=== PATIENT | male | born 1945 | race Two or more races ===

== ENCOUNTER 2018-11-10 15:58 | Inpatient (IN) | payer OTHER ==
[~2018-11-10] VITALS: Ht 167.6 cm; Wt 82.1 kg
[~2018-11-10 15:58] MED LIST: DILAUDID1 MG/1 ML PO; DILAUDID2 MG IVP; HYDROMORPHO1 MG/1 M1 IVP; HYDROMORPHO1 MG/1 M4 IJ; LANTUS SOL100 UNIT/1 SUBQ; LOSARTAN POTASS50 MG ORAL; SALINE 10ML FLU10 ML IVF; TYLENOL650 MG/20. RC; ZOFRAN 4 MG4 MG/2 ML IVP; ZOFRAN2 MG/1 M1 IV
[2018-11-10] MEDS ORDERED: METOPROLOL TART25 MG ORAL (16:07)
[2018-11-10] MEDS ORDERED: OMEPRAZOLE10 M1 ORAL (16:07)
--- NOTE | 2018-11-10 16:20 | NUR ---
ED Nurse Note: pt walked in c/o left 2nd toe pain, pt reports he's been having wound more than 15 days but unable to recall exactly how any days. noted 2nd toe blackened discoloration with tenderness and foul odor on 2nd toe, no drainage at this time, will cont monitor.
--- NOTE | 2018-11-10 16:27 | Emergency Room Report ---
History of Present Illness General Chief Complaint: General Complaint Source: Patient, Significant Other, Medical Record Present Illness HPI Patient presents with a discolored and smelly left second toe. This is been developing over the last couple of weeks. He just came up from [place]. He is not taking antibiotics at this time. He has peripheral neuropathy with diabetes and therefore the pain is not severe. There is been no trauma and no drainage from the toe. Not seeing a bulk gas specialist at this time. Complains of occasional chills but no documented fever. There is no drainage from the toe. He does have some swelling in his lower extremities but denies calf pain. The pain 5/10, aching worse when the foot is dependent when there is throbbing. He denies radiation of the pain. Tetanus around 5 years ago. Patient is a insulin-dependent diabetic. His sugars have been mostly high. His helps him to maintain glucose control. He denies renal disease but states that his vision has been changing recently. It is unclear whether he has had retinopathy. No sore throat, chest pain, palpitations, nausea, vomiting, diarrhea, dysuria, abdominal pain, shortness of breath, depression, anxiety, headache. He was last admitted in 2016 for possible cholecystitis. Allergies: Coded Allergies: No Known Allergies (Unverified , 08/14/15) Patient History Past Medical History: see triage record, old chart reviewed Social History: Denies: smoking, alcohol use, drug use Social History Narrative Born in [facility] Reviewed Nursing Documentation: PMH: Agreed; PSxH: Agreed Nursing Documentation-PMH Past Medical History: No History, Except For Hx Hypertension: Yes Hx COPD: No - BPH Hx Diabetes: Yes Review of Systems All Other Systems: negative except mentioned in HPI Physical Exam Vital Signs Date Time Temp Pulse Resp B/P (MAP) Pulse Ox O2 Delivery O2 Flow Rate FiO2 11/10/18 16:04 98.2 107 18 163/69 (100) 98 Room Air Sp02 EP Interpretation: reviewed, normal General Appearance: well appearing, no apparent distress, GCS 15 Head: normocephalic Eyes: bilateral eye normal inspection, bilateral eye PERRL, bilateral eye EOMI ENT: moist mucus membranes Neck: supple Respiratory: lungs clear, normal breath sounds Cardiovascular #1: regular rate, rhythm, no JVD, no murmur, edema - 1-2+ Cardiovascular #2: 2+ dorsalis pedis (R), 2+ dorsalis pedis (L) Gastrointestinal: normal inspection, normal bowel sounds, non tender, no mass, non-distended Musculoskeletal: back normal, gait/station normal, normal range of motion Neurologic: alert, oriented x3 Psychiatric: mood/affect normal Skin: other - Gangrenous left second toe with some erythema of the foot Medical Decision Making Diagnostic Impression: Primary Impression: Gangrene of toe of left foot Additional Impressions: Elevated lactic acid level Hyperglycemia Renal failure Qualified Codes: N19 - Unspecified kidney failure ER Course Patient presents with gangrenous left second toe. Frontal includes acute gas gangrene, dry gangrene, osteomyelitis amongst others. Evaluation will be with EKG, chest x-ray, foot x-ray and labs. The patient will receive antibiotics after blood cultures have been performed. EKG without injury. CXR no infiltrate. Foot with changes toe soft tissue. Min elevated WBC. Elevated ESR. Renal failure. Elevated glucose. Elevated lactic acid. VS stable. Bolus given. Antibiotics begun. Evaluated by Dr. Castillo. Consult Dr. Islas. Admit med floor. Improved lactate. Discussed with patient renal disease. Laboratory Tests Test 11/10/18 16:33 11/10/18 16:38 11/10/18 18:00 11/10/18 18:10 White Blood Count 10.2 K/UL (4.8-10.8) Red Blood Count 3.85 M/UL (4.70-6.10) L Hemoglobin 11.2 G/DL (14.2-18.0) L Hematocrit 32.5 % (42.0-52.0) L Mean Corpuscular Volume 84 FL (80-99) Mean Corpuscular Hemoglobin 29.0 PG (27.0-31.0) Mean Corpuscular Hemoglobin Concent 34.4 G/DL (32.0-36.0) Red Cell Distribution Width 10.4 % (11.6-14.8) L Platelet Count 297 K/UL (150-450) Mean Platelet Volume 6.5 FL (6.5-10.1) Neutrophils (%) (Auto) 63.7 % (45.0-75.0) Lymphocytes (%) (Auto) 25.3 % (20.0-45.0) Monocytes (%) (Auto) 8.7 % (1.0-10.0) Eosinophils (%) (Auto) 1.6 % (0.0-3.0) Basophils (%) (Auto) 0.8 % (0.0-2.0) Erythrocyte Sedimentation Rate 91 MM/HR (0-20) H Prothrombin Time 10.2 SEC (9.30-11.50) Prothrombin Time INR 1.0 (0.9-1.1) PTT 29 SEC (23-33) Sodium Level 138 MMOL/L (136-145) Potassium Level 4.6 MMOL/L (3.5-5.1) Chloride Level 104 MMOL/L (98-107) Carbon Dioxide Level 22 MMOL/L (21-32) Anion Gap 12 mmol/L (5-15) Blood Urea Nitrogen 39 mg/dL (7-18) H Creatinine 2.9 MG/DL (0.55-1.30) H Estimate Glomerular Filtration Rate mL/min (>60) Glucose Level 232 MG/DL (74-106) H Lactic Acid Level 2.10 mmol/L (0.4-2.0) H 1.50 mmol/L (0.66-2.22) Calcium Level 9.7 MG/DL (8.5-10.1) Magnesium Level 2.0 MG/DL (1.8-2.4) Total Bilirubin 0.3 MG/DL (0.2-1.0) Aspartate Amino Transferase (AST) 14 U/L (15-37) L Alanine Aminotransferase (ALT) 18 U/L (12-78) Alkaline Phosphatase 65 U/L (46-116) Total Creatine Kinase 135 U/L (26-308) Creatine Kinase MB 2.3 NG/ML (0.0-3.6) Creatine Kinase MB Relative Index 1.7 Troponin I 0.000 ng/mL (0.000-0.056) Pro-B-Type Natriuretic Peptide 1074 pg/mL (0-125) H Total Protein 7.9 G/DL (6.4-8.2) Albumin 3.4 G/DL (3.4-5.0) Globulin 4.5 g/dL Albumin/Globulin Ratio 0.8 (1.0-2.7) L Lipase 134 U/L (73-393) C-Reactive Protein, Quantitative 3.3 mg/dL (0.00-0.90) H Urine Color Pale yellow Urine Appearance Clear Urine pH 5 (4.5-8.0) Urine Specific [place] 1.015 (1.005-1.035) Urine Protein 2+ (NEGATIVE) H Urine Glucose (UA) 4+ (NEGATIVE) H Urine Ketones Negative (NEGATIVE) Urine Blood 1+ (NEGATIVE) H Urine Nitrite Negative (NEGATIVE) Urine Bilirubin Negative (NEGATIVE) Urine Urobilinogen Normal MG/DL (0.0-1.0) Urine Leukocyte Esterase Negative (NEGATIVE) Urine RBC 0 /HPF (0 - 0) Urine WBC 0-2 /HPF (0 - 0) Urine Squamous Epithelial Cells Few /LPF (NONE/OCC) Urine Amorphous Sediment Few /LPF (NONE) H Urine Bacteria Few /HPF (NONE) Urine Random Creatinine Pending Urine Random Microalbumin Pending Urine Random Sodium 60 mmol/L (20-110) Urine Creatinine 78.7 MG/DL (30.0-125.0) Urine Microalbumin/Creatinine Ratio Pending EKG Diagnostic Results Rate: tachycardiac Rhythm: NSR ST Segments: no acute changes - low voltage Rhythm Strip Diag. Results EP Interpretation: yes Rhythm: no PVC's, no ectopy, other - Sinus tachycardia Chest X-Ray Diagnostic Results Chest X-Ray Diagnostic Results : Chest X-Ray Ordered: Yes # of Views/Limited/Complete: 1 View Indication: Other EP Interpretation: Yes Interpretation: no consolidation, no effusion, no pneumothorax Impression: No acute disease Electronically Signed by: Electronically signed by Cm Meng MD Other X-Ray Diagnostic Results Other X-Ray Diagnostic Results : X-Ray ordered: Left foot # of Views/Limited Vs Complete: 3 View Indication: Other EP Interpretation: Yes Interpretation: no dislocation, no fractures, other - Osteopenia, vascular calcifications and soft tissue changes second toe Impression: Other Electronically Signed by: Electronically signed by Cm Meng MD Last Vital Signs Date Time Temp Pulse Resp B/P (MAP) Pulse Ox O2 Delivery O2 Flow Rate FiO2 11/11/18 00:00 99.0 95 18 125/60 (81) 97 11/10/18 23:04 Room Air Status: improved Disposition: ADMITTED INPATIENT Condition: Serious Cm Meng MD Nov 10, 2018 16:27
[2018-11-10] MEDS ORDERED: Cefepime HCl 1 GM in NS 55 ML IV SCH (16:30)
[2018-11-10] MEDS ORDERED: Vancomycin 1 GM in NS 275 ML IV ONE (16:30)
[2018-11-10 16:48] LABS: BASOPHILS % (AUTO) 0.8 % (0.0-2.0); EOSINOPHILS % (AUTO) 1.6 % (0.0-3.0); HEMATOCRIT 32.5 % (42.0-52.0); HEMOGLOBIN 11.2 G/DL (14.2-18.0); LYMPHOCYTES % (AUTO) 25.3 % (20.0-45.0); MEAN CORPUSCULAR VOLUME 84 FL (80-99); MONOCYTES % (AUTO) 8.7 % (1.0-10.0); NEUTROPHILS % (AUTO) 63.7 % (45.0-75.0); PLATELET COUNT 297 K/UL (150-450); RED BLOOD COUNT 3.85 M/UL (4.70-6.10); RED CELL DISTRIBUTION WIDTH 10.4 % (11.6-14.8); WHITE BLOOD COUNT 10.2 K/UL (4.8-10.8)
--- NOTE | 2018-11-10 16:54 | Diagnostic Imaging Report ---
EXAM: XR Left Foot Complete, 3 or More Views CLINICAL HISTORY: OSTEOMY TECHNIQUE: Frontal, lateral and oblique views of the left foot. COMPARISON: No relevant prior studies available. FINDINGS: Bones/joints: No acute fracture. Degenerative changes. Plantar and posterior calcaneal spurs. Osteopenia. Soft tissues: Soft tissue swelling. Vasculature: Vascular calcifications. IMPRESSION: No acute fracture.
--- NOTE | 2018-11-10 16:55 | Diagnostic Imaging Report ---
EXAM: XR Chest, 1 View CLINICAL HISTORY: OSTEOMY TECHNIQUE: Frontal view of the chest. COMPARISON: No relevant prior studies available. FINDINGS: Lungs: No consolidation. Pleural space: Unremarkable. No pneumothorax. Heart: Unremarkable. No cardiomegaly. Mediastinum: Unremarkable. Bones/joints: No acute fracture. IMPRESSION: No acute cardiopulmonary disease.
[2018-11-10 17:00] VITALS: BP 141/62
[2018-11-10] MEDS ORDERED: Sodium Chloride 2,200 ML IVLG ONE (17:15)
--- NOTE | 2018-11-10 17:23 | NUR ---
HAND-OFF: Report given to KRISTIAN Calderon and endorsed care.
[2018-11-10 17:31] LABS: ANION GAP 12 mmol/L (5-15); BLOOD UREA NITROGEN 39 mg/dL (7-18); CALCIUM 9.7 MG/DL (8.5-10.1); CARBON DIOXIDE 22 MMOL/L (21-32); CHLORIDE 104 MMOL/L (98-107); CREATININE 2.9 MG/DL (0.55-1.30); POTASSIUM 4.6 MMOL/L (3.5-5.1); SODIUM 138 MMOL/L (136-145)
[2018-11-10 17:45] LABS: ALANINE AMINOTRANSFERASE 18 U/L (12-78); ALBUMIN 3.4 G/DL (3.4-5.0); ALBUMIN/GLOBULIN RATIO 0.8 (1.0-2.7); ALKALINE PHOSPHATASE 65 U/L (46-116); ASPARTATE AMINO TRANSFERASE 14 U/L (15-37); BILIRUBIN,TOTAL 0.3 MG/DL (0.2-1.0); CKMB 2.3 NG/ML (0.0-3.6); CREATINE KINASE 135 U/L (26-308)
[2018-11-10 18:18] LABS: APPEARANCE,URINE CLEAR; BILIRUBIN, URINE NEGATIVE (NEGATIVE); COLOR,URINE PALE YELLOW; GLUCOSE, URINE (UA) 4+ (NEGATIVE); KETONES,URINE NEGATIVE (NEGATIVE); LEUKOCYTE ESTERASE ,URINE NEGATIVE (NEGATIVE); NITRITE,URINE NEGATIVE (NEGATIVE); PH,URINE 5 (4.5-8.0); PROTEIN,URINE 2+ (NEGATIVE); UROBILINOGEN,URINE NORMAL MG/DL (0.0-1.0)
[2018-11-10] MEDS ORDERED: Morphine Sulfate 2mg/ml Inj(IV/IM USE ONLY) IVP PRN ×2 (18:30)
[2018-11-10] MEDS ORDERED: HYDROcodone/Acetamin 5/325 tab ORAL PRN (18:30)
[2018-11-10] MEDS ORDERED: Miralax 17gm pkt ORAL PRN (18:30)
--- NOTE | 2018-11-10 18:43 | History and Physical ---
History of Present Illness General Date patient seen: Nov 10, 2018 Time patient seen: 17:20 Reason for Hospitalization: General Complaint Present Illness HPI 72 y/o M urdu speaker from [place] who presents with a discolored and smelly left second toe. This is been developing over the last couple of weeks after he used clippers to cut his toe nail and the whole nail was extracted accidentally. He just came up from [place]. He is not taking antibiotics at this time. He has peripheral neuropathy with diabetes and therefore the pain is not severe. He reports problems with his vision but denies eye surgeries in the past. There is been no trauma and no drainage from the toe and there is foul smell identified. Not seeing a client engagement specialist at this time. Tetanus around 5 years ago. Patient is a insulin-dependent diabetic. His sugars have been mostly high. His helps him to maintain glucose control. Takes NPH 40 units AM and 20 units PM. He denies renal disease but states that his vision has been changing recently. It is unclear whether he has had retinopathy or not. In the ED, antibiotics were started and admission is requested. Allergies: Coded Allergies: No Known Allergies (Unverified , 08/14/15) Medication History Scheduled Hydromorphone Hcl/Pf (Hydromorphone Hcl 1 Mg/Ml Amp), 1 MG IVP Q4HR, (Reported) Losartan Potassium* (Losartan Potassium*), 100 MG ORAL DAILY, (Reported) Metoprolol Tartrate* (Metoprolol Tartrate*), Unknown Dose ORAL EVERY 12 HOURS, ( Reported) Omeprazole (Omeprazole), Unknown Dose ORAL DAILY, (Reported) Saline (Sodium Chloride), 10 ML IVF Q8HR, (Reported) Scheduled PRN Acetaminophen (Acetaminophen), 650 MG RC QID PRN for Fever/Headache/Mild Pain, ( Reported) Miscellaneous Medications Insulin Glargine (Lantus), 30 SUBQ, (Reported) Ondansetron* (Zofran*), 4 MG IVP, (Reported) Patient History Healthcare decision maker Resuscitation status Advanced Directive on File Review of Systems All Other Systems: negative except mentioned in HPI Physical Exam General Appearance: WD/WN Lines, tubes and drains: peripheral, central line HEENT: normocephalic, atraumatic Respiratory/Chest: lungs clear Cardiovascular/Chest: normal peripheral pulses, normal rate, other - Left foot TA and DP 1 + Abdomen: non tender, soft Extremities: other - Left second toe with necrosis in the ungual bed and with foul smell Neurologic: fare register repairer II-XII grossly normal, alert, oriented x 3, responsive Last 24 Hour Vital Signs Date Time Temp Pulse Resp B/P (MAP) Pulse Ox O2 Delivery O2 Flow Rate FiO2 11/10/18 17:00 98.2 104 18 141/62 98 Room Air 11/10/18 17:00 104 18 Room Air 11/10/18 16:04 98.2 107 18 163/69 (100) 98 Room Air Laboratory Tests Test 11/10/18 16:33 11/10/18 18:00 White Blood Count 10.2 K/UL (4.8-10.8) Red Blood Count 3.85 M/UL (4.70-6.10) L Hemoglobin 11.2 G/DL (14.2-18.0) L Hematocrit 32.5 % (42.0-52.0) L Mean Corpuscular Volume 84 FL (80-99) Mean Corpuscular Hemoglobin 29.0 PG (27.0-31.0) Mean Corpuscular Hemoglobin Concent 34.4 G/DL (32.0-36.0) Red Cell Distribution Width 10.4 % (11.6-14.8) L Platelet Count 297 K/UL (150-450) Mean Platelet Volume 6.5 FL (6.5-10.1) Neutrophils (%) (Auto) 63.7 % (45.0-75.0) Lymphocytes (%) (Auto) 25.3 % (20.0-45.0) Monocytes (%) (Auto) 8.7 % (1.0-10.0) Eosinophils (%) (Auto) 1.6 % (0.0-3.0) Basophils (%) (Auto) 0.8 % (0.0-2.0) Erythrocyte Sedimentation Rate 91 MM/HR (0-20) H Prothrombin Time 10.2 SEC (9.30-11.50) Prothromb Time International Ratio 1.0 (0.9-1.1) Activated Partial Thromboplast Time 29 SEC (23-33) Sodium Level 138 MMOL/L (136-145) Potassium Level 4.6 MMOL/L (3.5-5.1) Chloride Level 104 MMOL/L (98-107) Carbon Dioxide Level 22 MMOL/L (21-32) Anion Gap 12 mmol/L (5-15) Blood Urea Nitrogen 39 mg/dL (7-18) H Creatinine 2.9 MG/DL (0.55-1.30) H Estimat Glomerular Filtration Rate mL/min (>60) Glucose Level 232 MG/DL (74-106) H Lactic Acid Level 2.10 mmol/L (0.4-2.0) H Calcium Level 9.7 MG/DL (8.5-10.1) Magnesium Level 2.0 MG/DL (1.8-2.4) Total Bilirubin 0.3 MG/DL (0.2-1.0) Aspartate Amino Transf (AST/SGOT) 14 U/L (15-37) L Alanine Aminotransferase (ALT/SGPT) 18 U/L (12-78) Alkaline Phosphatase 65 U/L (46-116) Total Creatine Kinase 135 U/L (26-308) Creatine Kinase MB 2.3 NG/ML (0.0-3.6) Creatine Kinase MB Relative Index 1.7 Troponin I 0.000 ng/mL (0.000-0.056) Pro-B-Type Natriuretic Peptide 1074 pg/mL (0-125) H Total Protein 7.9 G/DL (6.4-8.2) Albumin 3.4 G/DL (3.4-5.0) Globulin 4.5 g/dL Albumin/Globulin Ratio 0.8 (1.0-2.7) L Lipase 134 U/L (73-393) Urine Color Pale yellow Urine Appearance Clear Urine pH 5 (4.5-8.0) Urine Specific [place] 1.015 (1.005-1.035) Urine Protein 2+ (NEGATIVE) H Urine Glucose (UA) 4+ (NEGATIVE) H Urine Ketones Negative (NEGATIVE) Urine Blood 1+ (NEGATIVE) H Urine Nitrite Negative (NEGATIVE) Urine Bilirubin Negative (NEGATIVE) Urine Urobilinogen Normal MG/DL (0.0-1.0) Urine Leukocyte Esterase Negative (NEGATIVE) Urine RBC 0 /HPF (0 - 0) Urine WBC 0-2 /HPF (0 - 0) Urine Squamous Epithelial Cells Few /LPF (NONE/OCC) Urine Amorphous Sediment Few /LPF (NONE) H Urine Bacteria Few /HPF (NONE) Height (Feet): 5 Height (Inches): 6.00 Weight (Pounds): 160 Medications Current Medications Medications (Trade) Dose Ordered Sig/Sathish Route PRN Reason Start Time Stop Time Status Last Admin Dose Admin Acetaminophen (Tylenol) 650 mg Q4H PRN ORAL Mild Pain (Pain Scale 1-3) 11/10/18 18:30 12/10/18 18:29 Acetaminophen/ Hydrocodone Bitart (Egan 5/325) 1 tab QIDPRN PRN ORAL pain 11/10/18 18:30 11/17/18 18:29 Cefepime HCl 1 gm/ Sodium Chloride 55 ml @ 110 mls/hr Q12H IV 11/10/18 16:30 11/11/18 16:29 11/10/18 16:39 Dextrose (Dextrose 50%) 25 ml Q30M PRN IV Hypoglycemia 11/10/18 18:30 12/10/18 18:29 Dextrose (Dextrose 50%) 50 ml Q30M PRN IV Hypoglycemia 11/10/18 18:30 12/10/18 18:29 Enoxaparin Sodium (Lovenox) 30 mg QHS SUBQ 11/10/18 21:00 12/10/18 20:59 Morphine Sulfate (Morphine Sulfate) 1 mg Q2H PRN IVP For Pain 11/10/18 18:30 11/17/18 18:29 Pantoprazole (Protonix) 40 mg DAILY ORAL 11/11/18 09:00 12/11/18 08:59 Polyethylene Glycol (Miralax) 17 gm HSPRN PRN ORAL Constipation 11/10/18 18:30 12/10/18 18:29 Sodium Chloride 1,000 ml @ 100 mls/hr Q10H IVLG 11/10/18 20:00 11/11/18 19:59 Sodium Chloride 1,000 ml @ 300 mls/hr Q3H20M IV 11/10/18 16:30 12/10/18 16:29 11/10/18 16:39 Assessment/Plan Status: stable Assessment/Plan: 72 y/o male admitted with L second toe foul smelling necrosis. # L second toe distal dry gangrene # Diabetic foot ulcer Cefepime and Vancomycin started in the ER, will renally dose ESR and CRP added Consider ID consult in AM if needed after surgical evaluation by Dr. Islas. Possible need for vascular and podiatry consult # Diabetic nephropathy # CKD 4 Patient denies prior renal disease and nephrology was consulted. Dr. Frankel IVF and monitor BMP Add UA with microalbumin # IDDM Likely poorly controlled due to renal, ophtalmic and peripheral vascular disease HbA1c Titrate insulin and consider endocrinology input if A1c > 10 # Disposition Inpatient PT evaluation for possible need of assistive devices. FULL CODE DVT and GI ppx Freda Castillo MD Nov 10, 2018 18:43
[2018-11-10 18:55] VITALS: BP 138/77
--- NOTE | 2018-11-10 19:08 | NUR ---
HAND-OFF: Report given to KRISTIAN Moreno. no orders to carry. report to [place] unit will be given at 1930.
--- NOTE | 2018-11-10 19:38 | NUR ---
ER Nurse Note: Pt a&ox4, VSS, baseline HR >100, RA, no signs of distress. Pt denies pain, n/v, no resp distress. Pt uses urinal at bedside. Black toe on LT foot, second digit, denies pain. Hx of DM. Dinner tray at bedside. Report given to KRISTIAN Gonzalez in [place] for continuity of care.
[2018-11-10 19:40] VITALS: BP 146/72
--- NOTE | 2018-11-10 20:00 | NUR ---
NURSE NOTES: Patient came from ER via gurney. A&OX4. IV site patent and intact. Belongings are checked. Noted infected 2nd left toe, picture taken. Bed in lowest position. Call light within reach. Will continue to monitor.
[2018-11-10] MEDS ORDERED: Cefepime 1gm vial IM ONE (21:00)
[2018-11-10] MEDS: Enoxaparin 30mg Inj SUBQ SCH (21:55)
[2018-11-11] VITALS: BP 125/60
[2018-11-11 04:00] VITALS: BP 130/62
[2018-11-11] MEDS: Insulin NPH SUBQ SCH ×2 (06:19→17:47)
[2018-11-11 07:27] LABS: ANION GAP 9 mmol/L (5-15); BLOOD UREA NITROGEN 27 mg/dL (7-18); CALCIUM 8.3 MG/DL (8.5-10.1); CARBON DIOXIDE 21 MMOL/L (21-32); CHLORIDE 111 MMOL/L (98-107); CHOLESTEROL 106 MG/DL (< 200); CREATININE 2.3 MG/DL (0.55-1.30); HDL CHOLESTEROL 21 MG/DL (40-60); SODIUM 141 MMOL/L (136-145); TRIGLYCERIDES 138 MG/DL (30-150)
[2018-11-11 07:30] LABS: BASOPHILS % (AUTO) 0.9 % (0.0-2.0); EOSINOPHILS % (AUTO) 1.6 % (0.0-3.0); HEMATOCRIT 29.5 % (42.0-52.0); HEMOGLOBIN 9.8 G/DL (14.2-18.0); LYMPHOCYTES % (AUTO) 19.2 % (20.0-45.0); MEAN CORPUSCULAR VOLUME 88 FL (80-99); MONOCYTES % (AUTO) 7.3 % (1.0-10.0); PLATELET COUNT 265 K/UL (150-450); RED BLOOD COUNT 3.37 M/UL (4.70-6.10); RED CELL DISTRIBUTION WIDTH 11.2 % (11.6-14.8); WHITE BLOOD COUNT 8.9 K/UL (4.8-10.8)
--- NOTE | 2018-11-11 07:30 | NUR ---
HAND-OFF: Report given to Lay De La O RN.
--- NOTE | 2018-11-11 07:35 | NUR ---
NURSE NOTES: Received patient in bed, awake, alert and oriented x4. Not in respiratory/cardiac distress. No s/s of hypo/hyperglycemia. Patient is in mild pain on his left 2nd toe but bearable without pain medication @ this time. Bed is in lowest position and locked. Call light within reach. Will continue plan of care.
[2018-11-11 08:00] VITALS: BP 131/60
[2018-11-11] MEDS ORDERED: Vancomycin 1.25gm/NS Premix IVPB ONE (09:00)
[2018-11-11] MEDS: Losartan 50mg tab ORAL SCH (09:08)
--- NOTE | 2018-11-11 10:00 | NUR ---
NURSE NOTES: Rn offered lactulos and docusate. Patient only consumed half of it. Patient refused to take more waving her hands and closing her mouth and pushed the medication cup. RN explained the risks and benefits.Patient had 4 times of bowel movement.Will continue to monitor.
[2018-11-11 12:00] VITALS: BP 110/50
[2018-11-11 16:00] VITALS: BP 134/59
[2018-11-11] MEDS: Cefepime 1gm in D5W 55ml IVPB SCH (16:12)
--- NOTE | 2018-11-11 17:12 | NUR ---
PT Note PT eval completed, treatment initiated. Patient is untrained in the use of a FWW with PWB on the LLE. Patient needs PT to instruct and train patient on the use of the FWW to minimize pressure on the left foot. Addendum: 11/11/18 at 1713 by NOBLE LEVI PT Amended: Links added.
--- NOTE | 2018-11-11 18:23 | Consultation ---
History of Present Illness General Reason for Hospitalization: General Complaint Present Illness HPI 72 year old male presents with a discolored, necrotic, and foul smelling left second toe/ray. This is been developing over the last couple of weeks. He just came up from [place]. He is not taking antibiotics at this time. He has peripheral neuropathy with diabetes and therefore the pain is not severe. There is been no trauma and no drainage from the toe. Not seeing a audio visual specialist at this time. Complains of occasional chills but no documented fever. There is no drainage from the toe. He does have some swelling in his lower extremities but denies calf pain. The pain 5/10, aching worse when the foot is dependent when there is throbbing. He denies radiation of the pain. Tetanus around 5 years ago. Patient is a insulin-dependent diabetic. His sugars have been mostly high. His helps him to maintain glucose control. He denies renal disease but states that his vision has been changing recently. It is unclear whether he has had retinopathy. Surgery called to evaluate and assist with care patient states he is happy to be in hospital and wants care for his wound as he does not understand how this happened. Allergies: Coded Allergies: No Known Allergies (Unverified , 08/14/15) Medication History Scheduled Hydromorphone Hcl/Pf (Hydromorphone Hcl 1 Mg/Ml Amp), 1 MG IVP Q4HR, (Reported) Losartan Potassium* (Losartan Potassium*), 100 MG ORAL DAILY, (Reported) Metoprolol Tartrate* (Metoprolol Tartrate*), Unknown Dose ORAL EVERY 12 HOURS, ( Reported) Omeprazole (Omeprazole), Unknown Dose ORAL DAILY, (Reported) Saline (Sodium Chloride), 10 ML IVF Q8HR, (Reported) Scheduled PRN Acetaminophen (Acetaminophen), 650 MG RC QID PRN for Fever/Headache/Mild Pain, ( Reported) Miscellaneous Medications Insulin Glargine (Lantus), 30 SUBQ, (Reported) Ondansetron* (Zofran*), 4 MG IVP, (Reported) Patient History History Provided By: Patient, Medical Record, PMD Healthcare decision maker Resuscitation status Full Code Advanced Directive on File Past Medical/Surgical History Past Medical/Surgical History: (1) Cholecystitis with cholelithiasis (2) Dehydration (3) Fever (4) Cholelithiasis (5) HTN (hypertension) (6) DM (diabetes mellitus) (7) Elevated LFTs (8) Renal insufficiency (9) Biliary colic (10) Hyperglycemia (11) Renal failure (12) Elevated lactic acid level (13) Gangrene of toe of left foot Review of Systems Review of Symptoms General ROS: no weight loss or fever Psychological ROS: no depression or mood changes, no memory loss Ophthalmic ROS: no visual changes or eye irritation ENT ROS: no nasal congestion, hearing loss, dizziness Allergy and Immunology ROS: no allergic symptoms or urticaria Hematological and Lymphatic ROS: no swollen glands, unusual bleeding or bruising Endocrine ROS: no polyuria, polydipsia, weight changes, temperature intolerance Respiratory ROS: no cough, shortness of breath, or wheezing Cardiovascular ROS: no chest pain or dyspnea on exertion Gastrointestinal ROS: denies abdominal pain, no bright red blood in stool. Musculoskeletal ROS: no myalgias or arthralgias Neurological ROS: no TIA or stroke symptoms Dermatological ROS: no new or changing skin lesions, rashes or pruritis Physical Exam Physical Exam General appearance: alert, cooperative, no distress, appears stated age Head: Normocephalic, without obvious abnormality, atraumatic Eyes: conjunctivae/corneas clear. PERRL, EOM's intact. Fundi benign Throat: Lips, mucosa, and tongue normal. Teeth and gums normal Neck: supple, symmetrical, trachea midline, no adenopathy, thyroid: not enlarged, symmetric, no tenderness/mass/nodules, no carotid bruit and no JVD Lungs: clear to auscultation bilaterally Heart: regular rate and rhythm, S1, S2 normal, no murmur, click, rub or gallop Abdomen: soft, non-tender. Bowel sounds normal. No masses, no organomegaly Extremities: extremities normal, atraumatic, necrotic left second toe. foul odor. no drainage Pulses: 2+ and symmetric Skin: Skin color, texture, turgor normal. No rashes or lesions Neurologic: Grossly normal Last 24 Hour Vital Signs Date Time Temp Pulse Resp B/P (MAP) Pulse Ox O2 Delivery O2 Flow Rate FiO2 11/11/18 16:00 98.8 83 19 134/59 (84) 99 11/11/18 12:00 98.0 80 17 110/50 (70) 99 11/11/18 09:08 131/60 11/11/18 09:00 Room Air 11/11/18 08:00 97.9 81 19 131/60 (83) 97 11/11/18 04:00 98.2 84 18 130/62 (84) 97 11/11/18 00:00 99.0 95 18 125/60 (81) 97 11/10/18 23:04 Room Air 11/10/18 21:54 111 130/63 11/10/18 21:00 Room Air 11/10/18 19:40 98.1 110 18 146/72 98 Room Air 11/10/18 19:40 98.1 110 18 146/72 98 Room Air 11/10/18 18:55 98.0 101 18 138/77 98 Room Air Intake and Output 11/10/18 11/11/18 19:00 07:00 Intake Total 3860 ml 1020 ml Balance 3860 ml 1020 ml Intake Oral 30 ml 120 ml IV Total 3830 ml 900 ml # Voids 3 # Bowel Movements 1 Laboratory Tests Test 11/10/18 22:50 11/11/18 06:00 Lactic Acid Level 1.50 mmol/L (0.4-2.0) White Blood Count 8.9 K/UL (4.8-10.8) Red Blood Count 3.37 M/UL (4.70-6.10) L Hemoglobin 9.8 G/DL (14.2-18.0) L Hematocrit 29.5 % (42.0-52.0) L Mean Corpuscular Volume 88 FL (80-99) Mean Corpuscular Hemoglobin 28.9 PG (27.0-31.0) Mean Corpuscular Hemoglobin Concent 33.1 G/DL (32.0-36.0) Red Cell Distribution Width 11.2 % (11.6-14.8) L Platelet Count 265 K/UL (150-450) Mean Platelet Volume 6.5 FL (6.5-10.1) Neutrophils (%) (Auto) 71.0 % (45.0-75.0) Lymphocytes (%) (Auto) 19.2 % (20.0-45.0) L Monocytes (%) (Auto) 7.3 % (1.0-10.0) Eosinophils (%) (Auto) 1.6 % (0.0-3.0) Basophils (%) (Auto) 0.9 % (0.0-2.0) Sodium Level 141 MMOL/L (136-145) Potassium Level 4.0 MMOL/L (3.5-5.1) Chloride Level 111 MMOL/L (98-107) H Carbon Dioxide Level 21 MMOL/L (21-32) Anion Gap 9 mmol/L (5-15) Blood Urea Nitrogen 27 mg/dL (7-18) H Creatinine 2.3 MG/DL (0.55-1.30) H Estimat Glomerular Filtration Rate mL/min (>60) Glucose Level 147 MG/DL (74-106) H Hemoglobin A1c 10.4 % (4.3-6.0) H Calcium Level 8.3 MG/DL (8.5-10.1) L Triglycerides Level 138 MG/DL (30-150) Cholesterol Level 106 MG/DL (< 200) LDL Cholesterol 63 mg/dL (<100) HDL Cholesterol 21 MG/DL (40-60) L Cholesterol/HDL Ratio 5.0 (3.3-4.4) H Random Vancomycin Level 6.9 ug/mL Height (Feet): 5 Height (Inches): 6.00 Weight (Pounds): 160 Medications Current Medications Medications (Trade) Dose Ordered Sig/Satihsh Route PRN Reason Start Time Stop Time Status Last Admin Dose Admin Acetaminophen (Tylenol) 650 mg Q4H PRN ORAL Mild Pain (Pain Scale 1-3) 11/10/18 18:30 12/10/18 18:29 Acetaminophen/ Hydrocodone Bitart ([place] 5/325) 1 tab QIDPRN PRN ORAL pain 11/10/18 18:30 11/17/18 18:29 Cefepime HCl 1 gm/ Dextrose 55 ml @ 110 mls/hr Q24H IVPB 11/11/18 16:00 11/18/18 15:59 11/11/18 16:12 Dextrose (Dextrose 50%) 25 ml Q30M PRN IV Hypoglycemia 11/10/18 18:30 12/10/18 18:29 Dextrose (Dextrose 50%) 50 ml Q30M PRN IV Hypoglycemia 11/10/18 18:30 12/10/18 18:29 Enoxaparin Sodium (Lovenox) 30 mg QHS SUBQ 11/10/18 21:00 12/10/18 20:59 11/10/18 21:55 Insulin Human NPH (Humulin N) 20 units BEFORE DINNER SUBQ 11/11/18 16:30 12/11/18 16:29 11/11/18 17:47 Insulin Human NPH (Humulin N) 40 units BEFORE BREAKFAST SUBQ 11/11/18 06:30 12/11/18 06:29 11/11/18 06:19 Losartan Potassium (Cozaar) 100 mg DAILY ORAL 11/11/18 09:00 12/11/18 08:59 11/11/18 09:08 Metoprolol Tartrate (Lopressor) 100 mg BEDTIME ORAL 11/11/18 21:00 12/11/18 20:59 Morphine Sulfate (Morphine Sulfate) 1 mg Q2H PRN IVP For Pain 11/10/18 18:30 11/17/18 18:29 Pantoprazole (Protonix) 40 mg DAILY ORAL 11/11/18 09:00 12/11/18 08:59 11/11/18 09:08 Polyethylene Glycol (Miralax) 17 gm HSPRN PRN ORAL Constipation 11/10/18 18:30 12/10/18 18:29 Sodium Chloride 1,000 ml @ 100 mls/hr Q10H IVLG 11/10/18 20:00 11/11/18 19:59 11/11/18 09:00 Vancomycin HCl (Vanco rx to dose) 1 ea DAILY PRN MISC Per rx protocol 11/10/18 18:30 12/10/18 18:29 Assessment/Plan Problem List: (1) Elevated lactic acid level Assessment & Plan: Patient presented with lactic acidosis, cellulitis and infection of his left foot with necrosis and gangrene of the left second toe. Continue with his resuscitation Okay for diet ICD Codes: R79.89 - Other specified abnormal findings of blood chemistry SNOMED: 9781080 (2) Gangrene of toe of left foot Assessment & Plan: Patient presents with left second ray gangrene dry foul- smelling no purulent drainage edema and cellulitis of the foot. Has had it for a few weeks and worsening since his trip to [place]. Plain films noted no fracture Recommend MRI of the left foot which can be performed when available IV antibiotics as per infectious disease Swab necrotic area of left foot with Betadine wash foot daily apply gauze dressing We will follow with recommendations as results of imaging are available We will attempt to salvage as much possible but potentially may need an amputation Strict glucose monitoring and control Thank you will follow with recommendations ICD Codes: I96 - Gangrene, not elsewhere classified SNOMED: 54294704368417523 (3) DM (diabetes mellitus) ICD Codes: E11.9 - Type 2 diabetes mellitus without complications SNOMED: 95806863 Nikhil Islas Nov 11, 2018 18:22
--- NOTE | 2018-11-11 19:35 | NUR ---
HAND-OFF: Report given to Minsu.
--- NOTE | 2018-11-11 19:40 | General Progress Note ---
Assessment/Plan Problem List: (1) Hyperglycemia ICD Codes: R73.9 - Hyperglycemia, unspecified SNOMED: 95767958 (2) Renal failure ICD Codes: N19 - Unspecified kidney failure SNOMED: 91266262 Qualifiers: Qualified Codes: N19 - Unspecified kidney failure (3) Elevated lactic acid level ICD Codes: R79.89 - Other specified abnormal findings of blood chemistry SNOMED: 8020205 (4) Gangrene of toe of left foot ICD Codes: I96 - Gangrene, not elsewhere classified SNOMED: 51819857249372388 (5) DM (diabetes mellitus) ICD Codes: E11.9 - Type 2 diabetes mellitus without complications SNOMED: 93974985 Status: stable Assessment/Plan: 72 y/o male admitted with L second toe foul smelling necrosis. # L second toe distal dry gangrene # Diabetic foot ulcer Cefepime and Vancomycin- renal dose ESR and CRP added Possible need for vascular and podiatry consult MRI foot Surgical consult appreciated Lactic acid trending down # Diabetic nephropathy # CKD 4 Patient denies prior renal disease and nephrology was consulted. Dr. Frankel IVF and monitor BMP UA with microalbumin # IDDM Likely poorly controlled due to renal, ophthalmic and peripheral vascular disease HbA1c Titrate insulin and consider endocrinology input if A1c > 10 # Disposition PT evaluation for possible need of assistive devices. FULL CODE DVT and GI ppx Subjective Date patient seen: Nov 11, 2018 ROS Limited/Unobtainable: No Constitutional: Denies: no symptoms, chills, diaphoresis, fever, malaise, weakness, other HEENT: Denies: no symptoms, eye pain, blurred vision, tearing, double vision, ear pain, ear discharge, nose pain, nose congestion, throat pain, throat swelling, mouth pain, mouth swelling, other Cardiovascular: Denies: no symptoms, chest pain, edema, irregular heart rate, lightheadedness, palpitations, syncope, other Gastrointestinal/Abdominal: Denies: no symptoms, abdomen distended, abdominal pain, black stools, tarry stools, blood in stool, constipated, diarrhea, difficulty swallowing, nausea, poor appetite, poor fluid intake, rectal bleeding , vomiting, other Genitourinary: Denies: no symptoms, burning, discharge, frequency, flank pain, hematuria, incontinence, pain, urgency, other Neurologic/Psychiatric: Denies: no symptoms, anxiety, depressed, emotional problems, headache, numbness, paresthesia, pre-existing deficit, seizure, tingling, tremors, weakness, other Endocrine: Denies: no symptoms, excessive sweating, flushing, intolerance to cold, intolerance to heat, increased hunger, increased thirst, increased urine, unexplained weight gain, unexplained weight loss, other Hematologic/Lymphatic: Denies: no symptoms, anemia, easy bleeding, easy bruising, other Allergies: Coded Allergies: No Known Allergies (Unverified , 08/14/15) Subjective Seen and examined Denies pain. he is resting comfortably Objective Last 24 Hour Vital Signs Date Time Temp Pulse Resp B/P (MAP) Pulse Ox O2 Delivery O2 Flow Rate FiO2 11/11/18 16:00 98.8 83 19 134/59 (84) 99 11/11/18 12:00 98.0 80 17 110/50 (70) 99 11/11/18 09:08 131/60 11/11/18 09:00 Room Air 11/11/18 08:00 97.9 81 19 131/60 (83) 97 11/11/18 04:00 98.2 84 18 130/62 (84) 97 11/11/18 00:00 99.0 95 18 125/60 (81) 97 11/10/18 23:04 Room Air 11/10/18 21:54 111 130/63 11/10/18 21:00 Room Air Intake and Output 11/10/18 11/11/18 19:00 07:00 Intake Total 3860 ml 1020 ml Balance 3860 ml 1020 ml Intake Oral 30 ml 120 ml IV Total 3830 ml 900 ml # Voids 3 # Bowel Movements 1 Laboratory Tests 11/10/18 22:50: Lactic Acid Level 1.50 11/11/18 06:00: White Blood Count 8.9, Red Blood Count 3.37L, Hemoglobin 9.8L, Hematocrit 29.5L , Mean Corpuscular Volume 88, Mean Corpuscular Hemoglobin 28.9, Mean Corpuscular Hemoglobin Concent 33.1, Red Cell Distribution Width 11.2L, Platelet Count 265, Mean Platelet Volume 6.5, Neutrophils (%) (Auto) 71.0, Lymphocytes (%) (Auto) 19.2L, Monocytes (%) (Auto) 7.3, Eosinophils (%) (Auto) 1.6, Basophils (%) (Auto) 0.9, Sodium Level 141, Potassium Level 4.0, Chloride Level 111H, Carbon Dioxide Level 21, Anion Gap 9, Blood Urea Nitrogen 27H, Creatinine 2.3H, Estimat Glomerular Filtration Rate , Glucose Level 147H, Hemoglobin A1c 10.4H, Calcium Level 8.3L, Triglycerides Level 138, Cholesterol Level 106, LDL Cholesterol 63, HDL Cholesterol 21L, Cholesterol/HDL Ratio 5.0H, Random Vancomycin Level 6.9 Height (Feet): 5 Height (Inches): 6.00 Weight (Pounds): 160 Objective General appearance: alert, cooperative, no distress, appears stated age Head: Normocephalic, without obvious abnormality, atraumatic Eyes: conjunctivae/corneas clear. PERRL, EOM's intact. Fundi benign Throat: Lips, mucosa, and tongue normal. Teeth and gums normal Neck: supple, symmetrical, trachea midline, no adenopathy, thyroid: not enlarged, symmetric, no tenderness/mass/nodules, no carotid bruit and no JVD Lungs: clear to auscultation bilaterally Heart: regular rate and rhythm, S1, S2 normal, no murmur, click, rub or gallop Abdomen: soft, non-tender. Bowel sounds normal. No masses, no organomegaly Extremities: extremities normal, atraumatic, necrotic left second toe. foul odor. no drainage Pulses: 2+ and symmetric Skin: Skin color, texture, turgor normal. No rashes or lesions Neurologic: Grossly normal Erich Pitts M.D. Nov 11, 2018 19:40
--- NOTE | 2018-11-11 19:55 | NUR ---
NURSE NOTES: Report received from KRISTIAN Glass. Patient aao x 4. Breathing unlabored without distress, discomfort, or sob. Denies pain at this time except for on the left second toe that is consistent. Will follow appropriately. IV on the left antecubital intact running fluid as ordered. Bed placed at the lowest with brakes and side rails up for safety. Call light placed within reach and encouraged to use. Will continue to monitor and provide care as ordered.
[2018-11-11 20:00] VITALS: BP 142/64
[2018-11-11] MEDS: Enoxaparin 30mg Inj SUBQ SCH (20:59)
[2018-11-12] VITALS: BP 129/71
--- NOTE | 2018-11-12 02:15 | NUR ---
NURSE NOTES: Patient's previous IV site infiltrated and leaking. Placed new 22g IV on the right forearm. Explained procedure before and during the procedure. Patient agreed and tolerated the procedure well. New IV intact, dry, clean, and patent.
[2018-11-12 04:00] VITALS: BP 141/71
[2018-11-12] MEDS: Insulin NPH SUBQ SCH ×2 (06:33→16:31)
[2018-11-12 07:25] LABS: BASOPHILS % (AUTO) 0.8 % (0.0-2.0); EOSINOPHILS % (AUTO) 2.9 % (0.0-3.0); HEMATOCRIT 31.2 % (42.0-52.0); HEMOGLOBIN 10.3 G/DL (14.2-18.0); LYMPHOCYTES % (AUTO) 27.1 % (20.0-45.0); MEAN CORPUSCULAR VOLUME 88 FL (80-99); MONOCYTES % (AUTO) 7.2 % (1.0-10.0); PLATELET COUNT 263 K/UL (150-450); RED BLOOD COUNT 3.56 M/UL (4.70-6.10); RED CELL DISTRIBUTION WIDTH 11.1 % (11.6-14.8); WHITE BLOOD COUNT 8.1 K/UL (4.8-10.8)
[2018-11-12 07:41] LABS: ALANINE AMINOTRANSFERASE 14 U/L (12-78); ALBUMIN 2.7 G/DL (3.4-5.0); ALBUMIN/GLOBULIN RATIO 0.7 (1.0-2.7); ALKALINE PHOSPHATASE 57 U/L (46-116); ANION GAP 9 mmol/L (5-15); ASPARTATE AMINO TRANSFERASE 15 U/L (15-37); BILIRUBIN,TOTAL 0.4 MG/DL (0.2-1.0); BLOOD UREA NITROGEN 21 mg/dL (7-18); CALCIUM 8.8 MG/DL (8.5-10.1); CARBON DIOXIDE 22 MMOL/L (21-32); CHLORIDE 111 MMOL/L (98-107); CREATININE 1.9 MG/DL (0.55-1.30); POTASSIUM 4.1 MMOL/L (3.5-5.1); SODIUM 142 MMOL/L (136-145)
--- NOTE | 2018-11-12 07:45 | NUR ---
HAND-OFF: Report given to KRISTIAN Glass.
--- NOTE | 2018-11-12 07:50 | NUR ---
NURSE NOTES: Received patient in bed, awake, alert and oriented x4. Not in respiratory/cardiac distress. No s/s of hypo/hyperglycemia. Denies pain or discomfort.Dressing on left foot intact. Bed is in lowest position and locked. Call light within reach. Will continue plan of care.
[2018-11-12 08:00] VITALS: BP 141/58
[2018-11-12] MEDS: Losartan 50mg tab ORAL SCH (09:08)
--- NOTE | 2018-11-12 11:33 | Surgery Progress Note ---
Surgery Progress Note Subjective Additional Comments Patient seen and examined at bedside. No acute events. Labs improving. Overall improving on IV antibiotics. Pending MRI Objective Last 24 Hour Vital Signs Date Time Temp Pulse Resp B/P (MAP) Pulse Ox O2 Delivery O2 Flow Rate FiO2 11/12/18 09:08 141/58 11/12/18 09:00 Room Air 11/12/18 08:00 97.3 83 18 141/58 (85) 98 11/12/18 04:00 97.9 76 20 141/71 (94) 79 11/12/18 00:00 97.8 77 18 129/71 (90) 99 11/11/18 21:00 Room Air 11/11/18 20:54 89 141/68 11/11/18 20:00 97.9 89 20 142/64 (90) 99 11/11/18 16:00 98.8 83 19 134/59 (84) 99 11/11/18 12:00 98.0 80 17 110/50 (70) 99 I&O Intake and Output 11/11/18 11/12/18 18:59 06:59 Intake Total 1875.000 ml 200 ml Output Total 1000 ml Balance 1875.000 ml -800 ml IV Total 375.000 ml 200 ml Other 1500 ml Output Urine Total 1000 ml # Voids 2 Dressing: dry Wound: clean Cardiovascular: RSR Respiratory: clear Abdomen: soft, flat, non-tender, present bowel sounds Extremities: edema, cyanosis, no tenderness, pulses, other Laboratory Tests Test 11/12/18 07:15 White Blood Count 8.1 K/UL (4.8-10.8) Red Blood Count 3.56 M/UL (4.70-6.10) L Hemoglobin 10.3 G/DL (14.2-18.0) L Hematocrit 31.2 % (42.0-52.0) L Mean Corpuscular Volume 88 FL (80-99) Mean Corpuscular Hemoglobin 28.9 PG (27.0-31.0) Mean Corpuscular Hemoglobin Concent 33.0 G/DL (32.0-36.0) Red Cell Distribution Width 11.1 % (11.6-14.8) L Platelet Count 263 K/UL (150-450) Mean Platelet Volume 6.3 FL (6.5-10.1) L Neutrophils (%) (Auto) 62.0 % (45.0-75.0) Lymphocytes (%) (Auto) 27.1 % (20.0-45.0) Monocytes (%) (Auto) 7.2 % (1.0-10.0) Eosinophils (%) (Auto) 2.9 % (0.0-3.0) Basophils (%) (Auto) 0.8 % (0.0-2.0) Erythrocyte Sedimentation Rate 64 MM/HR (0-20) H Prothrombin Time 10.3 SEC (9.30-11.50) Prothromb Time International Ratio 1.0 (0.9-1.1) Activated Partial Thromboplast Time 32 SEC (23-33) Sodium Level 142 MMOL/L (136-145) Potassium Level 4.1 MMOL/L (3.5-5.1) Chloride Level 111 MMOL/L (98-107) H Carbon Dioxide Level 22 MMOL/L (21-32) Anion Gap 9 mmol/L (5-15) Blood Urea Nitrogen 21 mg/dL (7-18) H Creatinine 1.9 MG/DL (0.55-1.30) H Estimat Glomerular Filtration Rate mL/min (>60) Glucose Level 148 MG/DL (74-106) H Calcium Level 8.8 MG/DL (8.5-10.1) Total Bilirubin 0.4 MG/DL (0.2-1.0) Aspartate Amino Transf (AST/SGOT) 15 U/L (15-37) Alanine Aminotransferase (ALT/SGPT) 14 U/L (12-78) Alkaline Phosphatase 57 U/L (46-116) C-Reactive Protein, Quantitative 4.0 mg/dL (0.00-0.90) H Total Protein 6.7 G/DL (6.4-8.2) Albumin 2.7 G/DL (3.4-5.0) L Globulin 4.0 g/dL Albumin/Globulin Ratio 0.7 (1.0-2.7) L Plan Problems: (1) Elevated lactic acid level Assessment & Plan: Patient presented with lactic acidosis, cellulitis and infection of his left foot with necrosis and gangrene of the left second toe. Continue with his resuscitation Okay for diet (2) Gangrene of toe of left foot Assessment & Plan: Patient presents with left second ray gangrene dry foul- smelling no purulent drainage edema and cellulitis of the foot. Has had it for a few weeks and worsening since his trip to [place]. Plain films noted no fracture Pending MRI of the left foot which can be performed when available IV antibiotics as per infectious disease Pending venous and arterial studies as well Swab necrotic area of left foot with Betadine wash foot daily apply gauze dressing We will follow with recommendations as results of imaging are available We will attempt to salvage as much possible but potentially may need an amputation Strict glucose monitoring and control Thank you will follow with recommendations (3) DM (diabetes mellitus) Nikhil Islas Nov 12, 2018 11:33
[2018-11-12 12:00] VITALS: BP 140/71
--- NOTE | 2018-11-12 13:36 | Consultation ---
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 This is been developing over the last couple of weeks after he used clippers to cut his toe nail and the whole nail was extracted accidentally. He just came up from [place]. He is not taking antibiotics at this time. He has peripheral neuropathy with diabetes and therefore the pain is not severe. He reports problems with his vision but denies eye surgeries in the past. There is been no trauma and no drainage from the toe and there is foul smell identified. Not seeing a public health clinical nurse specialist at this time.Tetanus around 5 years ago. Patient is a insulin-dependent diabetic. His sugars have been mostly high. His helps him to maintain glucose control. Takes NPH 40 units AM and 20 units PM. He denies renal disease but states that his vision has been changing recently. It is unclear whether he has had retinopathy or not. Cr on presentation noted to be 2.3- improved to 1.9 with hydration Urine microalbumin/cr ration pending Allergies: Coded Allergies: No Known Allergies (Unverified , 08/14/15) Medication History Scheduled Hydromorphone Hcl/Pf (Hydromorphone Hcl 1 Mg/Ml Amp), 1 MG IVP Q4HR, (Reported) Losartan Potassium* (Losartan Potassium*), 100 MG ORAL DAILY, (Reported) Metoprolol Tartrate* (Metoprolol Tartrate*), Unknown Dose ORAL EVERY 12 HOURS, ( Reported) Omeprazole (Omeprazole), Unknown Dose ORAL DAILY, (Reported) Saline (Sodium Chloride), 10 ML IVF Q8HR, (Reported) Scheduled PRN Acetaminophen (Acetaminophen), 650 MG RC QID PRN for Fever/Headache/Mild Pain, ( Reported) Miscellaneous Medications Insulin Glargine (Lantus), 30 SUBQ, (Reported) Ondansetron* (Zofran*), 4 MG IVP, (Reported) Patient History Healthcare decision maker Resuscitation status Full Code Advanced Directive on File Review of Systems Constitutional: Denies: no symptoms, see HPI, chills, sweats, fever, malaise, weakness, other Eye: Denies: no symptoms, see HPI, eye pain, blurred vision, tearing, double vision, nose pain, nose congestion, acuity changes, discharge, other ENT: Denies: no symptoms, see HPI, ear pain, ear discharge, nose pain, nose congestion, throat pain, throat swelling, mouth pain, hearing loss, nasal discharge, other Respiratory: Denies: no symptoms, see HPI, cough, orthopnea, shortness of breath, stridor, wheezing, SHAH, sputum, other Cardiovascular: Denies: no symptoms, see HPI, chest pain, edema, palpitations, syncope, PND, other Gastrointestinal: Denies: no symptoms, see HPI, abdominal pain, constipation, diarrhea, nausea, vomiting, melena, hematemesis, other Genitourinary: Denies: no symptoms, see HPI, discharge, dysuria, frequency, hematuria, pain, retention, incontinence, urgency, vag bleed/dc, other Musculoskeletal: Denies: no symptoms, see HPI, back pain, gout, joint pain, joint swelling, muscle pain, muscle stiffness, other Skin: Denies: no symptoms, see HPI, rash, change in color, change in hair/nails , dryness, lesions, other Neurological: Denies: no symptoms, see HPI, headache, numbness, paresthesia, seizure, tingling, tremors, focal weakness, syncope, dizziness, other Physical Exam General Appearance: WD/WN, no apparent distress HEENT: normocephalic, atraumatic Neck: non-tender, supple Respiratory/Chest: chest wall non-tender, lungs clear Cardiovascular/Chest: no JVD Abdomen: normal bowel sounds, non tender Extremities: normal range of motion, non-tender, other - + gangrene of foot 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 Last 24 Hour Vital Signs Date Time Temp Pulse Resp B/P (MAP) Pulse Ox O2 Delivery O2 Flow Rate FiO2 11/12/18 09:08 141/58 11/12/18 09:00 Room Air 11/12/18 08:00 97.3 83 18 141/58 (85) 98 11/12/18 04:00 97.9 76 20 141/71 (94) 79 11/12/18 00:00 97.8 77 18 129/71 (90) 99 11/11/18 21:00 Room Air 11/11/18 20:54 89 141/68 11/11/18 20:00 97.9 89 20 142/64 (90) 99 11/11/18 16:00 98.8 83 19 134/59 (84) 99 Intake and Output 11/11/18 11/12/18 18:59 06:59 Intake Total 1875.000 ml 200 ml Output Total 1000 ml Balance 1875.000 ml -800 ml IV Total 375.000 ml 200 ml Other 1500 ml Output Urine Total 1000 ml # Voids 2 Laboratory Tests Test 11/12/18 07:15 White Blood Count 8.1 K/UL (4.8-10.8) Red Blood Count 3.56 M/UL (4.70-6.10) L Hemoglobin 10.3 G/DL (14.2-18.0) L Hematocrit 31.2 % (42.0-52.0) L Mean Corpuscular Volume 88 FL (80-99) Mean Corpuscular Hemoglobin 28.9 PG (27.0-31.0) Mean Corpuscular Hemoglobin Concent 33.0 G/DL (32.0-36.0) Red Cell Distribution Width 11.1 % (11.6-14.8) L Platelet Count 263 K/UL (150-450) Mean Platelet Volume 6.3 FL (6.5-10.1) L Neutrophils (%) (Auto) 62.0 % (45.0-75.0) Lymphocytes (%) (Auto) 27.1 % (20.0-45.0) Monocytes (%) (Auto) 7.2 % (1.0-10.0) Eosinophils (%) (Auto) 2.9 % (0.0-3.0) Basophils (%) (Auto) 0.8 % (0.0-2.0) Erythrocyte Sedimentation Rate 64 MM/HR (0-20) H Prothrombin Time 10.3 SEC (9.30-11.50) Prothromb Time International Ratio 1.0 (0.9-1.1) Activated Partial Thromboplast Time 32 SEC (23-33) Sodium Level 142 MMOL/L (136-145) Potassium Level 4.1 MMOL/L (3.5-5.1) Chloride Level 111 MMOL/L (98-107) H Carbon Dioxide Level 22 MMOL/L (21-32) Anion Gap 9 mmol/L (5-15) Blood Urea Nitrogen 21 mg/dL (7-18) H Creatinine 1.9 MG/DL (0.55-1.30) H Estimat Glomerular Filtration Rate mL/min (>60) Glucose Level 148 MG/DL (74-106) H Calcium Level 8.8 MG/DL (8.5-10.1) Total Bilirubin 0.4 MG/DL (0.2-1.0) Aspartate Amino Transf (AST/SGOT) 15 U/L (15-37) Alanine Aminotransferase (ALT/SGPT) 14 U/L (12-78) Alkaline Phosphatase 57 U/L (46-116) C-Reactive Protein, Quantitative 4.0 mg/dL (0.00-0.90) H Total Protein 6.7 G/DL (6.4-8.2) Albumin 2.7 G/DL (3.4-5.0) L Globulin 4.0 g/dL Albumin/Globulin Ratio 0.7 (1.0-2.7) L Height (Feet): 5 Height (Inches): 6.00 Weight (Pounds): 160 Medications Current Medications Medications (Trade) Dose Ordered Sig/Sathish Route PRN Reason Start Time Stop Time Status Last Admin Dose Admin Acetaminophen (Tylenol) 650 mg Q4H PRN ORAL Mild Pain (Pain Scale 1-3) 11/10/18 18:30 12/10/18 18:29 Acetaminophen/ Hydrocodone Bitart ([place] 5/325) 1 tab QIDPRN PRN ORAL pain 11/10/18 18:30 11/17/18 18:29 Cefepime HCl 1 gm/ Dextrose 55 ml @ 110 mls/hr Q24H IVPB 11/11/18 16:00 11/18/18 15:59 11/11/18 16:12 Dextrose (Dextrose 50%) 25 ml Q30M PRN IV Hypoglycemia 11/10/18 18:30 12/10/18 18:29 Dextrose (Dextrose 50%) 50 ml Q30M PRN IV Hypoglycemia 11/10/18 18:30 12/10/18 18:29 Enoxaparin Sodium (Lovenox) 30 mg QHS SUBQ 11/10/18 21:00 12/10/18 20:59 11/11/18 20:59 Insulin Human NPH (Humulin N) 20 units BEFORE DINNER SUBQ 11/11/18 16:30 12/11/18 16:29 11/11/18 17:47 Insulin Human NPH (Humulin N) 40 units BEFORE BREAKFAST SUBQ 11/11/18 06:30 12/11/18 06:29 11/12/18 06:33 Losartan Potassium (Cozaar) 100 mg DAILY ORAL 11/11/18 09:00 12/11/18 08:59 11/12/18 09:08 Metoprolol Tartrate (Lopressor) 100 mg BEDTIME ORAL 11/11/18 21:00 12/11/18 20:59 11/11/18 20:54 Morphine Sulfate (Morphine Sulfate) 1 mg Q2H PRN IVP For Pain 11/10/18 18:30 11/17/18 18:29 Pantoprazole (Protonix) 40 mg DAILY ORAL 11/11/18 09:00 12/11/18 08:59 11/12/18 09:07 Polyethylene Glycol (Miralax) 17 gm HSPRN PRN ORAL Constipation 11/10/18 18:30 12/10/18 18:29 Vancomycin HCl (Vanco rx to dose) 1 ea DAILY PRN MISC Per rx protocol 11/10/18 18:30 12/10/18 18:29 Assessment/Plan Problem List: (1) Hyperglycemia ICD Codes: R73.9 - Hyperglycemia, unspecified SNOMED: 64751696 (2) Elevated lactic acid level ICD Codes: R79.89 - Other specified abnormal findings of blood chemistry SNOMED: 8192723 (3) Gangrene of toe of left foot ICD Codes: I96 - Gangrene, not elsewhere classified SNOMED: 95773292344764945 (4) Renal failure ICD Codes: N19 - Unspecified kidney failure SNOMED: 37599937 Qualifiers: Qualified Codes: N19 - Unspecified kidney failure (5) Dehydration ICD Codes: E86.0 - Dehydration SNOMED: 89065747 (6) HTN (hypertension) ICD Codes: I10 - Essential (primary) hypertension SNOMED: 94399238 (7) DM (diabetes mellitus) ICD Codes: E11.9 - Type 2 diabetes mellitus without complications SNOMED: 48120061 Diagnosis [place] I: # Acute kidney injury on possibley CKD stage III- likely diabetic nephropathy # L second toe distal dry gangrene # IDDM # HTN # Diabetic foot ulcer - hold losartan for now - continue to monitor off IVF- resume when/if NPO - continue metop 100 at night - add amlodipine 5mg daily - check renal US - cefepime and Vancomycin- renal dose - avoid supratherapeutic vanco level - podiatry/surgery Lissa Muir M.D. Nov 12, 2018 13:36
--- NOTE | 2018-11-12 14:40 | NUR ---
NURSE NOTES: RN Changed the dressing of left 2nd toe, no changes in skin condition.
--- NOTE | 2018-11-12 15:26 | General Progress Note ---
Assessment/Plan Problem List: (1) Hyperglycemia ICD Codes: R73.9 - Hyperglycemia, unspecified SNOMED: 54754865 (2) Renal failure ICD Codes: N19 - Unspecified kidney failure SNOMED: 44874667 Qualifiers: Qualified Codes: N19 - Unspecified kidney failure (3) Elevated lactic acid level ICD Codes: R79.89 - Other specified abnormal findings of blood chemistry SNOMED: 1701975 (4) Gangrene of toe of left foot ICD Codes: I96 - Gangrene, not elsewhere classified SNOMED: 97555184563765027 (5) DM (diabetes mellitus) ICD Codes: E11.9 - Type 2 diabetes mellitus without complications SNOMED: 89890792 Status: stable Assessment/Plan: 72 y/o male admitted with L second toe foul smelling necrosis. 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 Patient denies prior renal disease and nephrology was consulted. Dr. Frankel IVF and monitor BMP UA with microalbumin Renal US Hold Losartan # IDDM- poorly controlled- HbA1c 10.4 finger stick glucose has been less than 200 on NPH 40 AM, 20 PM diabetic diet # Disposition PT evaluation for possible need of assistive devices. FULL CODE DVT and GI ppx Subjective Date patient seen: Nov 12, 2018 ROS Limited/Unobtainable: No Constitutional: Denies: no symptoms, chills, diaphoresis, fever, malaise, weakness, other HEENT: Denies: no symptoms, eye pain, blurred vision, tearing, double vision, ear pain, ear discharge, nose pain, nose congestion, throat pain, throat swelling, mouth pain, mouth swelling, other Cardiovascular: Denies: no symptoms, chest pain, edema, irregular heart rate, lightheadedness, palpitations, syncope, other Respiratory: Denies: no symptoms, cough, orthopnea, shortness of breath, SOB with excertion, SOB at rest, sputum, stridor, wheezing, other Gastrointestinal/Abdominal: Denies: no symptoms, abdomen distended, abdominal pain, black stools, tarry stools, blood in stool, constipated, diarrhea, difficulty swallowing, nausea, poor appetite, poor fluid intake, rectal bleeding , vomiting, other Endocrine: Denies: no symptoms, excessive sweating, flushing, intolerance to cold, intolerance to heat, increased hunger, increased thirst, increased urine, unexplained weight gain, unexplained weight loss, other Allergies: Coded Allergies: No Known Allergies (Unverified , 08/14/15) Subjective Seen and examined c/o mild pain in the toe. he is resting comfortably Objective Last 24 Hour Vital Signs Date Time Temp Pulse Resp B/P (MAP) Pulse Ox O2 Delivery O2 Flow Rate FiO2 11/12/18 12:00 98.7 83 18 140/71 (94) 98 11/12/18 09:08 141/58 11/12/18 09:00 Room Air 11/12/18 08:00 97.3 83 18 141/58 (85) 98 11/12/18 04:00 97.9 76 20 141/71 (94) 79 11/12/18 00:00 97.8 77 18 129/71 (90) 99 11/11/18 21:00 Room Air 11/11/18 20:54 89 141/68 11/11/18 20:00 97.9 89 20 142/64 (90) 99 11/11/18 16:00 98.8 83 19 134/59 (84) 99 Intake and Output 11/11/18 11/12/18 18:59 06:59 Intake Total 1875.000 ml 200 ml Output Total 1000 ml Balance 1875.000 ml -800 ml IV Total 375.000 ml 200 ml Other 1500 ml Output Urine Total 1000 ml # Voids 2 Laboratory Tests 11/12/18 07:15: White Blood Count 8.1, Red Blood Count 3.56L, Hemoglobin 10.3L, Hematocrit 31.2L , Mean Corpuscular Volume 88, Mean Corpuscular Hemoglobin 28.9, Mean Corpuscular Hemoglobin Concent 33.0, Red Cell Distribution Width 11.1L, Platelet Count 263, Mean Platelet Volume 6.3L, Neutrophils (%) (Auto) 62.0, Lymphocytes (%) (Auto) 27.1, Monocytes (%) (Auto) 7.2, Eosinophils (%) (Auto) 2.9, Basophils (%) (Auto) 0.8, Erythrocyte Sedimentation Rate 64H, Prothrombin Time 10.3, Prothromb Time International Ratio 1.0, Activated Partial Thromboplast Time 32, Sodium Level 142, Potassium Level 4.1, Chloride Level 111H , Carbon Dioxide Level 22, Anion Gap 9, Blood Urea Nitrogen 21H, Creatinine 1.9H , Estimat Glomerular Filtration Rate , Glucose Level 148H, Calcium Level 8.8, Total Bilirubin 0.4, Aspartate Amino Transf (AST/SGOT) 15, Alanine Aminotransferase (ALT/SGPT) 14, Alkaline Phosphatase 57, C-Reactive Protein, Quantitative 4.0H, Total Protein 6.7, Albumin 2.7L, Globulin 4.0, Albumin/ Globulin Ratio 0.7L Height (Feet): 5 Height (Inches): 6.00 Weight (Pounds): 160 Objective General appearance: alert, cooperative, no distress, appears stated age Head: Normocephalic, without obvious abnormality, atraumatic Eyes: conjunctivae/corneas clear. PERRL, EOM's intact. Fundi benign Throat: Lips, mucosa, and tongue normal. Teeth and gums normal Neck: supple, symmetrical, trachea midline, no adenopathy, thyroid: not enlarged, symmetric, no tenderness/mass/nodules, no carotid bruit and no JVD Lungs: clear to auscultation bilaterally Heart: regular rate and rhythm, S1, S2 normal, no murmur, click, rub or gallop Abdomen: soft, non-tender. Bowel sounds normal. No masses, no organomegaly Extremities: extremities normal, atraumatic, necrotic left second toe. foul odor. no drainage Pulses: 2+ and symmetric Skin: Skin color, texture, turgor normal. No rashes or lesions Neurologic: Grossly normal Erich Pitts M.D. Nov 12, 2018 15:26
[2018-11-12 16:00] VITALS: BP 116/69
[2018-11-12] MEDS: Cefepime 1gm in D5W 55ml IVPB SCH (16:29)
--- NOTE | 2018-11-12 19:37 | NUR ---
HAND-OFF: Report given to Jany.
--- NOTE | 2018-11-12 19:40 | NUR ---
NURSE NOTES: Received pt resting in bed. AAO x 4. On room air. IV site intact and patent. Dressing on L foot dry and intact. No c/o pain and no acute distress noted at this time. Bed locked, lowest position, alarm on, side rails up x 2, call light within reach. Will continue to monitor.
[2018-11-12 20:00] VITALS: BP 151/67
[2018-11-12] MEDS: Enoxaparin 30mg Inj SUBQ SCH (21:33)
[2018-11-13] VITALS: BP 145/71
[2018-11-13 04:00] VITALS: BP 134/64
[2018-11-13] MEDS: Insulin NPH SUBQ SCH ×2 (06:37→17:00)
--- NOTE | 2018-11-13 07:22 | NUR ---
NURSE NOTES: REPORT RECEIVED FROM KRISTIAN AWAN. PATIENT RECEIVED AWAKE AND ALERT AND ABLE TO MAKE NEEDS KNOWN. PATIENT HAS CALL LIGHT WITHIN REACH, IV SITE IS CLEAN DRY AND INTACT. BED IN THE LOW AND LOCKED POSITION. NO PHYSICAL SIGNS OF DISTRESS. WILL CONTINUE TO MONITOR PATIENT.
--- NOTE | 2018-11-13 07:52 | NUR ---
HAND-OFF: Report given to KRISTIAN Bejarano.
[2018-11-13 08:00] VITALS: BP 128/73
--- NOTE | 2018-11-13 09:11 | General Progress Note ---
Assessment/Plan Problem List: (1) Hyperglycemia ICD Codes: R73.9 - Hyperglycemia, unspecified SNOMED: 34075114 (2) Renal failure ICD Codes: N19 - Unspecified kidney failure SNOMED: 41505147 Qualifiers: Qualified Codes: N19 - Unspecified kidney failure (3) Elevated lactic acid level ICD Codes: R79.89 - Other specified abnormal findings of blood chemistry SNOMED: 6196159 (4) Gangrene of toe of left foot ICD Codes: I96 - Gangrene, not elsewhere classified SNOMED: 36353169099394615 (5) DM (diabetes mellitus) ICD Codes: E11.9 - Type 2 diabetes mellitus without complications SNOMED: 78131651 Status: stable Assessment/Plan: 72 y/o male admitted with L second toe foul smelling necrosis. 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 Patient denies prior renal disease and nephrology was consulted. Dr. Frankel IVF and monitor BMP UA with microalbumin Renal US Hold Losartan # IDDM- poorly controlled- HbA1c 10.4 finger stick glucose has been less than 200 on NPH 40 AM, 20 PM diabetic diet # Disposition PT evaluation for possible need of assistive devices. FULL CODE DVT and GI ppx Subjective Date patient seen: Nov 13, 2018 Constitutional: Denies: no symptoms, chills, diaphoresis, fever, malaise, weakness, other HEENT: Denies: no symptoms, eye pain, blurred vision, tearing, double vision, ear pain, ear discharge, nose pain, nose congestion, throat pain, throat swelling, mouth pain, mouth swelling, other Cardiovascular: Denies: no symptoms, chest pain, edema, irregular heart rate, lightheadedness, palpitations, syncope, other Respiratory: Denies: no symptoms, cough, orthopnea, shortness of breath, SOB with excertion, SOB at rest, sputum, stridor, wheezing, other Gastrointestinal/Abdominal: Denies: no symptoms, abdomen distended, abdominal pain, black stools, tarry stools, blood in stool, constipated, diarrhea, difficulty swallowing, nausea, poor appetite, poor fluid intake, rectal bleeding , vomiting, other Genitourinary: Denies: no symptoms, burning, discharge, frequency, flank pain, hematuria, incontinence, pain, urgency, other Neurologic/Psychiatric: Denies: no symptoms, anxiety, depressed, emotional problems, headache, numbness, paresthesia, pre-existing deficit, seizure, tingling, tremors, weakness, other Endocrine: Denies: no symptoms, excessive sweating, flushing, intolerance to cold, intolerance to heat, increased hunger, increased thirst, increased urine, unexplained weight gain, unexplained weight loss, other Hematologic/Lymphatic: Denies: no symptoms, anemia, easy bleeding, easy bruising, other Allergies: Coded Allergies: No Known Allergies (Unverified , 08/14/15) Subjective Seen and examined. he is resting comfortably Objective Last 24 Hour Vital Signs Date Time Temp Pulse Resp B/P (MAP) Pulse Ox O2 Delivery O2 Flow Rate FiO2 11/13/18 08:44 81 128/73 11/13/18 08:00 98.1 81 18 128/73 (91) 98 11/13/18 04:00 97.9 71 18 134/64 (87) 100 11/13/18 00:00 97.8 84 17 145/71 (95) 98 11/12/18 21:32 88 151/67 11/12/18 21:00 Room Air 11/12/18 20:00 98.0 88 18 151/67 (95) 98 11/12/18 16:00 99.1 85 19 116/69 (85) 98 11/12/18 12:00 98.7 83 18 140/71 (94) 98 Intake and Output 11/12/18 11/13/18 19:00 07:00 Intake Total 755 ml Balance 755 ml Intake Oral 700 ml IV Total 55 ml # Voids 4 3 # Bowel Movements 1 Laboratory Tests 11/13/18 06:20: Random Vancomycin Level 5.5 Height (Feet): 5 Height (Inches): 6.00 Weight (Pounds): 160 Objective General appearance: alert, cooperative, no distress, appears stated age Head: Normocephalic, without obvious abnormality, atraumatic Eyes: conjunctivae/corneas clear. PERRL, EOM's intact. Fundi benign Throat: Lips, mucosa, and tongue normal. Teeth and gums normal Neck: supple, symmetrical, trachea midline, no adenopathy, thyroid: not enlarged, symmetric, no tenderness/mass/nodules, no carotid bruit and no JVD Lungs: clear to auscultation bilaterally Heart: regular rate and rhythm, S1, S2 normal, no murmur, click, rub or gallop Abdomen: soft, non-tender. Bowel sounds normal. No masses, no organomegaly Extremities: extremities normal, atraumatic, necrotic left second toe. foul odor. no drainage Pulses: 2+ and symmetric Skin: Skin color, texture, turgor normal. No rashes or lesions Neurologic: Grossly normal Erich Pitts M.D. Nov 13, 2018 09:11
[2018-11-13] MEDS ORDERED: Vancomycin 1.5gm Premix IVPB ONE (10:00)
--- NOTE | 2018-11-13 11:00 | Diagnostic Imaging Report ---
EXAM: US Retroperitoneal Limited, Renal CLINICAL HISTORY: RENAL-A TECHNIQUE: Real-time ultrasound of the retroperitoneum (limited) with image documentation. COMPARISON: No relevant prior studies available. FINDINGS: Right kidney: Right kidney measures 10.2 x 5.9 cm. No hydronephrosis. No perinephric collection. Left kidney: Left kidney measures 10.5 x 5.0 cm. No hydronephrosis or perinephric collection. Bladder: Nodular lesion arising from the prostate or bladder base, measures 1.8 x 1.2 cm.. Bladder volume 162 mL Other findings: Heterogeneous nodular prostate measuring 4.6 x 4.2 x 4. 3 cm. IMPRESSION: 1. No hydronephrosis. 2. Nodular lesion arising from the prostate or bladder base, measures 1. 8 x 1.2 cm.
[2018-11-13 12:00] VITALS: BP 130/67
--- NOTE | 2018-11-13 13:47 | Surgery Progress Note ---
Surgery Progress Note Subjective Additional Comments no acute events comfortable stable pending MRI US noted Objective Last 24 Hour Vital Signs Date Time Temp Pulse Resp B/P (MAP) Pulse Ox O2 Delivery O2 Flow Rate FiO2 11/13/18 12:00 97.3 83 18 130/67 (88) 97 11/13/18 09:00 Room Air 11/13/18 08:44 81 128/73 11/13/18 08:00 98.1 81 18 128/73 (91) 98 11/13/18 04:00 97.9 71 18 134/64 (87) 100 11/13/18 00:00 97.8 84 17 145/71 (95) 98 11/12/18 21:32 88 151/67 11/12/18 21:00 Room Air 11/12/18 20:00 98.0 88 18 151/67 (95) 98 11/12/18 16:00 99.1 85 19 116/69 (85) 98 I&O Intake and Output 11/12/18 11/13/18 19:00 07:00 Intake Total 755 ml Balance 755 ml Intake Oral 700 ml IV Total 55 ml # Voids 4 3 # Bowel Movements 1 Dressing: other Wound: other Cardiovascular: RSR Respiratory: clear Abdomen: soft, non-tender, present bowel sounds, non-distended Extremities: cyanosis, other Laboratory Tests Test 11/13/18 06:20 Random Vancomycin Level 5.5 ug/mL Plan Problems: (1) Elevated lactic acid level Assessment & Plan: Patient presented with lactic acidosis, cellulitis and infection of his left foot with necrosis and gangrene of the left second toe. Continue with his resuscitation Okay for diet (2) Gangrene of toe of left foot Assessment & Plan: Patient presents with left second ray gangrene dry foul- smelling no purulent drainage edema and cellulitis of the foot. Has had it for a few weeks and worsening since his trip to [place]. Plain films noted no fracture Pending MRI of the left foot which can be performed when available IV antibiotics as per infectious disease Pending venous and arterial studies as well Swab necrotic area of left foot with Betadine wash foot daily apply gauze dressing We will follow with recommendations as results of imaging are available We will attempt to salvage as much possible but potentially may need an amputation Strict glucose monitoring and control Thank you will follow with recommendations (3) DM (diabetes mellitus) Nikhil Islas Nov 13, 2018 13:47
[2018-11-13 16:00] VITALS: BP 142/73
[2018-11-13] MEDS: Cefepime 1gm in D5W 55ml IVPB SCH (16:57)
[2018-11-13 20:00] VITALS: BP 126/71
--- NOTE | 2018-11-13 20:08 | NUR ---
HAND-OFF: Report given to KRISTIAN RINCON.
--- NOTE | 2018-11-13 20:11 | NUR ---
NURSE NOTES: Received report form KRISTIAN Bejarano. Patient is in bed, awake and alert x4. On room air with no signs of distress or SOB. No c/o pain at this time. IV is intact and patent. Bed locked and in lowest position. Call light in reach. Will continue to monitor.
[2018-11-13] MEDS: Enoxaparin 30mg Inj SUBQ SCH (20:39)
[2018-11-14] VITALS (7 sets, daily range): BP systolic 120–137; BP diastolic 44–72
--- NOTE | 2018-11-14 00:12 | NUR ---
NURSE NOTES: Patient blood sugar noted to be 66. Gave the patient 2 cups of juice. Blood sugar is now 74. Left a message through Dr. Nunes's answering service. Will follow plan of care as ordered and continue to monitor.
--- NOTE | 2018-11-14 00:30 | NUR ---
NURSE NOTES: Dr. Callejas called. Made aware of patient's blood sugar. No new orders.
[2018-11-14] MEDS: Insulin NPH SUBQ SCH ×2 (06:43→16:39)
--- NOTE | 2018-11-14 07:15 | NUR ---
HAND-OFF: Report given to KRISTIAN Bejarano.
--- NOTE | 2018-11-14 07:28 | NUR ---
NURSE NOTES: HANDOFF RECEIVED FROM SERGEY TOWNSEND. PATIENT OBSERVED SITTING IN THE BEDSIDE CHAIR. PATIENT IS ALERT AND ABLE TO MAKE NEEDS KNOWN. IV SITE IS CLEAN, DRY AND INTACT, SALINE LOCKED. BED IS IN THE LOW AND LOCKED POSITION WITH CALL LIGHT AT REACHL.
[2018-11-14 07:30] LABS: BASOPHILS % (AUTO) 0.9 % (0.0-2.0); EOSINOPHILS % (AUTO) 1.8 % (0.0-3.0); HEMATOCRIT 31.7 % (42.0-52.0); HEMOGLOBIN 10.3 G/DL (14.2-18.0); MEAN CORPUSCULAR VOLUME 87 FL (80-99); MONOCYTES % (AUTO) 8.7 % (1.0-10.0); NEUTROPHILS % (AUTO) 65.6 % (45.0-75.0); PLATELET COUNT 269 K/UL (150-450); RED BLOOD COUNT 3.64 M/UL (4.70-6.10); RED CELL DISTRIBUTION WIDTH 10.9 % (11.6-14.8); WHITE BLOOD COUNT 8.4 K/UL (4.8-10.8)
[2018-11-14 07:50] LABS: ALANINE AMINOTRANSFERASE 45 U/L (12-78); ALBUMIN 2.6 G/DL (3.4-5.0); ALBUMIN/GLOBULIN RATIO 0.6 (1.0-2.7); ALKALINE PHOSPHATASE 74 U/L (46-116); ANION GAP 12 mmol/L (5-15); ASPARTATE AMINO TRANSFERASE 67 U/L (15-37); BILIRUBIN,TOTAL 0.3 MG/DL (0.2-1.0); BLOOD UREA NITROGEN 18 mg/dL (7-18); CALCIUM 8.9 MG/DL (8.5-10.1); CARBON DIOXIDE 21 MMOL/L (21-32); CHLORIDE 109 MMOL/L (98-107); CREATININE 1.6 MG/DL (0.55-1.30); POTASSIUM 3.9 MMOL/L (3.5-5.1); SODIUM 142 MMOL/L (136-145)
--- NOTE | 2018-11-14 11:05 | NUR ---
MRI LEFT FOOT W/O COMPLETED.
--- NOTE | 2018-11-14 11:38 | Cardiology Report ---
APPROVED REPORT EKG Measurement Heart [id number] Sinus tachycardia Low voltage QRS Borderline ECG
--- NOTE | 2018-11-14 12:02 | Diagnostic Imaging Report ---
Indication: Left second toe gangrene Technique: Sagittal, axial, and coronal T1 FSE and FSE STIR images of the left forefoot Comparison: Reference made to plain radiographs dated the 2018 Findings: There is markedly increased STIR signal and markedly decreased T1 signal in the second distal phalanx. There is evidence of extensive surrounding soft tissue ulceration and tissue loss with possible exposure of the bone. There is subtle slightly increased STIR signal within the middle phalanx without evidence of corresponding T1 abnormality. The more proximal second digit marrow signal is normal. No other osseous marrow signal abnormality is demonstrated. Extensive high STIR signal is seen within the dorsal soft tissues. There is mildly increased circumferential STIR signal in the soft tissues of the second digit and in the dorsal soft tissues of the third and fourth digits. No focal drainable fluid collection to suggest abscess is demonstrated. No definite large tendon abnormality. Impression: Abnormal STIR and T1 signal within the second distal phalanx, indicative of osteomyelitis. Subtle increased STIR signal within the second middle phalanx without corresponding T1 signal abnormality. This may reflect reactive changes or very early osteomyelitis Dorsal edema. This may indicate cellulitis or may be vasogenic in origin
[2018-11-14] MEDS ORDERED: Heparin1,000 units/500ml Premix(Conc:2 units/ml) IV PRN (13:15)
[2018-11-14] MEDS ORDERED: Lidocaine 1% Plain 30 ml INJ PRN (13:15)
--- NOTE | 2018-11-14 13:16 | General Progress Note ---
Assessment/Plan Problem List: (1) Hyperglycemia ICD Codes: R73.9 - Hyperglycemia, unspecified SNOMED: 88480849 (2) Renal failure ICD Codes: N19 - Unspecified kidney failure SNOMED: 54851860 Qualifiers: Qualified Codes: N19 - Unspecified kidney failure (3) Elevated lactic acid level ICD Codes: R79.89 - Other specified abnormal findings of blood chemistry SNOMED: 4812654 (4) Gangrene of toe of left foot ICD Codes: I96 - Gangrene, not elsewhere classified SNOMED: 95219314272195500 (5) DM (diabetes mellitus) ICD Codes: E11.9 - Type 2 diabetes mellitus without complications SNOMED: 99177191 Status: stable Assessment/Plan: 72 y/o male admitted with L second toe foul smelling necrosis. # L second toe distal dry gangrene/ osteomyelitis shown on MRI foot. Vascular studies show patent arteries. # Diabetic foot ulcer Cefepime and Vancomycin- renal dose ESR and CRP weekly Surgical consult with Dr. Islas appreciated PICC consult for possible correction antibiotics ID consult to guide antibiotic coverage # Diabetic nephropathy with SHAHANA on CKD3-4, improving. Patient denies prior renal disease and nephrology was consulted. Dr. Frankel IVF and monitor BMP UA with microalbumin Renal US reviewed MRI abdomen without contrast to work up bladder nodule seen on US continue to hold Losartan # IDDM- poorly controlled- HbA1c 10.4 finger stick glucose has been less than 200 on NPH 40 AM, 20 PM diabetic diet # Disposition PT evaluation for possible need of assistive devices. FULL CODE DVT and GI ppx I spent 40 minutes on this encounter, 50% on counselling and care coordination Subjective Date patient seen: Nov 14, 2018 ROS Limited/Unobtainable: No Constitutional: Denies: no symptoms, chills, diaphoresis, fever, malaise, weakness, other HEENT: Denies: no symptoms, eye pain, blurred vision, tearing, double vision, ear pain, ear discharge, nose pain, nose congestion, throat pain, throat swelling, mouth pain, mouth swelling, other Cardiovascular: Denies: no symptoms, chest pain, edema, irregular heart rate, lightheadedness, palpitations, syncope, other Respiratory: Denies: no symptoms, cough, orthopnea, shortness of breath, SOB with excertion, SOB at rest, sputum, stridor, wheezing, other Gastrointestinal/Abdominal: Reports: no symptoms, abdomen distended, abdominal pain, black stools, tarry stools, blood in stool, constipated, diarrhea, difficulty swallowing, nausea, poor appetite, poor fluid intake, rectal bleeding , vomiting, other Genitourinary: Denies: no symptoms, burning, discharge, frequency, flank pain, hematuria, incontinence, pain, urgency, other Neurologic/Psychiatric: Denies: no symptoms, anxiety, depressed, emotional problems, headache, numbness, paresthesia, pre-existing deficit, seizure, tingling, tremors, weakness, other Endocrine: Denies: no symptoms, excessive sweating, flushing, intolerance to cold, intolerance to heat, increased hunger, increased thirst, increased urine, unexplained weight gain, unexplained weight loss, other Hematologic/Lymphatic: Denies: no symptoms, anemia, easy bleeding, easy bruising, other Allergies: Coded Allergies: No Known Allergies (Unverified , 08/14/15) Subjective Seen and examined. he is resting comfortably however later told the nurse he was having diarrhea and some abdominal pain Objective Last 24 Hour Vital Signs Date Time Temp Pulse Resp B/P (MAP) Pulse Ox O2 Delivery O2 Flow Rate FiO2 11/14/18 12:00 97.9 82 16 120/44 (69) 94 11/14/18 09:45 78 134/65 11/14/18 09:00 Room Air 11/14/18 08:00 98.1 78 18 134/65 (88) 99 11/14/18 04:00 98.0 72 19 137/72 (93) 98 11/14/18 00:00 98.0 93 20 132/68 (89) 97 11/13/18 21:00 Room Air 11/13/18 20:34 86 126/71 11/13/18 20:00 97.3 86 18 126/71 (89) 98 11/13/18 16:00 97.7 85 18 142/73 (96) 97 Intake and Output 11/13/18 11/14/18 19:00 07:00 Intake Total 800 ml 240 ml Output Total 560 ml Balance 240 ml 240 ml Intake Oral 800 ml 240 ml Output Urine Total 560 ml # Voids 3 2 Laboratory Tests 11/14/18 05:19: Urine Random Creatinine [Pending], Urine Random Microalbumin [Pending], Urine Microalbumin/Creatinine Ratio [Pending] 11/14/18 06:52: White Blood Count 8.4, Red Blood Count 3.64L, Hemoglobin 10.3L, Hematocrit 31.7L , Mean Corpuscular Volume 87, Mean Corpuscular Hemoglobin 28.4, Mean Corpuscular Hemoglobin Concent 32.6, Red Cell Distribution Width 10.9L, Platelet Count 269, Mean Platelet Volume 6.4L, Neutrophils (%) (Auto) 65.6, Lymphocytes (%) (Auto) 23.0, Monocytes (%) (Auto) 8.7, Eosinophils (%) (Auto) 1.8, Basophils (%) (Auto) 0.9, Sodium Level 142, Potassium Level 3.9, Chloride Level 109H, Carbon Dioxide Level 21, Anion Gap 12, Blood Urea Nitrogen 18, Creatinine 1.6H, Estimat Glomerular Filtration Rate , Glucose Level 153H, Calcium Level 8.9, Total Bilirubin 0.3, Aspartate Amino Transf (AST/SGOT) 67H, Alanine Aminotransferase (ALT/SGPT) 45, Alkaline Phosphatase 74, Total Protein 6.7, Albumin 2.6L, Globulin 4.1, Albumin/Globulin Ratio 0.6L Height (Feet): 5 Height (Inches): 6.00 Weight (Pounds): 160 Objective General appearance: alert, cooperative, no distress, appears stated age Head: Normocephalic, without obvious abnormality, atraumatic Eyes: conjunctivae/corneas clear. PERRL, EOM's intact. Fundi benign Throat: Lips, mucosa, and tongue normal. Teeth and gums normal Neck: supple, symmetrical, trachea midline, no adenopathy, thyroid: not enlarged, symmetric, no tenderness/mass/nodules, no carotid bruit and no JVD Lungs: clear to auscultation bilaterally Heart: regular rate and rhythm, S1, S2 normal, no murmur, click, rub or gallop Abdomen: soft, non-tender. Bowel sounds normal. No masses, no organomegaly Extremities: extremities normal, atraumatic, necrotic left second toe. foul odor. no drainage Pulses: 2+ and symmetric Skin: Skin color, texture, turgor normal. No rashes or lesions Neurologic: Grossly normal MIPS Medication Reconciliation Is this a Psycho/Diag encounte: No Depression Does this Patient have Dementi: No Erich Pitts M.D. Nov 14, 2018 13:16
--- NOTE | 2018-11-14 13:44 | CDS Physician Query ---
Clarification is required for compliance, coding accuracy, and to reflect severity of illness for this patient Dear Freda Mckoy MD Date: 11/14/2018 Oxygen System Tester/CDS Name: Jorge Cerrato On progress notes documented: diabetic nephropathy, renal failure Labs: Cr:2.9-->1.9 Please Clarify the type of renal failure below: Etiology [] Acute Renal Failure w/ Tubular Necrosis [] Acute Renal Failure w/ Cortical Necrosis [] Acute Renal Failure w/ Medullary Necrosis [] Acute Renal Failure (unspecified) [] Other: If Chronic, please specify the stage: [] CKD Stage 1 [] CKD Stage 2 [] CKD Stage 3 [] CKD Stage 4 [] CKD Stage 5 [] ESRD [] Not applicable Present on Admission: [] Yes [] No [] Clinically Undetermined Physician signature Date Please also document in your Progress Notes and/or Discharge Summary and indicate if the condition was present on admission. CARLA
--- NOTE | 2018-11-14 14:00 | NUR ---
NURSE NOTES: PATIENT COMPLAINED OF DIARRHEA AND STOMACH PAIN. CONTACTED AND GOT ORDER FO C-DIFF STOOL CULTURE.
--- NOTE | 2018-11-14 14:21 | NUR ---
NURSE NOTES: RADIOLOGY DEPARTMENT CALLED TO SEE IF THERE WAS CONSENT FOR PICC LINE IN THE CHART, INFORMED THEM THAT THERE WAS NO CONSENT IN THE CHART. STATED THAT I WOULD NOT BE ABLE TO OBTAIN CONSENT.
--- NOTE | 2018-11-14 15:38 | Nephrology Progress Note ---
Assessment/Plan Problem List: (1) Hyperglycemia (2) Elevated lactic acid level (3) Gangrene of toe of left foot (4) Renal failure (5) Dehydration (6) HTN (hypertension) (7) DM (diabetes mellitus) Plan # Acute kidney injury on possibley CKD stage III- likely diabetic nephropathy # L second toe distal dry gangrene # IDDM # HTN # Diabetic foot ulcer - hold losartan for now - continue to monitor off IVF- resume when/if NPO - continue metop 100 at night - continue amlodipine 5mg daily - check renal US--> IMPRESSION: 1. No hydronephrosis. 2. Nodular lesion arising from the prostate or bladder base, measures 1. 8 x 1.2 cm will obtain mri pelvic to better delineate lesion - cefepime and Vancomycin- renal dose - avoid supratherapeutic vanco level - podiatry/surgery eval Subjective Interval Events/Complaints Cr improved to 1.6 BP stable Constitutional: Denies: no symptoms, chills, diaphoresis, fever, malaise, weakness, other HEENT: Denies: no symptoms, eye pain, blurred vision, tearing, double vision, ear pain, ear discharge, nose pain, nose congestion, throat pain, throat swelling, mouth pain, mouth swelling, other Genitourinary: Denies: no symptoms, burning, discharge, frequency, flank pain, hematuria, incontinence, pain, urgency, other Neurologic/Psychiatric: Denies: no symptoms, anxiety, depressed, emotional problems, headache, numbness, paresthesia, pre-existing deficit, seizure, tingling, tremors, weakness, other Subjective no significant pain No fevers or chills. mri foot pending Objective Objective Last 24 Hour Vital Signs Date Time Temp Pulse Resp B/P (MAP) Pulse Ox O2 Delivery O2 Flow Rate FiO2 11/14/18 12:00 97.9 82 16 120/44 (69) 94 11/14/18 09:45 78 134/65 11/14/18 09:00 Room Air 11/14/18 08:00 98.1 78 18 134/65 (88) 99 11/14/18 04:00 98.0 72 19 137/72 (93) 98 11/14/18 00:00 98.0 93 20 132/68 (89) 97 11/13/18 21:00 Room Air 11/13/18 20:34 86 126/71 11/13/18 20:00 97.3 86 18 126/71 (89) 98 11/13/18 16:00 97.7 85 18 142/73 (96) 97 Intake and Output 11/13/18 11/14/18 19:00 07:00 Intake Total 800 ml 240 ml Output Total 560 ml Balance 240 ml 240 ml Intake Oral 800 ml 240 ml Output Urine Total 560 ml # Voids 3 2 Laboratory Tests 11/14/18 05:19: Urine Random Creatinine [Pending], Urine Random Microalbumin [Pending], Urine Microalbumin/Creatinine Ratio [Pending] 11/14/18 06:52: White Blood Count 8.4, Red Blood Count 3.64L, Hemoglobin 10.3L, Hematocrit 31.7L , Mean Corpuscular Volume 87, Mean Corpuscular Hemoglobin 28.4, Mean Corpuscular Hemoglobin Concent 32.6, Red Cell Distribution Width 10.9L, Platelet Count 269, Mean Platelet Volume 6.4L, Neutrophils (%) (Auto) 65.6, Lymphocytes (%) (Auto) 23.0, Monocytes (%) (Auto) 8.7, Eosinophils (%) (Auto) 1.8, Basophils (%) (Auto) 0.9, Sodium Level 142, Potassium Level 3.9, Chloride Level 109H, Carbon Dioxide Level 21, Anion Gap 12, Blood Urea Nitrogen 18, Creatinine 1.6H, Estimat Glomerular Filtration Rate , Glucose Level 153H, Calcium Level 8.9, Total Bilirubin 0.3, Aspartate Amino Transf (AST/SGOT) 67H, Alanine Aminotransferase (ALT/SGPT) 45, Alkaline Phosphatase 74, Total Protein 6.7, Albumin 2.6L, Globulin 4.1, Albumin/Globulin Ratio 0.6L Height (Feet): 5 Height (Inches): 6.00 Weight (Pounds): 160 Lissa Frankel M.D. Nov 14, 2018 15:38
[2018-11-14] MEDS: Cefepime 1gm in D5W 55ml IVPB SCH (16:01)
--- NOTE | 2018-11-14 17:30 | NUR ---
NURSE NOTES: PATIENT LEFT THE FLOOR FOR MRI OF THE PELVIS.
--- NOTE | 2018-11-14 18:02 | NUR ---
CASE MANAGEMENT: INITIAL REVIEW 72 YO M PRESENTED TO ED FROM HOME CC: DISCOLORATION OF LEFT TOE PMHx: COPD. DM. HTN. SI:GANGRENE LEFT SECOND GREAT TOE. DM. T 98.2 HR 107 RR 18 B/P 163/69 SATS 98% ON RA BUN 39 CR 2.9 GLU 232 AST 14 BNP 1074 IS: CEFEPIME IV X1 NS BOLUS X3 VANCO IV X1 RENAL US IMPRESSION: 1. No hydronephrosis. 2. Nodular lesion arising from the prostate or bladder base, measures 1.8 x 1.2 cm. PATIENT ADMITTED TO MED/SURG 11/10/2018 @ 1726 DCP: PATIENT TO BE DISCHARGED TO HOME ONCE MEDICALLY CLEARED. PLAN OF CARE: SURGICAL CONSULT MRI FOOT Impression: Abnormal STIR and T1 signal within the second distal phalanx, indicative of osteomyelitis. Subtle increased STIR signal within the second middle phalanx without corresponding T1 signal abnormality. This may reflect reactive changes or very early osteomyelitis Dorsal edema. This may indicate cellulitis or may be vasogenic in origin Addendum: 11/15/18 at 0737 by Judy Adams CM INTERQUAL MET
--- NOTE | 2018-11-14 18:08 | NUR ---
NURSE NOTES: PATIENT RETURNED TO THE FLOOR, OBSERVED EATING DINNER SITTING UPRIGHT IN BED. PATIENT STABLE. WILL CONTINUE TO MONITOR.
--- NOTE | 2018-11-14 18:39 | Surgery Progress Note ---
Surgery Progress Note Subjective Additional Comments labs okay exam okay MRI noted no acute events Objective Last 24 Hour Vital Signs Date Time Temp Pulse Resp B/P (MAP) Pulse Ox O2 Delivery O2 Flow Rate FiO2 11/14/18 16:00 98.3 90 17 135/59 (84) 99 11/14/18 12:00 97.9 82 16 120/44 (69) 94 11/14/18 09:45 78 134/65 11/14/18 09:00 Room Air 11/14/18 08:00 98.1 78 18 134/65 (88) 99 11/14/18 04:00 98.0 72 19 137/72 (93) 98 11/14/18 00:00 98.0 93 20 132/68 (89) 97 11/13/18 21:00 Room Air 11/13/18 20:34 86 126/71 11/13/18 20:00 97.3 86 18 126/71 (89) 98 I&O Intake and Output 11/13/18 11/14/18 19:00 07:00 Intake Total 800 ml 240 ml Output Total 560 ml Balance 240 ml 240 ml Intake Oral 800 ml 240 ml Output Urine Total 560 ml # Voids 3 2 Dressing: dry Wound: clean Cardiovascular: RSR Respiratory: clear Abdomen: soft, non-tender, present bowel sounds, non-distended Extremities: no tenderness, no cyanosis, other Laboratory Tests Test 11/14/18 05:19 11/14/18 06:52 Urine Random Creatinine Pending Urine Random Microalbumin Pending Urine Microalbumin/Creatinine Ratio Pending White Blood Count 8.4 K/UL (4.8-10.8) Red Blood Count 3.64 M/UL (4.70-6.10) L Hemoglobin 10.3 G/DL (14.2-18.0) L Hematocrit 31.7 % (42.0-52.0) L Mean Corpuscular Volume 87 FL (80-99) Mean Corpuscular Hemoglobin 28.4 PG (27.0-31.0) Mean Corpuscular Hemoglobin Concent 32.6 G/DL (32.0-36.0) Red Cell Distribution Width 10.9 % (11.6-14.8) L Platelet Count 269 K/UL (150-450) Mean Platelet Volume 6.4 FL (6.5-10.1) L Neutrophils (%) (Auto) 65.6 % (45.0-75.0) Lymphocytes (%) (Auto) 23.0 % (20.0-45.0) Monocytes (%) (Auto) 8.7 % (1.0-10.0) Eosinophils (%) (Auto) 1.8 % (0.0-3.0) Basophils (%) (Auto) 0.9 % (0.0-2.0) Sodium Level 142 MMOL/L (136-145) Potassium Level 3.9 MMOL/L (3.5-5.1) Chloride Level 109 MMOL/L (98-107) H Carbon Dioxide Level 21 MMOL/L (21-32) Anion Gap 12 mmol/L (5-15) Blood Urea Nitrogen 18 mg/dL (7-18) Creatinine 1.6 MG/DL (0.55-1.30) H Estimat Glomerular Filtration Rate mL/min (>60) Glucose Level 153 MG/DL (74-106) H Calcium Level 8.9 MG/DL (8.5-10.1) Total Bilirubin 0.3 MG/DL (0.2-1.0) Aspartate Amino Transf (AST/SGOT) 67 U/L (15-37) H Alanine Aminotransferase (ALT/SGPT) 45 U/L (12-78) Alkaline Phosphatase 74 U/L (46-116) Total Protein 6.7 G/DL (6.4-8.2) Albumin 2.6 G/DL (3.4-5.0) L Globulin 4.1 g/dL Albumin/Globulin Ratio 0.6 (1.0-2.7) L Plan Problems: (1) Elevated lactic acid level Assessment & Plan: Patient presented with lactic acidosis, cellulitis and infection of his left foot with necrosis and gangrene of the left second toe. Continue with his resuscitation Okay for diet (2) Gangrene of toe of left foot Assessment & Plan: Patient presents with left second ray gangrene dry foul- smelling no purulent drainage edema and cellulitis of the foot. Has had it for a few weeks and worsening since his trip to [place]. Plain films noted no fracture IV antibiotics as per infectious disease Pending venous and arterial studies as well MRI: Impression: Abnormal STIR and T1 signal within the second distal phalanx, indicative of osteomyelitis. Subtle increased STIR signal within the second middle phalanx without corresponding T1 signal abnormality. This may reflect reactive changes or very early osteomyelitis Dorsal edema. This may indicate cellulitis or may be vasogenic in origin Swab necrotic area of left foot with Betadine wash foot daily apply gauze dressing We will follow with recommendations as results of imaging are available We will attempt to salvage as much possible but potentially may need an amputation cont with IV abx and local wound care. defer to ID for abx duration Strict glucose monitoring and control Thank you will follow with recommendations (3) DM (diabetes mellitus) Nikhil Islas Nov 14, 2018 18:39
--- NOTE | 2018-11-14 19:15 | NUR ---
HAND-OFF: Report given to KRISTIAN RINCON.
--- NOTE | 2018-11-14 19:25 | NUR ---
NURSE NOTES: Received report from KRISTIAN Bejarano. Patient is in bed, awake and alert x4. Visitor at bedside. On room air with no signs of distress or SOB. No c/o pain at this time. Right FA IV intact. Bed locked and in lowest position. Call light in reach. Will continue to monitor the patient.
[2018-11-14] MEDS: Dyna-Hex 2% Top Sol 2oz TOPIC SCH (20:50)
[2018-11-14] MEDS: Enoxaparin 30mg Inj SUBQ SCH (20:55)
--- NOTE | 2018-11-14 22:53 | NUR ---
Received report from Suzanne at [facility] that patient's vancomycin random result is 5.9. She said max dose she can order is a one time dose of 1.5GM. Orders in and carried out. furniture repair technician aware.
[2018-11-15] MEDS ORDERED: Vancomycin 1.5gm/NS Premix q24h IVPB SCH
[2018-11-15 04:00] VITALS: BP 135/58
[2018-11-15] MEDS: Insulin NPH SUBQ SCH ×2 (06:59→17:20)
[2018-11-15 07:01] LABS: BASOPHILS % (AUTO) 0.9 % (0.0-2.0); EOSINOPHILS % (AUTO) 2.2 % (0.0-3.0); HEMATOCRIT 31.3 % (42.0-52.0); HEMOGLOBIN 10.5 G/DL (14.2-18.0); LYMPHOCYTES % (AUTO) 26.1 % (20.0-45.0); MEAN CORPUSCULAR VOLUME 85 FL (80-99); MONOCYTES % (AUTO) 8.6 % (1.0-10.0); NEUTROPHILS % (AUTO) 62.3 % (45.0-75.0); PLATELET COUNT 280 K/UL (150-450); RED BLOOD COUNT 3.67 M/UL (4.70-6.10); RED CELL DISTRIBUTION WIDTH 11.1 % (11.6-14.8); WHITE BLOOD COUNT 9.6 K/UL (4.8-10.8)
[2018-11-15 07:05] LABS: ANION GAP 11 mmol/L (5-15); BLOOD UREA NITROGEN 20 mg/dL (7-18); CARBON DIOXIDE 22 MMOL/L (21-32); CHLORIDE 111 MMOL/L (98-107); CREATININE 1.6 MG/DL (0.55-1.30); POTASSIUM 4.3 MMOL/L (3.5-5.1); SODIUM 144 MMOL/L (136-145)
--- NOTE | 2018-11-15 07:55 | NUR ---
HAND-OFF: Report given to KRISTIAN Cope.
--- NOTE | 2018-11-15 08:00 | NUR ---
NURSE NOTES: Patient awake and alert and oriented.Dressing to the left foot is clean and intact,no complaints of pain at this time.patient eating breakfast.Call light within reach.
[2018-11-15 08:37] VITALS: BP 132/62
--- NOTE | 2018-11-15 10:47 | NUR ---
RADIOLOGY NOTE: LEFT UPPER EXTREMITY PICC Addendum: 11/15/18 at 1047 by SIMON GUZMAN CRT RAD LEFT UPPER EXTREMITY PICC PLACED.
--- NOTE | 2018-11-15 10:53 | Pre-Procedure Note/Attestation ---
Pre-Procedure Note/Attestation Complete Prior to Procedure Planned Procedure: not applicable Procedure Narrative: PICC Indications for Procedure Pre-Operative Diagnosis: needs terminal make up operator IV access Attestation I attest that I discussed the nature of the procedure; its benefits; risks and complications; and alternatives (and the risks and benefits of such alternatives ), prior to the procedure, with the patient (or the patient's legal ambulatory service representative). I attest that, if there was a reasonable possibility of needing a blood transfusion, the patient (or the patient's legal ambulatory service representative) was given the [facility] standardized written summary, pursuant to the Donnie Adrian Blood Safety Act ([place] Health and Safety Code # 1645, as amended). I attest that I re-evaluated the patient just prior to the surgery and that there has been no change in the patient's H&P, except as documented below: Jorge Reddy MD Nov 15, 2018 10:53
--- NOTE | 2018-11-15 10:54 | Brief Operative Note ---
Immediate Post Operative Note Operative Note Pre-op Diagnosis: needs terminal operations supervisor IV access Procedure: PICC Surgeon: Dusty REDDY Anesthesia: local Specimen: none Complications: none Fluids: none Implant(s) used?: No Jorge Reddy MD Nov 15, 2018 10:54
--- NOTE | 2018-11-15 11:10 | Diagnostic Imaging Report ---
Indication: Evaluation of abnormality seen on prior ultrasound and CT scan Technique: Axial and sagittal T2 FRFSE, axial and coronal T2 FRFSE fat-saturated, axial and sagittal T1 FSE, axial T1 FSE fat saturated images obtained of the pelvis Comparison: Reference made to retroperitoneal ultrasound dated 11/13/2018, CT scan dated 10/24/2015 Findings: The prostate measures 3.7 cm transverse by 2.9 cm AP 4.3 cm craniocaudad. The posterior superior aspect of the prostate protrudes into and indents the bladder floor, probably accounting for the findings demonstrated on prior sonogram. The appearance of this is also similar on the prior CT scan. There is slight trabeculation of the bladder wall. The remainder of the pelvic viscera appear unremarkable. The bones appear unremarkable. There is a small amount of free fluid within the pelvis. Impression: Indentation of the bladder floor by the superior aspect of the prostate, presumably accounting for findings reported on recent sonogram. Note also similar findings on prior CT scan Trace fluid within the pelvis. Of uncertain significance but not physiologic in a male patient Slight bladder trabeculation, could indicate chronic outlet obstruction
--- NOTE | 2018-11-15 11:22 | General Progress Note ---
Assessment/Plan Problem List: (1) Hyperglycemia ICD Codes: R73.9 - Hyperglycemia, unspecified SNOMED: 06636591 (2) Renal failure ICD Codes: N19 - Unspecified kidney failure SNOMED: 40061115 Qualifiers: Qualified Codes: N19 - Unspecified kidney failure (3) Elevated lactic acid level ICD Codes: R79.89 - Other specified abnormal findings of blood chemistry SNOMED: 3983453 (4) Gangrene of toe of left foot ICD Codes: I96 - Gangrene, not elsewhere classified SNOMED: 93689903790231957 (5) DM (diabetes mellitus) ICD Codes: E11.9 - Type 2 diabetes mellitus without complications SNOMED: 83332107 Status: stable Assessment/Plan: 72 y/o male admitted with L second toe foul smelling necrosis. #Diarrhea Resolving Stool for c diff # L second toe distal dry gangrene/ osteomyelitis shown on MRI foot. Vascular studies show patent arteries. # Diabetic foot ulcer Cefepime and Vancomycin- renal dose ESR and CRP weekly Surgical consult with Dr. 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 Patient denies prior renal disease and nephrology was consulted. Dr. Frankel IVF and monitor BMP UA with microalbumin Renal US reviewed MRI abdomen without contrast to work up bladder nodule seen on US continue to hold Losartan # IDDM- poorly controlled- HbA1c 10.4 finger stick glucose has been less than 200 on NPH 40 AM, 20 PM diabetic diet # Disposition PT evaluation for possible need of assistive devices. FULL CODE DVT and GI ppx I spent 40 minutes on this encounter, 50% on counselling and care coordination Subjective Date patient seen: Nov 15, 2018 ROS Limited/Unobtainable: No Constitutional: Denies: no symptoms, chills, diaphoresis, fever, malaise, weakness, other Cardiovascular: Denies: no symptoms, chest pain, edema, irregular heart rate, lightheadedness, palpitations, syncope, other Respiratory: Denies: no symptoms, cough, orthopnea, shortness of breath, SOB with excertion, SOB at rest, sputum, stridor, wheezing, other Gastrointestinal/Abdominal: Reports: abdominal pain, diarrhea Genitourinary: Denies: no symptoms, burning, discharge, frequency, flank pain, hematuria, incontinence, pain, urgency, other Neurologic/Psychiatric: Denies: no symptoms, anxiety, depressed, emotional problems, headache, numbness, paresthesia, pre-existing deficit, seizure, tingling, tremors, weakness, other Endocrine: Denies: no symptoms, excessive sweating, flushing, intolerance to cold, intolerance to heat, increased hunger, increased thirst, increased urine, unexplained weight gain, unexplained weight loss, other Hematologic/Lymphatic: Denies: no symptoms, anemia, easy bleeding, easy bruising, other Allergies: Coded Allergies: No Known Allergies (Unverified , 08/14/15) Subjective Seen and examined. mild abdominal pain diarrhea resolving today Objective Last 24 Hour Vital Signs Date Time Temp Pulse Resp B/P (MAP) Pulse Ox O2 Delivery O2 Flow Rate FiO2 11/15/18 09:28 Room Air 11/15/18 08:45 88 132/62 11/15/18 08:37 98.4 88 18 132/62 (85) 98 11/15/18 04:00 97.9 84 17 135/58 (83) 98 11/14/18 23:40 98.1 84 16 133/68 (89) 97 11/14/18 21:00 Room Air 11/14/18 20:51 91 130/66 11/14/18 20:00 98.0 91 18 130/66 (87) 99 11/14/18 16:00 98.3 90 17 135/59 (84) 99 11/14/18 12:00 97.9 82 16 120/44 (69) 94 Intake and Output 11/14/18 11/15/18 19:00 07:00 Intake Total 780 ml Balance 780 ml Intake Oral 780 ml # Voids 3 3 Laboratory Tests 11/14/18 21:55: Random Vancomycin Level 5.9 11/15/18 05:30: Sodium Level 144, Potassium Level 4.3, Chloride Level 111H, Carbon Dioxide Level 22, Anion Gap 11, Blood Urea Nitrogen 20H, Creatinine 1.6H, Estimat Glomerular Filtration Rate , Glucose Level 122H, Calcium Level 9.0 11/15/18 06:30: White Blood Count 9.6, Red Blood Count 3.67L, Hemoglobin 10.5L, Hematocrit 31.3L , Mean Corpuscular Volume 85, Mean Corpuscular Hemoglobin 28.7, Mean Corpuscular Hemoglobin Concent 33.7, Red Cell Distribution Width 11.1L, Platelet Count 280, Mean Platelet Volume 6.5, Neutrophils (%) (Auto) 62.3, Lymphocytes (%) (Auto) 26.1, Monocytes (%) (Auto) 8.6, Eosinophils (%) (Auto) 2.2, Basophils (%) (Auto) 0.9, Erythrocyte Sedimentation Rate 73H, C-Reactive Protein, Quantitative 1.4H Height (Feet): 5 Height (Inches): 6.00 Weight (Pounds): 181 Objective General appearance: alert, cooperative, no distress, appears stated age Head: Normocephalic, without obvious abnormality, atraumatic Eyes: conjunctivae/corneas clear. PERRL, EOM's intact. Fundi benign Throat: Lips, mucosa, and tongue normal. Teeth and gums normal Neck: supple, symmetrical, trachea midline, no adenopathy, thyroid: not enlarged, symmetric, no tenderness/mass/nodules, no carotid bruit and no JVD Lungs: clear to auscultation bilaterally Heart: regular rate and rhythm, S1, S2 normal, no murmur, click, rub or gallop Abdomen: soft, non-tender. Bowel sounds normal. No masses, no organomegaly Extremities: extremities normal, atraumatic, necrotic left second toe. foul odor. no drainage Pulses: 2+ and symmetric Skin: Skin color, texture, turgor normal. No rashes or lesions Neurologic: Grossly normal Erich Pitts M.D. Nov 15, 2018 11:22
--- NOTE | 2018-11-15 11:59 | NUR ---
RD ASSESSMENT & RECOMMENDATIONS SEE CARE ACTIVITY FOR COMPLETE ASSESSMENT DAILY ESTIMATED NEEDS: Needs based on DM, OM 69kg adj 25-30 kcals/kg 3790-5142 total kcals 1.25-1.5 g protein/kg 86-104 g total protein 25-30 mL/kg 2676-2271 total fluid mLs NUTRITION DIAGNOSIS: 1) Increased pro needs r/t wound healing as evidence by L foot DM ulcer, w/ OM per MD. 2) Altered nutrition related lab values r/t diabetes as evidenced by A1C 10.4, Uglu 4+ on adm. CURRENT DIET: CCHO MED PO DIET RECOMMENDATIONS: Consider CCHO LOW + Double protein portions ADDITIONAL RECOMMENDATIONS: 1) Obtain a standing weight as able 2) Wound care: SEAN BID + MVI x1 + vit C 250mg BID 3) Diet edu as able 4) Add high pro/ 1 carb snacks in b/w meals
[2018-11-15 12:00] VITALS: BP 132/84
--- NOTE | 2018-11-15 12:42 | NUR ---
CASE MANAGEMENT: REVIEW 11/15/2018 SI:GANGRENE LEFT SECOND GREAT TOE. DM. T 98.4 HR 88 RR 18 B/P 132/62 SATS 98% ON RA CL 111 BUN 20 CR 1.6 GLU 122 IS: FLAGYL PO Q8H LOPRESSOR PO QHS INSULIN SUBQ AC PROTONIX PO QD NORVASC POQD INSULIN HUMAN NPH SUBQ BEFORE DINNER VANCO IV Q24H CEFEPIME IV Q24H LOVENOX SUBQ QHS MED/SURG STATUS DCP: PATIENT TO BE DISCHARGED TO HOME ONCE MEDICALLY CLEARED.
--- NOTE | 2018-11-15 13:02 | NUR ---
*-* INSURANCE *-* ALL CLINICALS AND REVIEWS HAVE BEEN FAXED TO: [facility]# [id number] F: [phone]
--- NOTE | 2018-11-15 14:19 | Surgery Progress Note ---
Surgery Progress Note Subjective Symptoms: improved, tolerating diet, voiding well, passing flatus, BM, pain decreased Objective Last 24 Hour Vital Signs Date Time Temp Pulse Resp B/P (MAP) Pulse Ox O2 Delivery O2 Flow Rate FiO2 11/15/18 09:28 Room Air 11/15/18 08:45 88 132/62 11/15/18 08:37 98.4 88 18 132/62 (85) 98 11/15/18 04:00 97.9 84 17 135/58 (83) 98 11/14/18 23:40 98.1 84 16 133/68 (89) 97 11/14/18 21:00 Room Air 11/14/18 20:51 91 130/66 11/14/18 20:00 98.0 91 18 130/66 (87) 99 11/14/18 16:00 98.3 90 17 135/59 (84) 99 I&O Intake and Output 11/14/18 11/15/18 19:00 07:00 Intake Total 780 ml Balance 780 ml Intake Oral 780 ml # Voids 3 3 Dressing: dry Wound: clean Cardiovascular: RSR Respiratory: clear Abdomen: soft, flat, present bowel sounds, non-distended Extremities: edema, cyanosis, no tenderness Laboratory Tests Test 11/14/18 21:55 11/15/18 05:30 11/15/18 06:30 Random Vancomycin Level 5.9 ug/mL Sodium Level 144 MMOL/L (136-145) Potassium Level 4.3 MMOL/L (3.5-5.1) Chloride Level 111 MMOL/L (98-107) H Carbon Dioxide Level 22 MMOL/L (21-32) Anion Gap 11 mmol/L (5-15) Blood Urea Nitrogen 20 mg/dL (7-18) H Creatinine 1.6 MG/DL (0.55-1.30) H Estimat Glomerular Filtration Rate mL/min (>60) Glucose Level 122 MG/DL (74-106) H Calcium Level 9.0 MG/DL (8.5-10.1) White Blood Count 9.6 K/UL (4.8-10.8) Red Blood Count 3.67 M/UL (4.70-6.10) L Hemoglobin 10.5 G/DL (14.2-18.0) L Hematocrit 31.3 % (42.0-52.0) L Mean Corpuscular Volume 85 FL (80-99) Mean Corpuscular Hemoglobin 28.7 PG (27.0-31.0) Mean Corpuscular Hemoglobin Concent 33.7 G/DL (32.0-36.0) Red Cell Distribution Width 11.1 % (11.6-14.8) L Platelet Count 280 K/UL (150-450) Mean Platelet Volume 6.5 FL (6.5-10.1) Neutrophils (%) (Auto) 62.3 % (45.0-75.0) Lymphocytes (%) (Auto) 26.1 % (20.0-45.0) Monocytes (%) (Auto) 8.6 % (1.0-10.0) Eosinophils (%) (Auto) 2.2 % (0.0-3.0) Basophils (%) (Auto) 0.9 % (0.0-2.0) Erythrocyte Sedimentation Rate 73 MM/HR (0-20) H C-Reactive Protein, Quantitative 1.4 mg/dL (0.00-0.90) H Plan Problems: (1) Elevated lactic acid level Assessment & Plan: Patient presented with lactic acidosis, cellulitis and infection of his left foot with necrosis and gangrene of the left second toe. Continue with his resuscitation Okay for diet (2) Gangrene of toe of left foot Assessment & Plan: Patient presents with left second ray gangrene dry foul- smelling no purulent drainage edema and cellulitis of the foot. Has had it for a few weeks and worsening since his trip to [place]. Plain films noted no fracture IV antibiotics as per infectious disease Pending venous and arterial studies as well MRI: Impression: Abnormal STIR and T1 signal within the second distal phalanx, indicative of osteomyelitis. Subtle increased STIR signal within the second middle phalanx without corresponding T1 signal abnormality. This may reflect reactive changes or very early osteomyelitis Dorsal edema. This may indicate cellulitis or may be vasogenic in origin Swab necrotic area of left foot with Betadine wash foot daily apply gauze dressing We will follow with recommendations as results of imaging are available We will attempt to salvage as much possible but potentially may need an amputation cont with IV abx and local wound care. defer to ID for abx duration Podiatry input appreciated Strict glucose monitoring and control Thank you will follow with recommendations (3) DM (diabetes mellitus) Nikhil Islas Nov 15, 2018 14:19
[2018-11-15] MEDS: metroNIDAZOLE 500mg tab ORAL SCH ×2 (14:22→20:57)
--- NOTE | 2018-11-15 14:41 | Diagnostic Imaging Report ---
Indications: Needs long-term IV access Technique: Ultrasound confirms patent compressible of basilic vein. Total sterile technique, including sterile probe cover and sterile gel, hat, mask, sterile gown, large sterile drape, and preparation with 2% chlorhexidine utilized. Local anesthesia with 1% lidocaine. Under real-time ultrasound guidance, puncture filling vein using 21-gauge needle, documented and archived, passage 0.018 guidewire under direct fluoroscopy, which was used to determine appropriate catheter length, exchange for 4 Sami peel-away sheath. 4 Sami Bard dual-lumen power PICC cut to 47 cm. It was inserted through the peel-away sheath. Peel-away sheath and guidewire removed. Catheter fixed to the skin. Both catheter ports aspirated and flushed. Patient tolerated procedure well, without immediate complication. Digital radiograph documents satisfactory catheter tip position, at the cavoatrial junction. Total fluoroscopy time 41 seconds. Total dose area product [id number] Total number of images: 1 Impression: Successful placement of left arm PICC under sonographic and fluoroscopic guidance, as described above.
[2018-11-15 16:05] VITALS: BP 138/60
--- NOTE | 2018-11-15 16:27 | Infectious Diseases Prog Note ---
Assessment/Plan Assessment/Plan Full consult dictated: left foot 2nd toe gangrene and osteomyelitis wc - staph aureus and klebsiella continue vancomycin, cefepime and flagyl picc line placed, 6 weeks iv abx consider podiatry evaluation thank you Subjective Allergies: Coded Allergies: No Known Allergies (Unverified , 08/14/15) Objective Vital Signs Last 24 Hour Vital Signs Date Time Temp Pulse Resp B/P (MAP) Pulse Ox O2 Delivery O2 Flow Rate FiO2 11/15/18 16:05 98.4 93 18 138/60 (86) 97 11/15/18 12:00 99.1 86 18 132/84 (100) 97 11/15/18 09:28 Room Air 11/15/18 08:45 88 132/62 11/15/18 08:37 98.4 88 18 132/62 (85) 98 11/15/18 04:00 97.9 84 17 135/58 (83) 98 11/14/18 23:40 98.1 84 16 133/68 (89) 97 11/14/18 21:00 Room Air 11/14/18 20:51 91 130/66 11/14/18 20:00 98.0 91 18 130/66 (87) 99 Height (Feet): 5 Height (Inches): 6.00 Weight (Pounds): 181 Laboratory Tests Test 11/14/18 21:55 11/15/18 05:30 11/15/18 06:30 Random Vancomycin Level 5.9 ug/mL Sodium Level 144 MMOL/L (136-145) Potassium Level 4.3 MMOL/L (3.5-5.1) Chloride Level 111 MMOL/L (98-107) H Carbon Dioxide Level 22 MMOL/L (21-32) Anion Gap 11 mmol/L (5-15) Blood Urea Nitrogen 20 mg/dL (7-18) H Creatinine 1.6 MG/DL (0.55-1.30) H Estimat Glomerular Filtration Rate mL/min (>60) Glucose Level 122 MG/DL (74-106) H Calcium Level 9.0 MG/DL (8.5-10.1) White Blood Count 9.6 K/UL (4.8-10.8) Red Blood Count 3.67 M/UL (4.70-6.10) L Hemoglobin 10.5 G/DL (14.2-18.0) L Hematocrit 31.3 % (42.0-52.0) L Mean Corpuscular Volume 85 FL (80-99) Mean Corpuscular Hemoglobin 28.7 PG (27.0-31.0) Mean Corpuscular Hemoglobin Concent 33.7 G/DL (32.0-36.0) Red Cell Distribution Width 11.1 % (11.6-14.8) L Platelet Count 280 K/UL (150-450) Mean Platelet Volume 6.5 FL (6.5-10.1) Neutrophils (%) (Auto) 62.3 % (45.0-75.0) Lymphocytes (%) (Auto) 26.1 % (20.0-45.0) Monocytes (%) (Auto) 8.6 % (1.0-10.0) Eosinophils (%) (Auto) 2.2 % (0.0-3.0) Basophils (%) (Auto) 0.9 % (0.0-2.0) Erythrocyte Sedimentation Rate 73 MM/HR (0-20) H C-Reactive Protein, Quantitative 1.4 mg/dL (0.00-0.90) H Current Medications Medications (Trade) Dose Ordered Sig/Sathish Route PRN Reason Start Time Stop Time Status Last Admin Dose Admin Acetaminophen (Tylenol) 650 mg Q4H PRN ORAL Mild Pain (Pain Scale 1-3) 11/10/18 18:30 12/10/18 18:29 Acetaminophen/ Hydrocodone Bitart (Tracy 5/325) 1 tab QIDPRN PRN ORAL pain 11/10/18 18:30 11/17/18 18:29 11/14/18 12:56 Amlodipine Besylate (Norvasc) 5 mg DAILY ORAL 11/13/18 09:00 12/13/18 08:59 11/15/18 08:45 Cefepime HCl 2 gm/ Dextrose 110 ml @ 220 mls/hr Q24H IV 11/15/18 16:00 11/22/18 15:59 Chlorhexidine Gluconate (Tiffanie-Hex 2%) 1 applic DAILY@2000 TOPIC 11/14/18 20:00 12/14/18 19:59 11/14/18 20:50 Dextrose (Dextrose 50%) 25 ml Q30M PRN IV Hypoglycemia 11/10/18 18:30 9/29/19 18:29 Dextrose (Dextrose 50%) 50 ml Q30M PRN IV Hypoglycemia 11/10/18 18:30 12/10/18 18:29 Enoxaparin Sodium (Lovenox) 40 mg QHS SUBQ 11/15/18 21:00 12/15/18 20:59 Heparin Sodium/ Sodium Chloride (Heparin 1000 units/500ml Premix) 1,000 unit ONCE PRN IV PICC LINE INSERTION 11/14/18 13:15 11/16/18 13:14 Insulin Human NPH (Humulin N) 20 units BEFORE DINNER SUBQ 11/11/18 16:30 12/11/18 16:29 11/14/18 16:39 Insulin Human NPH (Humulin N) 40 units BEFORE BREAKFAST SUBQ 11/11/18 06:30 12/11/18 06:29 11/15/18 06:59 Lidocaine HCl (Xylocaine 1% 30ml) 30 ml ONCE PRN INJ PICC LINE INSERTION 11/14/18 13:15 11/16/18 13:14 Metoprolol Tartrate (Lopressor) 100 mg BEDTIME ORAL 11/11/18 21:00 12/11/18 20:59 11/14/18 20:51 Metronidazole (Flagyl) 500 mg EVERY 8 HOURS ORAL 11/15/18 14:00 11/22/18 13:59 11/15/18 14:22 Morphine Sulfate (Morphine Sulfate) 1 mg Q2H PRN IVP For Pain 11/10/18 18:30 11/17/18 18:29 Pantoprazole (Protonix) 40 mg DAILY ORAL 11/11/18 09:00 12/11/18 08:59 11/15/18 08:44 Polyethylene Glycol (Miralax) 17 gm HSPRN PRN ORAL Constipation 11/10/18 18:30 12/10/18 18:29 Vancomycin HCl (Vanco rx to dose) 1 ea DAILY PRN MISC Per rx protocol 11/10/18 18:30 12/10/18 18:29 Vancomycin/Sodium Chloride 275 ml @ 183.333 mls/hr Q24H IVPB 11/16/18 02:00 11/21/18 01:59 Joe Velasquez MD Nov 15, 2018 16:27
--- NOTE | 2018-11-15 16:39 | Nephrology Progress Note ---
Assessment/Plan Problem List: (1) Hyperglycemia (2) Elevated lactic acid level (3) Gangrene of toe of left foot (4) Renal failure (5) Dehydration (6) HTN (hypertension) (7) DM (diabetes mellitus) Plan # Acute kidney injury on possibley CKD stage III- likely diabetic nephropathy # L second toe distal dry gangrene- with osteol # IDDM # HTN- controlled # Diabetic foot ulcer - hold losartan for now- ok to resume on DC- - needs outpatient follow up with renal - continue to monitor off IVF- resume when/if NPO - continue metop 100 at night - continue amlodipine 5mg daily - check renal US--> IMPRESSION: 1. No hydronephrosis. 2. Nodular lesion arising from the prostate or bladder base, measures 1. 8 x 1.2 cm mri pelvic to better delineate lesion --> Indentation of the bladder floor - cefepime and Vancomycin- renal dose - avoid supratherapeutic vanco level - podiatry/surgery eval noted - P[facility] Subjective Interval Events/Complaints Ct stable at 1.6 mri pelvis done showing Indentation of the bladder floor Subjective no significant pain No fevers or chills. mri foot done pelvis mri done showing Indentation of the bladder floor Objective Objective Last 24 Hour Vital Signs Date Time Temp Pulse Resp B/P (MAP) Pulse Ox O2 Delivery O2 Flow Rate FiO2 11/15/18 16:05 98.4 93 18 138/60 (86) 97 11/15/18 12:00 99.1 86 18 132/84 (100) 97 11/15/18 09:28 Room Air 11/15/18 08:45 88 132/62 11/15/18 08:37 98.4 88 18 132/62 (85) 98 11/15/18 04:00 97.9 84 17 135/58 (83) 98 11/14/18 23:40 98.1 84 16 133/68 (89) 97 11/14/18 21:00 Room Air 11/14/18 20:51 91 130/66 11/14/18 20:00 98.0 91 18 130/66 (87) 99 Intake and Output 11/14/18 11/15/18 19:00 07:00 Intake Total 780 ml Balance 780 ml Intake Oral 780 ml # Voids 3 3 Laboratory Tests 11/14/18 21:55: Random Vancomycin Level 5.9 11/15/18 05:30: Sodium Level 144, Potassium Level 4.3, Chloride Level 111H, Carbon Dioxide Level 22, Anion Gap 11, Blood Urea Nitrogen 20H, Creatinine 1.6H, Estimat Glomerular Filtration Rate , Glucose Level 122H, Calcium Level 9.0 11/15/18 06:30: White Blood Count 9.6, Red Blood Count 3.67L, Hemoglobin 10.5L, Hematocrit 31.3L , Mean Corpuscular Volume 85, Mean Corpuscular Hemoglobin 28.7, Mean Corpuscular Hemoglobin Concent 33.7, Red Cell Distribution Width 11.1L, Platelet Count 280, Mean Platelet Volume 6.5, Neutrophils (%) (Auto) 62.3, Lymphocytes (%) (Auto) 26.1, Monocytes (%) (Auto) 8.6, Eosinophils (%) (Auto) 2.2, Basophils (%) (Auto) 0.9, Erythrocyte Sedimentation Rate 73H, C-Reactive Protein, Quantitative 1.4H Height (Feet): 5 Height (Inches): 6.00 Weight (Pounds): 181 General Appearance: alert oriented x3 EENT: PERRL/EOMI Neck: non-tender, normal alignment, supple Cardiovascular: normal peripheral pulses, normal rate, regular rhythm Respiratory/Chest: lungs clear, normal breath sounds, no respiratory distress Abdomen: normal bowel sounds, non tender, soft Extremities: normal range of motion, other Neurologic: alert, oriented x 3 Lissa Frankel M.D. Nov 15, 2018 16:39
[2018-11-15] MEDS: Cefepime 2gm/D5W 110ml IV SCH ×2 (16:53)
--- NOTE | 2018-11-15 17:15 | Consultation ---
DATE OF CONSULTATION: 11/15/2018 INFECTIOUS DISEASE CONSULTATION CONSULTING PHYSICIAN: Joe Velasquez M.D. ATTENDING PHYSICIAN: Dania Nunes M.D. REFERRING PHYSICIAN: Dr. Erich Pitts. REASON FOR CONSULTATION: Left foot second toe gangrene and osteo wound infection and cellulitis. CHIEF COMPLAINT: The patient's complaint coming into the hospital is left foot second toe gangrene. Also cellulitis and diabetes. HISTORY OF PRESENT ILLNESS: This is a very pleasant 72-year-old male who is non-Yi speaking, who comes into [facility] was noted to have left foot second toe gangrene. The patient had an MRI of the left foot, which showed osteo of the left foot second toe. Report was noted. The patient has gangrene, possible infected wound and cellulitis. The wound culture grew out Klebsiella and Staphylococcus aureus and diphtheroids of the left foot. Diphtheroids likely contaminant. Infectious Disease consult is requested. The patient was placed on vancomycin, cefepime, and Flagyl. The patient was seen by Surgery and I discussed the case with Dr. Pitts. I believe Podiatry will also be called to see this patient. MAR was noted. Orders were noted. Notes and records were reviewed. The patient will be continued on cefepime, flagyl and vancomycin. REVIEW OF SYSTEMS: CONSTITUTIONAL: Main issue is left foot second toe gangrene. He has no fevers. He has no chills. He is alert and responsive. HEAD AND NECK: No head pain or neck pain. CARDIAC: No chest pain. PULMONARY: No congestion or shortness of of breath. GASTROINTESTINAL: No nausea, vomiting, or diarrhea. GENITOURINARY: No Cline. No CVA tenderness. SKIN: No rash. EXTREMITIES: Extremity has left foot second toe gangrene. NEUROLOGIC: No seizures. PAST MEDICAL HISTORY: The patient has a past medical history of diabetes. He has left foot second toe gangrene. He has insulin dependent diabetes. He has a history of diabetic nephropathy, elevated creatinine, and anemia. He has elevated sed rate. He has history of BPH and history of hypertension also. ALLERGIES: No known drug allergies. SOCIAL HISTORY: Negative for smoking, alcohol, or drug abuse. FAMILY HISTORY: Noncontributory. MEDICATIONS: Upon reviewing the MAR, he is on the following medications; he is on vancomycin, cefepime, and Flagyl. He is on Lovenox. He is on chlorhexidine, heparin, amlodipine, metoprolol, insulin, and pantoprazole. He is on acetaminophen. He is on morphine. Outside medications noted and reconciliated. PHYSICAL EXAMINATION: VITAL SIGNS: Temperature is 99.1, pulse 86, respiratory rate 18, and blood pressure 132/84. Saturation 97%. GENERAL: Alert and responsive, in no distress. HEAD AND NECK: Oral exam, no thrush. Eyes, no icterus. No JVD. Normocephalic. HEART: Regular. No gallop or murmur. LUNGS: Clear bilaterally. No rhonchi or rales. ABDOMEN: Soft. Positive bowel sounds. Nontender. GENITOURINARY: No Cline. SKIN: No rash. MUSCULOSKELETAL: No effusion. Legs are without cellulitis. PERIPHERAL VASCULAR: The patient has left foot second toe gangrene and possible infected wound. NEUROLOGICAL: Intact and nonfocal. LABORATORY AND DIAGNOSTIC DATA: White count 9.6, hemoglobin 10.5, and platelet count 73,000. Creatinine is 1.6. LFTs were noted. Cultures of left foot second toe had Klebsiella and Staphylococcus aureus. Sensitivities were noted. Most likely organism is Staphylococcus aureus. IMAGING STUDIES: MRI of the left foot showed findings consistent with osteo and edema, possible cellulitis. This was of the second distal phalanx. Report was noted. ASSESSMENT AND PLAN: 1. The patient has left foot second toe gangrene with osteomyelitis, infected wound and cellulitis. MAR was noted. This time we will continue vancomycin, cefepime, and Flagyl. Wound cultures with Staphylococcus aureus and Klebsiella. Diphtheroids likely contaminant. Continue vancomycin, cefepime, and Flagyl. The patient has a PICC line. The patient may need six weeks of IV antibiotics, however, Podiatry also be called to see if the patient will need amputation of the toe. Continue vancomycin, cefepime, and Flagyl for now for left foot second toe gangrene, osteomyelitis, infected wound and cellulitis pending final workup. Case was discussed with Dr. Pitts. 2. Anemia. 3. Elevated creatinine. 4. Diabetes. 5. Hypertension. 6. Blood sugar and blood pressure treatment per primary. 7. BPH. 8. No known allergies. 9. Social history is negative. 10. Family history is noncontributory. 11. MAR was noted. 12. Case was discussed with RN. 13. Continue treatment per primary consultants. Joe Velasquez M.D. DR: YOUNG JOB#: [id number] CC: CARLA
--- NOTE | 2018-11-15 18:52 | NUR ---
NURSE NOTES: Dressing to the left foot remains intact.no complaint ofd pain.Piccline double lumen to the upper left arm intact.patient has no complaint of pain.call light within reach.
--- NOTE | 2018-11-15 19:35 | NUR ---
HAND-OFF: Report given to FARNAZ TOWNSEND.
[2018-11-15 19:48] VITALS: BP 133/73
--- NOTE | 2018-11-15 20:00 | NUR ---
NURSE NOTES: Received patient awake,alert,verbal,ambulatory,resting in bed,comfortable.
[2018-11-15] MEDS: Dyna-Hex 2% Top Sol 2oz TOPIC SCH (20:57)
[2018-11-15] MEDS: Enoxaparin 40mg Inj SUBQ SCH (20:58)
[2018-11-16 00:10] VITALS: BP 119/60
[2018-11-16] MEDS: Vancomycin 1.25gm/NS Premix IVPB SCH (01:26)
[2018-11-16 04:00] VITALS: BP 107/62
[2018-11-16] MEDS: metroNIDAZOLE 500mg tab ORAL SCH ×3 (05:20→20:53)
[2018-11-16] MEDS: Insulin NPH SUBQ SCH ×2 (05:21→17:19)
[2018-11-16 06:17] LABS: BASOPHILS % (AUTO) 0.9 % (0.0-2.0); EOSINOPHILS % (AUTO) 2.1 % (0.0-3.0); HEMATOCRIT 29.2 % (42.0-52.0); HEMOGLOBIN 9.6 G/DL (14.2-18.0); LYMPHOCYTES % (AUTO) 25.6 % (20.0-45.0); MEAN CORPUSCULAR VOLUME 87 FL (80-99); MONOCYTES % (AUTO) 10.2 % (1.0-10.0); NEUTROPHILS % (AUTO) 61.2 % (45.0-75.0); PLATELET COUNT 245 K/UL (150-450); RED BLOOD COUNT 3.37 M/UL (4.70-6.10); RED CELL DISTRIBUTION WIDTH 11.1 % (11.6-14.8); WHITE BLOOD COUNT 8.1 K/UL (4.8-10.8)
[2018-11-16 06:45] LABS: ALANINE AMINOTRANSFERASE 37 U/L (12-78); ALBUMIN 2.5 G/DL (3.4-5.0); ALBUMIN/GLOBULIN RATIO 0.7 (1.0-2.7); ALKALINE PHOSPHATASE 72 U/L (46-116); ANION GAP 12 mmol/L (5-15); ASPARTATE AMINO TRANSFERASE 39 U/L (15-37); BILIRUBIN,TOTAL 0.2 MG/DL (0.2-1.0); BLOOD UREA NITROGEN 23 mg/dL (7-18); CALCIUM 8.8 MG/DL (8.5-10.1); CARBON DIOXIDE 21 MMOL/L (21-32); CHLORIDE 111 MMOL/L (98-107); CREATININE 1.7 MG/DL (0.55-1.30); POTASSIUM 3.7 MMOL/L (3.5-5.1); SODIUM 144 MMOL/L (136-145)
--- NOTE | 2018-11-16 07:27 | NUR ---
HAND-OFF: Report given to Sami Chapman RN.
--- NOTE | 2018-11-16 07:30 | NUR ---
NURSE NOTES: Received pt from KRISTIAN OSEI. Pt is alert and orient x4. pt is in RA, no SOB or acute respiratory distress noted. pt has intact iv access RFA 22g SL. Pt has PICC JOSHUA SL. Pt is eating breakfast independently. all needs attended, bed is locked and is in the lowest position. call light within easy reach. will continue to monitor
[2018-11-16 08:00] VITALS: BP 131/74
--- NOTE | 2018-11-16 10:00 | NUR ---
NURSE NOTES: PICC dressing changed and flushed as order. will continue to monitor.
[2018-11-16 12:00] VITALS: BP 127/68
--- NOTE | 2018-11-16 12:06 | General Progress Note ---
Assessment/Plan Problem List: (1) Hyperglycemia ICD Codes: R73.9 - Hyperglycemia, unspecified SNOMED: 90141815 (2) Renal failure ICD Codes: N19 - Unspecified kidney failure SNOMED: 91434455 Qualifiers: Qualified Codes: N19 - Unspecified kidney failure (3) Elevated lactic acid level ICD Codes: R79.89 - Other specified abnormal findings of blood chemistry SNOMED: 9973196 (4) Gangrene of toe of left foot ICD Codes: I96 - Gangrene, not elsewhere classified SNOMED: 02846106608288344 (5) DM (diabetes mellitus) ICD Codes: E11.9 - Type 2 diabetes mellitus without complications SNOMED: 92433020 Status: stable Assessment/Plan: 72 y/o male admitted with L second toe foul smelling necrosis, gangrene and osteomyelitis. # L second toe distal dry gangrene/ osteomyelitis shown on MRI foot. Vascular studies show patent arteries. # Diabetic foot ulcer Cefepime and Vancomycin- renal dose, add Flagyl. wound cultures with klebsiella and staph aureus ESR and CRP weekly Surgical consult with Dr. Islas appreciated PICC placed ID consult to guide antibiotic coverage appreciated Podiatry consult pending. may need amputation CM consult for home health services # Diabetic nephropathy with SHAHANA on CKD3-4, improving. Patient denies prior renal disease and nephrology was consulted. Dr. Frankel IVF and monitor BMP UA with microalbumin Renal US reviewed MRI abdomen without contrast to work up bladder nodule seen on US continue to hold Losartan, will resume on discharge # IDDM- poorly controlled- HbA1c 10.4 finger stick glucose has been less than 200 on NPH 40 AM, 20 PM diabetic diet # Disposition PT evaluation for possible need of assistive devices. Would go home with home services FULL CODE DVT and GI ppx I spent 40 minutes on this encounter, 50% on counselling and care coordination Subjective Date patient seen: Nov 16, 2018 ROS Limited/Unobtainable: No Allergies: Coded Allergies: No Known Allergies (Unverified , 08/14/15) Subjective Seen and examined. s/p picc no abdominal pain, no diarrhea Objective Last 24 Hour Vital Signs Date Time Temp Pulse Resp B/P (MAP) Pulse Ox O2 Delivery O2 Flow Rate FiO2 11/16/18 09:23 85 131/74 11/16/18 09:00 Room Air 11/16/18 08:00 97.9 85 19 131/74 (93) 98 11/16/18 04:00 98.9 89 19 107/62 (77) 95 11/16/18 00:10 98.9 88 19 119/60 (79) 96 11/15/18 20:57 93 133/73 11/15/18 20:14 Room Air 11/15/18 19:48 98.1 93 18 133/73 (93) 96 11/15/18 16:05 98.4 93 18 138/60 (86) 97 11/15/18 12:00 99.1 86 18 132/84 (100) 97 Intake and Output 11/15/18 11/16/18 18:59 06:59 Intake Total 600 ml 275.000 ml Output Total 200 ml 350 ml Balance 400 ml -75.000 ml Intake Oral 600 ml IV Total 275.000 ml Output Urine Total 200 ml 350 ml # Voids 2 Laboratory Tests 11/16/18 05:00: White Blood Count 8.1, Red Blood Count 3.37L, Hemoglobin 9.6L, Hematocrit 29.2L , Mean Corpuscular Volume 87, Mean Corpuscular Hemoglobin 28.4, Mean Corpuscular Hemoglobin Concent 32.8, Red Cell Distribution Width 11.1L, Platelet Count 245, Mean Platelet Volume 6.2L, Neutrophils (%) (Auto) 61.2, Lymphocytes (%) (Auto) 25.6, Monocytes (%) (Auto) 10.2H, Eosinophils (%) (Auto) 2.1, Basophils (%) (Auto) 0.9, Sodium Level 144, Potassium Level 3.7, Chloride Level 111H, Carbon Dioxide Level 21, Anion Gap 12, Blood Urea Nitrogen 23H, Creatinine 1.7H, Estimat Glomerular Filtration Rate , Glucose Level 127H, Calcium Level 8.8, Total Bilirubin 0.2, Aspartate Amino Transf (AST/SGOT) 39H, Alanine Aminotransferase (ALT/SGPT) 37, Alkaline Phosphatase 72, Total Protein 6.2L, Albumin 2.5L, Globulin 3.7, Albumin/Globulin Ratio 0.7L Height (Feet): 5 Height (Inches): 6.00 Weight (Pounds): 181 Objective General appearance: alert, cooperative, no distress, appears stated age Head: Normocephalic, without obvious abnormality, atraumatic Eyes: conjunctivae/corneas clear. PERRL, EOM's intact. Fundi benign Throat: Lips, mucosa, and tongue normal. Teeth and gums normal Neck: supple, symmetrical, trachea midline, no adenopathy, thyroid: not enlarged, symmetric, no tenderness/mass/nodules, no carotid bruit and no JVD Lungs: clear to auscultation bilaterally Heart: regular rate and rhythm, S1, S2 normal, no murmur, click, rub or gallop Abdomen: soft, non-tender. Bowel sounds normal. No masses, no organomegaly Extremities: extremities normal, atraumatic, necrotic left second toe. foul odor. no drainage . +picc present. clean and clear no erythema Pulses: 2+ and symmetric Skin: Skin color, texture, turgor normal. No rashes or lesions Neurologic: Grossly normal Erich Pitts M.D. Nov 16, 2018 12:06
--- NOTE | 2018-11-16 12:48 | Diagnostic Imaging Report ---
APPROVED REPORT CPT Code: 79164 Symptoms Risk Factors Left RIGHT LEG: Common femoral artery waveform analysis is within normal limits at rest. Color flow duplex sonography reveals patency of the superficial femoral, popliteal, and tibial arteries. There is no evidence of stenosis or occlusion within these segments. LEFT LEG: Common femoral artery waveform analysis is within normal limits at rest. Color flow duplex sonography reveals patency of the superficial femoral, popliteal, and tibial arteries. There is no evidence of stenosis or occlusion within these segments. Doppler dorsalis pedis artery waveform analysis is compatible with minimal ischemia at rest.
--- NOTE | 2018-11-16 12:49 | Diagnostic Imaging Report ---
APPROVED REPORT CPT Code: 07294 Present Symptoms Lower Extremity Pain: Left Stasis Disease Comments: Lt foot second toe gangrene BILATERAL: Imaging reveals a patent deep venous system bilaterally. There is no evidence of thrombus within the common femoral, superficial femoral, popliteal or tibial segments. The greater saphenous veins are within normal limits. Doppler indicates normal spontaneous flow within these segments.
--- NOTE | 2018-11-16 13:20 | NUR ---
*-* INSURANCE *-* UPDATED CLINICALS HAVE BEEN FAXED TO: [facility] TRK# [id number] F: [phone]
--- NOTE | 2018-11-16 15:54 | Surgery Progress Note ---
Surgery Progress Note Subjective Additional Comments spoke with podiatry plan for vascular clearance and possible amputation patient states he is doing well no complaints labs noted Objective Last 24 Hour Vital Signs Date Time Temp Pulse Resp B/P (MAP) Pulse Ox O2 Delivery O2 Flow Rate FiO2 11/16/18 12:00 98.3 85 18 127/68 (87) 96 11/16/18 09:23 85 131/74 11/16/18 09:00 Room Air 11/16/18 08:00 97.9 85 19 131/74 (93) 98 11/16/18 04:00 98.9 89 19 107/62 (77) 95 11/16/18 00:10 98.9 88 19 119/60 (79) 96 11/15/18 20:57 93 133/73 11/15/18 20:14 Room Air 11/15/18 19:48 98.1 93 18 133/73 (93) 96 11/15/18 16:05 98.4 93 18 138/60 (86) 97 I&O Intake and Output 11/15/18 11/16/18 19:00 07:00 Intake Total 600 ml 275.000 ml Output Total 200 ml 350 ml Balance 400 ml -75.000 ml Intake Oral 600 ml IV Total 275.000 ml Output Urine Total 200 ml 350 ml # Voids 2 Dressing: dry Wound: clean Cardiovascular: RSR Respiratory: clear Abdomen: soft, flat, non-tender, present bowel sounds, non-distended Extremities: cyanosis, no tenderness Laboratory Tests Test 11/16/18 05:00 White Blood Count 8.1 K/UL (4.8-10.8) Red Blood Count 3.37 M/UL (4.70-6.10) L Hemoglobin 9.6 G/DL (14.2-18.0) L Hematocrit 29.2 % (42.0-52.0) L Mean Corpuscular Volume 87 FL (80-99) Mean Corpuscular Hemoglobin 28.4 PG (27.0-31.0) Mean Corpuscular Hemoglobin Concent 32.8 G/DL (32.0-36.0) Red Cell Distribution Width 11.1 % (11.6-14.8) L Platelet Count 245 K/UL (150-450) Mean Platelet Volume 6.2 FL (6.5-10.1) L Neutrophils (%) (Auto) 61.2 % (45.0-75.0) Lymphocytes (%) (Auto) 25.6 % (20.0-45.0) Monocytes (%) (Auto) 10.2 % (1.0-10.0) H Eosinophils (%) (Auto) 2.1 % (0.0-3.0) Basophils (%) (Auto) 0.9 % (0.0-2.0) Sodium Level 144 MMOL/L (136-145) Potassium Level 3.7 MMOL/L (3.5-5.1) Chloride Level 111 MMOL/L (98-107) H Carbon Dioxide Level 21 MMOL/L (21-32) Anion Gap 12 mmol/L (5-15) Blood Urea Nitrogen 23 mg/dL (7-18) H Creatinine 1.7 MG/DL (0.55-1.30) H Estimat Glomerular Filtration Rate mL/min (>60) Glucose Level 127 MG/DL (74-106) H Calcium Level 8.8 MG/DL (8.5-10.1) Total Bilirubin 0.2 MG/DL (0.2-1.0) Aspartate Amino Transf (AST/SGOT) 39 U/L (15-37) H Alanine Aminotransferase (ALT/SGPT) 37 U/L (12-78) Alkaline Phosphatase 72 U/L (46-116) Total Protein 6.2 G/DL (6.4-8.2) L Albumin 2.5 G/DL (3.4-5.0) L Globulin 3.7 g/dL Albumin/Globulin Ratio 0.7 (1.0-2.7) L Plan Problems: (1) Elevated lactic acid level Assessment & Plan: Patient presented with lactic acidosis, cellulitis and infection of his left foot with necrosis and gangrene of the left second toe. Continue with his resuscitation Okay for diet improving stable (2) Gangrene of toe of left foot Assessment & Plan: Patient presents with left second ray gangrene dry foul- smelling no purulent drainage edema and cellulitis of the foot. Has had it for a few weeks and worsening since his trip to [place]. Plain films noted no fracture IV antibiotics as per infectious disease Pending venous and arterial studies as well MRI: Impression: Abnormal STIR and T1 signal within the second distal phalanx, indicative of osteomyelitis. Subtle increased STIR signal within the second middle phalanx without corresponding T1 signal abnormality. This may reflect reactive changes or very early osteomyelitis Dorsal edema. This may indicate cellulitis or may be vasogenic in origin Swab necrotic area of left foot with Betadine wash foot daily apply gauze dressing We will follow with recommendations as results of imaging are available We will attempt to salvage as much possible but potentially may need an amputation cont with IV abx and local wound care. defer to ID for abx duration Podiatry input appreciated vascular clearance and likely amputation Strict glucose monitoring and control Thank you will follow with recommendations (3) DM (diabetes mellitus) Nikhil Islas Nov 16, 2018 15:54
[2018-11-16] MEDS: Cefepime 2gm/D5W 110ml IV SCH ×2 (15:55)
[2018-11-16 16:00] VITALS: BP 138/69
--- NOTE | 2018-11-16 16:25 | Nephrology Progress Note ---
Assessment/Plan Problem List: (1) Hyperglycemia (2) Elevated lactic acid level (3) Gangrene of toe of left foot (4) Renal failure (5) Dehydration (6) HTN (hypertension) (7) DM (diabetes mellitus) Plan # Acute kidney injury on possibley CKD stage III- likely diabetic nephropathy # L second toe distal dry gangrene- with osteol # IDDM # HTN- controlled # Diabetic foot ulcer - hold losartan for now- ok to resume on DC- - needs outpatient follow up with renal - continue to monitor off IVF- resume when/if NPO - continue metop 100 at night - continue amlodipine 5mg daily - check renal US--> IMPRESSION: 1. No hydronephrosis. 2. Nodular lesion arising from the prostate or bladder base, measures 1. 8 x 1.2 cm mri pelvic to better delineate lesion --> Indentation of the bladder floor - cefepime and Vancomycin- renal dose - avoid supratherapeutic vanco level - podiatry/surgery eval noted - PICCLine Subjective Constitutional: Denies: no symptoms, chills, diaphoresis, fever, malaise, weakness, other HEENT: Denies: no symptoms, eye pain, blurred vision, tearing, double vision, ear pain, ear discharge, nose pain, nose congestion, throat pain, throat swelling, mouth pain, mouth swelling, other Genitourinary: Denies: no symptoms, burning, discharge, frequency, flank pain, hematuria, incontinence, pain, urgency, other Neurologic/Psychiatric: Denies: no symptoms, anxiety, depressed, emotional problems, headache, numbness, paresthesia, pre-existing deficit, seizure, tingling, tremors, weakness, other Subjective no significant pain No fevers or chills. mri foot done pelvis mri done showing Indentation of the bladder floor s/p PICC line placed Cr 1.7 Objective Objective Last 24 Hour Vital Signs Date Time Temp Pulse Resp B/P (MAP) Pulse Ox O2 Delivery O2 Flow Rate FiO2 11/16/18 12:00 98.3 85 18 127/68 (87) 96 11/16/18 09:23 85 131/74 11/16/18 09:00 Room Air 11/16/18 08:00 97.9 85 19 131/74 (93) 98 11/16/18 04:00 98.9 89 19 107/62 (77) 95 11/16/18 00:10 98.9 88 19 119/60 (79) 96 11/15/18 20:57 93 133/73 11/15/18 20:14 Room Air 11/15/18 19:48 98.1 93 18 133/73 (93) 96 Intake and Output 11/15/18 11/16/18 19:00 07:00 Intake Total 600 ml 275.000 ml Output Total 200 ml 350 ml Balance 400 ml -75.000 ml Intake Oral 600 ml IV Total 275.000 ml Output Urine Total 200 ml 350 ml # Voids 2 Laboratory Tests 11/16/18 05:00: White Blood Count 8.1, Red Blood Count 3.37L, Hemoglobin 9.6L, Hematocrit 29.2L , Mean Corpuscular Volume 87, Mean Corpuscular Hemoglobin 28.4, Mean Corpuscular Hemoglobin Concent 32.8, Red Cell Distribution Width 11.1L, Platelet Count 245, Mean Platelet Volume 6.2L, Neutrophils (%) (Auto) 61.2, Lymphocytes (%) (Auto) 25.6, Monocytes (%) (Auto) 10.2H, Eosinophils (%) (Auto) 2.1, Basophils (%) (Auto) 0.9, Sodium Level 144, Potassium Level 3.7, Chloride Level 111H, Carbon Dioxide Level 21, Anion Gap 12, Blood Urea Nitrogen 23H, Creatinine 1.7H, Estimat Glomerular Filtration Rate , Glucose Level 127H, Calcium Level 8.8, Total Bilirubin 0.2, Aspartate Amino Transf (AST/SGOT) 39H, Alanine Aminotransferase (ALT/SGPT) 37, Alkaline Phosphatase 72, Total Protein 6.2L, Albumin 2.5L, Globulin 3.7, Albumin/Globulin Ratio 0.7L Height (Feet): 5 Height (Inches): 6.00 Weight (Pounds): 181 General Appearance: WD/WN, no apparent distress, alert EENT: PERRL/EOMI Neck: non-tender, normal alignment Cardiovascular: normal rate, regular rhythm Respiratory/Chest: chest wall non-tender, lungs clear Abdomen: normal bowel sounds Neurologic: alert, oriented x 3 Lissa Frankel M.D. Nov 16, 2018 16:25
--- NOTE | 2018-11-16 18:12 | NUR ---
CASE MANAGEMENT: REVIEW 11/16/2018 SI:GANGRENE LEFT SECOND GREAT TOE. DM. T 97.5 HR 97 RR 20 B/P 138/69 SATS 96% ON RA CL 111 BUN 23 CR 1.7 GLU 127 AST 39 IS: FLAGYL PO Q8H LOPRESSOR PO QHS INSULIN SUBQ AC PROTONIX PO QD NORVASC POQD INSULIN HUMAN NPH SUBQ BEFORE DINNER VANCO IV Q24H CEFEPIME IV Q24H LOVENOX SUBQ QHS MED/SURG STATUS DCP: PATIENT TO BE DISCHARGED TO HOME ONCE MEDICALLY CLEARED.
--- NOTE | 2018-11-16 18:25 | NUR ---
DISCHARGE PLANNING: NOTE CLINICALS FAXED TO [facility] FOR REVIEW T: [phone] F: [phone] PT NEEDS 6 WEEKS OF IV ANTIBX
--- NOTE | 2018-11-16 19:39 | NUR ---
HAND-OFF: Report given to FARNAZ TOWNSEND.
--- NOTE | 2018-11-16 19:55 | NUR ---
NURSE NOTES: Received patient awake,alert,verbal,comfortably resting in bed without complaints.
[2018-11-16 20:00] VITALS: BP 139/70
[2018-11-16] MEDS: Dyna-Hex 2% Top Sol 2oz TOPIC SCH (20:53)
[2018-11-16] MEDS: Enoxaparin 40mg Inj SUBQ SCH (20:54)
[2018-11-17] VITALS: BP 130/59
[2018-11-17] MEDS: Vancomycin 1.25gm/NS Premix IVPB SCH (01:03)
--- NOTE | 2018-11-17 02:45 | Consultation ---
DATE OF CONSULTATION: 11/16/2018 CONSULTING PHYSICIAN: Dania Nunes M.D. REASON FOR CONSULTATION: Ulceration to the left second toe. HISTORY OF PRESENTING ILLNESS: This is a 72-year-old male who was admitted to [facility] with diabetic ulceration to left foot. The patient has difficulty communicating due to language barrier, but states that ulceration started with blister and then turned into dark discoloration. The patient denies fever, chills, nausea, and vomiting. White count noted to be within normal limits. PAST MEDICAL HISTORY: Diabetes, peripheral vascular disease, peripheral arterial disease, gangrene, and diabetic ulceration. PHYSICAL EXAMINATION: VASCULAR: Dorsalis pedis and posterior tibial artery are nonpalpable. Capillary filling time is greater than 5 seconds. Edema is noted to bilateral feet. The feet distally noted to be cool to touch. NEUROLOGICAL: Sharp and dull proprioception, protected threshold noted to be diminished consistent with peripheral neuropathy. MUSCULOSKELETAL: Range of motion and muscle strength noted to be within normal limits. DERMATOLOGICAL: Attention was directed to the left foot where gangrenous changes noted to the distal aspect of the left second toe, distal to the middle phalanx. There is no drainage, discharge, or purulent matter. There is periwound edema. There is no cellulitis. There is malodor at this site. ASSESSMENT AND PLAN: Diabetic ulceration of left second toe with gangrenous changes. Order was written for application of Betadine. Order was written for Vascular consultation. The patient will benefit from second toe amputation once cleared by Vascular. Cm Sampson D.P.M DR: Eddie JOB#: [id number] CC: CARLA
[2018-11-17 04:00] VITALS: BP 145/80
[2018-11-17] MEDS: metroNIDAZOLE 500mg tab ORAL SCH ×3 (05:40→21:00)
[2018-11-17] MEDS: Insulin NPH SUBQ SCH ×2 (05:41→17:19)
[2018-11-17 06:50] LABS: ALANINE AMINOTRANSFERASE 43 U/L (12-78); ALBUMIN 2.4 G/DL (3.4-5.0); ALBUMIN/GLOBULIN RATIO 0.6 (1.0-2.7); ALKALINE PHOSPHATASE 75 U/L (46-116); ANION GAP 9 mmol/L (5-15); ASPARTATE AMINO TRANSFERASE 47 U/L (15-37); BILIRUBIN,TOTAL 0.2 MG/DL (0.2-1.0); BLOOD UREA NITROGEN 20 mg/dL (7-18); CALCIUM 8.5 MG/DL (8.5-10.1); CARBON DIOXIDE 22 MMOL/L (21-32); CHLORIDE 109 MMOL/L (98-107); CREATININE 1.5 MG/DL (0.55-1.30); POTASSIUM 3.9 MMOL/L (3.5-5.1); SODIUM 140 MMOL/L (136-145)
[2018-11-17 06:59] LABS: EOSINOPHILS % (AUTO) 2.6 % (0.0-3.0); HEMATOCRIT 28.6 % (42.0-52.0); HEMOGLOBIN 9.5 G/DL (14.2-18.0); LYMPHOCYTES % (AUTO) 26.2 % (20.0-45.0); MEAN CORPUSCULAR VOLUME 87 FL (80-99); NEUTROPHILS % (AUTO) 61.3 % (45.0-75.0); PLATELET COUNT 231 K/UL (150-450); RED BLOOD COUNT 3.29 M/UL (4.70-6.10); RED CELL DISTRIBUTION WIDTH 11.2 % (11.6-14.8); WHITE BLOOD COUNT 7.8 K/UL (4.8-10.8)
--- NOTE | 2018-11-17 07:15 | NUR ---
HAND-OFF: Report given to Sami Chapman RN.
[2018-11-17 08:00] VITALS: BP 114/69
--- NOTE | 2018-11-17 11:07 | NUR ---
NURSE NOTES: wound treatment done as order and pt tolerate well. will continue to monitor.
--- NOTE | 2018-11-17 11:27 | NUR ---
*-* INSURANCE *-* UPDATED CLINICALS AND REVIEW HAVE BEEN FAXED TO: [facility]# [id number] F: [phone]
[2018-11-17 12:00] VITALS: BP 127/79
--- NOTE | 2018-11-17 12:28 | NUR ---
PT WEEKLY PROGRESS NOTE Patient being seen by PT for therapeutic exercises, transfer training and gait training with WB precautions. Patient performs transfers and ambulation with supervision and FWW, some cueing for proper WB status LLE. Patient will continue to benefit from skilled inpatient PT intervention to address strength, balance, safety and functional mobility with WB precautions.
--- NOTE | 2018-11-17 13:12 | Infectious Diseases Prog Note ---
Assessment/Plan Assessment/Plan ASSESSMENT AND PLAN: 1. left foot 2nd toe gangrene with osteomyelitis/cellulitis and infected wound, wc - staph aureus and klebsiella - continue vancomycin, cefepime and flagyl - day # 6 abx - monitor labs - podiatry note reviewed - favor amputation and vascular surgery evaluation 2. Anemia. 3. Elevated creatinine. 4. Diabetes. 5. Hypertension. 6. Blood sugar and blood pressure treatment per primary. 7. BPH. 8. No known allergies. 9. Social history is negative. 10. Family history is noncontributory. 11. MAR was noted. 12. Case was discussed with RN. 13. Continue treatment per primary consultants. Subjective Constitutional: Denies: fever HEENT: Denies: congestion Respiratory: Denies: shortness of breath Cardiovascular: Denies: chest pain Gastrointestinal/Abdominal: Denies: nausea, vomiting, diarrhea Genitourinary: Denies: dysuria Psychiatric: Denies: depression Skin: Denies: rash Hematologic: Denies: bleeding Musculoskeletal: Denies: pain Allergies: Coded Allergies: No Known Allergies (Unverified , 08/14/15) Objective Vital Signs Last 24 Hour Vital Signs Date Time Temp Pulse Resp B/P (MAP) Pulse Ox O2 Delivery O2 Flow Rate FiO2 11/17/18 12:00 97.9 62 19 127/79 (95) 96 11/17/18 09:00 Room Air 11/17/18 08:22 60 114/69 11/17/18 08:00 97.6 60 18 114/69 (84) 98 11/17/18 04:00 97.8 82 16 145/80 (101) 99 11/17/18 00:00 98.5 84 18 130/59 (82) 94 11/16/18 20:54 97 139/70 11/16/18 20:09 Room Air 11/16/18 20:00 98.2 97 20 139/70 (93) 95 11/16/18 16:00 97.5 97 20 138/69 (92) 96 Height (Feet): 5 Height (Inches): 6.00 Weight (Pounds): 181 General Appearance: no acute distress HEENT: normocephalic, atraumatic, anicteric, mucous membranes moist Respiratory/Chest: lungs clear, normal breath sounds, no respiratory distress, no accessory muscle use Cardiovascular: normal rate, regular rhythm, no gallop/murmur Abdomen: normal bowel sounds, soft, non tender, no organomegaly Genitourinary: other - no davila, no cva pain Extremities: other - left foot 2nd toe gangrene Skin: other - left foot second toe gangrene Neurologic/Psychiatric: radiation 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 Subtle increased STIR signal within the second middle phalanx without corresponding T1 signal abnormality. This may reflect reactive changes or very early osteomyelitis Dorsal edema. This may indicate cellulitis or may be vasogenic in origin Microbiology Date/Time Source Procedure Growth Status 11/10/18 17:00 Blood Blood Culture - Final NO GROWTH AFTER 5 DAYS Complete 11/10/18 16:33 Foot Left Gram Stain - Final Complete 11/10/18 16:33 Wound Culture - Final Klebsiella Oxytoca Staphylococcus Aureus Diphtheroids Complete Laboratory Tests Test 11/17/18 05:30 White Blood Count 7.8 K/UL (4.8-10.8) Red Blood Count 3.29 M/UL (4.70-6.10) L Hemoglobin 9.5 G/DL (14.2-18.0) L Hematocrit 28.6 % (42.0-52.0) L Mean Corpuscular Volume 87 FL (80-99) Mean Corpuscular Hemoglobin 28.8 PG (27.0-31.0) Mean Corpuscular Hemoglobin Concent 33.2 G/DL (32.0-36.0) Red Cell Distribution Width 11.2 % (11.6-14.8) L Platelet Count 231 K/UL (150-450) Mean Platelet Volume 6.0 FL (6.5-10.1) L Neutrophils (%) (Auto) 61.3 % (45.0-75.0) Lymphocytes (%) (Auto) 26.2 % (20.0-45.0) Monocytes (%) (Auto) 9.0 % (1.0-10.0) Eosinophils (%) (Auto) 2.6 % (0.0-3.0) Basophils (%) (Auto) 1.0 % (0.0-2.0) Sodium Level 140 MMOL/L (136-145) Potassium Level 3.9 MMOL/L (3.5-5.1) Chloride Level 109 MMOL/L (98-107) H Carbon Dioxide Level 22 MMOL/L (21-32) Anion Gap 9 mmol/L (5-15) Blood Urea Nitrogen 20 mg/dL (7-18) H Creatinine 1.5 MG/DL (0.55-1.30) H Estimat Glomerular Filtration Rate mL/min (>60) Glucose Level 189 MG/DL (74-106) H Calcium Level 8.5 MG/DL (8.5-10.1) Total Bilirubin 0.2 MG/DL (0.2-1.0) Aspartate Amino Transf (AST/SGOT) 47 U/L (15-37) H Alanine Aminotransferase (ALT/SGPT) 43 U/L (12-78) Alkaline Phosphatase 75 U/L (46-116) Total Protein 6.7 G/DL (6.4-8.2) Albumin 2.4 G/DL (3.4-5.0) L Globulin 4.3 g/dL Albumin/Globulin Ratio 0.6 (1.0-2.7) L Current Medications Medications (Trade) Dose Ordered Sig/Sathish Route PRN Reason Start Time Stop Time Status Last Admin Dose Admin Acetaminophen (Tylenol) 650 mg Q4H PRN ORAL Mild Pain (Pain Scale 1-3) 11/10/18 18:30 12/10/18 18:29 Acetaminophen/ Hydrocodone Bitart (Iaeger 5/325) 1 tab QIDPRN PRN ORAL pain 11/10/18 18:30 11/17/18 18:29 11/14/18 12:56 Amlodipine Besylate (Norvasc) 5 mg DAILY ORAL 11/13/18 09:00 12/13/18 08:59 11/17/18 08:22 Cefepime HCl 2 gm/ Dextrose 110 ml @ 220 mls/hr Q24H IV 11/15/18 16:00 11/22/18 15:59 11/16/18 15:55 Chlorhexidine Gluconate (Tiffanie-Hex 2%) 1 applic DAILY@2000 TOPIC 11/14/18 20:00 12/14/18 19:59 11/16/18 20:53 Dextrose (Dextrose 50%) 25 ml Q30M PRN IV Hypoglycemia 11/10/18 18:30 12/10/18 18:29 Dextrose (Dextrose 50%) 50 ml Q30M PRN IV Hypoglycemia 11/10/18 18:30 12/10/18 18:29 Enoxaparin Sodium (Lovenox) 40 mg QHS SUBQ 11/15/18 21:00 12/15/18 20:59 11/16/18 20:54 Insulin Human NPH (Humulin N) 20 units BEFORE DINNER SUBQ 11/11/18 16:30 12/11/18 16:29 11/16/18 17:19 Insulin Human NPH (Humulin N) 40 units BEFORE BREAKFAST SUBQ 11/11/18 06:30 12/11/18 06:29 11/17/18 05:41 Metoprolol Tartrate (Lopressor) 100 mg BEDTIME ORAL 11/11/18 21:00 12/11/18 20:59 11/16/18 20:54 Metronidazole (Flagyl) 500 mg EVERY 8 HOURS ORAL 11/15/18 14:00 11/22/18 13:59 11/17/18 05:40 Morphine Sulfate (Morphine Sulfate) 1 mg Q2H PRN IVP For Pain 11/10/18 18:30 11/17/18 18:29 Pantoprazole (Protonix) 40 mg DAILY ORAL 11/11/18 09:00 12/11/18 08:59 11/17/18 08:23 Polyethylene Glycol (Miralax) 17 gm HSPRN PRN ORAL Constipation 11/10/18 18:30 12/10/18 18:29 Vancomycin HCl (Vanco rx to dose) 1 ea DAILY PRN MISC Per rx protocol 11/10/18 18:30 12/10/18 18:29 Vancomycin/Sodium Chloride 275 ml @ 183.333 mls/hr Q24H IVPB 11/16/18 02:00 11/21/18 01:59 11/17/18 01:03 Joe Velasquez MD Nov 17, 2018 13:12
--- NOTE | 2018-11-17 14:04 | NUR ---
HOSPITAL DIRECTORDEVELOPMENT SCIENTIST SI: GANGRENE OF GREAT TOE T. 97.9 HR 62 RR 19 B/P 127/79 BUN 20 CR 1.5 AST 47 IS: VANCO IV CEFEPIME IV FLAGYL PO PROTONIX MED/SURG STATUS
--- NOTE | 2018-11-17 14:06 | NUR ---
CHEMOTHERAPIST NOTES SPOKE WITH FLORA FROM [facility]SFER [facility], PT PENDING FINANCIAL CLEARANCE FOR TRANSFER. WILL FOLLOW UP. [facility] [phone]
--- NOTE | 2018-11-17 15:03 | Surgery Progress Note ---
Surgery Progress Note Subjective Additional Comments no acute events appreciate podiatry input patient doing well without complaints Objective Last 24 Hour Vital Signs Date Time Temp Pulse Resp B/P (MAP) Pulse Ox O2 Delivery O2 Flow Rate FiO2 11/17/18 12:00 97.9 62 19 127/79 (95) 96 11/17/18 09:00 Room Air 11/17/18 08:22 60 114/69 11/17/18 08:00 97.6 60 18 114/69 (84) 98 11/17/18 04:00 97.8 82 16 145/80 (101) 99 11/17/18 00:00 98.5 84 18 130/59 (82) 94 11/16/18 20:54 97 139/70 11/16/18 20:09 Room Air 11/16/18 20:00 98.2 97 20 139/70 (93) 95 11/16/18 16:00 97.5 97 20 138/69 (92) 96 I&O Intake and Output 11/16/18 11/17/18 18:59 06:59 Intake Total 760 ml 275.000 ml Output Total 500 ml Balance 760 ml -225.000 ml Intake Oral 650 ml IV Total 110 ml 275.000 ml Output Urine Total 500 ml # Voids 3 Dressing: dry Wound: clean Cardiovascular: RSR Respiratory: clear Abdomen: soft, flat, non-tender, present bowel sounds Extremities: cyanosis, other Laboratory Tests Test 11/17/18 05:30 White Blood Count 7.8 K/UL (4.8-10.8) Red Blood Count 3.29 M/UL (4.70-6.10) L Hemoglobin 9.5 G/DL (14.2-18.0) L Hematocrit 28.6 % (42.0-52.0) L Mean Corpuscular Volume 87 FL (80-99) Mean Corpuscular Hemoglobin 28.8 PG (27.0-31.0) Mean Corpuscular Hemoglobin Concent 33.2 G/DL (32.0-36.0) Red Cell Distribution Width 11.2 % (11.6-14.8) L Platelet Count 231 K/UL (150-450) Mean Platelet Volume 6.0 FL (6.5-10.1) L Neutrophils (%) (Auto) 61.3 % (45.0-75.0) Lymphocytes (%) (Auto) 26.2 % (20.0-45.0) Monocytes (%) (Auto) 9.0 % (1.0-10.0) Eosinophils (%) (Auto) 2.6 % (0.0-3.0) Basophils (%) (Auto) 1.0 % (0.0-2.0) Sodium Level 140 MMOL/L (136-145) Potassium Level 3.9 MMOL/L (3.5-5.1) Chloride Level 109 MMOL/L (98-107) H Carbon Dioxide Level 22 MMOL/L (21-32) Anion Gap 9 mmol/L (5-15) Blood Urea Nitrogen 20 mg/dL (7-18) H Creatinine 1.5 MG/DL (0.55-1.30) H Estimat Glomerular Filtration Rate mL/min (>60) Glucose Level 189 MG/DL (74-106) H Calcium Level 8.5 MG/DL (8.5-10.1) Total Bilirubin 0.2 MG/DL (0.2-1.0) Aspartate Amino Transf (AST/SGOT) 47 U/L (15-37) H Alanine Aminotransferase (ALT/SGPT) 43 U/L (12-78) Alkaline Phosphatase 75 U/L (46-116) Total Protein 6.7 G/DL (6.4-8.2) Albumin 2.4 G/DL (3.4-5.0) L Globulin 4.3 g/dL Albumin/Globulin Ratio 0.6 (1.0-2.7) L Plan Problems: (1) Elevated lactic acid level Assessment & Plan: Patient presented with lactic acidosis, cellulitis and infection of his left foot with necrosis and gangrene of the left second toe. Continue with his resuscitation Okay for diet improving stable (2) Gangrene of toe of left foot Assessment & Plan: Patient presents with left second ray gangrene dry foul- smelling no purulent drainage edema and cellulitis of the foot. Has had it for a few weeks and worsening since his trip to [place]. Plain films noted no fracture IV antibiotics as per infectious disease Pending venous and arterial studies as well MRI: Impression: Abnormal STIR and T1 signal within the second distal phalanx, indicative of osteomyelitis. Subtle increased STIR signal within the second middle phalanx without corresponding T1 signal abnormality. This may reflect reactive changes or very early osteomyelitis Dorsal edema. This may indicate cellulitis or may be vasogenic in origin Swab necrotic area of left foot with Betadine wash foot daily apply gauze dressing We will follow with recommendations as results of imaging are available We will attempt to salvage as much possible but potentially may need an amputation cont with IV abx and local wound care. defer to ID for abx duration Podiatry input appreciated vascular clearance and likely amputation Strict glucose monitoring and control Thank you will follow with recommendations (3) DM (diabetes mellitus) Nikhil Islas Nov 17, 2018 15:03
[2018-11-17] MEDS: Cefepime 2gm/D5W 110ml IV SCH ×2 (15:17)
--- NOTE | 2018-11-17 15:41 | General Progress Note ---
Assessment/Plan Problem List: (1) Hyperglycemia ICD Codes: R73.9 - Hyperglycemia, unspecified SNOMED: 28872540 (2) Renal failure ICD Codes: N19 - Unspecified kidney failure SNOMED: 09963705 Qualifiers: Qualified Codes: N19 - Unspecified kidney failure (3) Elevated lactic acid level ICD Codes: R79.89 - Other specified abnormal findings of blood chemistry SNOMED: 0192264 (4) Gangrene of toe of left foot ICD Codes: I96 - Gangrene, not elsewhere classified SNOMED: 35233506099946705 (5) DM (diabetes mellitus) ICD Codes: E11.9 - Type 2 diabetes mellitus without complications SNOMED: 85444879 Status: stable Assessment/Plan: 72 y/o male admitted with L second toe foul smelling necrosis, gangrene and osteomyelitis. # L second toe distal dry gangrene/ osteomyelitis shown on MRI foot. Vascular studies show patent arteries. # Diabetic foot ulcer Cefepime and Vancomycin- renal dose, and Flagyl. day 6. wound cultures with klebsiella and staph aureus ESR and CRP weekly Surgical consult with Dr. Islas appreciated PICC placed ID consult to guide antibiotic coverage appreciated Podiatry consulted, Dr. Sampson, favoring amputation. Per vascular surgery, Dr. Salcedo, patient needs selective left leg angio prior to amputation. Will transfer to [facility] vs[facility] for [facility]. [facility] contacted. Waiting for financial approval from insurance. # Diabetic nephropathy with SHAHANA on CKD3-4, improving. Patient denies prior renal disease and nephrology was consulted. Dr. Frankel IVF and monitor BMP UA with microalbumin Renal US reviewed MRI abdomen without contrast to work up bladder nodule seen on US continue to hold Losartan, will resume on discharge # IDDM- poorly controlled- HbA1c 10.4 finger stick glucose has been less than 200 on NPH 40 AM, 20 PM diabetic diet # Disposition PT evaluation for possible need of assistive devices. Would go home with home services FULL CODE DVT and GI ppx I spent 40 minutes on this encounter, 50% on counselling and care coordination Subjective Date patient seen: Nov 17, 2018 ROS Limited/Unobtainable: No Constitutional: Denies: no symptoms, chills, diaphoresis, fever, malaise, weakness, other HEENT: Denies: no symptoms, eye pain, blurred vision, tearing, double vision, ear pain, ear discharge, nose pain, nose congestion, throat pain, throat swelling, mouth pain, mouth swelling, other Cardiovascular: Denies: no symptoms, chest pain, edema, irregular heart rate, lightheadedness, palpitations, syncope, other Respiratory: Denies: no symptoms, cough, orthopnea, shortness of breath, SOB with excertion, SOB at rest, sputum, stridor, wheezing, other Gastrointestinal/Abdominal: Denies: no symptoms, abdomen distended, abdominal pain, black stools, tarry stools, blood in stool, constipated, diarrhea, difficulty swallowing, nausea, poor appetite, poor fluid intake, rectal bleeding , vomiting, other Genitourinary: Denies: no symptoms, burning, discharge, frequency, flank pain, hematuria, incontinence, pain, urgency, other Endocrine: Denies: no symptoms, excessive sweating, flushing, intolerance to cold, intolerance to heat, increased hunger, increased thirst, increased urine, unexplained weight gain, unexplained weight loss, other Hematologic/Lymphatic: Denies: no symptoms, anemia, easy bleeding, easy bruising, other Allergies: Coded Allergies: No Known Allergies (Unverified , 08/14/15) Subjective Seen and examined. no abdominal pain, no diarrhea evaluated by podiatry, favors amputation Per vascular surgery, Dr. Salcedo, patient needs a selective left leg angio Objective Last 24 Hour Vital Signs Date Time Temp Pulse Resp B/P (MAP) Pulse Ox O2 Delivery O2 Flow Rate FiO2 11/17/18 12:00 97.9 62 19 127/79 (95) 96 11/17/18 09:00 Room Air 11/17/18 08:22 60 114/69 11/17/18 08:00 97.6 60 18 114/69 (84) 98 11/17/18 04:00 97.8 82 16 145/80 (101) 99 11/17/18 00:00 98.5 84 18 130/59 (82) 94 11/16/18 20:54 97 139/70 11/16/18 20:09 Room Air 11/16/18 20:00 98.2 97 20 139/70 (93) 95 11/16/18 16:00 97.5 97 20 138/69 (92) 96 Intake and Output 11/16/18 11/17/18 18:59 06:59 Intake Total 760 ml 275.000 ml Output Total 500 ml Balance 760 ml -225.000 ml Intake Oral 650 ml IV Total 110 ml 275.000 ml Output Urine Total 500 ml # Voids 3 Laboratory Tests 11/17/18 05:30: White Blood Count 7.8, Red Blood Count 3.29L, Hemoglobin 9.5L, Hematocrit 28.6L , Mean Corpuscular Volume 87, Mean Corpuscular Hemoglobin 28.8, Mean Corpuscular Hemoglobin Concent 33.2, Red Cell Distribution Width 11.2L, Platelet Count 231, Mean Platelet Volume 6.0L, Neutrophils (%) (Auto) 61.3, Lymphocytes (%) (Auto) 26.2, Monocytes (%) (Auto) 9.0, Eosinophils (%) (Auto) 2.6, Basophils (%) (Auto) 1.0, Sodium Level 140, Potassium Level 3.9, Chloride Level 109H, Carbon Dioxide Level 22, Anion Gap 9, Blood Urea Nitrogen 20H, Creatinine 1.5H, Estimat Glomerular Filtration Rate , Glucose Level 189H, Calcium Level 8.5, Total Bilirubin 0.2, Aspartate Amino Transf (AST/SGOT) 47H, Alanine Aminotransferase (ALT/SGPT) 43, Alkaline Phosphatase 75, Total Protein 6.7, Albumin 2.4L, Globulin 4.3, Albumin/Globulin Ratio 0.6L Height (Feet): 5 Height (Inches): 6.00 Weight (Pounds): 181 Objective General appearance: alert, cooperative, no distress, appears stated age Head: Normocephalic, without obvious abnormality, atraumatic Eyes: conjunctivae/corneas clear. PERRL, EOM's intact. Fundi benign Throat: Lips, mucosa, and tongue normal. Teeth and gums normal Neck: supple, symmetrical, trachea midline, no adenopathy, thyroid: not enlarged, symmetric, no tenderness/mass/nodules, no carotid bruit and no JVD Lungs: clear to auscultation bilaterally Heart: regular rate and rhythm, S1, S2 normal, no murmur, click, rub or gallop Abdomen: soft, non-tender. Bowel sounds normal. No masses, no organomegaly Extremities: extremities normal, atraumatic, necrotic left second toe. foul odor. no drainage . +picc present. clean and clear no erythema Pulses: 2+ and symmetric Skin: Skin color, texture, turgor normal. No rashes or lesions Neurologic: Grossly normal Erich Pitts M.D. Nov 17, 2018 15:41
[2018-11-17 16:00] VITALS: BP 147/69
--- NOTE | 2018-11-17 19:38 | NUR ---
HAND-OFF: Report given to CECE TOWNSEND.
--- NOTE | 2018-11-17 19:38 | NUR ---
NURSE NOTES: Pt received in bed, speaking Swedish, no c/o pain or signs of distress, call light within reach, PICC line left upper arm will flush, pt able to make needs known, will continue to monitor.
[2018-11-17 20:00] VITALS: BP 131/74
[2018-11-17] MEDS: Dyna-Hex 2% Top Sol 2oz TOPIC SCH (20:57)
[2018-11-17] MEDS: Enoxaparin 40mg Inj SUBQ SCH (20:59)
--- NOTE | 2018-11-17 22:36 | General Progress Note ---
Progress Note Progress Note Patient seen and examined earlier Ischemic left toe dry gangrene Calcific multilevel PAD 2+ femorals absent pop pedal pulses b/l IDDM HTN Hyperlipidemia Renal failure Images results reviewed Rec Will need selective left leg angiogram with minimal contrast to assess for revascularization prior to toe gangrene amputation Antiplatelet and statin therapy Strict sugar control d/w pt and nurse d/w pmd and podiatry Solitario Salcedo MD Nov 17, 2018 22:36
[2018-11-18] VITALS: BP 128/62
[2018-11-18 01:22] LABS: BASOPHILS % (AUTO) 1.1 % (0.0-2.0); EOSINOPHILS % (AUTO) 2.7 % (0.0-3.0); HEMATOCRIT 29.2 % (42.0-52.0); HEMOGLOBIN 9.8 G/DL (14.2-18.0); LYMPHOCYTES % (AUTO) 25.5 % (20.0-45.0); MEAN CORPUSCULAR VOLUME 86 FL (80-99); MONOCYTES % (AUTO) 9.5 % (1.0-10.0); NEUTROPHILS % (AUTO) 61.2 % (45.0-75.0); PLATELET COUNT 235 K/UL (150-450); RED BLOOD COUNT 3.38 M/UL (4.70-6.10); RED CELL DISTRIBUTION WIDTH 11.6 % (11.6-14.8); WHITE BLOOD COUNT 8.4 K/UL (4.8-10.8)
[2018-11-18 01:32] LABS: ANION GAP 11 mmol/L (5-15); BLOOD UREA NITROGEN 20 mg/dL (7-18); CALCIUM 8.8 MG/DL (8.5-10.1); CARBON DIOXIDE 23 MMOL/L (21-32); CHLORIDE 111 MMOL/L (98-107); CREATININE 1.6 MG/DL (0.55-1.30); POTASSIUM 3.5 MMOL/L (3.5-5.1); SODIUM 145 MMOL/L (136-145)
--- NOTE | 2018-11-18 01:59 | NUR ---
NURSE NOTES: Vanco Trough results 14.4, spoke with pipeline pharmacist randolph Avila to give next scheduled dose.
[2018-11-18] MEDS: Vancomycin 1.25gm/NS Premix IVPB SCH (02:03)
[2018-11-18 04:00] VITALS: BP 121/53
--- NOTE | 2018-11-18 06:08 | NUR ---
NURSE NOTES: Yesi from [facility] called stating Authorization is needed from [facility] insurance and the finance department is working on it.
[2018-11-18] MEDS: metroNIDAZOLE 500mg tab ORAL SCH ×3 (06:10→21:29)
[2018-11-18] MEDS: Insulin NPH SUBQ SCH ×2 (06:14→16:50)
--- NOTE | 2018-11-18 07:00 | NUR ---
HAND-OFF: Report given to KRITSIAN Gallardo. Endorsed that [facility] called and stated waiting on Authorization from [facility]
--- NOTE | 2018-11-18 07:30 | NUR ---
NURSE NOTES: Received pt from KRISTIAN ZHAO. Pt is alert and orient x4. pt is in RA, no SOB or acute respiratory distress noted. pt has intact iv access RFA 22g SL. Pt has PICC JOSHUA SL. Pt is eating breakfast independently. all needs attended, bed is locked and is in the lowest position. call light within easy reach. will continue to monitor
[2018-11-18 08:00] VITALS: BP 115/60
--- NOTE | 2018-11-18 10:19 | Surgery Progress Note ---
Surgery Progress Note Subjective Additional Comments Patient seen and examined bedside. No acute events. Doing well. Appreciate vascular input. Labs noted. Exam stable Objective Last 24 Hour Vital Signs Date Time Temp Pulse Resp B/P (MAP) Pulse Ox O2 Delivery O2 Flow Rate FiO2 11/18/18 09:00 Room Air 11/18/18 08:31 75 115/60 11/18/18 08:00 97.7 75 18 115/60 (78) 98 11/18/18 04:00 97.8 82 18 121/53 (75) 97 11/18/18 00:00 98.0 93 19 128/62 (84) 95 11/17/18 21:00 Room Air 11/17/18 20:58 94 131/74 11/17/18 20:00 98.2 94 19 131/74 (93) 98 11/17/18 16:00 98.1 88 18 147/69 (95) 98 11/17/18 12:00 97.9 62 19 127/79 (95) 96 I&O Intake and Output 11/17/18 11/18/18 19:00 07:00 Intake Total 110 ml 4416.666 ml Balance 110 ml 4416.666 ml Intake Oral 650 ml IV Total 110 ml 1366.666 ml Other 2400 ml # Bowel Movements 1 Dressing: dry Wound: clean Cardiovascular: RSR Respiratory: clear Abdomen: soft, non-tender, present bowel sounds, non-distended Extremities: cyanosis, other Laboratory Tests Test 11/18/18 01:10 White Blood Count 8.4 K/UL (4.8-10.8) Red Blood Count 3.38 M/UL (4.70-6.10) L Hemoglobin 9.8 G/DL (14.2-18.0) L Hematocrit 29.2 % (42.0-52.0) L Mean Corpuscular Volume 86 FL (80-99) Mean Corpuscular Hemoglobin 28.9 PG (27.0-31.0) Mean Corpuscular Hemoglobin Concent 33.5 G/DL (32.0-36.0) Red Cell Distribution Width 11.6 % (11.6-14.8) Platelet Count 235 K/UL (150-450) Mean Platelet Volume 6.3 FL (6.5-10.1) L Neutrophils (%) (Auto) 61.2 % (45.0-75.0) Lymphocytes (%) (Auto) 25.5 % (20.0-45.0) Monocytes (%) (Auto) 9.5 % (1.0-10.0) Eosinophils (%) (Auto) 2.7 % (0.0-3.0) Basophils (%) (Auto) 1.1 % (0.0-2.0) Sodium Level 145 MMOL/L (136-145) Potassium Level 3.5 MMOL/L (3.5-5.1) Chloride Level 111 MMOL/L (98-107) H Carbon Dioxide Level 23 MMOL/L (21-32) Anion Gap 11 mmol/L (5-15) Blood Urea Nitrogen 20 mg/dL (7-18) H Creatinine 1.6 MG/DL (0.55-1.30) H Estimat Glomerular Filtration Rate mL/min (>60) Glucose Level 117 MG/DL (74-106) H Calcium Level 8.8 MG/DL (8.5-10.1) Vancomycin Level Trough 14.4 ug/mL (5.0-12.0) H Plan Problems: (1) Elevated lactic acid level Assessment & Plan: Patient presented with lactic acidosis, cellulitis and infection of his left foot with necrosis and gangrene of the left second toe. Continue with his resuscitation Okay for diet improving stable (2) Gangrene of toe of left foot Assessment & Plan: Patient presents with left second ray gangrene dry foul- smelling no purulent drainage edema and cellulitis of the foot. Has had it for a few weeks and worsening since his trip to [place]. Plain films noted no fracture IV antibiotics as per infectious disease Pending venous and arterial studies as well MRI: Impression: Abnormal STIR and T1 signal within the second distal phalanx, indicative of osteomyelitis. Subtle increased STIR signal within the second middle phalanx without corresponding T1 signal abnormality. This may reflect reactive changes or very early osteomyelitis Dorsal edema. This may indicate cellulitis or may be vasogenic in origin Swab necrotic area of left foot with Betadine wash foot daily apply gauze dressing We will follow with recommendations as results of imaging are available We will attempt to salvage as much possible but potentially may need an amputation cont with IV abx and local wound care. defer to ID for abx duration Podiatry input appreciated vascular clearance and likely amputation Strict glucose monitoring and control Thank you will follow with recommendations (3) DM (diabetes mellitus) Nikhil Islas Nov 18, 2018 10:19
--- NOTE | 2018-11-18 10:20 | NUR ---
NURSE NOTES: pt has bleeding under the nail of R third toe. called Dr RENAE, left massage, waiting to call back. RN cleansed the wound and covered. will continue to monitorin.
--- NOTE | 2018-11-18 11:02 | NUR ---
NURSE NOTES: Dr CARDENAS visited pt and the toe, stated clean the toe and observe.
[2018-11-18 12:00] VITALS: BP 133/68
--- NOTE | 2018-11-18 13:40 | General Progress Note ---
Assessment/Plan Problem List: (1) Hyperglycemia ICD Codes: R73.9 - Hyperglycemia, unspecified SNOMED: 46312441 (2) Renal failure ICD Codes: N19 - Unspecified kidney failure SNOMED: 86156112 Qualifiers: Qualified Codes: N19 - Unspecified kidney failure (3) Elevated lactic acid level ICD Codes: R79.89 - Other specified abnormal findings of blood chemistry SNOMED: 3125711 (4) Gangrene of toe of left foot ICD Codes: I96 - Gangrene, not elsewhere classified SNOMED: 11389207502852565 (5) DM (diabetes mellitus) ICD Codes: E11.9 - Type 2 diabetes mellitus without complications SNOMED: 83127677 Status: stable Assessment/Plan: 72 y/o male admitted with L second toe foul smelling necrosis, gangrene and osteomyelitis. # L second toe distal dry gangrene/ osteomyelitis shown on MRI foot. Vascular studies show patent arteries. # Diabetic foot ulcer Cefepime and Vancomycin- renal dose, and Flagyl. day 6. wound cultures with klebsiella and staph aureus ESR and CRP weekly ASA and statin Surgical consult with Dr. Islas appreciated PICC placed ID consult to guide antibiotic coverage appreciated Podiatry consulted, Dr. Sampson, favoring amputation. Per vascular surgery, Dr. Salcedo, patient needs selective left leg angio prior to amputation. Will transfer to [facility] vs. [facility] consult for transfer. [facility] contacted. Waiting for financial approval from insurance. # Diabetic nephropathy with SHAHANA on CKD3-4, improving. Patient denies prior renal disease and nephrology was consulted. Dr. Frankel IVF and monitor BMP UA with microalbumin Renal US reviewed MRI abdomen without contrast to work up bladder nodule seen on US continue to hold Losartan, will resume on discharge # IDDM- poorly controlled- HbA1c 10.4 finger stick glucose has been less than 200 on NPH 40 AM, 20 PM diabetic diet # Disposition PT evaluation for possible need of assistive devices. Would go home with home services FULL CODE DVT and GI ppx I spent 40 minutes on this encounter, 50% on counselling and care coordination Subjective Date patient seen: Nov 18, 2018 ROS Limited/Unobtainable: No Constitutional: Denies: no symptoms, chills, diaphoresis, fever, malaise, weakness, other HEENT: Denies: no symptoms, eye pain, blurred vision, tearing, double vision, ear pain, ear discharge, nose pain, nose congestion, throat pain, throat swelling, mouth pain, mouth swelling, other Cardiovascular: Denies: no symptoms, chest pain, edema, irregular heart rate, lightheadedness, palpitations, syncope, other Respiratory: Denies: no symptoms, cough, orthopnea, shortness of breath, SOB with excertion, SOB at rest, sputum, stridor, wheezing, other Gastrointestinal/Abdominal: Denies: no symptoms, abdomen distended, abdominal pain, black stools, tarry stools, blood in stool, constipated, diarrhea, difficulty swallowing, nausea, poor appetite, poor fluid intake, rectal bleeding , vomiting, other Genitourinary: Denies: no symptoms, burning, discharge, frequency, flank pain, hematuria, incontinence, pain, urgency, other Neurologic/Psychiatric: Denies: no symptoms, anxiety, depressed, emotional problems, headache, numbness, paresthesia, pre-existing deficit, seizure, tingling, tremors, weakness, other Endocrine: Denies: no symptoms, excessive sweating, flushing, intolerance to cold, intolerance to heat, increased hunger, increased thirst, increased urine, unexplained weight gain, unexplained weight loss, other Hematologic/Lymphatic: Denies: no symptoms, anemia, easy bleeding, easy bruising, other Allergies: Coded Allergies: No Known Allergies (Unverified , 08/14/15) Subjective Seen and examined. no abdominal pain, no diarrhea evaluated by podiatry, favors amputation.Per vascular surgery, Dr. Salcedo , patient needs a selective left leg angio now waiting to transfer to [facility], pending insurance clearance Minor bleeding noted from right leg, under one of digits Objective Last 24 Hour Vital Signs Date Time Temp Pulse Resp B/P (MAP) Pulse Ox O2 Delivery O2 Flow Rate FiO2 11/18/18 12:00 98.1 79 16 133/68 (89) 99 11/18/18 09:00 Room Air 11/18/18 08:31 75 115/60 11/18/18 08:00 97.7 75 18 115/60 (78) 98 11/18/18 04:00 97.8 82 18 121/53 (75) 97 11/18/18 00:00 98.0 93 19 128/62 (84) 95 11/17/18 21:00 Room Air 11/17/18 20:58 94 131/74 11/17/18 20:00 98.2 94 19 131/74 (93) 98 11/17/18 16:00 98.1 88 18 147/69 (95) 98 Intake and Output 11/17/18 11/18/18 18:59 06:59 Intake Total 110 ml 4416.666 ml Balance 110 ml 4416.666 ml Intake Oral 650 ml IV Total 110 ml 1366.666 ml Other 2400 ml # Bowel Movements 1 Laboratory Tests 11/18/18 01:10: White Blood Count 8.4, Red Blood Count 3.38L, Hemoglobin 9.8L, Hematocrit 29.2L , Mean Corpuscular Volume 86, Mean Corpuscular Hemoglobin 28.9, Mean Corpuscular Hemoglobin Concent 33.5, Red Cell Distribution Width 11.6, Platelet Count 235, Mean Platelet Volume 6.3L, Neutrophils (%) (Auto) 61.2, Lymphocytes ( %) (Auto) 25.5, Monocytes (%) (Auto) 9.5, Eosinophils (%) (Auto) 2.7, Basophils (%) (Auto) 1.1, Sodium Level 145, Potassium Level 3.5, Chloride Level 111H, Carbon Dioxide Level 23, Anion Gap 11, Blood Urea Nitrogen 20H, Creatinine 1.6H , Estimat Glomerular Filtration Rate , Glucose Level 117H, Calcium Level 8.8, Vancomycin Level Trough 14.4H Height (Feet): 5 Height (Inches): 6.00 Weight (Pounds): 181 Objective General appearance: alert, cooperative, no distress, appears stated age Head: Normocephalic, without obvious abnormality, atraumatic Eyes: conjunctivae/corneas clear. PERRL, EOM's intact. Fundi benign Throat: Lips, mucosa, and tongue normal. Teeth and gums normal Neck: supple, symmetrical, trachea midline, no adenopathy, thyroid: not enlarged, symmetric, no tenderness/mass/nodules, no carotid bruit and no JVD Lungs: clear to auscultation bilaterally Heart: regular rate and rhythm, S1, S2 normal, no murmur, click, rub or gallop Abdomen: soft, non-tender. Bowel sounds normal. No masses, no organomegaly Extremities: extremities normal, atraumatic, necrotic left second toe. foul odor. no drainage . +picc present. clean and clear no erythema Pulses: 2+ and symmetric Skin: Skin color, texture, turgor normal. No rashes or lesions Neurologic: Grossly normal Erich Pitts M.D. Nov 18, 2018 13:40
--- NOTE | 2018-11-18 14:39 | NUR ---
PT Note PT goals achieved; will DC physical therapy. Addendum: 11/18/18 at 1439 by NOBLE LEVI PT Amended: Links added.
[2018-11-18] MEDS: Cefepime 2gm/D5W 110ml IV SCH ×2 (15:05)
[2018-11-18 16:00] VITALS: BP 129/47
--- NOTE | 2018-11-18 19:06 | NUR ---
NURSE NOTES: Pt received in bed, awake alert and oriented and pleasant, no signs of distress or c/o pain, bed in lowest position, able to make needs known, call light within reach, will continue to monitor.
--- NOTE | 2018-11-18 19:24 | NUR ---
HAND-OFF: Report given to CECE TOWNSEND.
[2018-11-18 20:00] VITALS: BP 125/57
[2018-11-18] MEDS: Atorvastatin 20mg tab ORAL SCH (20:44)
[2018-11-18] MEDS: Dyna-Hex 2% Top Sol 2oz TOPIC SCH (20:44)
[2018-11-18] MEDS: Enoxaparin 40mg Inj SUBQ SCH (20:46)
[2018-11-19] VITALS: BP 117/63
[2018-11-19] MEDS: Vancomycin 1.25gm/NS Premix IVPB SCH (02:08)
[2018-11-19 04:00] VITALS: BP 125/62
[2018-11-19] MEDS: metroNIDAZOLE 500mg tab ORAL SCH ×3 (06:03→21:11)
[2018-11-19] MEDS: Insulin NPH SUBQ SCH ×2 (06:05→16:34)
--- NOTE | 2018-11-19 07:23 | NUR ---
HAND-OFF: Report given to KRISTIAN Morel.
[2018-11-19 08:00] VITALS: BP 127/70
--- NOTE | 2018-11-19 08:10 | NUR ---
NURSE NOTES: received pt from NOC RN Robinson Bowman. Pt is awake, sitting on chair, no complaint of pain or discomfort. RFA IV access saline locked. Bed locked at the lowest position possible, call light within easy reach. Will continue to monitor pt and follow up with the plan of care.
[2018-11-19] MEDS: Aspirin Baby 81mg ORAL SCH (09:01)
--- NOTE | 2018-11-19 09:56 | Surgery Progress Note ---
Surgery Progress Note Subjective Additional Comments no acute events Objective Last 24 Hour Vital Signs Date Time Temp Pulse Resp B/P (MAP) Pulse Ox O2 Delivery O2 Flow Rate FiO2 11/19/18 08:24 84 131/65 11/19/18 08:00 97.4 82 18 127/70 (89) 99 11/19/18 04:00 98.3 83 18 125/62 (83) 96 11/19/18 00:00 97.5 60 18 117/63 (81) 98 11/18/18 21:00 Room Air 11/18/18 20:45 95 125/57 11/18/18 20:00 98.9 95 18 125/57 (79) 97 11/18/18 16:00 98.7 91 19 129/47 (74) 98 11/18/18 12:00 98.1 79 16 133/68 (89) 99 I&O Intake and Output 11/18/18 11/19/18 19:00 07:00 Intake Total 350 ml 2806.666 ml Balance 350 ml 2806.666 ml Intake Oral 240 ml 240 ml IV Total 110 ml 1366.666 ml Other 1200 ml # Voids 1 1 # Bowel Movements 1 Dressing: dry Wound: clean Cardiovascular: RSR Respiratory: clear Abdomen: soft, non-tender, present bowel sounds Extremities: cyanosis, pulses, other Plan Problems: (1) Elevated lactic acid level Assessment & Plan: Patient presented with lactic acidosis, cellulitis and infection of his left foot with necrosis and gangrene of the left second toe. Continue with his resuscitation Okay for diet improving stable (2) Gangrene of toe of left foot Assessment & Plan: Patient presents with left second ray gangrene dry foul- smelling no purulent drainage edema and cellulitis of the foot. Has had it for a few weeks and worsening since his trip to [place]. Plain films noted no fracture IV antibiotics as per infectious disease Pending venous and arterial studies as well MRI: Impression: Abnormal STIR and T1 signal within the second distal phalanx, indicative of osteomyelitis. Subtle increased STIR signal within the second middle phalanx without corresponding T1 signal abnormality. This may reflect reactive changes or very early osteomyelitis Dorsal edema. This may indicate cellulitis or may be vasogenic in origin Swab necrotic area of left foot with Betadine wash foot daily apply gauze dressing We will follow with recommendations as results of imaging are available We will attempt to salvage as much possible but potentially may need an amputation cont with IV abx and local wound care. defer to ID for abx duration Podiatry input appreciated vascular clearance and likely amputation Strict glucose monitoring and control Thank you will follow with recommendations (3) DM (diabetes mellitus) Nikhil Islas Nov 19, 2018 09:56
--- NOTE | 2018-11-19 11:11 | General Progress Note ---
Assessment/Plan Problem List: (1) Gangrene of toe of left foot ICD Codes: I96 - Gangrene, not elsewhere classified SNOMED: 76606415245113699 (2) Hyperglycemia ICD Codes: R73.9 - Hyperglycemia, unspecified SNOMED: 13950013 (3) Renal failure ICD Codes: N19 - Unspecified kidney failure SNOMED: 11252573 Qualifiers: Qualified Codes: N19 - Unspecified kidney failure (4) Elevated lactic acid level ICD Codes: R79.89 - Other specified abnormal findings of blood chemistry SNOMED: 2605147 (5) DM (diabetes mellitus) ICD Codes: E11.9 - Type 2 diabetes mellitus without complications SNOMED: 90172482 Status: stable Assessment/Plan: 72 y/o male admitted with L second toe foul smelling necrosis, gangrene and osteomyelitis. # L second toe distal dry gangrene/ osteomyelitis shown on MRI foot. Vascular studies show patent arteries. # Diabetic foot ulcer Cefepime and Vancomycin- renal dose, and Flagyl. day 8. wound cultures with klebsiella and staph aureus ESR and CRP weekly ASA and statin Surgical consult with Dr. Islas appreciated PICC placed ID consult to guide antibiotic coverage appreciated Podiatry consulted, Dr. Sampson, favoring amputation. Per vascular surgery, Dr. Salcedo, patient needs selective left leg angio prior to amputation. Will transfer to [facility] vs. [facility] consult for transfer. [facility] contacted. Waiting for financial approval from insurance. # Diabetic nephropathy with SHAHANA on CKD3-4, improving. Patient denies prior renal disease and nephrology was consulted. Dr. Frankel IVF and monitor BMP UA with microalbumin Renal US reviewed MRI abdomen without contrast to work up bladder nodule seen on US continue to hold Losartan, will resume on discharge # IDDM- poorly controlled- HbA1c 10.4 finger stick glucose has been less than 200 on NPH 40 AM, 20 PM diabetic diet #Nausea, probably from Metronidazole. Add Zofran prn # Disposition PT evaluation for possible need of assistive devices. Would go home with home services FULL CODE DVT and GI ppx I spent 40 minutes on this encounter, 50% on counselling and care coordination Subjective Date patient seen: Nov 19, 2018 ROS Limited/Unobtainable: No Constitutional: Denies: no symptoms, chills, diaphoresis, fever, malaise, weakness, other HEENT: Denies: no symptoms, eye pain, blurred vision, tearing, double vision, ear pain, ear discharge, nose pain, nose congestion, throat pain, throat swelling, mouth pain, mouth swelling, other Cardiovascular: Denies: no symptoms, chest pain, edema, irregular heart rate, lightheadedness, palpitations, syncope, other Respiratory: Denies: no symptoms, cough, orthopnea, shortness of breath, SOB with excertion, SOB at rest, sputum, stridor, wheezing, other Gastrointestinal/Abdominal: Reports: nausea; Denies: no symptoms, abdomen distended, abdominal pain, black stools, tarry stools, blood in stool, constipated, diarrhea, difficulty swallowing, poor appetite, poor fluid intake, rectal bleeding, vomiting, other Genitourinary: Denies: no symptoms, burning, discharge, frequency, flank pain, hematuria, incontinence, pain, urgency, other Neurologic/Psychiatric: Denies: no symptoms, anxiety, depressed, emotional problems, headache, numbness, paresthesia, pre-existing deficit, seizure, tingling, tremors, weakness, other Endocrine: Denies: no symptoms, excessive sweating, flushing, intolerance to cold, intolerance to heat, increased hunger, increased thirst, increased urine, unexplained weight gain, unexplained weight loss, other Hematologic/Lymphatic: Denies: no symptoms, anemia, easy bleeding, easy bruising, other Allergies: Coded Allergies: No Known Allergies (Unverified , 08/14/15) Subjective Seen and examined. no abdominal pain, no diarrhea evaluated by podiatry, favors amputation.Per vascular surgery, Dr. Salcedo , patient needs a selective left leg angio now waiting to transfer to [facility], pending insurance clearance c/o nausea today, no abdominal pain or diarrhea Objective Last 24 Hour Vital Signs Date Time Temp Pulse Resp B/P (MAP) Pulse Ox O2 Delivery O2 Flow Rate FiO2 11/19/18 09:00 Room Air 11/19/18 08:24 84 131/65 11/19/18 08:00 97.4 82 18 127/70 (89) 99 11/19/18 04:00 98.3 83 18 125/62 (83) 96 11/19/18 00:00 97.5 60 18 117/63 (81) 98 9/7/19 21:00 Room Air 11/18/18 20:45 95 125/57 11/18/18 20:00 98.9 95 18 125/57 (79) 97 11/18/18 16:00 98.7 91 19 129/47 (74) 98 11/18/18 12:00 98.1 79 16 133/68 (89) 99 Intake and Output 11/18/18 11/19/18 19:00 07:00 Intake Total 350 ml 2806.666 ml Balance 350 ml 2806.666 ml Intake Oral 240 ml 240 ml IV Total 110 ml 1366.666 ml Other 1200 ml # Voids 1 1 # Bowel Movements 1 Height (Feet): 5 Height (Inches): 6.00 Weight (Pounds): 181 Objective General appearance: alert, cooperative, no distress, appears stated age Head: Normocephalic, without obvious abnormality, atraumatic Eyes: conjunctivae/corneas clear. PERRL, EOM's intact. Fundi benign Throat: Lips, mucosa, and tongue normal. Teeth and gums normal Neck: supple, symmetrical, trachea midline, no adenopathy, thyroid: not enlarged, symmetric, no tenderness/mass/nodules, no carotid bruit and no JVD Lungs: clear to auscultation bilaterally Heart: regular rate and rhythm, S1, S2 normal, no murmur, click, rub or gallop Abdomen: soft, non-tender. Bowel sounds normal. No masses, no organomegaly Extremities: extremities normal, atraumatic, necrotic left second toe. foul odor. no drainage . +picc present. clean and clear no erythema Pulses: 2+ and symmetric Skin: Skin color, texture, turgor normal. No rashes or lesions Neurologic: Grossly normal Erich Pitts M.D. Nov 19, 2018 11:11
[2018-11-19 12:00] VITALS: BP 134/70
--- NOTE | 2018-11-19 14:04 | Nephrology Progress Note ---
Assessment/Plan Problem List: (1) Hyperglycemia (2) Elevated lactic acid level (3) Gangrene of toe of left foot (4) Renal failure (5) Dehydration (6) HTN (hypertension) (7) DM (diabetes mellitus) Plan # Acute kidney injury on possibley CKD stage III- likely diabetic nephropathy # L second toe distal dry gangrene- with osteol # IDDM # HTN- controlled # Diabetic foot ulcer - hold losartan for now- ok to resume on DC- - needs outpatient follow up with renal - continue to monitor off IVF - continue metop 100 at night - continue amlodipine 5mg daily - check renal US--> IMPRESSION: 1. No hydronephrosis. 2. Nodular lesion arising from the prostate or bladder base, measures 1. 8 x 1.2 cm mri pelvic to better delineate lesion --> Indentation of the bladder floor - continue abx - avoid supratherapeutic vanco level - podiatry/surgery eval noted - patient needs selective left leg angio prior to amputation Subjective Subjective no significant pain No fevers or chills. mri foot done pelvis mri done showing Indentation of the bladder floor s/p PICC line placed Cr stable patient needs selective left leg angio prior to amputation Objective Objective Last 24 Hour Vital Signs Date Time Temp Pulse Resp B/P (MAP) Pulse Ox O2 Delivery O2 Flow Rate FiO2 11/19/18 12:00 97.3 85 19 134/70 (91) 97 11/19/18 09:00 Room Air 11/19/18 08:24 84 131/65 11/19/18 08:00 97.4 82 18 127/70 (89) 99 11/19/18 04:00 98.3 83 18 125/62 (83) 96 11/19/18 00:00 97.5 60 18 117/63 (81) 98 11/18/18 21:00 Room Air 11/18/18 20:45 95 125/57 11/18/18 20:00 98.9 95 18 125/57 (79) 97 11/18/18 16:00 98.7 91 19 129/47 (74) 98 Intake and Output 11/18/18 11/19/18 19:00 07:00 Intake Total 350 ml 2806.666 ml Balance 350 ml 2806.666 ml Intake Oral 240 ml 240 ml IV Total 110 ml 1366.666 ml Other 1200 ml # Voids 1 1 # Bowel Movements 1 Height (Feet): 5 Height (Inches): 6.00 Weight (Pounds): 181 Lissa Frankel M.D. Nov 19, 2018 14:04
--- NOTE | 2018-11-19 15:06 | Infectious Diseases Prog Note ---
Assessment/Plan Assessment/Plan ASSESSMENT AND PLAN: 1. left foot 2nd toe gangrene with osteomyelitis/cellulitis and infected wound, wc - staph aureus and klebsiella - continue vancomycin, cefepime and flagyl - day # 8 abx - monitor labs - plan on transfer to higher level of care, podiatry and vascular surgery f/u 2. Anemia. 3. Elevated creatinine. 4. Diabetes. 5. Hypertension. 6. Blood sugar and blood pressure treatment per primary. 7. BPH. 8. No known allergies. 9. Social history is negative. 10. Family history is noncontributory. 11. MAR was noted. 12. Case was discussed with RN. 13. Continue treatment per primary consultants. Subjective Constitutional: Denies: fever HEENT: Denies: congestion Respiratory: Denies: shortness of breath Cardiovascular: Denies: chest pain Gastrointestinal/Abdominal: Denies: nausea, vomiting, diarrhea Genitourinary: Reports: other - no davila ; Denies: dysuria Neurologic: Denies: headache Psychiatric: Denies: depression Skin: Denies: rash Hematologic: Denies: bleeding Musculoskeletal: Denies: pain Allergies: Coded Allergies: No Known Allergies (Unverified , 08/14/15) Objective Vital Signs Last 24 Hour Vital Signs Date Time Temp Pulse Resp B/P (MAP) Pulse Ox O2 Delivery O2 Flow Rate FiO2 11/19/18 12:00 97.3 85 19 134/70 (91) 97 11/19/18 09:00 Room Air 11/19/18 08:24 84 131/65 11/19/18 08:00 97.4 82 18 127/70 (89) 99 11/19/18 04:00 98.3 83 18 125/62 (83) 96 11/19/18 00:00 97.5 60 18 117/63 (81) 98 11/18/18 21:00 Room Air 11/18/18 20:45 95 125/57 11/18/18 20:00 98.9 95 18 125/57 (79) 97 11/18/18 16:00 98.7 91 19 129/47 (74) 98 Height (Feet): 5 Height (Inches): 6.00 Weight (Pounds): 181 General Appearance: no acute distress HEENT: normocephalic, atraumatic, anicteric, mucous membranes moist Respiratory/Chest: lungs clear, normal breath sounds, no respiratory distress Cardiovascular: normal rate, regular rhythm, no gallop/murmur, no JVD Abdomen: normal bowel sounds, soft, non tender, no organomegaly, non distended Genitourinary: other - no davila Extremities: other - left foot 2nd toe gangrene Skin: no rash 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 Subtle increased STIR signal within the second middle phalanx without corresponding T1 signal abnormality. This may reflect reactive changes or very early osteomyelitis Dorsal edema. This may indicate cellulitis or may be vasogenic in origin Microbiology Date/Time Source Procedure Growth Status 11/10/18 17:00 Blood Blood Culture - Final NO GROWTH AFTER 5 DAYS Complete 11/10/18 16:33 Foot Left Gram Stain - Final Complete 11/10/18 16:33 Wound Culture - Final Klebsiella Oxytoca Staphylococcus Aureus Diphtheroids Complete Labs Test 11/17/18 05:30 11/18/18 01:10 White Blood Count 7.8 K/UL (4.8-10.8) 8.4 K/UL (4.8-10.8) Red Blood Count 3.29 M/UL (4.70-6.10) 3.38 M/UL (4.70-6.10) Hemoglobin 9.5 G/DL (14.2-18.0) 9.8 G/DL (14.2-18.0) Hematocrit 28.6 % (42.0-52.0) 29.2 % (42.0-52.0) Mean Corpuscular Volume 87 FL (80-99) 86 FL (80-99) Mean Corpuscular Hemoglobin 28.8 PG (27.0-31.0) 28.9 PG (27.0-31.0) Mean Corpuscular Hemoglobin Concent 33.2 G/DL (32.0-36.0) 33.5 G/DL (32.0-36.0) Red Cell Distribution Width 11.2 % (11.6-14.8) 11.6 % (11.6-14.8) Platelet Count 231 K/UL (150-450) 235 K/UL (150-450) Mean Platelet Volume 6.0 FL (6.5-10.1) 6.3 FL (6.5-10.1) Neutrophils (%) (Auto) 61.3 % (45.0-75.0) 61.2 % (45.0-75.0) Lymphocytes (%) (Auto) 26.2 % (20.0-45.0) 25.5 % (20.0-45.0) Monocytes (%) (Auto) 9.0 % (1.0-10.0) 9.5 % (1.0-10.0) Eosinophils (%) (Auto) 2.6 % (0.0-3.0) 2.7 % (0.0-3.0) Basophils (%) (Auto) 1.0 % (0.0-2.0) 1.1 % (0.0-2.0) Sodium Level 140 MMOL/L (136-145) 145 MMOL/L (136-145) Potassium Level 3.9 MMOL/L (3.5-5.1) 3.5 MMOL/L (3.5-5.1) Chloride Level 109 MMOL/L (98-107) 111 MMOL/L (98-107) Carbon Dioxide Level 22 MMOL/L (21-32) 23 MMOL/L (21-32) Anion Gap 9 mmol/L (5-15) 11 mmol/L (5-15) Blood Urea Nitrogen 20 mg/dL (7-18) 20 mg/dL (7-18) Creatinine 1.5 MG/DL (0.55-1.30) 1.6 MG/DL (0.55-1.30) Estimat Glomerular Filtration Rate mL/min (>60) mL/min (>60) Glucose Level 189 MG/DL (74-106) 117 MG/DL (74-106) Calcium Level 8.5 MG/DL (8.5-10.1) 8.8 MG/DL (8.5-10.1) Total Bilirubin 0.2 MG/DL (0.2-1.0) Aspartate Amino Transf (AST/SGOT) 47 U/L (15-37) Alanine Aminotransferase (ALT/SGPT) 43 U/L (12-78) Alkaline Phosphatase 75 U/L (46-116) Total Protein 6.7 G/DL (6.4-8.2) Albumin 2.4 G/DL (3.4-5.0) Globulin 4.3 g/dL Albumin/Globulin Ratio 0.6 (1.0-2.7) Vancomycin Level Trough 14.4 ug/mL (5.0-12.0) Current Medications Medications (Trade) Dose Ordered Sig/Sathish Route PRN Reason Start Time Stop Time Status Last Admin Dose Admin Acetaminophen (Tylenol) 650 mg Q4H PRN ORAL Mild Pain (Pain Scale 1-3) 11/10/18 18:30 12/10/18 18:29 11/18/18 04:22 Amlodipine Besylate (Norvasc) 5 mg DAILY ORAL 11/13/18 09:00 12/13/18 08:59 11/19/18 08:24 Aspirin (ASA) 81 mg DAILY ORAL 11/19/18 09:00 12/19/18 08:59 11/19/18 09:01 Atorvastatin Calcium (Lipitor) 20 mg BEDTIME ORAL 11/18/18 21:00 12/18/18 20:59 11/18/18 20:44 Cefepime HCl 2 gm/ Dextrose 110 ml @ 220 mls/hr Q24H IV 11/15/18 16:00 11/22/18 15:59 11/18/18 15:05 Chlorhexidine Gluconate (Tiffanie-Hex 2%) 1 applic DAILY@2000 TOPIC 11/14/18 20:00 12/14/18 19:59 11/18/18 20:44 Dextrose (Dextrose 50%) 25 ml Q30M PRN IV Hypoglycemia 11/10/18 18:30 12/10/18 18:29 Dextrose (Dextrose 50%) 50 ml Q30M PRN IV Hypoglycemia 11/10/18 18:30 12/10/18 18:29 Enoxaparin Sodium (Lovenox) 40 mg QHS SUBQ 11/15/18 21:00 12/15/18 20:59 11/18/18 20:46 Insulin Human NPH (Humulin N) 20 units BEFORE DINNER SUBQ 11/11/18 16:30 12/11/18 16:29 11/18/18 16:50 Insulin Human NPH (Humulin N) 40 units BEFORE BREAKFAST SUBQ 11/11/18 06:30 12/11/18 06:29 11/19/18 06:05 Metoprolol Tartrate (Lopressor) 100 mg BEDTIME ORAL 11/11/18 21:00 12/11/18 20:59 11/18/18 20:45 Metronidazole (Flagyl) 500 mg EVERY 8 HOURS ORAL 11/15/18 14:00 11/22/18 13:59 11/19/18 13:12 Ondansetron HCl (Zofran) 4 mg Q6H PRN IVP Nausea & Vomiting 11/19/18 12:15 12/19/18 12:14 11/19/18 13:12 Pantoprazole (Protonix) 40 mg DAILY ORAL 11/11/18 09:00 12/11/18 08:59 11/19/18 08:22 Polyethylene Glycol (Miralax) 17 gm HSPRN PRN ORAL Constipation 11/10/18 18:30 12/10/18 18:29 Vancomycin HCl (Vanco rx to dose) 1 ea DAILY PRN MISC Per rx protocol 11/10/18 18:30 12/10/18 18:29 Vancomycin/Sodium Chloride 275 ml @ 183.333 mls/hr Q24H IVPB 11/16/18 02:00 11/21/18 01:59 11/19/18 02:08 Joe Velasquez MD Nov 19, 2018 15:06
[2018-11-19] MEDS: Cefepime 2gm/D5W 110ml IV SCH ×2 (15:21)
[2018-11-19 16:00] VITALS: BP 144/77
--- NOTE | 2018-11-19 17:00 | NUR ---
NURSE NOTES: changed dressing of the left 2nd toe. No secretion noted, foul odor, gangrenous black indurated area. Painted with betadine, placed a folded dry 4x4 gauze and secured with tape.
--- NOTE | 2018-11-19 19:05 | NUR ---
HAND-OFF: Report given to NOC KRISTIAN Bowman.
--- NOTE | 2018-11-19 19:11 | NUR ---
NURSE NOTES: Pt received in bed alert and oriented, no c/o pain or signs of distress, able to make needs known, call light within reach, head of bed elevated, will continue to monitor.
[2018-11-19 20:00] VITALS: BP 139/75
[2018-11-19] MEDS: Atorvastatin 20mg tab ORAL SCH (20:38)
[2018-11-19] MEDS: Dyna-Hex 2% Top Sol 2oz TOPIC SCH (20:38)
[2018-11-19] MEDS: Enoxaparin 40mg Inj SUBQ SCH (20:40)
[2018-11-20] VITALS: BP 115/65
[2018-11-20] MEDS: Vancomycin 1.25gm/NS Premix 275 ML IVPB SCH (02:53)
[2018-11-20 04:00] VITALS: BP 140/72
--- NOTE | 2018-11-20 04:18 | NUR ---
NURSE NOTES: Judy from [facility] called stating they are still waiting on authorization and the finance department is still working on it.
[2018-11-20] MEDS: metroNIDAZOLE 500mg tab ORAL SCH ×3 (05:35→22:05)
[2018-11-20] MEDS: Insulin NPH SUBQ SCH ×2 (06:03→17:48)
[2018-11-20 07:08] LABS: BASOPHILS % (AUTO) 0.9 % (0.0-2.0); EOSINOPHILS % (AUTO) 2.6 % (0.0-3.0); HEMOGLOBIN 10.2 G/DL (14.2-18.0); LYMPHOCYTES % (AUTO) 26.5 % (20.0-45.0); MEAN CORPUSCULAR VOLUME 86 FL (80-99); MONOCYTES % (AUTO) 10.5 % (1.0-10.0); NEUTROPHILS % (AUTO) 59.5 % (45.0-75.0); PLATELET COUNT 235 K/UL (150-450); RED BLOOD COUNT 3.49 M/UL (4.70-6.10); RED CELL DISTRIBUTION WIDTH 11.9 % (11.6-14.8); WHITE BLOOD COUNT 8.3 K/UL (4.8-10.8)
--- NOTE | 2018-11-20 07:19 | NUR ---
HAND-OFF: Report given to KRISTIAN Morel. Endorsed that [facility] called again this morning stating they are still waiting on Authorization and the finance dept is working on it.
[2018-11-20 07:21] LABS: ANION GAP 10 mmol/L (5-15); BLOOD UREA NITROGEN 12 mg/dL (7-18); CALCIUM 8.9 MG/DL (8.5-10.1); CARBON DIOXIDE 22 MMOL/L (21-32); CHLORIDE 112 MMOL/L (98-107); CREATININE 1.5 MG/DL (0.55-1.30); POTASSIUM 3.7 MMOL/L (3.5-5.1); SODIUM 144 MMOL/L (136-145)
[2018-11-20 08:00] VITALS: BP 138/70
--- NOTE | 2018-11-20 08:14 | NUR ---
NURSE NOTES: received pt from NOC RN Robinson Bowman. Pt is awake, in semi-Fowlers in bed, no complaint of pain or discomfort. RFA IV access saline locked. Bed locked at the lowest position possible, call light within easy reach. Will continue to monitor pt and follow up with the plan of care.
[2018-11-20] MEDS: Aspirin Baby 81mg ORAL SCH (08:54)
[2018-11-20] MEDS ORDERED: NS 275ml ONE (10:21)
[2018-11-20] MEDS ORDERED: Tubing IV Secondary IV ONE (10:21)
--- NOTE | 2018-11-20 11:00 | NUR ---
*-* INSURANCE *-* UPDATED CLINICALS AND REVIEW HAVE BEEN FAXED TO: [facility]# [id number] F: [phone] Addendum: 11/20/18 at 1534 by KERMIT HAWKINS ALIGNMENT (SEE ABOVE NOTES) PLEASE FAX THE REVIEW/CLINICAL P- [phone] F- [phone]...REVIEW/CLINICAL
--- NOTE | 2018-11-20 11:48 | Surgery Progress Note ---
Surgery Progress Note Subjective Additional Comments no acute events comfortable awaiting [facility] decision for transfer Objective Last 24 Hour Vital Signs Date Time Temp Pulse Resp B/P (MAP) Pulse Ox O2 Delivery O2 Flow Rate FiO2 11/20/18 09:00 Room Air 11/20/18 08:49 73 138/70 11/20/18 08:00 98.4 73 18 138/70 (92) 99 11/20/18 04:00 98.8 70 18 140/72 (94) 98 11/20/18 00:00 99.1 85 19 115/65 (82) 99 11/19/18 21:00 Room Air 11/19/18 20:39 100 139/75 11/19/18 20:00 97.9 100 19 139/75 (96) 98 11/19/18 16:00 98.2 98 20 144/77 (99) 97 11/19/18 12:00 97.3 85 19 134/70 (91) 97 I&O Intake and Output 11/19/18 11/20/18 19:00 07:00 Intake Total 840 ml 716.666 ml Balance 840 ml 716.666 ml Intake Oral 740 ml 350 ml IV Total 100 ml 366.666 ml Dressing: dry Wound: clean Cardiovascular: RSR Respiratory: clear Abdomen: soft, non-tender, present bowel sounds Extremities: cyanosis, other Laboratory Tests Test 11/20/18 05:45 White Blood Count 8.3 K/UL (4.8-10.8) Red Blood Count 3.49 M/UL (4.70-6.10) L Hemoglobin 10.2 G/DL (14.2-18.0) L Hematocrit 30.0 % (42.0-52.0) L Mean Corpuscular Volume 86 FL (80-99) Mean Corpuscular Hemoglobin 29.1 PG (27.0-31.0) Mean Corpuscular Hemoglobin Concent 33.9 G/DL (32.0-36.0) Red Cell Distribution Width 11.9 % (11.6-14.8) Platelet Count 235 K/UL (150-450) Mean Platelet Volume 6.2 FL (6.5-10.1) L Neutrophils (%) (Auto) 59.5 % (45.0-75.0) Lymphocytes (%) (Auto) 26.5 % (20.0-45.0) Monocytes (%) (Auto) 10.5 % (1.0-10.0) H Eosinophils (%) (Auto) 2.6 % (0.0-3.0) Basophils (%) (Auto) 0.9 % (0.0-2.0) Sodium Level 144 MMOL/L (136-145) Potassium Level 3.7 MMOL/L (3.5-5.1) Chloride Level 112 MMOL/L (98-107) H Carbon Dioxide Level 22 MMOL/L (21-32) Anion Gap 10 mmol/L (5-15) Blood Urea Nitrogen 12 mg/dL (7-18) Creatinine 1.5 MG/DL (0.55-1.30) H Estimat Glomerular Filtration Rate mL/min (>60) Glucose Level 79 MG/DL (74-106) Calcium Level 8.9 MG/DL (8.5-10.1) Plan Problems: (1) Elevated lactic acid level Assessment & Plan: Patient presented with lactic acidosis, cellulitis and infection of his left foot with necrosis and gangrene of the left second toe. Continue with his resuscitation Okay for diet improving stable (2) Gangrene of toe of left foot Assessment & Plan: Patient presents with left second ray gangrene dry foul- smelling no purulent drainage edema and cellulitis of the foot. Has had it for a few weeks and worsening since his trip to [place]. Plain films noted no fracture IV antibiotics as per infectious disease Pending venous and arterial studies as well MRI: Impression: Abnormal STIR and T1 signal within the second distal phalanx, indicative of osteomyelitis. Subtle increased STIR signal within the second middle phalanx without corresponding T1 signal abnormality. This may reflect reactive changes or very early osteomyelitis Dorsal edema. This may indicate cellulitis or may be vasogenic in origin Swab necrotic area of left foot with Betadine wash foot daily apply gauze dressing We will follow with recommendations as results of imaging are available We will attempt to salvage as much possible but potentially may need an amputation cont with IV abx and local wound care. defer to ID for abx duration Podiatry input appreciated vascular clearance and likely amputation Strict glucose monitoring and control Thank you will follow with recommendations (3) DM (diabetes mellitus) Nikhil Islas Nov 20, 2018 11:48
[2018-11-20 12:00] VITALS: BP 131/80
--- NOTE | 2018-11-20 12:04 | Nephrology Progress Note ---
Assessment/Plan Problem List: (1) Hyperglycemia (2) Elevated lactic acid level (3) Gangrene of toe of left foot (4) Renal failure (5) Dehydration (6) HTN (hypertension) (7) DM (diabetes mellitus) Plan # Acute kidney injury on possibley CKD stage III- likely diabetic nephropathy # L second toe distal dry gangrene- with osteol # IDDM # HTN- controlled # Diabetic foot ulcer - hold losartan for now- ok to resume on DC- - needs outpatient follow up with renal - continue to monitor off IVF - continue metop 100 at night - continue amlodipine 5mg daily - check renal US--> IMPRESSION: 1. No hydronephrosis. 2. Nodular lesion arising from the prostate or bladder base, measures 1. 8 x 1.2 cm mri pelvic to better delineate lesion --> Indentation of the bladder floor - continue abx - avoid supratherapeutic vanco level - podiatry/surgery eval noted - patient needs selective left leg angio prior to amputation Subjective Subjective no significant pain No fevers or chills. mri foot done pelvis mri done showing Indentation of the bladder floor s/p PICC line placed Cr stable patient needs selective left leg angio prior to amputation Objective Objective Last 24 Hour Vital Signs Date Time Temp Pulse Resp B/P (MAP) Pulse Ox O2 Delivery O2 Flow Rate FiO2 11/20/18 09:00 Room Air 11/20/18 08:49 73 138/70 11/20/18 08:00 98.4 73 18 138/70 (92) 99 11/20/18 04:00 98.8 70 18 140/72 (94) 98 11/20/18 00:00 99.1 85 19 115/65 (82) 99 11/19/18 21:00 Room Air 11/19/18 20:39 100 139/75 11/19/18 20:00 97.9 100 19 139/75 (96) 98 11/19/18 16:00 98.2 98 20 144/77 (99) 97 Intake and Output 11/19/18 11/20/18 19:00 07:00 Intake Total 840 ml 716.666 ml Balance 840 ml 716.666 ml Intake Oral 740 ml 350 ml IV Total 100 ml 366.666 ml Laboratory Tests 11/20/18 05:45: White Blood Count 8.3, Red Blood Count 3.49L, Hemoglobin 10.2L, Hematocrit 30.0L , Mean Corpuscular Volume 86, Mean Corpuscular Hemoglobin 29.1, Mean Corpuscular Hemoglobin Concent 33.9, Red Cell Distribution Width 11.9, Platelet Count 235, Mean Platelet Volume 6.2L, Neutrophils (%) (Auto) 59.5, Lymphocytes ( %) (Auto) 26.5, Monocytes (%) (Auto) 10.5H, Eosinophils (%) (Auto) 2.6, Basophils (%) (Auto) 0.9, Sodium Level 144, Potassium Level 3.7, Chloride Level 112H, Carbon Dioxide Level 22, Anion Gap 10, Blood Urea Nitrogen 12, Creatinine 1.5H, Estimat Glomerular Filtration Rate , Glucose Level 79, Calcium Level 8.9 Height (Feet): 5 Height (Inches): 6.00 Weight (Pounds): 181 Lissa Frankel M.D. Nov 20, 2018 12:04
--- NOTE | 2018-11-20 13:50 | General Progress Note ---
Assessment/Plan Problem List: (1) Gangrene of toe of left foot ICD Codes: I96 - Gangrene, not elsewhere classified SNOMED: [id number] (2) Hyperglycemia ICD Codes: R73.9 - Hyperglycemia, unspecified SNOMED: 21143148 (3) Renal failure ICD Codes: N19 - Unspecified kidney failure SNOMED: 09945947 Qualifiers: Qualified Codes: N19 - Unspecified kidney failure (4) Elevated lactic acid level ICD Codes: R79.89 - Other specified abnormal findings of blood chemistry SNOMED: 4020087 (5) DM (diabetes mellitus) ICD Codes: E11.9 - Type 2 diabetes mellitus without complications SNOMED: 96117367 Status: stable Assessment/Plan: 72 y/o male admitted with L second toe foul smelling necrosis, gangrene and osteomyelitis. # L second toe distal dry gangrene/ osteomyelitis shown on MRI foot. Vascular studies show patent arteries. # Diabetic foot ulcer Cefepime and Vancomycin- renal dose, and Flagyl. day 8. wound cultures with klebsiella and staph aureus ESR and CRP weekly ASA and statin Surgical consult with Dr. Islas appreciated PICC placed ID consult to guide antibiotic coverage appreciated Podiatry consulted, Dr. Sampson, favoring amputation. Per vascular surgery, Dr. Salecdo, patient needs selective left leg angio prior to amputation. [facility] consult for transfer. [facility] contacted. Waiting for financial approval from insurance. # Diabetic nephropathy with SHAHANA on CKD3-4, improving. Patient denies prior renal disease and nephrology was consulted. Dr. Frankel IVF and monitor BMP UA with microalbumin Renal US reviewed MRI abdomen without contrast to work up bladder nodule seen on US continue to hold Losartan, will resume on discharge # IDDM- poorly controlled- HbA1c 10.4 finger stick glucose has been less than 200 on NPH 40 AM, 20 PM diabetic diet #Nausea, probably from Metronidazole. Add Zofran prn # Disposition PT evaluation for possible need of assistive devices. Would go home with home services FULL CODE DVT and GI ppx I spent 40 minutes on this encounter, 50% on counselling and care coordination Subjective Date patient seen: Nov 20, 2018 Constitutional: Denies: no symptoms, chills, diaphoresis, fever, malaise, weakness, other HEENT: Denies: no symptoms, eye pain, blurred vision, tearing, double vision, ear pain, ear discharge, nose pain, nose congestion, throat pain, throat swelling, mouth pain, mouth swelling, other Cardiovascular: Denies: no symptoms, chest pain, edema, irregular heart rate, lightheadedness, palpitations, syncope, other Respiratory: Denies: no symptoms, cough, orthopnea, shortness of breath, SOB with excertion, SOB at rest, sputum, stridor, wheezing, other Gastrointestinal/Abdominal: Denies: no symptoms, abdomen distended, abdominal pain, black stools, tarry stools, blood in stool, constipated, diarrhea, difficulty swallowing, nausea, poor appetite, poor fluid intake, rectal bleeding , vomiting, other Genitourinary: Denies: no symptoms, burning, discharge, frequency, flank pain, hematuria, incontinence, pain, urgency, other Neurologic/Psychiatric: Denies: no symptoms, anxiety, depressed, emotional problems, headache, numbness, paresthesia, pre-existing deficit, seizure, tingling, tremors, weakness, other Endocrine: Denies: no symptoms, excessive sweating, flushing, intolerance to cold, intolerance to heat, increased hunger, increased thirst, increased urine, unexplained weight gain, unexplained weight loss, other Hematologic/Lymphatic: Denies: no symptoms, anemia, easy bleeding, easy bruising, other Allergies: Coded Allergies: No Known Allergies (Unverified , 08/14/15) Subjective Seen and examined. no abdominal pain, no diarrhea evaluated by podiatry, favors amputation.Per vascular surgery, Dr. Salcedo , patient needs a selective left leg angio now waiting to transfer [facility], pending insurance approval Nausea better today, no abdominal pain or diarrhea Objective Last 24 Hour Vital Signs Date Time Temp Pulse Resp B/P (MAP) Pulse Ox O2 Delivery O2 Flow Rate FiO2 11/20/18 12:00 98.1 77 18 131/80 (97) 98 11/20/18 09:00 Room Air 11/20/18 08:49 73 138/70 11/20/18 08:00 98.4 73 18 138/70 (92) 99 11/20/18 04:00 98.8 70 18 140/72 (94) 98 11/20/18 00:00 99.1 85 19 115/65 (82) 99 11/19/18 21:00 Room Air 11/19/18 20:39 100 139/75 11/19/18 20:00 97.9 100 19 139/75 (96) 98 11/19/18 16:00 98.2 98 20 144/77 (99) 97 Intake and Output 11/19/18 11/20/18 19:00 07:00 Intake Total 840 ml 716.666 ml Balance 840 ml 716.666 ml Intake Oral 740 ml 350 ml IV Total 100 ml 366.666 ml Laboratory Tests 11/20/18 05:45: White Blood Count 8.3, Red Blood Count 3.49L, Hemoglobin 10.2L, Hematocrit 30.0L , Mean Corpuscular Volume 86, Mean Corpuscular Hemoglobin 29.1, Mean Corpuscular Hemoglobin Concent 33.9, Red Cell Distribution Width 11.9, Platelet Count 235, Mean Platelet Volume 6.2L, Neutrophils (%) (Auto) 59.5, Lymphocytes ( %) (Auto) 26.5, Monocytes (%) (Auto) 10.5H, Eosinophils (%) (Auto) 2.6, Basophils (%) (Auto) 0.9, Sodium Level 144, Potassium Level 3.7, Chloride Level 112H, Carbon Dioxide Level 22, Anion Gap 10, Blood Urea Nitrogen 12, Creatinine 1.5H, Estimat Glomerular Filtration Rate , Glucose Level 79, Calcium Level 8.9 Height (Feet): 5 Height (Inches): 6.00 Weight (Pounds): 181 Objective General appearance: alert, cooperative, no distress, appears stated age Head: Normocephalic, without obvious abnormality, atraumatic Eyes: conjunctivae/corneas clear. PERRL, EOM's intact. Fundi benign Throat: Lips, mucosa, and tongue normal. Teeth and gums normal Neck: supple, symmetrical, trachea midline, no adenopathy, thyroid: not enlarged, symmetric, no tenderness/mass/nodules, no carotid bruit and no JVD Lungs: clear to auscultation bilaterally Heart: regular rate and rhythm, S1, S2 normal, no murmur, click, rub or gallop Abdomen: soft, non-tender. Bowel sounds normal. No masses, no organomegaly Extremities: extremities normal, atraumatic, necrotic left second toe. foul odor. no drainage . +picc present. clean and clear no erythema Pulses: 2+ and symmetric Skin: Skin color, texture, turgor normal. No rashes or lesions Neurologic: Grossly normal Erich Pitts M.D. Nov 20, 2018 13:50
--- NOTE | 2018-11-20 15:32 | NUR ---
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 98.1 HR 77 RR 18 B/P 131/80 RA 98% CR 1.5 IS: VANCO IV CEFEPIME IV FKAGYL PO PROTONIX INSULIN IV MED/SURG STATUS
[2018-11-20 16:00] VITALS: BP 130/75
[2018-11-20] MEDS: Cefepime 2gm/D5W 110ml IV SCH ×2 (16:55)
--- NOTE | 2018-11-20 17:45 | NUR ---
NURSE NOTES: changed dressing of the left 2nd toe. No secretion noted, foul odor, gangrenous black indurated area on tip and adjacent area of the toe. Painted with Betadine, placed a folded dry 4x4 gauze and secured with tape.
--- NOTE | 2018-11-20 19:35 | NUR ---
HAND-OFF: Report given to RN Rush Avila.
--- NOTE | 2018-11-20 19:51 | NUR ---
NURSE NOTES: Received report from KRISTIAN Morel. Patient a/a/o breathing unlabored without distress, discomfort, or sob. Denies pain at this time. PICC line with two lumens noted intact on left upper arm with one lumen running TKO. Dressing intact. Walker noted at the bedside. Bed placed at the lowest with brakes and siderails up for safety. Call light placed within reach. Will continue to monitor and provide care as ordered.
[2018-11-20] MEDS: Dyna-Hex 2% Top Sol 2oz TOPIC SCH (19:57)
[2018-11-20 20:00] VITALS: BP 145/74
--- NOTE | 2018-11-20 20:00 | NUR ---
NURSE NOTES: Patient's PICC line dressing was coming off with multiple tapes attached on top of the dressing. After confirming with the patient, decided to change the PICC line dressing before seven days. Explained all procedure to the patient and patient verbalized understanding. Sterile field prepared and proceeded the PICC line dressing change. Patient tolerate the procedure well. Patient in stable condition. No discomfort noted or complained. Denies pain. Will continue to monitor.
[2018-11-20] MEDS: Atorvastatin 20mg tab ORAL SCH (21:02)
[2018-11-20] MEDS: Enoxaparin 40mg Inj SUBQ SCH (21:08)
[2018-11-21] VITALS (7 sets, daily range): BP systolic 118–139; BP diastolic 56–75
[2018-11-21] MEDS: Vancomycin 1.25gm/NS Premix 275 ML IVPB SCH (02:00)
[2018-11-21] MEDS: metroNIDAZOLE 500mg tab ORAL SCH ×3 (05:37→21:09)
[2018-11-21] MEDS: Insulin NPH SUBQ SCH ×2 (06:21→16:14)
--- NOTE | 2018-11-21 07:27 | NUR ---
HAND-OFF: Report given to KRISTIAN Smith.
--- NOTE | 2018-11-21 08:36 | NUR ---
NURSE NOTES: Received report from Minsu, RN. Pt awake, talkative, ambulatory, no apparent distress noted, no complaints of pain at this time, dressing to 2nd left toe dry and intact, bed in lowest position, call light within reach, PICC line patent in both lumens.
[2018-11-21] MEDS: Aspirin Baby 81mg ORAL SCH (09:31)
--- NOTE | 2018-11-21 11:19 | NUR ---
RD ASSESSMENT & RECOMMENDATIONS SEE CARE ACTIVITY FOR COMPLETE ASSESSMENT DAILY ESTIMATED NEEDS: Needs based on DM, OM 69kg adj 25-30 kcals/kg 0417-6387 total kcals 1.25-1.5 g protein/kg 86-104 g total protein 25-30 mL/kg 6845-1298 total fluid mLs NUTRITION DIAGNOSIS: 1) Increased pro needs r/t wound healing as evidence by L foot DM ulcer, w/ OM per MD. 2) Altered nutrition related lab values r/t diabetes as evidenced by A1C 10.4, Uglu 4+ on adm. CURRENT DIET: CCHO MED PO DIET RECOMMENDATIONS: Consider CCHO LOW + Double protein portions ADDITIONAL RECOMMENDATIONS: 1) Obtain a standing weight as able 2) Wound care: SEAN BID + MVI x1 + vit C 250mg BID 3) Diet edu as able 4) Add high pro/ 1 carb snacks in b/w meals
--- NOTE | 2018-11-21 11:36 | NUR ---
*-* DISCHARGE PLANNING *-* PATIENT HAS BEEN REFERRED TO: [facility] P: [phone] F: [phone]
--- NOTE | 2018-11-21 12:09 | Surgery Progress Note ---
Surgery Progress Note Subjective Symptoms: improved, tolerating diet, voiding well, passing flatus Objective Last 24 Hour Vital Signs Date Time Temp Pulse Resp B/P (MAP) Pulse Ox O2 Delivery O2 Flow Rate FiO2 11/21/18 09:31 84 139/75 11/21/18 08:26 Room Air 11/21/18 08:00 98.1 84 18 139/75 (96) 96 11/21/18 04:00 98.4 81 19 118/65 (82) 95 11/21/18 00:00 98.1 88 18 127/56 (79) 95 11/20/18 21:02 95 134/73 11/20/18 21:00 Room Air 11/20/18 20:00 97.9 100 18 145/74 (97) 95 11/20/18 16:00 98.5 106 18 130/75 (93) 98 I&O Intake and Output 11/20/18 11/21/18 19:00 07:00 Intake Total 1110 ml 455.000 ml Output Total 300 ml Balance 1110 ml 155.000 ml Intake Oral 1000 ml 180 ml IV Total 110 ml 275.000 ml Output Urine Total 300 ml # Voids 8 1 Dressing: dry Wound: clean Cardiovascular: RSR Respiratory: clear Abdomen: soft, present bowel sounds, non-distended Extremities: no cyanosis Plan Problems: (1) Elevated lactic acid level Assessment & Plan: Patient presented with lactic acidosis, cellulitis and infection of his left foot with necrosis and gangrene of the left second toe. Continue with his resuscitation Okay for diet improving stable (2) Gangrene of toe of left foot Assessment & Plan: Patient presents with left second ray gangrene dry foul- smelling no purulent drainage edema and cellulitis of the foot. Has had it for a few weeks and worsening since his trip to [place]. Plain films noted no fracture IV antibiotics as per infectious disease Pending venous and arterial studies as well MRI: Impression: Abnormal STIR and T1 signal within the second distal phalanx, indicative of osteomyelitis. Subtle increased STIR signal within the second middle phalanx without corresponding T1 signal abnormality. This may reflect reactive changes or very early osteomyelitis Dorsal edema. This may indicate cellulitis or may be vasogenic in origin Swab necrotic area of left foot with Betadine wash foot daily apply gauze dressing We will follow with recommendations as results of imaging are available We will attempt to salvage as much possible but potentially may need an amputation cont with IV abx and local wound care. defer to ID for abx duration Podiatry input appreciated vascular clearance and likely amputation Strict glucose monitoring and control Thank you will follow with recommendations (3) DM (diabetes mellitus) Additional Comments No acute events. Doing well. Discharge planning on IV antibiotics for 6 weeks given osteo Outpatient wound care as per podiatry Laura bernstein DC from surgical standpoint Nikhil sIlas Nov 21, 2018 12:09
--- NOTE | 2018-11-21 12:31 | Infectious Diseases Prog Note ---
Assessment/Plan Assessment/Plan ASSESSMENT AND PLAN: 1. left foot 2nd toe gangrene with osteomyelitis/cellulitis and infected wound, wc - staph aureus and klebsiella - continue vancomycin, cefepime and flagyl - day # 10 abx - monitor labs - plan on transfer to higher level of care, podiatry and vascular surgery f/u 2. Anemia. 3. Elevated creatinine. 4. Diabetes. 5. Hypertension. 6. Blood sugar and blood pressure treatment per primary. 7. BPH. 8. No known allergies. 9. Social history is negative. 10. Family history is noncontributory. 11. MAR was noted. 12. Case was discussed with RN. 13. Continue treatment per primary consultants. Subjective Constitutional: Denies: fever HEENT: Denies: congestion Respiratory: Denies: shortness of breath Cardiovascular: Denies: chest pain Gastrointestinal/Abdominal: Denies: nausea, vomiting, diarrhea Genitourinary: Denies: dysuria, hematuria Neurologic: Denies: headache Psychiatric: Denies: depression Skin: Denies: rash Hematologic: Denies: bleeding Musculoskeletal: Denies: pain Allergies: Coded Allergies: No Known Allergies (Unverified , 08/14/15) Objective Vital Signs Last 24 Hour Vital Signs Date Time Temp Pulse Resp B/P (MAP) Pulse Ox O2 Delivery O2 Flow Rate FiO2 11/21/18 12:00 97.9 84 18 124/62 (82) 95 11/21/18 09:31 84 139/75 11/21/18 08:26 Room Air 11/21/18 08:00 98.1 84 18 139/75 (96) 96 11/21/18 04:00 98.4 81 19 118/65 (82) 95 11/21/18 00:00 98.1 88 18 127/56 (79) 95 11/20/18 21:02 95 134/73 11/20/18 21:00 Room Air 11/20/18 20:00 97.9 100 18 145/74 (97) 95 11/20/18 16:00 98.5 106 18 130/75 (93) 98 Height (Feet): 5 Height (Inches): 6.00 Weight (Pounds): 181 General Appearance: no acute distress HEENT: normocephalic, atraumatic, anicteric Respiratory/Chest: lungs clear, normal breath sounds, no respiratory distress Cardiovascular: normal rate, regular rhythm, no gallop/murmur, no JVD Abdomen: normal bowel sounds, soft, non tender, no organomegaly, non distended Genitourinary: other - no davila Extremities: other - left foot 2nd toe gangrene Skin: no rash 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 Subtle increased STIR signal within the second middle phalanx without corresponding T1 signal abnormality. This may reflect reactive changes or very early osteomyelitis Dorsal edema. This may indicate cellulitis or may be vasogenic in origin Microbiology Date/Time Source Procedure Growth Status 11/10/18 17:00 Blood Blood Culture - Final NO GROWTH AFTER 5 DAYS Complete 11/10/18 16:33 Foot Left Gram Stain - Final Complete 11/10/18 16:33 Wound Culture - Final Klebsiella Oxytoca Staphylococcus Aureus Diphtheroids Complete Labs Test 11/20/18 05:45 White Blood Count 8.3 K/UL (4.8-10.8) Red Blood Count 3.49 M/UL (4.70-6.10) Hemoglobin 10.2 G/DL (14.2-18.0) Hematocrit 30.0 % (42.0-52.0) Mean Corpuscular Volume 86 FL (80-99) Mean Corpuscular Hemoglobin 29.1 PG (27.0-31.0) Mean Corpuscular Hemoglobin Concent 33.9 G/DL (32.0-36.0) Red Cell Distribution Width 11.9 % (11.6-14.8) Platelet Count 235 K/UL (150-450) Mean Platelet Volume 6.2 FL (6.5-10.1) Neutrophils (%) (Auto) 59.5 % (45.0-75.0) Lymphocytes (%) (Auto) 26.5 % (20.0-45.0) Monocytes (%) (Auto) 10.5 % (1.0-10.0) Eosinophils (%) (Auto) 2.6 % (0.0-3.0) Basophils (%) (Auto) 0.9 % (0.0-2.0) Sodium Level 144 MMOL/L (136-145) Potassium Level 3.7 MMOL/L (3.5-5.1) Chloride Level 112 MMOL/L (98-107) Carbon Dioxide Level 22 MMOL/L (21-32) Anion Gap 10 mmol/L (5-15) Blood Urea Nitrogen 12 mg/dL (7-18) Creatinine 1.5 MG/DL (0.55-1.30) Estimat Glomerular Filtration Rate mL/min (>60) Glucose Level 79 MG/DL (74-106) Calcium Level 8.9 MG/DL (8.5-10.1) Current Medications Medications (Trade) Dose Ordered Sig/Sathish Route PRN Reason Start Time Stop Time Status Last Admin Dose Admin Acetaminophen (Tylenol) 650 mg Q4H PRN ORAL Mild Pain (Pain Scale 1-3) 11/10/18 18:30 12/10/18 18:29 11/18/18 04:22 Amlodipine Besylate (Norvasc) 5 mg DAILY ORAL 11/13/18 09:00 12/13/18 08:59 11/21/18 09:31 Aspirin (ASA) 81 mg DAILY ORAL 11/19/18 09:00 12/19/18 08:59 11/21/18 09:31 Atorvastatin Calcium (Lipitor) 20 mg BEDTIME ORAL 11/18/18 21:00 12/18/18 20:59 11/20/18 21:02 Cefepime HCl 2 gm/ Dextrose 110 ml @ 220 mls/hr Q24H IV 11/15/18 16:00 11/22/18 15:59 11/20/18 16:55 Chlorhexidine Gluconate (Tiffanie-Hex 2%) 1 applic DAILY@2000 TOPIC 11/14/18 20:00 12/14/18 19:59 11/20/18 19:57 Dextrose (Dextrose 50%) 25 ml Q30M PRN IV Hypoglycemia 11/10/18 18:30 12/10/18 18:29 Dextrose (Dextrose 50%) 50 ml Q30M PRN IV Hypoglycemia 11/10/18 18:30 12/10/18 18:29 Enoxaparin Sodium (Lovenox) 40 mg QHS SUBQ 11/15/18 21:00 12/15/18 20:59 11/20/18 21:08 Insulin Human NPH (Humulin N) 20 units BEFORE DINNER SUBQ 11/11/18 16:30 12/11/18 16:29 11/20/18 17:48 Insulin Human NPH (Humulin N) 40 units BEFORE BREAKFAST SUBQ 11/11/18 06:30 12/11/18 06:29 11/21/18 06:21 Metoprolol Tartrate (Lopressor) 100 mg BEDTIME ORAL 11/11/18 21:00 12/11/18 20:59 11/20/18 21:02 Metronidazole (Flagyl) 500 mg EVERY 8 HOURS ORAL 11/15/18 14:00 11/22/18 13:59 11/21/18 05:37 Ondansetron HCl (Zofran) 4 mg Q6H PRN IVP Nausea & Vomiting 11/19/18 12:15 12/19/18 12:14 11/21/18 01:34 Pantoprazole (Protonix) 40 mg DAILY ORAL 11/11/18 09:00 12/11/18 08:59 11/21/18 09:31 Polyethylene Glycol (Miralax) 17 gm HSPRN PRN ORAL Constipation 11/10/18 18:30 12/10/18 18:29 Vancomycin HCl (Vanco rx to dose) 1 ea DAILY PRN MISC Per rx protocol 11/10/18 18:30 12/10/18 18:29 Vancomycin/Sodium Chloride 275 ml @ 183.333 mls/hr Q24H IVPB 11/20/18 02:00 11/25/18 01:59 11/21/18 02:00 Joe Velasquez MD Nov 21, 2018 12:31
[2018-11-21] MEDS ORDERED: D50w IV (13:14)
[2018-11-21] MEDS ORDERED: ASPIRIN81 MG ORAL (13:14)
[2018-11-21] MEDS ORDERED: LIPITOR20 MG ORAL (13:14)
[2018-11-21] MEDS ORDERED: FLAGYL500 MG ORAL ×2 (13:14→18:09)
[2018-11-21] MEDS ORDERED: MIRALAX119 GM ORAL (13:14)
[2018-11-21] MEDS ORDERED: CEFEPIME 22 GM/100 M IV (13:14)
[2018-11-21] MEDS ORDERED: ONDANSETRON ODT4 MG BC (13:14)
[2018-11-21] MEDS ORDERED: NORVASC5 MG ORAL (13:14)
[2018-11-21] MEDS ORDERED: METOPROLOL TAR100 M1 ORAL (13:14)
[2018-11-21] MEDS ORDERED: ACETAMINOPHEN325 M1 ORAL (13:14)
[2018-11-21] MEDS ORDERED: HIBICLENS118 ML TOPIC (13:14)
[2018-11-21] MEDS ORDERED: VANCOMYCIN1.25 GM/12 IV ×2 (13:14→18:06)
[2018-11-21] MEDS ORDERED: PANTOPRAZOLE SO40 MG ORAL (13:14)
[2018-11-21] MEDS ORDERED: NOVOLIN N100 UNIT/1 SUBQ ×2 (13:14)
--- NOTE | 2018-11-21 13:20 | Discharge Instructions ---
Discharge Instructions Discharge Instructions Diet: diabetic calorie control Activity: as tolerated For Congestive Heart Failure Reminder Report to your physician any weight gain of 5 pounds or more in one week. Erich Pitts M.D. Nov 21, 2018 13:20
--- NOTE | 2018-11-21 13:36 | Discharge Summary ---
Discharge Summary Hospital Course Date of Admission Nov 10, 2018 at 17:26 Date of Discharge 11/21/2018 Admitting Diagnosis gangrene L 2nd toe/DM HPI Ernie Frances is a 72 year old male who was admitted on Nov 10, 2018 at 17 :26 for Gangrene Left Second Toe, Diabetes Consultations ID: Dr. Mensah Nephology: Dr. Lissa Frankel Podiatry: Dr. Sampson Vascular; Dr. Burrellarian Surgery: Dr. Islas Procedures Foot XR CXR Venous and arterial duplex LE Renal US MRI pelvis MRI foot PICC insertion Hospital Course 72 y/o male admitted with L second toe foul smelling necrosis, gangrene and osteomyelitis. #left foot 2nd toe gangrene with osteomyelitis/cellulitis and infected wound, wc - staph aureus and klebsiella - continue vancomycin, cefepime and flagyl - day # 10 abx - monitor labs - podiatry and vascular surgery follow up. Needs selective left leg angio before amputation. 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 Patient denies prior renal disease and nephrology was consulted. Dr. Frankel monitor BMP Renal US: FINDINGS: Right kidney: Right kidney measures 10.2 x 5.9 cm. No hydronephrosis. No perinephric collection. Left kidney: Left kidney measures 10.5 x 5.0 cm. No hydronephrosis or perinephric collection. Bladder: Nodular lesion arising from the prostate or bladder base, measures 1.8 x 1.2 cm.. Bladder volume 162 mL Other findings: Heterogeneous nodular prostate measuring 4.6 x 4.2 x 4. 3 cm. IMPRESSION: 1. No hydronephrosis. 2. Nodular lesion arising from the prostate or bladder base, measures 1. 8 x 1.2 cm #Bladder outlet obstruction, + Trace free fluid in pelvis on MRI pelvis Urology follow up at [facility] # IDDM- poorly controlled- HbA1c 10.4 finger stick glucose has been less than 200 on NPH 40 AM, 20 PM diabetic diet #Nausea, probably from Metronidazole. Add Zofran prn # Disposition SNF FULL CODE DVT and GI ppx I spent 40 minutes on this encounter. Discharge Medications New Medications: Cefepime Hcl/Dextrose, Iso-Osm (Cefepime 2 Gm Injection) 2 Gm/100 Ml Froz.piggy 2 GM IV DAILY for 32 Days, #1 BAG 1 Refill Ondansetron Odt* (Zofran Odt*) 4 Mg Tab.rapdis 4 MG BC EVERY 8 HOURS for 10 Days, #10 TAB 0 Refills Vancomycin HCl in Water (Vancomycin 1,250 mg/12.5 ml Vl) 1.25 Gm/12.5 Ml Vial 1.25 GM IV DAILY for 32 Days, #1 VIAL 1 Refill Acetaminophen* (Acetaminophen 325MG Tablet*) 325 Mg Tablet 650 MG ORAL Q4H PRN for 30 Days, #30 TAB Amlodipine Besylate (Norvasc) 5 Mg Tablet 5 MG ORAL DAILY for 30 Days, #30 TAB Aspirin* (Aspirin*) 81 Mg Tab.chew 81 MG ORAL DAILY for 30 Days, #30 TAB Atorvastatin Calcium* (Lipitor*) 20 Mg Tablet 20 MG ORAL BEDTIME for 30 Days, #30 TAB Chlorhexidine Gluconate* (Hibiclens*) 118 Ml Liquid 1 APPLIC TOPIC DAILY@2000 for 30 Days, #30 ML [D50w] () 50 ML SOLN 50 ML IV Q30M PRN [D50w] () 50 ML SOLN 25 ML IV Q30M PRN Metoprolol Tartrate* (Metoprolol Tartrate*) 100 Mg Tablet 100 MG ORAL BEDTIME for 30 Days, #30 TAB Metronidazole* (Flagyl*) 500 Mg Tablet 500 MG ORAL EVERY 8 HOURS for 32 Days, #96 TAB Nph, Human Insulin Isophane* (Novolin N*) 100 Unit/1 Ml Vial 20 UNITS SUBQ BEFORE DINNER for 30 Days, #1 VIAL Nph, Human Insulin Isophane* (Novolin N*) 100 Unit/1 Ml Vial 40 UNITS SUBQ BEFORE BREAKFAST for 30 Days, #1 VIAL Pantoprazole* (Pantoprazole*) 40 Mg Tablet.dr 40 MG ORAL DAILY for 30 Days, #30 TAB Polyethylene Glycol 3350 (Miralax) 119 Gm Powder 17 GM ORAL HSPRN PRN for 10 Days, #17 GM Discontinued Medications: Acetaminophen (Acetaminophen) 650 Mg/20.3 Ml Solution 650 MG RC QID PRN for Fever/Headache/Mild Pain, ML 0 Refills Hydromorphone Hcl/Pf (Hydromorphone Hcl 1 Mg/Ml Amp) 1 Mg/1 Ml Ampul 1 MG IVP Q4HR for For Pain, AMP Insulin Glargine (Lantus) 100 Unit/1 Ml Insuln.pen 30 SUBQ, #1 EA 0 Refills Losartan Potassium* (Losartan Potassium*) 50 Mg Tablet 100 MG ORAL DAILY, TAB Metoprolol Tartrate* (Metoprolol Tartrate*) 25 Mg Tablet Unknown Dose ORAL EVERY 12 HOURS, TAB Omeprazole (Omeprazole) 10 Mg Capsule.dr Unknown Dose ORAL DAILY, #30 CAP 0 Refills Ondansetron* (Zofran*) 4 Mg/2 Ml Vial 4 MG IVP for Nausea & Vomiting, VIAL Saline (Sodium Chloride) 2.5 Ml Syringe 10 ML IVF Q8HR for for line flush, SYR Discharge Condition Upon Discharge: stable Discharge Disposition Patient was discharged to SNF. Discharge Diagnoses: (1) Gangrene of toe of left foot (2) Bladder outlet obstruction (3) Renal failure (4) Elevated LFTs (5) DM (diabetes mellitus) (6) HTN (hypertension) (7) Renal insufficiency (8) Hyperglycemia (9) Elevated lactic acid level Discharge Instructions Discharge Instructions Activity: as tolerated Erich Pitts M.D. Nov 21, 2018 13:36
--- NOTE | 2018-11-21 13:56 | NUR ---
*-* INSURANCE *-* UPDATED CLINICALS AND REVIEW HAVE BEEN FAXED TO: [employer] (SEE ABOVE NOTES) PLEASE FAX THE REVIEW/CLINICAL P- [phone] F- [phone]...REVIEW/CLINICAL & [facility] Cloth Bleaching Range Tender: Tiago #[phone] Ext. [phone]
--- NOTE | 2018-11-21 14:45 | NUR ---
*-* DISCHARGE PLANNING *-* PATIENT HAS BEEN REFERRED TO: [facility] P: [phone] F: [phone] OTHER FACILITIES THEY ARE CONTRACTED WITH [facility] P: [phone] F: [phone] [facility] P: [phone] F: [phone] [facility] P: [phone] F: [phone] Addendum: 11/21/18 at 1453 by KERMIT HAWKINS CM [facility] [phone]
[2018-11-21] MEDS ORDERED: Cefepime HCl 2 GM in D5W 110 ML IV SCH (16:00)
--- NOTE | 2018-11-21 17:10 | Nephrology Progress Note ---
Assessment/Plan Problem List: (1) Hyperglycemia (2) Elevated lactic acid level (3) Gangrene of toe of left foot (4) Renal failure (5) Dehydration (6) HTN (hypertension) (7) DM (diabetes mellitus) Plan # Acute kidney injury on possibley CKD stage III- likely diabetic nephropathy # L second toe distal dry gangrene- with osteol # IDDM # HTN- controlled # Diabetic foot ulcer - hold losartan for now- ok to resume on DC- - needs outpatient follow up with renal - continue to monitor off IVF - continue metop 100 at night - continue amlodipine 5mg daily - check renal US--> IMPRESSION: 1. No hydronephrosis. 2. Nodular lesion arising from the prostate or bladder base, measures 1. 8 x 1.2 cm mri pelvic to better delineate lesion --> Indentation of the bladder floor possibly causing chronic outlet obstruction NEEDS follow up with urology - can arrange while at [facility] - continue abx - avoid supratherapeutic vanco level - podiatry/surgery eval noted - patient needs selective left leg angio prior to amputation Subjective Subjective no significant pain No fevers or chills. mri foot done pelvis mri done showing Indentation of the bladder floor s/p PICC line placed Cr stable- 1.5 patient needs selective left leg angio prior to amputation Objective Objective Last 24 Hour Vital Signs Date Time Temp Pulse Resp B/P (MAP) Pulse Ox O2 Delivery O2 Flow Rate FiO2 11/21/18 16:00 97.7 94 18 135/65 (88) 98 11/21/18 12:00 97.9 84 18 124/62 (82) 95 11/21/18 09:31 84 139/75 11/21/18 08:26 Room Air 11/21/18 08:00 98.1 84 18 139/75 (96) 96 11/21/18 04:00 98.4 81 19 118/65 (82) 95 11/21/18 00:00 98.1 88 18 127/56 (79) 95 11/20/18 21:02 95 134/73 11/20/18 21:00 Room Air 11/20/18 20:00 97.9 100 18 145/74 (97) 95 Intake and Output 11/20/18 11/21/18 19:00 07:00 Intake Total 1110 ml 455.000 ml Output Total 300 ml Balance 1110 ml 155.000 ml Intake Oral 1000 ml 180 ml IV Total 110 ml 275.000 ml Output Urine Total 300 ml # Voids 8 1 Height (Feet): 5 Height (Inches): 6.00 Weight (Pounds): 181 Lissa Frankel M.D. Nov 21, 2018 17:10
--- NOTE | 2018-11-21 17:36 | NUR ---
DRAW TENDER NOTES PT ACCEPTED TO [facility]. PT IN AGREEMENT WITH DC AT THIS TIME. PT TO GO TO ROOM [address] NERI RECEIVING DOCTOR. NURSE TO CALL REPORT TO [phone]. [facility] TO TRANSPORT PT WITH AUTH. [id number]. PT WILL BE SKILLED. [facility] [address] [place] [address] [address] [phone]
[2018-11-21] MEDS ORDERED: VANCOMYCIN HCL125 MG IVPB (18:04)
[2018-11-21] MEDS ORDERED: CEFEPIME-D2 GM/50 ML IVPB (18:08)
--- NOTE | 2018-11-21 18:11 | NUR ---
NURSE NOTES: Called report to KRISTIAN Null at [facility]
--- NOTE | 2018-11-21 19:50 | NUR ---
NURSE NOTES: Received report from KRISTIAN Smith. Patient stable a/a/o, amharic speaking. Breathing unlabored without distress, discomfort, or sob. Denies pain at this time. Double lumen picc line noted on the left upper arm patent with intact dressing. Bed placed at the lowest with brake and siderails up for safety. Discharge order noted and awaiting for [facility]. Call light placed within reach. Will continue to monitor and provide care as ordered.
--- NOTE | 2018-11-21 19:51 | NUR ---
HAND-OFF: Report given to KRISTIAN Beverly. 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
[2018-11-21] MEDS: Dyna-Hex 2% Top Sol 2oz TOPIC SCH (21:09)
[2018-11-21] MEDS: Atorvastatin 20mg tab ORAL SCH (21:10)
[2018-11-21] MEDS: Enoxaparin 40mg Inj SUBQ SCH (21:12)
--- NOTE | 2018-11-21 22:04 | NUR ---
NURSE NOTES: Given report to Jitendra [facility] personnel. Patient a/a/o and breathing unlabored without distress, discomfort, or sob. Denies pain at this time. VS: 148/75 HR99 RR 18 O2Sat 99% on room air and 0/10 pain. Patient discharged with PICC line per MD order. Skin intact except the gangrene on the left 2nd toe. Removed ID band and belongings list confirmed and signed by patient. Left the unit on a gurney. Addendum: 11/21/18 at 2352 by Rush Avila RN Called [facility] and confirmed with person name Bambi to follow up on Dr. Velasquez order for labs on 11/23/18. Confirmed order paper received and to follow up accordingly.
--- NOTE | 2018-11-23 03:00 | Consultation ---
DATE OF CONSULTATION: 11/17/2018 VASCULAR SURGERY CONSULTATION CONSULTING PHYSICIAN: Solitario Salcedo M.D. REFERRING PHYSICIANS: 1. Cm Sampson D.P.M. 2. Arnold Paulino D.P.M. 3. Dania Huber M.D. REASON FOR CONSULTATION: Left toe gangrene, second toe. HISTORY OF PRESENT ILLNESS: This is a 72-year-old male, who suffers from diabetes mellitus and hypertension, who presented with left second toe dry gangrene. Vascular Surgery is consulted for evaluation. The patient currently has no other complaints with some difficulty. PAST MEDICAL HISTORY: As above. History of obesity, hypertension, diabetes mellitus, PAD, and recent left toe second toe gangrene. MEDICATIONS: See attached MAR. ALLERGIES: No known drug allergies. SOCIAL HISTORY: Denies history of smoking, drugs, or alcohol abuse. FAMILY HISTORY: Unremarkable. REVIEW OF SYSTEMS: CARDIOVASCULAR: No history of chest pain or palpitations. PULMONARY: No cough. No hemoptysis. GASTROINTESTINAL: No history of abdominal pain, constipation, or diarrhea. GENITOURINARY: No urinary symptoms. NEUROLOGIC: No history of strokes or seizures. PHYSICAL EXAMINATION: VITAL SIGNS: The patient is currently afebrile, 97.7, heart rate is 80, blood pressure 150/70, and respirations 16. The patient has palpable radial pulses. NECK: No evidence of carotid bruit. LUNGS: Clear to auscultation. HEART: Regular. ABDOMEN: Soft and nontender. EXTREMITIES: He has palpable femoral pulses. Absent popliteal and pedal pulses bilaterally. There is a left second toe dry gangrene and necrosis. IMPRESSION: 1. Ischemic left second toe dry gangrene and necrosis. 2. History of calcific arterial occlusive disease with absent popliteal and pedal pulses. 3. Obesity with hypertension, diabetes mellitus, and hyperlipidemia. PLAN AND RECOMMENDATIONS: 1. The patient should be on antiplatelet and statin therapy. 2. Complete the duplex and CT imaging and schedule the patient for selective left leg angiography to assess for revascularization once medically optimized . Solitario Salcedo M.D. DR: ENRIQUE JOB#: [id number] CC: Mick Chahal.P.M.; Fax#: [phone] Mick GROSSMAN.P.Sebas ; FAX#: [phone] DANIA HUBER M.D.; FAX#: [phone]
== END 2018-11-21 22:05 | DRG 300 ==
LOC: EMR 16:41 → 4E 17:26 → EDBEDREQ 19:36 → 4E 11-11 01:41
PROC: 02HV33Z Insertion of Infusion Device into Superior Vena Cava, Percutaneous Approach (ICD-10-PCS; principal; 2018-11-15)
DX: E11.52 Type 2 diabetes mellitus with diabetic peripheral angiopathy with gangrene (principal); L03.116 Cellulitis of left lower limb; N17.9 Acute kidney failure, unspecified; E87.2 Acidosis; M86.8X7 Other osteomyelitis, ankle and foot; E11.621 Type 2 diabetes mellitus with foot ulcer; E11.21 Type 2 diabetes mellitus with diabetic nephropathy; E11.65 Type 2 diabetes mellitus with hyperglycemia; E86.0 Dehydration; N32.0 Bladder-neck obstruction; I12.9 Hypertensive chronic kidney disease with stage 1 through stage 4 chronic kidney disease, or unspecified chronic kidney disease; E11.22 Type 2 diabetes mellitus with diabetic chronic kidney disease; N18.3 Chronic kidney disease, stage 3 (moderate); Z79.4 Long term (current) use of insulin; E11.69 Type 2 diabetes mellitus with other specified complication; Z79.84 Long term (current) use of oral hypoglycemic drugs
CPT/HCPCS: 36415; 36569; 71045; 72195; 76770; 76937; 80048; 80053; 80061; 80202; 81003; 82043; 82550; 82553; 82570; 82962; 83036; 83605; 83690; 83735; 83880; 84300; 84484; 85025; 85610; 85651; 85730; 86140; 87040; 87070; 87181; 87205; 93005; 93925; 93970; 96361; 96365; 96367; 99285; J2405

== ENCOUNTER 2018-12-15 00:10 | Inpatient (IN) | payer OTHER ==
[~2018-12-15] VITALS: Ht 167.6 cm; Wt 76.8 kg
[2018-12-15] VITALS (23 sets, daily range): BP systolic 110–173; BP diastolic 49–100
[~2018-12-15 00:10] MED LIST changes: +ACETAMINOPHEN325 M1 ORAL; +ASPIRIN81 MG ORAL; +CEFEPIME 22 GM/100 M IV; +CEFEPIME-D2 GM/50 ML IVPB; +D50w IV; +FLAGYL500 MG ORAL; +HIBICLENS118 ML TOPIC; +LIPITOR20 MG ORAL; +METOPROLOL TAR100 M1 ORAL; +METOPROLOL TART25 MG ORAL; +MIRALAX119 GM ORAL; +NORVASC5 MG ORAL; +NOVOLIN N100 UNIT/1 SUBQ; +OMEPRAZOLE10 M1 ORAL; +ONDANSETRON ODT4 MG BC; +PANTOPRAZOLE SO40 MG ORAL; +VANCOMYCIN HCL125 MG IVPB; +VANCOMYCIN1.25 GM/12 IV
--- NOTE | 2018-12-15 00:16 | NUR ---
ED Nurse Note: pt brought in by ambulance for elevated blood sugar. per report, blood sugar is above 700,. pt is alert x4. pt noted with S[place] [facility] [place]
[2018-12-15] MEDS ORDERED: CLOPIDOGREL75 MG ORAL (00:36)
[2018-12-15] MEDS ORDERED: PEPTO-BISM262 MG/15 PO (00:36)
[2018-12-15] MEDS ORDERED: OMEPRAZOLE40 M1 ORAL (00:36)
[2018-12-15 00:52] LABS: ANION GAP 13 mmol/L (5-15); BLOOD UREA NITROGEN 27 mg/dL (7-18); CALCIUM 8.7 MG/DL (8.5-10.1); CARBON DIOXIDE 21 MMOL/L (21-32); CHLORIDE 101 MMOL/L (98-107); SODIUM 134 MMOL/L (136-145)
[2018-12-15 01:07] LABS: ALANINE AMINOTRANSFERASE 26 U/L (12-78); ALBUMIN 2.9 G/DL (3.4-5.0); ALBUMIN/GLOBULIN RATIO 0.6 (1.0-2.7); ALKALINE PHOSPHATASE 100 U/L (46-116); ASPARTATE AMINO TRANSFERASE 39 U/L (15-37); BILIRUBIN,TOTAL 1.3 MG/DL (0.2-1.0)
[2018-12-15 01:10] LABS: BILIRUBIN,DIRECT 0.1 MG/DL (0.0-0.3)
[2018-12-15] MEDS ORDERED: Acetaminophen 500mg (ES) tab ORAL ONE (01:15)
[2018-12-15] MEDS ORDERED: Insulin Human Regular 100units/ml 3ml IV ONE ×2 (01:30→02:45)
--- NOTE | 2018-12-15 01:43 | Emergency Room Report ---
History of Present Illness General Chief Complaint: Abnormal Labs Source: Patient Present Illness HPI Is a 73-year-old male with a history of diabetes, hypertension, CAD and recent toe amputation for gangrene. He was doing well until few days ago. Since then , he is feeling weak and not eating. Has not taken his insulin because only able to eat a few strawberries today. Presents with weakness and EMS said his blood sugar was very high and start him on a liter of normal saline. Patient denies any chest pain. Obion short of breath. No nausea no vomiting. No fever or chills. No pain. Allergies: Coded Allergies: No Known Allergies (Unverified , 08/14/15) Patient History Past Medical History: see triage record, old chart reviewed, DM, HTN, [place], CAD Past Surgical History: other Pertinent Family History: none Social History: Denies: smoking Immunizations: other Reviewed Nursing Documentation: PMH: Agreed; PSxH: Agreed Nursing Documentation-PMH Hx Cardiac Problems: Yes - RT Iliac stent 12/04/2018 Hx Hypertension: Yes Hx COPD: No - BPH Hx Diabetes: Yes Hx Cancer: No Hx Gastrointestinal Problems: No Hx Neurological Problems: No Review of Systems Constitutional: Reports: malaise, weakness Eye: Denies: eye pain, blurred vision ENT: Denies: ear pain, nose congestion, throat swelling Respiratory: Reports: shortness of breath Cardiovascular: Denies: chest pain, palpitations Gastrointestinal: Denies: abdominal pain, diarrhea, nausea, vomiting Musculoskeletal: Denies: back pain, joint pain Skin: Denies: rash Neurological: Denies: headache, numbness Endocrine: Denies: increased thirst, increased urine Hematologic/Lymphatic: Denies: easy bruising All Other Systems: negative except mentioned in HPI Physical Exam Vital Signs Date Time Temp Pulse Resp B/P (MAP) Pulse Ox O2 Delivery O2 Flow Rate FiO2 12/15/18 00:15 97.9 120 26 143/69 (93) 96 Room Air Vitals with tachycardia Sp02 EP Interpretation: reviewed, normal General Appearance: alert, mild distress, Chronically Ill Head: normocephalic, atraumatic Eyes: bilateral eye PERRL, bilateral eye EOMI ENT: hearing grossly normal, normal pharynx Neck: full range of motion, supple, no meningismus Respiratory: chest non-tender, accessory muscle use Cardiovascular #1: regular rate, rhythm, no murmur, tachycardia Gastrointestinal: normal bowel sounds, non tender, no mass, no organomegaly, no bruit, non-distended Musculoskeletal: back normal, normal range of motion, other - Bilateral 1+ pitting edema. Left foot: There is erythema to the surgical site of the second toe. No drainage. Neurologic: alert, oriented x3 Psychiatric: mood/affect normal Procedures Critical Care Time Critical Care Time Critical care is mandated in this patient who presented with uncontrolled diabetes and pulmonary edema. Patient require my urgent intervention to attenuate the risks of respiratory collapse which may lead to cardiovascular collapse and . Critical care time is 35 minutes excluding any reportable procedure. Critical care time included evaluation, multiple reevaluation, looking at old charts, interpreting laboratory and diagnostic data, discussing case with patient and family and consultants, and charting. Medical Decision Making Diagnostic Impression: Primary Impression: Acute exacerbation of CHF (congestive heart failure) Qualified Codes: I50.9 - Heart failure, unspecified Additional Impressions: Sepsis Qualified Codes: A41.9 - Sepsis, unspecified organism; R65.20 - Severe sepsis without septic shock; J96.01 - Acute respiratory failure with hypoxia Cellulitis in diabetic foot Hyperglycemia due to type 1 diabetes mellitus SHAHANA (acute kidney injury) ACS (acute coronary syndrome) Anemia, unspecified Qualified Codes: D64.9 - Anemia, unspecified ER Course Patient presents with weakness and tachycardia. His blood glucose was very high. I will order 1 additional liter of IV fluid. After about order of the IV fluid, he developed increasing shortness of breath. On reexamination he has rales now. I ordered a chest x-ray which show CHF. Patient was given IV Lasix. Also put him on BiPAP. This seemed to help with his dyspnea. Lab Results Impression With elevated BNP and glucose EKG Diagnostic Results Rate: tachycardiac Rhythm: NSR ST Segments: other - NSST changes Rhythm Strip Diag. Results EP Interpretation: yes Rate: 130 Rhythm: NSR, no PVC's, no ectopy Chest X-Ray Diagnostic Results Chest X-Ray Diagnostic Results : Chest X-Ray Ordered: Yes # of Views/Limited/Complete: 1 View Indication: Shortness of Breath EP Interpretation: Yes Interpretation: no pneumothorax, other - b/l small effusion. chf Impression: Other - chf Electronically Signed by: Justin Oreilly MD Last Vital Signs Date Time Temp Pulse Resp B/P (MAP) Pulse Ox O2 Delivery O2 Flow Rate FiO2 12/15/18 00:20 97.7 128 26 144/75 97 Room Air Status: improved Disposition: ADMITTED INPATIENT Condition: Serious Justin Oreilly MD Dec 15, 2018 01:43
[2018-12-15] MEDS ORDERED: Enoxaparin 80mg Inj SUBQ ONE ×2 (01:52→02:00)
[2018-12-15] MEDS ORDERED: Aspirin Baby 81mg ONE (01:52)
[2018-12-15] MEDS ORDERED: Aspirin Baby 81mg ORAL ONE (02:00)
[2018-12-15 02:03] LABS: HEMATOCRIT 35.6 % (42.0-52.0); HEMOGLOBIN 11.5 G/DL (14.2-18.0); MEAN CORPUSCULAR VOLUME 90 FL (80-99); PLATELET COUNT 247 K/UL (150-450); RED BLOOD COUNT 3.97 M/UL (4.70-6.10); RED CELL DISTRIBUTION WIDTH 13.6 % (11.6-14.8); WHITE BLOOD COUNT 18.8 K/UL (4.8-10.8)
--- NOTE | 2018-12-15 02:05 | NUR ---
ED Nurse Note: pt in bed with eyes closed. VSS.
[2018-12-15] MEDS ORDERED: Vancomycin 1.5gm/NS Premix 275 ML IVPB SCH (02:45)
[2018-12-15] MEDS ORDERED: Cefepime HCl 1 GM in D5W 55 ML IVPB ONE (02:45)
[2018-12-15] MEDS ORDERED: Vancomycin 1.5gm vial IVPB ONE (02:56)
--- NOTE | 2018-12-15 03:20 | NUR ---
ED Nurse Note: pt sister left her phone number. cell : [phone]
[2018-12-15 03:22] LABS: APPEARANCE,URINE CLEAR; BILIRUBIN, URINE NEGATIVE (NEGATIVE); COLOR,URINE PALE YELLOW; GLUCOSE, URINE (UA) 4+ (NEGATIVE); KETONES,URINE NEGATIVE (NEGATIVE); LEUKOCYTE ESTERASE ,URINE NEGATIVE (NEGATIVE); NITRITE,URINE NEGATIVE (NEGATIVE); PH,URINE 5 (4.5-8.0); PROTEIN,URINE 2+ (NEGATIVE); UROBILINOGEN,URINE NORMAL MG/DL (0.0-1.0)
--- NOTE | 2018-12-15 04:35 | NUR ---
NURSE NOTES: Received report from Arun TOWNSEND, pt. transferred from ER, pt. appears to be stable, A/O x's 3- Malay/ Brazilian speaking- able to make needs known, no signs or symptoms of acute cardiac or respiratory distress noted, bed in lowest position and call light within easy reach, bed in locked position and call light within easy reach, alarm security or surveillance monitor placed, VS taken, Full body assessment done- skin intact- pt. does have amputation to Left foot 2nd toe-which appears to be some reddness, pitting edema to lower extremities and bilateral feet both 1+ pitting edema, pt. appears to be sating well on bipap settings of 12/5 adn fio2 of 30%- no distress noted, Left AC 20G and rt. hand 20G both IVs intact and patent, family members briefly at bedside but left for home, safety measures continued, will continue with plan of care. Addendum: 12/15/18 at 0526 by TYREE JEAN RN RN correction to message above pt. does not have a Son.
--- NOTE | 2018-12-15 05:26 | NUR ---
NURSE NOTES: left message for DR. Carl exchange- spoke with Gabe- she will leave message for doctor- awaiting for call back from doctor for admitting orders.
--- NOTE | 2018-12-15 06:56 | NUR ---
HAND-OFF: Report given to KRISTIAN Giles, pt. remains stable and no signs of distress noted- aware to f/u with admission orders as doctor has not called back with admitting orders.
--- NOTE | 2018-12-15 07:03 | NUR ---
NURSE NOTES: 2nd call left for DR. Carl office- left message with Jeremy - awaiting for call back from doctor for admitting orders- am nurse aware to f/u for admitting orders.
--- NOTE | 2018-12-15 07:30 | NUR ---
RESPIRATORY NOTE: Received pt on ordered BiPAP settings. BiPAP mask removed and assessed skin area for any skin damage or redness. No damage or redness noted. BiPAP mask then placed back on after assessment. No resp distress noted. BiPAP alarms are on and audible. BiPAP plugged into red outlet. Will monitor pt progress.
--- NOTE | 2018-12-15 07:37 | NUR ---
NURSE NOTES: Report received from Georgia TOWNSEND. Pt awake, alert and oriented x 3, able to make needs known. Pt SR on diagnostic cardiac sonographer. Pt currently on bipap 12/ 30%. LAC 20 G and RH 20 G heplock noted and intact. Left another message at Dr Carl office for admitting orders, awaiting call back. Safety measures in place with bed locked and in lowest position, side rails x3 up and bed alarm on. Will continue to monitor and continue plan of care.
--- NOTE | 2018-12-15 08:00 | NUR ---
NURSE NOTES: MD KNIGHT HERE, PRIMARY RN WILL PLACE ORDERS.
--- NOTE | 2018-12-15 09:54 | NUR ---
*-* NO INSURANCE INFORMATION IN THE BAR UNABLE TO SEN CLINICALS OR REVIEWS *-*
--- NOTE | 2018-12-15 10:19 | Cardiac Electrophysiology PN ---
Subjective Subjective [id number] CHF, Tachy 140s, Troponin elevation Stat ECho pending Objective Last 24 Hour Vital Signs Date Time Temp Pulse Resp B/P (MAP) Pulse Ox O2 Delivery O2 Flow Rate FiO2 12/15/18 09:01 109 20 100 Facial 35 12/15/18 08:00 Bi-pap 12/15/18 08:00 98.6 94 22 116/62 (80) 96 12/15/18 08:00 93 12/15/18 07:30 105 20 100 Facial 35 12/15/18 05:00 114 23 99 Facial 35 12/15/18 04:49 103 12/15/18 04:45 99.1 102 22 115/67 (83) 97 12/15/18 04:35 Bi-pap 12/15/18 04:35 30 12/15/18 03:30 110 22 100 Facial 35 12/15/18 02:32 98.0 110 23 114/58 100 Bi-pap 30 12/15/18 02:28 30 12/15/18 02:10 120 40 100 Bi-Pap 35 12/15/18 02:01 120 40 100 Facial 35 12/15/18 00:20 97.7 128 26 144/75 97 Room Air 12/15/18 00:15 97.9 120 26 143/69 (93) 96 Room Air Intake and Output 12/14/18 12/15/18 19:00 07:00 Intake Total 2055 ml Balance 2055 ml Intake IV Total 2055 ml # Voids 1 # Bowel Movements 1 Laboratory Tests Test 12/15/18 00:25 12/15/18 01:06 12/15/18 01:35 12/15/18 01:45 Sodium Level 134 MMOL/L (136-145) L Potassium Level 5.0 MMOL/L (3.5-5.1) Chloride Level 101 MMOL/L (98-107) Carbon Dioxide Level 21 MMOL/L (21-32) Anion Gap 13 mmol/L (5-15) Blood Urea Nitrogen 27 mg/dL (7-18) H Creatinine 2.0 MG/DL (0.55-1.30) H Estimat Glomerular Filtration Rate mL/min (>60) Glucose Level 462 MG/DL (74-106) H Lactic Acid Level 2.30 mmol/L (0.4-2.0) H 2.40 mmol/L (0.66-2.22) H Calcium Level 8.7 MG/DL (8.5-10.1) Total Bilirubin 1.3 MG/DL (0.2-1.0) H Direct Bilirubin 0.1 MG/DL (0.0-0.3) Aspartate Amino Transf (AST/SGOT) 39 U/L (15-37) H Alanine Aminotransferase (ALT/SGPT) 26 U/L (12-78) Alkaline Phosphatase 100 U/L (46-116) Troponin I 0.266 ng/mL (0.000-0.056) Total Protein 7.4 G/DL (6.4-8.2) Albumin 2.9 G/DL (3.4-5.0) L Globulin 4.5 g/dL Albumin/Globulin Ratio 0.6 (1.0-2.7) L Pro-B-Type Natriuretic Peptide 94941 pg/mL (0-125) H White Blood Count 18.8 K/UL (4.8-10.8) H Red Blood Count 3.97 M/UL (4.70-6.10) L Hemoglobin 11.5 G/DL (14.2-18.0) L Hematocrit 35.6 % (42.0-52.0) L Mean Corpuscular Volume 90 FL (80-99) Mean Corpuscular Hemoglobin 29.1 PG (27.0-31.0) Mean Corpuscular Hemoglobin Concent 32.4 G/DL (32.0-36.0) Red Cell Distribution Width 13.6 % (11.6-14.8) Platelet Count 247 K/UL (150-450) Mean Platelet Volume 7.3 FL (6.5-10.1) Neutrophils (%) (Auto) % (45.0-75.0) Lymphocytes (%) (Auto) % (20.0-45.0) Monocytes (%) (Auto) % (1.0-10.0) Eosinophils (%) (Auto) % (0.0-3.0) Basophils (%) (Auto) % (0.0-2.0) Differential Total Cells Counted 100 Neutrophils % (Manual) 75 % (45-75) Lymphocytes % (Manual) 15 % (20-45) L Monocytes % (Manual) 10 % (1-10) Eosinophils % (Manual) 0 % (0-3) Basophils % (Manual) 0 % (0-2) Band Neutrophils 0 % (0-8) Platelet Estimate Adequate Platelet Morphology Normal Test 12/15/18 03:15 12/15/18 07:45 Urine Color Pale yellow Urine Appearance Clear Urine pH 5 (4.5-8.0) Urine Specific [place] 1.010 (1.005-1.035) Urine Protein 2+ (NEGATIVE) H Urine Glucose (UA) 4+ (NEGATIVE) H Urine Ketones Negative (NEGATIVE) Urine Blood 2+ (NEGATIVE) H Urine Nitrite Negative (NEGATIVE) Urine Bilirubin Negative (NEGATIVE) Urine Urobilinogen Normal MG/DL (0.0-1.0) Urine Leukocyte Esterase Negative (NEGATIVE) Urine RBC 5-10 /HPF (0 - 0) H Urine WBC 0-2 /HPF (0 - 0) Urine Squamous Epithelial Cells Few /LPF (NONE/OCC) Urine Bacteria Few /HPF (NONE) Lactic Acid Level 1.10 mmol/L (0.4-2.0) Microbiology Date/Time Source Procedure Growth Status 12/15/18 04:15 Rectum Received José Miguel Richter MD Dec 15, 2018 10:19
--- NOTE | 2018-12-15 10:23 | NUR ---
*-* INSURANCE *-* ALL CLINICALS AND REVIEWS HAVE BEEN FAXED TO: [facility] TRK# [id number] F: [phone] CROP SPECIALIST: PHYLLIS SAENZ P: [phone] Addendum: 12/15/18 at 1539 by KERMIT HAWKINS CM & ALPHA MED NCM: TEETEE P: [phone] F: [phone]
--- NOTE | 2018-12-15 10:23 | NUR ---
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 97.8, HR. 120, RR. 26, BP. 143/69 WBC. 18.8, LACTIC ACID. 2.30, TROP. 0.266, BNP- 74409 IS NS 1000ML IV X2 LASIX IV REG. INSULIN 10 UNITS IV LOVENOX INJ SUB Q ASPIRIN PO ADMITTED TO [facility] DC PLAN PENDING HOSPITAL STAY
--- NOTE | 2018-12-15 10:30 | NUR ---
NURSE NOTES: RECEIVED PT FROM [facility] FELIPE FROM [facility] D/T AFIB W/ RVR. BP 129/74, HR 140, RR24, 02SAT 100% ON BIAPA 15/5 30%. NO C/O PAIN. UPPER SORBIAN SPEAKING. VERY LETHARGIC, WEAK. A/OX3. LUNGS DIMINISHED. NO SECRETIONS OR COUGH. ABDOMEN SOFT, NON TENDER. SMALL BM, MUCOID BROWN. PEDAL PULSE WEAK AND RADIAL PULSES BOUNDING. SKIN INTACT, SECOND TOE AMPUTEE ON LEFT FOOT. A FEBRILE. STANDARD PRECAUTIONS IN PLACE. WILL CONTINUE TO MONITOR PT.
[2018-12-15] MEDS ORDERED: Heparin 25,000u/D5W 500ml 500 ML IV SCH ×2 (10:45→14:00)
--- NOTE | 2018-12-15 11:00 | NUR ---
NURSE NOTES: Dr Richter here to see pt. ordered stat EKG, EKG showed afib with rvr. ordered to transfer to ICU.
--- NOTE | 2018-12-15 11:05 | NUR ---
HAND-OFF: Report given to Chelsey TOWNSEND.
--- NOTE | 2018-12-15 11:32 | NUR ---
NURSE NOTES: Spoke with patient's sister Yoana via phone - made her aware patient got transferred to ICU due to fast and irregular HR
--- NOTE | 2018-12-15 11:48 | Diagnostic Imaging Report ---
Indication: Dyspnea Comparison: 11/10/2018 A single view chest radiograph was obtained. Findings: There is enlargement of the cardiac silhouette with pulmonary vascular redistribution and prominence, hazy vessel margins and the suggestion of interstitial edema consistent with CHF. Hazy opacity at the lung bases likely small pleural effusions. The bones are osteopenic. IMPRESSION: Congestive heart failure
[2018-12-15] MEDS: Aspirin Baby 81mg ORAL SCH (11:59)
[2018-12-15] MEDS ORDERED: NovoLOG Insulin Flexpen SUBQ SCH ×2 (12:00)
--- NOTE | 2018-12-15 12:00 | NUR ---
NURSE NOTES: 2 D ECHO AND ABG IN. PT RESTING IN BED. CARDIZEM DRIP AT 15MG/HR.
[2018-12-15] MEDS: Levemir Flexpen SUBQ SCH (12:05)
[2018-12-15] MEDS: NovoLOG Insulin Flexpen SUBQ SCH ×3 (12:07→23:45)
--- NOTE | 2018-12-15 13:25 | NUR ---
NURSE NOTES: Dr. Richter called the unit- updated with pt's condition - made aware patient's HR remains 140-150/min Uncontrolled A-Fib with cardizem ar 15mg/min. with new orders given. Also made aware of latest Troponin 0.428
[2018-12-15] MEDS ORDERED: Digoxin 0.5mg/2ml Inj IVP SCH ×3 (13:30→21:00)
--- NOTE | 2018-12-15 14:32 | Cardiology Report ---
APPROVED REPORT EXAM: Two-dimensional and M-mode echocardiogram with Doppler and color Doppler. INDICATION Congestive Heart Failure M-Mode DIMENSIONS IVSd1.3 (0.7-1.1cm)Left Atrium (MM)4.4 (1.6-4.0cm) LVDd4.2 (3.5-5.6cm)Aortic Root3.3 (2.0-3.7cm) PWd1.2 (0.7-1.1cm)Aortic Cusp Exc.1.8 (1.5-2.0cm) IVSs1.8 cm LVDs3.4 (2.5-4.0cm) PWs1.3 cm Normal left ventricular chamber size. Global left ventricular hypokinesis . Left ventricular ejection fraction estimated to be 30-35 %. Mild left atrial enlargement . Right cardiac chamber sizes are within normal limits. Focal aortic valve sclerosis with adequate cusp excursion. Thickened mitral valve leaflets with normal excursion. Mitral annulus and aortic root calcification. Pulmonic valve not well visualized. Normal tricuspid valve structure. IVC at 2.0cm without physiologic collapse suggestive of increased RA pressure. A color flow and spectral Doppler study was performed and revealed: No aortic regurgitation. Moderate mitral regurgitation in AP2. Mitral inflow velocities indicates possible pseudo normalization pattern implying moderately elevated left atrial pressure (Grade II ). Mild to moderate tricuspid regurgitation. Tricuspid systolic velocities suggests peak right ventricular systolic pressure of 40 mmHg,consistent with mild pulmonary hypertension.
--- NOTE | 2018-12-15 16:00 | NUR ---
NURSE NOTES: HEPARIN DRIP STARTED AT 18MG/KG/HR. PTT ORDERED FOR 2340 TONIGHT. NASAL SWABS OBTAINED. HR 117, BP 128/82, RR 21.
--- NOTE | 2018-12-15 16:57 | History and Physical ---
History of Present Illness General Date patient seen: Dec 15, 2018 Reason for Hospitalization: Acute Hypoxic Respiratory Failure Present Illness HPI History obtained with assistance of [employer] senior field engineer This is a 73 year old male with a PMHx Dm2, HTN, CHF, PAD s/p left iliac stent placement 01/05/19 and supsequent left 2nd toe amputation for gangrene/ osteomyelitis, CAD who presented with increased SOB x 5 days. Increased orthopnea and lower extremity swelling. Dry cough. no fevers or chills. Also with diarrhea, watery 10x per day for past two weeks. No history of VT or heart failure. No history of coronary stents. Of note patient recently hospitalized last month for L second toe foul smelling necrosis, gangrene and osteomyelitis. Was continued on vancomycin, cefepime and flagyl until patient underwent LLE angiogram and left iliac? stent on approximately 12/06/18. Subsequently had left toe amputated. He does not endorse any pain, redness or drainage from the toe. Denies any other rashes, lesions ulcers. ER course Patient hypoxic. Placed on BiPAP. WBC 18, lactate 2.3, proBNP 05299, troponin 0.266 and EKG showed atrial fibrillation with RVR. CXR showed pulmonary edema. Patient given IV lasix and transferred to ICU. SurgicalHx Cholecystectomy Left 2nd toe amputation Family history Mother- Dm2 Social history Tobacco: quit 20 years ago, 20 pack years Alcohol: quit 20 y ears ago. 20 years Drugs: none Allergies: Coded Allergies: No Known Allergies (Unverified , 08/14/15) Medication History Scheduled Amlodipine Besylate (Norvasc), 5 MG ORAL DAILY Aspirin* (Aspirin*), 81 MG ORAL DAILY Atorvastatin Calcium* (Lipitor*), 20 MG ORAL BEDTIME Clopidogrel* (Clopidogrel*), 75 MG ORAL DAILY, (Reported) Metoprolol Tartrate* (Metoprolol Tartrate*), 100 MG ORAL BEDTIME Omeprazole (Omeprazole), 40 MG ORAL DAILY, (Reported) Miscellaneous Medications Bismuth Subsalicylate (Pepto-Bismol), 262 MG PO, (Reported) Discontinued Medications Acetaminophen* (Acetaminophen 325MG Tablet*), 650 MG ORAL Q4H PRN Discontinued Reason: Therapy completed Cefepime Hcl/D5w (Cefepime-Dextrose 2 Gm/50 Ml), 2 GM IVPB Q24H, (Reported) Discontinued Reason: Therapy completed Cefepime Hcl/Dextrose, Iso-Osm (Cefepime 2 Gm Injection), 2 GM IV DAILY Discontinued Reason: Therapy completed Chlorhexidine Gluconate* (Hibiclens*), 1 APPLIC TOPIC DAILY@1999 Discontinued Reason: Therapy completed Metronidazole* (Flagyl*), 500 MG ORAL EVERY 8 HOURS Discontinued Reason: Therapy completed Metronidazole* (Flagyl*), 500 MG ORAL EVERY 8 HOURS, (Reported) Discontinued Reason: Therapy completed Nph, Human Insulin Isophane* (Novolin N*), 20 UNITS SUBQ BEFORE DINNER Discontinued Reason: Therapy completed Nph, Human Insulin Isophane* (Novolin N*), 40 UNITS SUBQ BEFORE BREAKFAST Discontinued Reason: Therapy completed Ondansetron Odt* (Zofran Odt*), 4 MG BC EVERY 8 HOURS Discontinued Reason: Therapy completed Pantoprazole* (Pantoprazole*), 40 MG ORAL DAILY Discontinued Reason: Therapy completed Polyethylene Glycol 3350 (Miralax), 17 GM ORAL HSPRN PRN Discontinued Reason: Therapy completed Vancomycin HCl in Water (Vancomycin 1,250 mg/12.5 ml Vl), 1.25 GM IV DAILY Discontinued Reason: Therapy completed Vancomycin HCl in Water (Vancomycin 1,250 mg/12.5 ml Vl), 1.25 GM IV DAILY, ( Reported) Discontinued Reason: Therapy completed Vancomycin Hcl (Vancomycin Hcl), 125 MG IVPB DAILY, (Reported) Discontinued Reason: Therapy completed [D50w], 50 ML IV Q30M PRN Discontinued Reason: Therapy completed [D50w], 25 ML IV Q30M PRN Discontinued Reason: Therapy completed Patient History Healthcare decision maker Resuscitation status Full Code Advanced Directive on File Review of Systems Constitutional: Denies: see HPI, chills, sweats, fever, malaise, weakness, other Eye: Denies: see HPI, eye pain, blurred vision, tearing, double vision, nose pain, nose congestion, acuity changes, discharge, other ENT: Denies: see HPI, ear pain, ear discharge, nose pain, nose congestion, throat pain, throat swelling, mouth pain, hearing loss, nasal discharge, other Respiratory: Reports: cough, orthopnea, shortness of breath; Denies: see HPI, stridor, wheezing, SHAH, sputum, other Cardiovascular: Reports: edema; Denies: see HPI, chest pain, palpitations, syncope, PND, other Gastrointestinal: Denies: see HPI, abdominal pain, constipation, diarrhea, nausea, vomiting, melena, hematemesis, other Genitourinary: Denies: see HPI, discharge, dysuria, frequency, hematuria, pain , retention, incontinence, urgency, vag bleed/dc, other Musculoskeletal: Denies: see HPI, back pain, gout, joint pain, joint swelling, muscle pain, muscle stiffness, other Skin: Denies: see HPI, rash, change in color, change in hair/nails, dryness, lesions, other Psychiatric: Denies: see HPI, prior hx, anxiety, depressed feelings, emotional problems, SI, HI, hallucinations, other Neurological: Denies: see HPI, headache, numbness, paresthesia, seizure, tingling, tremors, focal weakness, syncope, dizziness, other Endocrine: Denies: see HPI, excessive sweating, flushing, intolerance to temperature, increased thirst, increased urine, unexplained weight loss, other Hematologic/Lymphatic: Denies: see HPI, anemia, blood clots, easy bleeding, easy bruising, swollen glands, diathesis, other Physical Exam General Appearance: WD/WN, no apparent distress, alert - on BiPAP Lines, tubes and drains: peripheral HEENT: normocephalic, atraumatic Neck: non-tender, normal alignment Respiratory/Chest: chest wall non-tender, accessory muscle use, other - crackles bilaterally Cardiovascular/Chest: normal peripheral pulses, normal rate, JVD Abdomen: normal bowel sounds, non tender, soft Extremities: other - 3+ pitting edema to thigh bilaterally Skin Exam: other - left 2nd toe amputation with stiches in place without drainage or surrounding erythema Neurologic: appointment scheduler II-XII grossly normal, no motor/sensory deficits, abnormal gait , alert, oriented x 3, responsive Last 24 Hour Vital Signs Date Time Temp Pulse Resp B/P (MAP) Pulse Ox O2 Delivery O2 Flow Rate FiO2 12/15/18 15:05 118 18 100 12/15/18 14:50 133 12/15/18 12:31 110 22 100 Facial 35 12/15/18 12:00 30 12/15/18 12:00 Bi-pap 12/15/18 11:30 151 123/65 12/15/18 11:11 110 22 100 Facial 35 12/15/18 10:30 30 12/15/18 09:01 109 20 100 Facial 35 12/15/18 08:00 Bi-pap 12/15/18 08:00 98.6 94 22 116/62 (80) 96 12/15/18 08:00 93 12/15/18 07:30 105 20 100 Facial 35 12/15/18 05:00 114 23 99 Facial 35 12/15/18 04:49 103 12/15/18 04:45 99.1 102 22 115/67 (83) 97 12/15/18 04:35 Bi-pap 12/15/18 04:35 30 12/15/18 03:30 110 22 100 Facial 35 12/15/18 02:32 98.0 110 23 114/58 100 Bi-pap 30 12/15/18 02:28 30 12/15/18 02:10 120 40 100 Bi-Pap 35 12/15/18 02:01 120 40 100 Facial 35 12/15/18 00:20 97.7 128 26 144/75 97 Room Air 12/15/18 00:15 97.9 120 26 143/69 (93) 96 Room Air Intake and Output 12/14/18 12/15/18 18:59 06:59 Intake Total 2055 ml Balance 2055 ml Intake IV Total 2055 ml # Voids 1 # Bowel Movements 1 Laboratory Tests Test 12/15/18 00:25 12/15/18 01:06 12/15/18 01:35 12/15/18 01:45 Sodium Level 134 MMOL/L (136-145) L Potassium Level 5.0 MMOL/L (3.5-5.1) Chloride Level 101 MMOL/L (98-107) Carbon Dioxide Level 21 MMOL/L (21-32) Anion Gap 13 mmol/L (5-15) Blood Urea Nitrogen 27 mg/dL (7-18) H Creatinine 2.0 MG/DL (0.55-1.30) H Estimat Glomerular Filtration Rate mL/min (>60) Glucose Level 462 MG/DL (74-106) H Lactic Acid Level 2.30 mmol/L (0.4-2.0) H 2.40 mmol/L (0.66-2.22) H Calcium Level 8.7 MG/DL (8.5-10.1) Total Bilirubin 1.3 MG/DL (0.2-1.0) H Direct Bilirubin 0.1 MG/DL (0.0-0.3) Aspartate Amino Transf (AST/SGOT) 39 U/L (15-37) H Alanine Aminotransferase (ALT/SGPT) 26 U/L (12-78) Alkaline Phosphatase 100 U/L (46-116) Troponin I 0.266 ng/mL (0.000-0.056) Total Protein 7.4 G/DL (6.4-8.2) Albumin 2.9 G/DL (3.4-5.0) L Globulin 4.5 g/dL Albumin/Globulin Ratio 0.6 (1.0-2.7) L Pro-B-Type Natriuretic Peptide 58718 pg/mL (0-125) H White Blood Count 18.8 K/UL (4.8-10.8) H Red Blood Count 3.97 M/UL (4.70-6.10) L Hemoglobin 11.5 G/DL (14.2-18.0) L Hematocrit 35.6 % (42.0-52.0) L Mean Corpuscular Volume 90 FL (80-99) Mean Corpuscular Hemoglobin 29.1 PG (27.0-31.0) Mean Corpuscular Hemoglobin Concent 32.4 G/DL (32.0-36.0) Red Cell Distribution Width 13.6 % (11.6-14.8) Platelet Count 247 K/UL (150-450) Mean Platelet Volume 7.3 FL (6.5-10.1) Neutrophils (%) (Auto) % (45.0-75.0) Lymphocytes (%) (Auto) % (20.0-45.0) Monocytes (%) (Auto) % (1.0-10.0) Eosinophils (%) (Auto) % (0.0-3.0) Basophils (%) (Auto) % (0.0-2.0) Differential Total Cells Counted 100 Neutrophils % (Manual) 75 % (45-75) Lymphocytes % (Manual) 15 % (20-45) L Monocytes % (Manual) 10 % (1-10) Eosinophils % (Manual) 0 % (0-3) Basophils % (Manual) 0 % (0-2) Band Neutrophils 0 % (0-8) Platelet Estimate Adequate Platelet Morphology Normal Test 12/15/18 03:15 12/15/18 07:45 12/15/18 11:00 12/15/18 11:11 Urine Color Pale yellow Urine Appearance Clear Urine pH 5 (4.5-8.0) Urine Specific [place] 1.010 (1.005-1.035) Urine Protein 2+ (NEGATIVE) H Urine Glucose (UA) 4+ (NEGATIVE) H Urine Ketones Negative (NEGATIVE) Urine Blood 2+ (NEGATIVE) H Urine Nitrite Negative (NEGATIVE) Urine Bilirubin Negative (NEGATIVE) Urine Urobilinogen Normal MG/DL (0.0-1.0) Urine Leukocyte Esterase Negative (NEGATIVE) Urine RBC 5-10 /HPF (0 - 0) H Urine WBC 0-2 /HPF (0 - 0) Urine Squamous Epithelial Cells Few /LPF (NONE/OCC) Urine Bacteria Few /HPF (NONE) Lactic Acid Level 1.10 mmol/L (0.4-2.0) Thyroid Stimulating Hormone (TSH) 0.207 uiU/mL (0.358-3.740) Free Thyroxine 2.03 NG/DL (0.76-1.46) H Activated Partial Thromboplast Time 34 SEC (23-33) H Troponin I 0.428 ng/mL (0.000-0.056) Arterial Blood pH 7.462 (7.350-7.450) Arterial Blood Partial Pressure CO2 21.3 mmHg (35.0-45.0) *L Arterial Blood Partial Pressure O2 81.5 mmHg (75.0-100.0) Arterial Blood HCO3 14.9 mmol/L (22.0-26.0) *L Arterial Blood Oxygen Saturation 96.3 % (95-100) Arterial Blood Base Excess -7.2 (-2-2) L Terence Test Positive Microbiology Date/Time Source Procedure Growth Status 12/15/18 04:15 Rectum Received Height (Feet): 5 Height (Inches): 6.00 Weight (Pounds): 182 Medications Current Medications Medications (Trade) Dose Ordered Sig/Sathish Route PRN Reason Start Time Stop Time Status Last Admin Dose Admin Aspirin (ASA) 81 mg DAILY ORAL 12/15/18 11:15 01/14/19 11:14 12/15/18 11:59 Atorvastatin Calcium (Lipitor) 20 mg BEDTIME ORAL 12/15/18 21:00 11/3/19 20:59 Cefepime HCl 2 gm/ Dextrose 55 ml @ 110 mls/hr Q24H IVPB 12/16/18 09:00 12/23/18 08:59 Clopidogrel Bisulfate (Plavix) 75 mg DAILY ORAL 12/15/18 11:15 01/14/19 11:14 12/15/18 11:59 Dextrose (Dextrose 50%) 25 ml Q30M PRN IV Hypoglycemia 12/15/18 11:15 01/14/19 11:14 Dextrose (Dextrose 50%) 50 ml Q30M PRN IV Hypoglycemia 12/15/18 11:15 01/14/19 11:14 Digoxin (Lanoxin) 0.25 mg ONCE IVP 12/15/18 17:00 12/15/18 18:00 Digoxin (Lanoxin) 0.25 mg ONCE IVP 12/15/18 21:00 12/15/18 22:00 Digoxin (Lanoxin) 0.25 mg ONCE ORAL 12/16/18 06:00 12/16/18 07:00 Diltiazem HCl 125 mg/Dextrose 125 ml @ 0 mls/hr Q24H IV 12/15/18 11:30 12/16/18 11:29 12/15/18 11:30 Furosemide (Lasix) 40 mg EVERY 12 HOURS IV 12/15/18 21:00 01/14/19 08:59 Heparin Sodium/ Dextrose 500 ml @ 29.801 mls/ hr ADJUST PER PROTOCOL IV 12/15/18 14:00 01/14/19 13:59 Insulin Aspart (NovoLOG) Q6HR SUBQ 12/15/18 12:00 01/14/19 11:59 12/15/18 12:07 Insulin Detemir (Levemir) 10 units BEDTIME SUBQ 12/15/18 21:00 01/14/19 20:59 Insulin Detemir (Levemir) 20 units DAILY SUBQ 12/15/18 11:15 01/14/19 11:14 12/15/18 12:05 Metoprolol Tartrate (Lopressor) 25 mg TWICE A DAY ORAL 12/15/18 18:00 01/14/19 17:59 Metoprolol Tartrate (Lopressor) 100 mg BEDTIME ORAL 12/15/18 21:00 01/14/19 20:59 Vancomycin HCl (Vanco rx to dose) 1 ea DAILY PRN MISC Per rx protocol 12/16/18 09:00 01/14/19 07:59 Vancomycin HCl 1 gm/Dextrose 275 ml @ 183.708 mls/hr Q24H IVPB 12/16/18 04:00 12/21/18 03:59 Assessment/Plan Problem List: (1) HTN (hypertension) ICD Codes: I10 - Essential (primary) hypertension SNOMED: 14484798 (2) DM (diabetes mellitus) ICD Codes: E11.9 - Type 2 diabetes mellitus without complications SNOMED: 74306734 (3) Acute exacerbation of CHF (congestive heart failure) ICD Codes: I50.9 - Heart failure, unspecified SNOMED: 050314231, 72172289967203 Qualifiers: Qualified Codes: I50.9 - Heart failure, unspecified (4) Atrial fibrillation with rapid ventricular response ICD Codes: I48.91 - Unspecified atrial fibrillation SNOMED: 498404752455135 (5) Hypoxemia ICD Codes: R09.02 - Hypoxemia SNOMED: 825976282 (6) SHAHANA (acute kidney injury) ICD Codes: N17.9 - Acute kidney failure, unspecified SNOMED: 60321267, 5877586 (7) Cellulitis in diabetic foot ICD Codes: E11.628 - Type 2 diabetes mellitus with other skin complications; L03.119 - Cellulitis of unspecified part of limb SNOMED: 932891973, 46430940 (8) Sepsis ICD Codes: A41.9 - Sepsis, unspecified organism SNOMED: 99347111, 00726597 Qualifiers: Qualified Codes: A41.9 - Sepsis, unspecified organism; R65.20 - Severe sepsis without septic shock; J96.01 - Acute respiratory failure with hypoxia Status: stable Assessment/Plan: This is a 73 year old male with a PMHx Dm2, HTN, CHF, PAD s/p left iliac stent placement 01/05/19 and subsequent 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 #acute hypoxic respiratory failure 2/2 CHF exacerbation- no known history of CHF - ICU - telemetry - Continue BiPAP - titrate SpO2 to keep O2 >92% - blood cultures - sputum culture - Vancomycin - Zosyn - lasix 40mg IV BID - trend troponins - echo - appreciate Cardiology recommendations: Dr. Richter #Atrial fibrillation with RVR, new diagnosis - Diltiazem Gtt - heart rate uncontrolled, add Digoxin - appreicate cardiology recommendations - heparin GTT - Lopressor #sepsis (WBC, heart rate, respiratory rate) 2/2 pneumonia vs. left 2nd toe osteomyelitis vs. C. Diff (diarrhea) - cultures as above - antibiotics as above - patient fluid overloaded, holding off extra fluids for now - check C. Diff #lactic acidosis suspected 2/2 CHF exacerbation vs. sepsis - trending down to 1 - management as above - check ESR/CRP #Acute Renal failure 2/2 CHF exacerbation - IV diuresis as above - continue to trend - avoid nephrotoxins - replace lytes #S/p left 2nd toe amputation due to gangrene/osteomyelitis #s/p recent left iliac stent on ASA/Plavix - wound consult - check ESR/CRP as above #Hypertension #hyperlipidemia #CAD -hold home amlodipine - continue metoprolol as above - ASA/Plavix as above #Diabetes mellitus type 1 per patient, with hyperglycemia - accuchecks Q6hr - NPO for now - Levemir 20 units QAM and 10 units QPM (home is 25 and 30) - SSI, average FENPPx DVT PPx: Heparin GTT GI PPX: pepcid Fluids: none Diet: NPO, while on bipap, then diabetic diet Lines: none, may need PICC PT/OT: pending Dispo: likely SNF At the time of my involvement the patient's condition was critical with high potential for and/or physiologic deterioration secondary to acute hypoxic respiratory failure and atrial fibrillation as delineated in the note above. On the date of service, I spent a total of 65 minutes in the ICU evaluating, managing, and providing critical care services to this patient, including time spent documenting these activities counseling patient/family, and coordinating care. Critical care services performed include: Telemetry review Hemodynamic measurement interpretation laboratory date review and interpretation BiPAP setting review, management, and adjustment Discussion of care plans with patient Discussion of patient's care with primary medical team, surgical team, and or consulting service Decision to obtain further radiologic evaluation after consideration of risk/ benefit ratio Plan outlined above discussed with patient/family, STAFF PSYCHOLOGIST, ICU team, and involved physicians/consultants Ben Nguyen D.O. Dec 15, 2018 16:57
--- NOTE | 2018-12-15 17:10 | Pulmonolgy Critical Care Note ---
Critical Care - Asmt/Plan Problems: (1) Hypoxemia (2) Atrial fibrillation with rapid ventricular response (3) Acute exacerbation of CHF (congestive heart failure) (4) ACS (acute coronary syndrome) (5) DM (diabetes mellitus) (6) HTN (hypertension) Assessment/Plan: Optimize pulmonary hygiene/mobilize as tolerated Titrate down FiO2 to keep SaO2 > 90% Continue Cefepime/Vanco (D1) RFS sent to [facility] lab ---> check PCt and VRPM F/U Cx's F/U CARDS/EPS recs ---> Dilt gtt, IVUH, diuresis Monitor volumes and renal function, diuresis as able Glycemic control NPO, TODDLER GUIDE eval when able DVT Px: IVUH FC Prophylaxis: Heparin - IVUH Disposition: keep in ICU Time Spent (Minutes): 40 Notes Reviewed: cardio Discussed with: nurses, consultants Critical Care - Objective Last 24 Hour Vital Signs Date Time Temp Pulse Resp B/P (MAP) Pulse Ox O2 Delivery O2 Flow Rate FiO2 12/15/18 15:05 118 18 100 12/15/18 14:50 133 12/15/18 12:31 110 22 100 Facial 35 12/15/18 12:00 30 12/15/18 12:00 Bi-pap 12/15/18 11:30 151 123/65 12/15/18 11:11 110 22 100 Facial 35 12/15/18 10:30 30 12/15/18 09:01 109 20 100 Facial 35 12/15/18 08:00 Bi-pap 12/15/18 08:00 98.6 94 22 116/62 (80) 96 12/15/18 08:00 93 12/15/18 07:30 105 20 100 Facial 35 12/15/18 05:00 114 23 99 Facial 35 12/15/18 04:49 103 12/15/18 04:45 99.1 102 22 115/67 (83) 97 12/15/18 04:35 Bi-pap 12/15/18 04:35 30 12/15/18 03:30 110 22 100 Facial 35 12/15/18 02:32 98.0 110 23 114/58 100 Bi-pap 30 12/15/18 02:28 30 12/15/18 02:10 120 40 100 Bi-Pap 35 12/15/18 02:01 120 40 100 Facial 35 12/15/18 00:20 97.7 128 26 144/75 97 Room Air 12/15/18 00:15 97.9 120 26 143/69 (93) 96 Room Air Status: awake Condition: critical HEENT: atraumatic, normocephalic Neck: full ROM Lungs: rales Heart: HR/BP unstable, irregular Abdomen: soft, non-tender, active bowel sounds Extremities: edema - trace, cyanosis - no, clubbing - no Micro: Microbiology Date/Time Source Procedure Growth Status 12/15/18 04:15 Rectum Received Accucheck: 308 Blood Sugars: BS not controlled Critical Care - Subjective ROS Limited/Unobtainable: Yes ICU Day: 1 Intubation Day: N/A Interval Events: 73 M DM, HTN, CAD, toe amputation a/w generalized malaise and SOB c/b AFcRVR noted to be in ADHF. He was initially on BiPAP but now on FM WCt 18 7.46/21/81/14/96 + tropinemia TSH 0.2 fT4 2.03 Condition: critical IV Access: peripheral EKG Rhythm: Atrial Fibrillation FI02: 35 Vent Support Mode: BiLevel I&O: Intake and Output 12/14/18 12/15/18 18:59 06:59 Intake Total 2055 ml Balance 2055 ml Intake IV Total 2055 ml # Voids 1 # Bowel Movements 1 Subjective: + SOB no cough no wheezing no FC CXR: PVC Labs: Laboratory Tests Test 12/15/18 00:25 12/15/18 01:06 12/15/18 01:35 12/15/18 01:45 Sodium Level 134 MMOL/L (136-145) L Potassium Level 5.0 MMOL/L (3.5-5.1) Chloride Level 101 MMOL/L (98-107) Carbon Dioxide Level 21 MMOL/L (21-32) Anion Gap 13 mmol/L (5-15) Blood Urea Nitrogen 27 mg/dL (7-18) H Creatinine 2.0 MG/DL (0.55-1.30) H Estimat Glomerular Filtration Rate mL/min (>60) Glucose Level 462 MG/DL (74-106) H Lactic Acid Level 2.30 mmol/L (0.4-2.0) H 2.40 mmol/L (0.66-2.22) H Calcium Level 8.7 MG/DL (8.5-10.1) Total Bilirubin 1.3 MG/DL (0.2-1.0) H Direct Bilirubin 0.1 MG/DL (0.0-0.3) Aspartate Amino Transf (AST/SGOT) 39 U/L (15-37) H Alanine Aminotransferase (ALT/SGPT) 26 U/L (12-78) Alkaline Phosphatase 100 U/L (46-116) Troponin I 0.266 ng/mL (0.000-0.056) Total Protein 7.4 G/DL (6.4-8.2) Albumin 2.9 G/DL (3.4-5.0) L Globulin 4.5 g/dL Albumin/Globulin Ratio 0.6 (1.0-2.7) L Pro-B-Type Natriuretic Peptide 94746 pg/mL (0-125) H White Blood Count 18.8 K/UL (4.8-10.8) H Red Blood Count 3.97 M/UL (4.70-6.10) L Hemoglobin 11.5 G/DL (14.2-18.0) L Hematocrit 35.6 % (42.0-52.0) L Mean Corpuscular Volume 90 FL (80-99) Mean Corpuscular Hemoglobin 29.1 PG (27.0-31.0) Mean Corpuscular Hemoglobin Concent 32.4 G/DL (32.0-36.0) Red Cell Distribution Width 13.6 % (11.6-14.8) Platelet Count 247 K/UL (150-450) Mean Platelet Volume 7.3 FL (6.5-10.1) Neutrophils (%) (Auto) % (45.0-75.0) Lymphocytes (%) (Auto) % (20.0-45.0) Monocytes (%) (Auto) % (1.0-10.0) Eosinophils (%) (Auto) % (0.0-3.0) Basophils (%) (Auto) % (0.0-2.0) Differential Total Cells Counted 100 Neutrophils % (Manual) 75 % (45-75) Lymphocytes % (Manual) 15 % (20-45) L Monocytes % (Manual) 10 % (1-10) Eosinophils % (Manual) 0 % (0-3) Basophils % (Manual) 0 % (0-2) Band Neutrophils 0 % (0-8) Platelet Estimate Adequate Platelet Morphology Normal Test 12/15/18 03:15 12/15/18 07:45 12/15/18 11:00 12/15/18 11:11 Urine Color Pale yellow Urine Appearance Clear Urine pH 5 (4.5-8.0) Urine Specific [place] 1.010 (1.005-1.035) Urine Protein 2+ (NEGATIVE) H Urine Glucose (UA) 4+ (NEGATIVE) H Urine Ketones Negative (NEGATIVE) Urine Blood 2+ (NEGATIVE) H Urine Nitrite Negative (NEGATIVE) Urine Bilirubin Negative (NEGATIVE) Urine Urobilinogen Normal MG/DL (0.0-1.0) Urine Leukocyte Esterase Negative (NEGATIVE) Urine RBC 5-10 /HPF (0 - 0) H Urine WBC 0-2 /HPF (0 - 0) Urine Squamous Epithelial Cells Few /LPF (NONE/OCC) Urine Bacteria Few /HPF (NONE) Lactic Acid Level 1.10 mmol/L (0.4-2.0) Thyroid Stimulating Hormone (TSH) 0.207 uiU/mL (0.358-3.740) Free Thyroxine 2.03 NG/DL (0.76-1.46) H Activated Partial Thromboplast Time 34 SEC (23-33) H Troponin I 0.428 ng/mL (0.000-0.056) Arterial Blood pH 7.462 (7.350-7.450) Arterial Blood Partial Pressure CO2 21.3 mmHg (35.0-45.0) *L Arterial Blood Partial Pressure O2 81.5 mmHg (75.0-100.0) Arterial Blood HCO3 14.9 mmol/L (22.0-26.0) *L Arterial Blood Oxygen Saturation 96.3 % (95-100) Arterial Blood Base Excess -7.2 (-2-2) L Terence Test Positive Mich Marie MD Dec 15, 2018 17:10
--- NOTE | 2018-12-15 17:30 | Consultation ---
DATE OF CONSULTATION: 12/15/2018 CARDIOLOGY CONSULTATION CONSULTING PHYSICIAN: José Miguel Richter M.D. REFERRING PHYSICIAN: Dania Nunes M.D. REASON FOR CONSULTATION: Management of hypertension, congestive heart failure, and coronary artery disease. HISTORY OF PRESENT ILLNESS: The patient is a 73-year-old gentleman with history of hypertension, diabetes, and coronary artery disease, prior myocardial infarction as well as recent toe amputation for gangrene, who came to emergency room, was feeling weak and not eating much. The patient has not been also taking his insulin as he was not able to eat. by paramedics, his blood sugar was very high, but he was started on half-normal saline. The patient was quite short of breath and was started on BiPAP. At time of my evaluation, the patient is in step-down unit on BiPAP. REVIEW OF SYSTEMS: Negative other than what is mentioned in the history of present illness. PAST MEDICAL HISTORY: 1. Hypertension. 2. Diabetes. 3. History of coronary artery disease. 4. Peripheral vascular disease, status post right iliac stent on 12/04/2018. 5. Status post recent toe amputation for gangrene. FAMILY HISTORY: Noncontributory. SOCIAL HISTORY: There is no history of smoking or drinking or drug use. PHYSICAL EXAMINATION: VITAL SIGNS: Show blood pressure of 116/62, pulse 110, respirations 18, and temperature 98.3. HEAD AND NECK: Showed positive JVD. LUNGS: Decreased breath sounds and bibasilar rales. CARDIOVASCULAR: Shows tachycardic, S1 and S2 with no gallop. ABDOMEN: Soft. EXTREMITIES: 1+ pitting edema. LABORATORY AND DIAGNOSTIC DATA: Labs show white count of 18.8, hemoglobin 11.5, hematocrit 35.6, and platelet count 247,000. Troponin is 0.266. BNP is 15,388. Lactic acid is 2.4. Sodium 134, potassium 5.0, BUN 27, creatinine 2.9, glucose 462. ASSESSMENT AND PLAN: 1. Acute shortness of breath and elevated BNP. We will get an echocardiogram to evaluate for ejection fraction and wall motion abnormality. Start the patient on Lasix 40 mg IV b.i.d. 2. Tachycardia congestive heart failure as well as sepsis with elevated white count. The patient is already on cefepime and vancomycin. 3. Uncontrolled diabetes, on insulin. 4. 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 Thank you very much for allowing me to participate in the care of this patient. Please do not hesitate to contact me for any questions regarding my evaluation. José Miguel Richter M.D. DR: ALISON JOB#: [id number] CC:
[2018-12-15] MEDS ORDERED: Metoprolol 25mg tab ORAL SCH (18:00)
--- NOTE | 2018-12-15 18:46 | Infectious Diseases Prog Note ---
Assessment/Plan Assessment/Plan Full consult dictated: A) 1) possible sepsis, leukocytosis, sirs, elevated lactic acid level 2) s/p left foot 2nd toe amputation 3) pmh noted 4) allergies - nkda P) 1) vancomycin, cefepime and flagyl 2) f/u on cultures, labs and chest x-ray 3) thank you Subjective Allergies: Coded Allergies: No Known Allergies (Unverified , 08/14/15) Objective Vital Signs Last 24 Hour Vital Signs Date Time Temp Pulse Resp B/P (MAP) Pulse Ox O2 Delivery O2 Flow Rate FiO2 12/15/18 17:46 124 12/15/18 17:41 114 138/67 12/15/18 15:05 118 18 100 12/15/18 14:50 133 12/15/18 12:31 110 22 100 Facial 35 12/15/18 12:00 30 12/15/18 12:00 Bi-pap 12/15/18 11:30 151 123/65 12/15/18 11:11 110 22 100 Facial 35 12/15/18 10:30 30 12/15/18 09:01 109 20 100 Facial 35 12/15/18 08:00 Bi-pap 12/15/18 08:00 98.6 94 22 116/62 (80) 96 12/15/18 08:00 93 12/15/18 07:30 105 20 100 Facial 35 12/15/18 05:00 114 23 99 Facial 35 12/15/18 04:49 103 12/15/18 04:45 99.1 102 22 115/67 (83) 97 12/15/18 04:35 Bi-pap 12/15/18 04:35 30 12/15/18 03:30 110 22 100 Facial 35 12/15/18 02:32 98.0 110 23 114/58 100 Bi-pap 30 12/15/18 02:28 30 12/15/18 02:10 120 40 100 Bi-Pap 35 12/15/18 02:01 120 40 100 Facial 35 12/15/18 00:20 97.7 128 26 144/75 97 Room Air 12/15/18 00:15 97.9 120 26 143/69 (93) 96 Room Air Height (Feet): 5 Height (Inches): 6.00 Weight (Pounds): 182 Microbiology Date/Time Source Procedure Growth Status 12/15/18 04:15 Rectum Received Laboratory Tests Test 12/15/18 00:25 12/15/18 01:06 12/15/18 01:35 12/15/18 01:45 Sodium Level 134 MMOL/L (136-145) L Potassium Level 5.0 MMOL/L (3.5-5.1) Chloride Level 101 MMOL/L (98-107) Carbon Dioxide Level 21 MMOL/L (21-32) Anion Gap 13 mmol/L (5-15) Blood Urea Nitrogen 27 mg/dL (7-18) H Creatinine 2.0 MG/DL (0.55-1.30) H Estimat Glomerular Filtration Rate mL/min (>60) Glucose Level 462 MG/DL (74-106) H Lactic Acid Level 2.30 mmol/L (0.4-2.0) H 2.40 mmol/L (0.66-2.22) H Calcium Level 8.7 MG/DL (8.5-10.1) Total Bilirubin 1.3 MG/DL (0.2-1.0) H Direct Bilirubin 0.1 MG/DL (0.0-0.3) Aspartate Amino Transf (AST/SGOT) 39 U/L (15-37) H Alanine Aminotransferase (ALT/SGPT) 26 U/L (12-78) Alkaline Phosphatase 100 U/L (46-116) Troponin I 0.266 ng/mL (0.000-0.056) Total Protein 7.4 G/DL (6.4-8.2) Albumin 2.9 G/DL (3.4-5.0) L Globulin 4.5 g/dL Albumin/Globulin Ratio 0.6 (1.0-2.7) L Pro-B-Type Natriuretic Peptide 76208 pg/mL (0-125) H White Blood Count 18.8 K/UL (4.8-10.8) H Red Blood Count 3.97 M/UL (4.70-6.10) L Hemoglobin 11.5 G/DL (14.2-18.0) L Hematocrit 35.6 % (42.0-52.0) L Mean Corpuscular Volume 90 FL (80-99) Mean Corpuscular Hemoglobin 29.1 PG (27.0-31.0) Mean Corpuscular Hemoglobin Concent 32.4 G/DL (32.0-36.0) Red Cell Distribution Width 13.6 % (11.6-14.8) Platelet Count 247 K/UL (150-450) Mean Platelet Volume 7.3 FL (6.5-10.1) Neutrophils (%) (Auto) % (45.0-75.0) Lymphocytes (%) (Auto) % (20.0-45.0) Monocytes (%) (Auto) % (1.0-10.0) Eosinophils (%) (Auto) % (0.0-3.0) Basophils (%) (Auto) % (0.0-2.0) Differential Total Cells Counted 100 Neutrophils % (Manual) 75 % (45-75) Lymphocytes % (Manual) 15 % (20-45) L Monocytes % (Manual) 10 % (1-10) Eosinophils % (Manual) 0 % (0-3) Basophils % (Manual) 0 % (0-2) Band Neutrophils 0 % (0-8) Platelet Estimate Adequate Platelet Morphology Normal Test 12/15/18 03:15 12/15/18 07:45 12/15/18 11:00 12/15/18 11:11 Urine Color Pale yellow Urine Appearance Clear Urine pH 5 (4.5-8.0) Urine Specific [place] 1.010 (1.005-1.035) Urine Protein 2+ (NEGATIVE) H Urine Glucose (UA) 4+ (NEGATIVE) H Urine Ketones Negative (NEGATIVE) Urine Blood 2+ (NEGATIVE) H Urine Nitrite Negative (NEGATIVE) Urine Bilirubin Negative (NEGATIVE) Urine Urobilinogen Normal MG/DL (0.0-1.0) Urine Leukocyte Esterase Negative (NEGATIVE) Urine RBC 5-10 /HPF (0 - 0) H Urine WBC 0-2 /HPF (0 - 0) Urine Squamous Epithelial Cells Few /LPF (NONE/OCC) Urine Bacteria Few /HPF (NONE) Lactic Acid Level 1.10 mmol/L (0.4-2.0) Thyroid Stimulating Hormone (TSH) 0.207 uiU/mL (0.358-3.740) Free Thyroxine 2.03 NG/DL (0.76-1.46) H Activated Partial Thromboplast Time 34 SEC (23-33) H Troponin I 0.428 ng/mL (0.000-0.056) Arterial Blood pH 7.462 (7.350-7.450) Arterial Blood Partial Pressure CO2 21.3 mmHg (35.0-45.0) *L Arterial Blood Partial Pressure O2 81.5 mmHg (75.0-100.0) Arterial Blood HCO3 14.9 mmol/L (22.0-26.0) *L Arterial Blood Oxygen Saturation 96.3 % (95-100) Arterial Blood Base Excess -7.2 (-2-2) L Terence Test Positive Current Medications Medications (Trade) Dose Ordered Sig/Sathish Route PRN Reason Start Time Stop Time Status Last Admin Dose Admin Aspirin (ASA) 81 mg DAILY ORAL 12/15/18 11:15 01/14/19 11:14 12/15/18 11:59 Atorvastatin Calcium (Lipitor) 20 mg BEDTIME ORAL 12/15/18 21:00 01/14/19 20:59 Cefepime HCl 2 gm/ Dextrose 55 ml @ 110 mls/hr Q24H IVPB 12/16/18 09:00 12/23/18 08:59 Clopidogrel Bisulfate (Plavix) 75 mg DAILY ORAL 12/15/18 11:15 01/14/19 11:14 12/15/18 11:59 Dextrose (Dextrose 50%) 25 ml Q30M PRN IV Hypoglycemia 12/15/18 11:15 01/14/19 11:14 Dextrose (Dextrose 50%) 50 ml Q30M PRN IV Hypoglycemia 12/15/18 11:15 01/14/19 11:14 Digoxin (Lanoxin) 0.25 mg ONCE IVP 12/15/18 21:00 12/15/18 22:00 Digoxin (Lanoxin) 0.25 mg ONCE ORAL 12/16/18 06:00 12/16/18 07:00 Diltiazem HCl 125 mg/Dextrose 125 ml @ 0 mls/hr Q24H IV 12/15/18 11:30 12/16/18 11:29 12/15/18 11:30 Famotidine (Pepcid I.v.) 20 mg Q12HR IVP 12/15/18 21:00 01/14/19 20:59 Furosemide (Lasix) 40 mg EVERY 12 HOURS IV 12/15/18 21:00 01/14/19 08:59 Heparin Sodium/ Dextrose 500 ml @ 29.801 mls/ hr ADJUST PER PROTOCOL IV 12/15/18 14:00 01/14/19 13:59 12/15/18 17:32 Insulin Aspart (NovoLOG) Q6HR SUBQ 12/15/18 12:00 01/14/19 11:59 12/15/18 17:47 Insulin Detemir (Levemir) 10 units BEDTIME SUBQ 12/15/18 21:00 01/14/19 20:59 Insulin Detemir (Levemir) 20 units DAILY SUBQ 12/15/18 11:15 01/14/19 11:14 12/15/18 12:05 Metoprolol Tartrate (Lopressor) 25 mg TWICE A DAY ORAL 12/15/18 18:00 01/14/19 17:59 12/15/18 17:41 Metoprolol Tartrate (Lopressor) 100 mg BEDTIME ORAL 12/15/18 21:00 01/14/19 20:59 Vancomycin HCl (Vanco rx to dose) 1 ea DAILY PRN MISC Per rx protocol 12/16/18 09:00 01/14/19 07:59 Vancomycin HCl 1 gm/Dextrose 275 ml @ 183.708 mls/hr Q24H IVPB 12/16/18 04:00 12/21/18 03:59 Joe Velasquez MD Dec 15, 2018 18:46
--- NOTE | 2018-12-15 19:00 | NUR ---
HAND-OFF: Report given to MARIANO TOWNSEND.
--- NOTE | 2018-12-15 19:30 | NUR ---
NURSE NOTES: Received pt in no apparent distress; awake, alert, orientedx4; WALLACE's follow commands. Denies pains, denies SOB. Lying on mid kellogg's position; with ventimask at .30 fiO2, saturating 99-100%. NSR on the monitor, pt just converted from Rapid afib. Cardizem gtt infusing at 15mg/h via LAC, Heparin gtt also running at 18units/kg/h via left wrist area. Bed soaked with urine as condom cath leaking. Skin intact. Breath sounds diminished. Plan of care explained; will continue to monitor VS and rhythm, Informed Dr Richter of conversion.
--- NOTE | 2018-12-15 20:00 | NUR ---
NURSE NOTES: HS care rendered, linen changed, gown changed. Replaced condom cath. Continues to be on NSR; Cardizem gtt titrated down to 10mg/h
[2018-12-15] MEDS ORDERED: Levemir Flexpen SUBQ SCH (21:00)
[2018-12-15] MEDS ORDERED: Atorvastatin 20mg tab ORAL SCH (21:00)
[2018-12-15] MEDS ORDERED: Digoxin 0.5mg/2ml Inj IVP ONE (21:31)
--- NOTE | 2018-12-15 22:00 | NUR ---
NURSE NOTES: Remains on NSR. Called Dr Richter again as he did not returned the call the first time to inform him of the conversion. IV site intact. Denies pain but c/o frequent urination. Pt had Lasix 40mg IVP an hour ago. Condom cath remains patent. Rendered NPO as ordered except for meds. Denies CP; SOB
--- NOTE | 2018-12-15 23:45 | Consultation ---
DATE OF CONSULTATION: 12/15/2018 INFECTIOUS DISEASES CONSULTATION CONSULTING PHYSICIAN: Joe Velasquez M.D. ATTENDING PHYSICIAN: Dania Nunes M.D. REFERRING PHYSICIAN: Ben Nguyen D.O. REASON FOR CONSULTATION: Possible sepsis, elevated lactic acid level, leukocytosis. CHIEF COMPLAINT: The patient's chief complaint coming into the hospital is CHF. HISTORY OF PRESENT ILLNESS: This is a very pleasant 73-year-old male, who has a history of left foot second toe amputation in the past, who comes into [facility] with CHF. The patient was noted to have elevated white count, lactic acid, and could have sepsis. Infectious Diseases consultation was requested. The patient will be empirically started on vancomycin, cefepime, and Flagyl. Chest x-ray was consistent with CHF. Blood cultures are pending at this time. UA was fairly unremarkable for urinary tract infection. There is a concern that the patient also could have pneumonia, and there is a risk for pneumonia in addition to CHF. The patient will be continued on vancomycin, cefepime, Flagyl. He is in the intensive care unit currently. MAR was noted. Orders were noted. Notes were reviewed. REVIEW OF SYSTEMS: Main issue, he is on the breathing mask in the ICU. He is not on pressors. He does not have fevers. HEAD AND NECK: No head pain or neck pain. CARDIAC: No chest pain. GASTROINTESTINAL: No nausea, vomiting, or diarrhea. GENITOURINARY: He has a Cline. PULMONARY: Short of breath on a breathing mask. SKIN: No rash. EXTREMITIES: He has some foot pain. NEUROLOGIC: No seizures. PAST MEDICAL HISTORY: The patient's past medical history includes history of the following. The patient has a past medical history of type 2 diabetes, hypertension, CHF, peripheral vascular disease, status post left iliac stent and left foot second toe amputation because of gangrene and osteo. I do not believe he has a history of CVA. He has a history of CAD. FAMILY HISTORY: Positive for diabetes. SOCIAL HISTORY: Positive smoking in the past but he quit. No alcohol or drug abuse. PAST SURGICAL HISTORY: Positive for cholecystectomy, left foot second toe amputation. MEDICATIONS: Upon reviewing the MAR, he is on the following medications. He is on vancomycin, cefepime, Flagyl, digoxin, furosemide, insulin, atorvastatin, metoprolol, famotidine, insulin, diltiazem, IV fluids. Outside medications noted and reconciliated. ALLERGIES: No known drug allergies. PHYSICAL EXAMINATION: VITAL SIGNS: Pulse rate is 124, temperature 98.6, respiratory rate 22, blood pressure 138/67, saturation 100%, FiO2 35% on breathing mask. GENERAL: Alert and responsive. Some shortness of breath noted. HEAD AND NECK: Oral exam, no thrush. Eyes, no icterus. Neck is supple. No JVD. Normocephalic. HEART: Regular. No murmur or friction rub. Possible gallop. LUNGS: Few bilateral rhonchi, rales, and crackles. ABDOMEN: Soft. Positive bowel sounds. Nontender. SKIN: No rash. MUSCULOSKELETAL: No effusion. Legs are without cellulitis. No septic arthritis. PERIPHERAL VASCULAR: Left foot second toe amputation site, looks clean and dry. He has no cellulitis. NEUROLOGICAL: Intact. LINE SITES: Without phlebitis. GENITOURINARY: He has a Cline. Urine is slightly cloudy. LABORATORY DATA: Laboratory data is as follows. UA had 0 to 2 white cells. Creatinine 2.0. LFTs noted. Lactic acid 2.3. White count 18.8, hemoglobin was 11.5. Chest x-ray showed CHF per the report. Cultures are pending. ASSESSMENT AND PLAN: 1. The patient has possible sepsis, elevated white count or leukocytosis, elevated lactic acid level, elevated respiratory rate, and tachycardia. Continue empiric antibiotics vancomycin, cefepime, Flagyl for MRSA gram-negative anaerobic coverage. Give vancomycin, cefepime and Flagyl for possible sepsis. Check cultures, labs, chest x-ray. The patient could have community-acquired pneumonia also, most likely aspiration pneumonia. He does not have any risk factors for that. More likely has CHF. Continue vancomycin, cefepime and Flagyl for sepsis pending workup. 2. Acute kidney injury. 3. Anemia. 4. Diabetes. 5. Hypertension. 6. Blood sugar and blood pressure treatment for diabetes and hypertension per primary. 7. History of peripheral vascular disease. 8. 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 9. Possible hyperlipidemia. 10. CHF. 11. PAD. 12. History of stent. 13. CAD. 14. Hypoxia. 15. Continue treatment per primary consultants. 16. No known allergies. 17. Social history is positive for smoking in the past, but quit. 18. Family history is positive for diabetes. 19. MAR was noted. 20. Case discussed with RN. 21. Skin care protocol. 22. ICU care. Joe Velasquez M.D. DR: Alex JOB#: [id number] CC:
[2018-12-16] VITALS (21 sets, daily range): BP systolic 124–152; BP diastolic 49–86
--- NOTE | 2018-12-16 | NUR ---
NURSE NOTES: Dr Richter called back and gave orders to titrate Cardizem to off once po Cardizem started. Dose changed for Metoprolol.Remains on NSR; BP stable. Sleeps on and off
[2018-12-16] MEDS: dilTIAZem HCl 60mg tab ORAL SCH ×2 (00:08→05:50)
[2018-12-16] MEDS ORDERED: Heparin 25,000u/D5W 500ml 500 ML IV SCH ×2 (00:45→11:00)
[2018-12-16] MEDS ORDERED: Heparin 5000 units/ml inj IV ONE (00:45)
--- NOTE | 2018-12-16 01:00 | NUR ---
NURSE NOTES: Cardizem gtt titrated to off; Cardizem 60mg po given at MN. PTT 63; Pipeline changed Heparin dose to 20units/kg/h; next PTT in 6 hrs. Pt asleep.
--- NOTE | 2018-12-16 03:00 | NUR ---
NURSE NOTES: Sleeping, no distress; VSS. Remains NSR BP stable. HOB elevated
--- NOTE | 2018-12-16 03:30 | NUR ---
NURSE NOTES: Microbiology lab reports +VRE rectum/ Placed on contact isolation.
[2018-12-16] MEDS ORDERED: Vancomycin 1gm/D5W 275ml IVPB SCH ×2 (04:00)
[2018-12-16] MEDS ORDERED: Vancomycin 1 GM in D5W 275 ML IVPB SCH (04:00)
[2018-12-16 05:27] LABS: BASOPHILS % (AUTO) 0.8 % (0.0-2.0); EOSINOPHILS % (AUTO) 0.5 % (0.0-3.0); HEMATOCRIT 32.3 % (42.0-52.0); HEMOGLOBIN 10.7 G/DL (14.2-18.0); LYMPHOCYTES % (AUTO) 12.3 % (20.0-45.0); MEAN CORPUSCULAR VOLUME 87 FL (80-99); MONOCYTES % (AUTO) 8.5 % (1.0-10.0); NEUTROPHILS % (AUTO) 77.9 % (45.0-75.0); PLATELET COUNT 240 K/UL (150-450); RED BLOOD COUNT 3.72 M/UL (4.70-6.10); RED CELL DISTRIBUTION WIDTH 12.8 % (11.6-14.8); WHITE BLOOD COUNT 15.5 K/UL (4.8-10.8)
--- NOTE | 2018-12-16 05:30 | NUR ---
NURSE NOTES: Complete bed bath and linen change done. Condom cath remains intact, total urine collected= 700ml excluding leaks. Urine clear, light christiane. RT downgraded to NC at 3l/m; now saturating 100%. Denies chest pains, denies SOB. Continues to be on NSR; BP stable. IV sites intact. Heparin gtt continues at 20units/kg/h
[2018-12-16 06:00] LABS: ALANINE AMINOTRANSFERASE 25 U/L (12-78); ALBUMIN 2.2 G/DL (3.4-5.0); ALBUMIN/GLOBULIN RATIO 0.6 (1.0-2.7); ALKALINE PHOSPHATASE 81 U/L (46-116); ANION GAP 11 mmol/L (5-15); ASPARTATE AMINO TRANSFERASE 18 U/L (15-37); BILIRUBIN,TOTAL 0.5 MG/DL (0.2-1.0); BLOOD UREA NITROGEN 28 mg/dL (7-18); CALCIUM 8.5 MG/DL (8.5-10.1); CARBON DIOXIDE 21 MMOL/L (21-32); CHLORIDE 108 MMOL/L (98-107); CREATININE 1.9 MG/DL (0.55-1.30); POTASSIUM 3.6 MMOL/L (3.5-5.1); SODIUM 140 MMOL/L (136-145)
[2018-12-16] MEDS: NovoLOG Insulin Flexpen SUBQ SCH ×4 (06:02→23:21)
[2018-12-16 06:09] LABS: PHOSPHORUS 3.3 MG/DL (2.5-4.9)
--- NOTE | 2018-12-16 07:13 | NUR ---
HAND-OFF: Report given to Ismael Ziegler RN.
--- NOTE | 2018-12-16 07:30 | NUR ---
NURSE NOTES: received pt in bed, resting no c/o pain. vss . a/ox3. abdomen flat, non tender. bilateral pulses bounding. non pitting edeam noted on extremities. afebrile. condom cath on, no bm at this time. peripheral iv lt wrist and ac 20g. hep drip at 20 units /kg. call light in reach, bed alarm on.
[2018-12-16] MEDS ORDERED: Cefepime HCl 2 GM in D5W 55 ML IVPB SCH ×4 (09:00)
[2018-12-16] MEDS: Aspirin Baby 81mg ORAL SCH (09:44)
[2018-12-16] MEDS: Metoprolol 25mg tab ORAL SCH ×2 (09:45→17:44)
[2018-12-16] MEDS: Levemir Flexpen SUBQ SCH ×2 (09:55→21:30)
[2018-12-16] MEDS ORDERED: Levemir Flexpen SUBQ SCH ×2 (11:30→21:00)
--- NOTE | 2018-12-16 11:40 | Cardiology Progress Note ---
Assessment/Plan Status: stable Assessment/Plan Assessment/Plan Acute kidney injury. Anemia. Diabetes. Hypertension. 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 hyperlipidemia. systolic CHF. CAD sp PCI Recommendations TTE reviewed, LVEF 30-35% Continue with diuresis LUPIS/Cardioversion if unstable Afterload reduction as BP tolerates D/c cardizem given low EF Continue rate control with metoprolol Caution with digoxin and renal function Continue DAPT Continue statin Continue metoprolol Heparin gtt Lasix IV -Critical care 35 minutes Subjective Cardiovascular: Reports: no symptoms Respiratory: Reports: no symptoms Gastrointestinal/Abdominal: Reports: no symptoms Genitourinary: Reports: no symptoms Subjective COVERAGE FOR [place]: Troponin down trending vitals stable Echo LVEF 30-35 percent, grade 2 diastolic dysfunction, mild pulmonary hypertension Objective Last 24 Hour Vital Signs Date Time Temp Pulse Resp B/P (MAP) Pulse Ox O2 Delivery O2 Flow Rate FiO2 12/16/18 09:45 83 133/60 12/16/18 09:00 98 Nasal Cannula 3.0 32 12/16/18 08:00 Bi-pap 12/16/18 07:00 82 21 125/52 (76) 98 12/16/18 06:00 88 18 147/69 (95) 100 12/16/18 05:50 90 145/49 12/16/18 05:50 90 12/16/18 05:00 90 23 145/49 (81) 100 12/16/18 04:00 98.3 82 21 152/66 (94) 98 12/16/18 04:00 82 12/16/18 04:00 Nasal Cannula 3.0 12/16/18 03:00 77 19 132/49 (76) 98 12/16/18 02:00 90 28 142/56 (84) 98 12/16/18 01:00 85 22 142/58 (86) 97 12/16/18 00:30 82 22 137/60 (85) 99 12/16/18 00:08 81 138/53 12/16/18 00:00 99.0 80 23 138/53 (81) 99 12/16/18 00:00 Venturi Mask 4.0 12/16/18 00:00 80 12/15/18 23:30 79 19 139/56 (83) 99 12/15/18 23:00 76 21 132/64 (86) 99 12/15/18 22:30 78 29 132/55 (80) 99 12/15/18 22:00 81 20 144/57 (86) 98 12/15/18 21:40 81 119/49 12/15/18 21:39 81 12/15/18 21:30 77 20 119/49 (72) 100 12/15/18 21:00 85 24 125/92 (103) 95 12/15/18 20:30 90 135/54 12/15/18 20:30 86 24 134/60 (84) 100 12/15/18 20:00 89 12/15/18 20:00 Venturi Mask 4.0 12/15/18 20:00 89 22 133/56 (81) 100 12/15/18 19:30 99.5 87 20 139/54 (82) 100 12/15/18 19:00 83 20 140/66 (90) 99 12/15/18 18:00 107 25 122/69 (86) 99 12/15/18 17:46 124 12/15/18 17:41 114 138/67 12/15/18 17:00 114 21 139/68 (91) 99 12/15/18 16:00 120 12/15/18 16:00 4.0 30 12/15/18 16:00 Bi-pap 12/15/18 16:00 98.9 117 21 128/82 (97) 99 12/15/18 15:05 118 18 100 12/15/18 15:05 4.0 30 12/15/18 15:00 129 23 118/77 (91) 100 12/15/18 14:50 133 12/15/18 14:00 141 23 110/67 (81) 100 12/15/18 13:00 144 26 173/67 (102) 100 12/15/18 12:31 110 22 100 Facial 35 12/15/18 12:00 30 12/15/18 12:00 140 12/15/18 12:00 Bi-pap 12/15/18 12:00 99.0 146 19 120/100 (107) 100 General Appearance: no apparent distress, alert EENT: PERRL/EOMI, normal ENT inspection, pharynx normal Neck: non-tender, normal alignment, supple, normal inspection, no JVD Rhythm: NSR Cardiovascular: normal peripheral pulses, normal rate, regular rhythm Respiratory/Chest: chest wall non-tender, lungs clear, normal breath sounds Abdomen: normal bowel sounds, non tender, soft, no mass Extremities: normal range of motion, non-tender, normal inspection, no calf tenderness, no swelling Intake and Output 12/15/18 12/16/18 19:00 07:00 Intake Total 244.602 ml 918.677 ml Output Total 120 ml 700 ml Balance 124.602 ml 218.677 ml Intake Oral 50 ml 60 ml IV Total 194.602 ml 858.677 ml Output Urine Total 120 ml 700 ml # Voids 1 # Bowel Movements 2 3 Laboratory Tests Test 12/15/18 18:55 12/15/18 23:42 12/16/18 04:00 12/16/18 06:50 D-Dimer 0.76 mg/L FEU (0.00-0.49) H Miscellaneous Test 2 Pending Troponin I 0.238 ng/mL (0.000-0.056) 0.200 ng/mL (0.000-0.056) Activated Partial Thromboplast Time 63 SEC (23-33) H 139 SEC (23-33) H White Blood Count 15.5 K/UL (4.8-10.8) H Red Blood Count 3.72 M/UL (4.70-6.10) L Hemoglobin 10.7 G/DL (14.2-18.0) L Hematocrit 32.3 % (42.0-52.0) L Mean Corpuscular Volume 87 FL (80-99) Mean Corpuscular Hemoglobin 28.9 PG (27.0-31.0) Mean Corpuscular Hemoglobin Concent 33.3 G/DL (32.0-36.0) Red Cell Distribution Width 12.8 % (11.6-14.8) Platelet Count 240 K/UL (150-450) Mean Platelet Volume 7.2 FL (6.5-10.1) Neutrophils (%) (Auto) 77.9 % (45.0-75.0) H Lymphocytes (%) (Auto) 12.3 % (20.0-45.0) L Monocytes (%) (Auto) 8.5 % (1.0-10.0) Eosinophils (%) (Auto) 0.5 % (0.0-3.0) Basophils (%) (Auto) 0.8 % (0.0-2.0) Sodium Level 140 MMOL/L (136-145) Potassium Level 3.6 MMOL/L (3.5-5.1) Chloride Level 108 MMOL/L (98-107) H Carbon Dioxide Level 21 MMOL/L (21-32) Anion Gap 11 mmol/L (5-15) Blood Urea Nitrogen 28 mg/dL (7-18) H Creatinine 1.9 MG/DL (0.55-1.30) H Estimat Glomerular Filtration Rate mL/min (>60) Glucose Level 188 MG/DL (74-106) #H Calcium Level 8.5 MG/DL (8.5-10.1) Phosphorus Level 3.3 MG/DL (2.5-4.9) Magnesium Level 1.6 MG/DL (1.8-2.4) L Total Bilirubin 0.5 MG/DL (0.2-1.0) Aspartate Amino Transf (AST/SGOT) 18 U/L (15-37) Alanine Aminotransferase (ALT/SGPT) 25 U/L (12-78) Alkaline Phosphatase 81 U/L (46-116) Pro-B-Type Natriuretic Peptide 94067 pg/mL (0-125) H Total Protein 6.2 G/DL (6.4-8.2) L Albumin 2.2 G/DL (3.4-5.0) L Globulin 4.0 g/dL Albumin/Globulin Ratio 0.6 (1.0-2.7) L Digoxin Level 2.3 NG/ML (0.5-2.0) H Microbiology Date/Time Source Procedure Growth Status 12/15/18 00:25 Blood Blood Culture - Preliminary NO GROWTH AFTER 24 HOURS Resulted 12/15/18 00:10 Blood Blood Culture - Preliminary Gram Positive Hadley Resulted 12/15/18 04:15 Rectum VRE Culture - Final Enterococcus Faecium - Vre Complete Cm Simpson MD Dec 16, 2018 11:40
--- NOTE | 2018-12-16 12:00 | NUR ---
NURSE NOTES: family at bedside. pt in bed, resting no c/o pain. vss . a/ox3. abdomen flat, non tender. bilateral pulses bounding. non pitting edema noted on extremities. afebrile. condom cath off, pt wet. cleaned and assisted to reposition. pt had loose bm, brown, mucoid at this time. peripheral iv lt wrist and ac 20g. hep drip at 20 units /kg. call light in reach, bed alarm on.
--- NOTE | 2018-12-16 12:59 | Infectious Diseases Prog Note ---
Assessment/Plan Assessment/Plan Full consult dictated: A) 1) possible sepsis, leukocytosis, sirs, elevated lactic acid level 2) s/p left foot 2nd toe amputation 3) pmh noted 4) allergies - nkda P) 1) vancomycin, cefepime and flagyl 2) f/u on cultures, labs and chest x-ray 3) gram + hadley in one bottle likely contaminant 4) will f/u Subjective Constitutional: Denies: fever HEENT: Reports: congestion - less Respiratory: Reports: shortness of breath - les Cardiovascular: Denies: chest pain Gastrointestinal/Abdominal: Denies: nausea, vomiting, diarrhea Allergies: Coded Allergies: No Known Allergies (Unverified , 08/14/15) Objective Vital Signs Last 24 Hour Vital Signs Date Time Temp Pulse Resp B/P (MAP) Pulse Ox O2 Delivery O2 Flow Rate FiO2 12/16/18 09:45 83 133/60 12/16/18 09:00 98 Nasal Cannula 3.0 32 12/16/18 08:00 Bi-pap 12/16/18 07:00 82 21 125/52 (76) 98 12/16/18 06:00 88 18 147/69 (95) 100 12/16/18 05:50 90 145/49 12/16/18 05:50 90 12/16/18 05:00 90 23 145/49 (81) 100 12/16/18 04:00 98.3 82 21 152/66 (94) 98 12/16/18 04:00 82 12/16/18 04:00 Nasal Cannula 3.0 12/16/18 03:00 77 19 132/49 (76) 98 12/16/18 02:00 90 28 142/56 (84) 98 12/16/18 01:00 85 22 142/58 (86) 97 12/16/18 00:30 82 22 137/60 (85) 99 12/16/18 00:08 81 138/53 12/16/18 00:00 99.0 80 23 138/53 (81) 99 12/16/18 00:00 Venturi Mask 4.0 12/16/18 00:00 80 12/15/18 23:30 79 19 139/56 (83) 99 12/15/18 23:00 76 21 132/64 (86) 99 12/15/18 22:30 78 29 132/55 (80) 99 12/15/18 22:00 81 20 144/57 (86) 98 12/15/18 21:40 81 119/49 12/15/18 21:39 81 12/15/18 21:30 77 20 119/49 (72) 100 12/15/18 21:00 85 24 125/92 (103) 95 12/15/18 20:30 90 135/54 12/15/18 20:30 86 24 134/60 (84) 100 12/15/18 20:00 89 12/15/18 20:00 Venturi Mask 4.0 12/15/18 20:00 89 22 133/56 (81) 100 12/15/18 19:30 99.5 87 20 139/54 (82) 100 12/15/18 19:00 83 20 140/66 (90) 99 12/15/18 18:00 107 25 122/69 (86) 99 12/15/18 17:46 124 12/15/18 17:41 114 138/67 12/15/18 17:00 114 21 139/68 (91) 99 12/15/18 16:00 120 12/15/18 16:00 4.0 30 12/15/18 16:00 Bi-pap 12/15/18 16:00 98.9 117 21 128/82 (97) 99 12/15/18 15:05 118 18 100 12/15/18 15:05 4.0 30 12/15/18 15:00 129 23 118/77 (91) 100 12/15/18 14:50 133 12/15/18 14:00 141 23 110/67 (81) 100 12/15/18 13:00 144 26 173/67 (102) 100 Height (Feet): 5 Height (Inches): 6.00 Weight (Pounds): 182 General Appearance: no acute distress HEENT: normocephalic, atraumatic, anicteric Respiratory/Chest: crackles/rales, rhonchi - bilaterally Cardiovascular: normal rate, regular rhythm Abdomen: normal bowel sounds, soft, non tender, no organomegaly Microbiology Date/Time Source Procedure Growth Status 12/15/18 00:25 Blood Blood Culture - Preliminary NO GROWTH AFTER 24 HOURS Resulted 12/15/18 00:10 Blood Blood Culture - Preliminary Gram Positive [place]ley Resulted 12/15/18 04:15 Rectum VRE Culture - Final Enterococcus Faecium - Vre Complete Laboratory Tests Test 12/15/18 18:55 12/15/18 23:42 12/16/18 04:00 12/16/18 06:50 D-Dimer 0.76 mg/L FEU (0.00-0.49) H Miscellaneous Test 2 Pending Troponin I 0.238 ng/mL (0.000-0.056) 0.200 ng/mL (0.000-0.056) Activated Partial Thromboplast Time 63 SEC (23-33) H 139 SEC (23-33) H White Blood Count 15.5 K/UL (4.8-10.8) H Red Blood Count 3.72 M/UL (4.70-6.10) L Hemoglobin 10.7 G/DL (14.2-18.0) L Hematocrit 32.3 % (42.0-52.0) L Mean Corpuscular Volume 87 FL (80-99) Mean Corpuscular Hemoglobin 28.9 PG (27.0-31.0) Mean Corpuscular Hemoglobin Concent 33.3 G/DL (32.0-36.0) Red Cell Distribution Width 12.8 % (11.6-14.8) Platelet Count 240 K/UL (150-450) Mean Platelet Volume 7.2 FL (6.5-10.1) Neutrophils (%) (Auto) 77.9 % (45.0-75.0) H Lymphocytes (%) (Auto) 12.3 % (20.0-45.0) L Monocytes (%) (Auto) 8.5 % (1.0-10.0) Eosinophils (%) (Auto) 0.5 % (0.0-3.0) Basophils (%) (Auto) 0.8 % (0.0-2.0) Sodium Level 140 MMOL/L (136-145) Potassium Level 3.6 MMOL/L (3.5-5.1) Chloride Level 108 MMOL/L (98-107) H Carbon Dioxide Level 21 MMOL/L (21-32) Anion Gap 11 mmol/L (5-15) Blood Urea Nitrogen 28 mg/dL (7-18) H Creatinine 1.9 MG/DL (0.55-1.30) H Estimat Glomerular Filtration Rate mL/min (>60) Glucose Level 188 MG/DL (74-106) #H Calcium Level 8.5 MG/DL (8.5-10.1) Phosphorus Level 3.3 MG/DL (2.5-4.9) Magnesium Level 1.6 MG/DL (1.8-2.4) L Total Bilirubin 0.5 MG/DL (0.2-1.0) Aspartate Amino Transf (AST/SGOT) 18 U/L (15-37) Alanine Aminotransferase (ALT/SGPT) 25 U/L (12-78) Alkaline Phosphatase 81 U/L (46-116) Pro-B-Type Natriuretic Peptide 48551 pg/mL (0-125) H Total Protein 6.2 G/DL (6.4-8.2) L Albumin 2.2 G/DL (3.4-5.0) L Globulin 4.0 g/dL Albumin/Globulin Ratio 0.6 (1.0-2.7) L Digoxin Level 2.3 NG/ML (0.5-2.0) H Current Medications Medications (Trade) Dose Ordered Sig/Sathish Route PRN Reason Start Time Stop Time Status Last Admin Dose Admin Apixaban (Eliquis) 2.5 mg BID ORAL 12/16/18 18:00 01/15/19 17:59 Aspirin (ASA) 81 mg DAILY ORAL 12/15/18 11:15 01/14/19 11:14 12/16/18 09:44 Atorvastatin Calcium (Lipitor) 20 mg BEDTIME ORAL 12/15/18 21:00 01/14/19 20:59 12/15/18 21:40 Cefepime HCl 2 gm/ Dextrose 55 ml @ 110 mls/hr Q24H IVPB 12/16/18 09:00 12/23/18 08:59 12/16/18 09:44 Clopidogrel Bisulfate (Plavix) 75 mg DAILY ORAL 12/15/18 11:15 01/14/19 11:14 12/16/18 09:45 Dextrose (Dextrose 50%) 25 ml Q30M PRN IV Hypoglycemia 12/15/18 11:15 01/14/19 11:14 Dextrose (Dextrose 50%) 50 ml Q30M PRN IV Hypoglycemia 12/15/18 11:15 01/14/19 11:14 Famotidine (Pepcid I.v.) 20 mg Q12HR IVP 12/15/18 21:00 01/14/19 20:59 12/16/18 09:38 Furosemide (Lasix) 40 mg EVERY 12 HOURS IV 12/15/18 21:00 01/14/19 08:59 12/16/18 09:37 Insulin Aspart (NovoLOG) Q6HR SUBQ 12/15/18 12:00 01/14/19 11:59 12/16/18 12:22 Insulin Detemir (Levemir) 15 units BEDTIME SUBQ 12/16/18 21:00 01/14/19 20:59 Insulin Detemir (Levemir) 25 units DAILY SUBQ 12/17/18 09:00 01/14/19 11:14 Magnesium Sulfate 100 ml @ 100 mls/hr Q1H IVPB 12/16/18 12:45 12/16/18 14:44 Metoprolol Tartrate (Lopressor) 50 mg TWICE A DAY ORAL 12/16/18 09:00 01/14/19 17:59 12/16/18 09:45 Metronidazole 100 ml @ 100 mls/hr Q8HR IVPB 12/15/18 20:00 12/22/18 19:59 12/16/18 05:49 Vancomycin HCl (Vanco rx to dose) 1 ea DAILY PRN MISC Per rx protocol 12/16/18 09:00 01/14/19 07:59 Joe Velasquez MD Dec 16, 2018 12:59
--- NOTE | 2018-12-16 13:44 | Pulmonolgy Critical Care Note ---
Critical Care - Asmt/Plan Problems: (1) Hypoxemia (2) Atrial fibrillation with rapid ventricular response (3) Acute exacerbation of CHF (congestive heart failure) (4) ACS (acute coronary syndrome) (5) DM (diabetes mellitus) (6) HTN (hypertension) (7) Gram positive bacterial infection (8) Acute kidney injury superimposed on CKD Assessment/Plan: Optimize pulmonary hygiene/mobilize as tolerated Titrate down FiO2 to keep SaO2 > 90% Continue Cefepime/Vanco/Flagyl (D2) per ID F/U labs sent to CS: PCt and [facility] F/U CARDS/EPS recs ---> PO MTP, Eliquis, diuresis Monitor volumes and renal function, diuresis as able Glycemic control Aspiration precautions DVT Px: Eliquis FC TTF [facility] Prophylaxis: other - Eliquis Disposition: transfer to - [facility] Time Spent (Minutes): 40 Notes 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, 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 Discussed with: nurses, consultants Critical Care - Objective Last 24 Hour Vital Signs Date Time Temp Pulse Resp B/P (MAP) Pulse Ox O2 Delivery O2 Flow Rate FiO2 12/16/18 09:45 83 133/60 12/16/18 09:00 98 Nasal Cannula 3.0 32 12/16/18 08:00 Bi-pap 12/16/18 07:00 82 21 125/52 (76) 98 12/16/18 06:00 88 18 147/69 (95) 100 12/16/18 05:50 90 145/49 12/16/18 05:50 90 12/16/18 05:00 90 23 145/49 (81) 100 12/16/18 04:00 98.3 82 21 152/66 (94) 98 12/16/18 04:00 82 12/16/18 04:00 Nasal Cannula 3.0 12/16/18 03:00 77 19 132/49 (76) 98 12/16/18 02:00 90 28 142/56 (84) 98 12/16/18 01:00 85 22 142/58 (86) 97 12/16/18 00:30 82 22 137/60 (85) 99 12/16/18 00:08 81 138/53 12/16/18 00:00 99.0 80 23 138/53 (81) 99 12/16/18 00:00 Venturi Mask 4.0 12/16/18 00:00 80 10/4/19 23:30 79 19 139/56 (83) 99 12/15/18 23:00 76 21 132/64 (86) 99 12/15/18 22:30 78 29 132/55 (80) 99 12/15/18 22:00 81 20 144/57 (86) 98 12/15/18 21:40 81 119/49 12/15/18 21:39 81 12/15/18 21:30 77 20 119/49 (72) 100 12/15/18 21:00 85 24 125/92 (103) 95 12/15/18 20:30 90 135/54 12/15/18 20:30 86 24 134/60 (84) 100 12/15/18 20:00 89 12/15/18 20:00 Venturi Mask 4.0 12/15/18 20:00 89 22 133/56 (81) 100 12/15/18 19:30 99.5 87 20 139/54 (82) 100 12/15/18 19:00 83 20 140/66 (90) 99 12/15/18 18:00 107 25 122/69 (86) 99 12/15/18 17:46 124 12/15/18 17:41 114 138/67 12/15/18 17:00 114 21 139/68 (91) 99 12/15/18 16:00 120 12/15/18 16:00 4.0 30 12/15/18 16:00 Bi-pap 12/15/18 16:00 98.9 117 21 128/82 (97) 99 12/15/18 15:05 118 18 100 12/15/18 15:05 4.0 30 12/15/18 15:00 129 23 118/77 (91) 100 12/15/18 14:50 133 12/15/18 14:00 141 23 110/67 (81) 100 Status: awake Condition: improving HEENT: atraumatic, normocephalic Neck: full ROM Lungs: rales Heart: HR/BP stable Abdomen: soft, non-tender, active bowel sounds Extremities: no C/C/E Micro: Microbiology Date/Time Source Procedure Growth Status 12/15/18 00:25 Blood Blood Culture - Preliminary NO GROWTH AFTER 24 HOURS Resulted 12/15/18 00:10 Blood Blood Culture - Preliminary Gram Positive [place] Resulted 12/15/18 04:15 Rectum VRE Culture - Final Enterococcus Faecium - Vre Complete Accucheck: 328 Blood Sugars: BS not controlled Critical Care - Subjective ROS Limited/Unobtainable: Yes ICU Day: 2 Interval Events: Trop downtrending, Cr better, stable O2 needs 1/2 G+R Condition: improving IV Access: peripheral EKG Rhythm: Atrial Fibrillation - rate controlled FI02: 32 Vent Support Mode: BiLevel Sputum Amount: None Fluids: SLIV I&O: Intake and Output 12/15/18 12/16/18 19:00 07:00 Intake Total 244.602 ml 918.677 ml Output Total 120 ml 700 ml Balance 124.602 ml 218.677 ml Intake Oral 50 ml 60 ml IV Total 194.602 ml 858.677 ml Output Urine Total 120 ml 700 ml # Voids 1 # Bowel Movements 2 3 Subjective: + weak + SOB no cough no wheezing no FC Labs: Laboratory Tests Test 12/15/18 18:55 12/15/18 23:42 12/16/18 04:00 12/16/18 06:50 D-Dimer 0.76 mg/L FEU (0.00-0.49) H Miscellaneous Test 2 Pending Troponin I 0.238 ng/mL (0.000-0.056) 0.200 ng/mL (0.000-0.056) Activated Partial Thromboplast Time 63 SEC (23-33) H 139 SEC (23-33) H White Blood Count 15.5 K/UL (4.8-10.8) H Red Blood Count 3.72 M/UL (4.70-6.10) L Hemoglobin 10.7 G/DL (14.2-18.0) L Hematocrit 32.3 % (42.0-52.0) L Mean Corpuscular Volume 87 FL (80-99) Mean Corpuscular Hemoglobin 28.9 PG (27.0-31.0) Mean Corpuscular Hemoglobin Concent 33.3 G/DL (32.0-36.0) Red Cell Distribution Width 12.8 % (11.6-14.8) Platelet Count 240 K/UL (150-450) Mean Platelet Volume 7.2 FL (6.5-10.1) Neutrophils (%) (Auto) 77.9 % (45.0-75.0) H Lymphocytes (%) (Auto) 12.3 % (20.0-45.0) L Monocytes (%) (Auto) 8.5 % (1.0-10.0) Eosinophils (%) (Auto) 0.5 % (0.0-3.0) Basophils (%) (Auto) 0.8 % (0.0-2.0) Sodium Level 140 MMOL/L (136-145) Potassium Level 3.6 MMOL/L (3.5-5.1) Chloride Level 108 MMOL/L (98-107) H Carbon Dioxide Level 21 MMOL/L (21-32) Anion Gap 11 mmol/L (5-15) Blood Urea Nitrogen 28 mg/dL (7-18) H Creatinine 1.9 MG/DL (0.55-1.30) H Estimat Glomerular Filtration Rate mL/min (>60) Glucose Level 188 MG/DL (74-106) #H Calcium Level 8.5 MG/DL (8.5-10.1) Phosphorus Level 3.3 MG/DL (2.5-4.9) Magnesium Level 1.6 MG/DL (1.8-2.4) L Total Bilirubin 0.5 MG/DL (0.2-1.0) Aspartate Amino Transf (AST/SGOT) 18 U/L (15-37) Alanine Aminotransferase (ALT/SGPT) 25 U/L (12-78) Alkaline Phosphatase 81 U/L (46-116) Pro-B-Type Natriuretic Peptide 83061 pg/mL (0-125) H Total Protein 6.2 G/DL (6.4-8.2) L Albumin 2.2 G/DL (3.4-5.0) L Globulin 4.0 g/dL Albumin/Globulin Ratio 0.6 (1.0-2.7) L Digoxin Level 2.3 NG/ML (0.5-2.0) H Mich Marie MD Dec 16, 2018 13:44
[2018-12-16] MEDS ORDERED: Tubing IV Secondary IV ONE (14:00)
[2018-12-16] MEDS ORDERED: NS 275ml ONE (14:00)
--- NOTE | 2018-12-16 14:03 | General Progress Note ---
Assessment/Plan Problem List: (1) HTN (hypertension) ICD Codes: I10 - Essential (primary) hypertension SNOMED: 16872150 (2) DM (diabetes mellitus) ICD Codes: E11.9 - Type 2 diabetes mellitus without complications SNOMED: 12963065 (3) Acute exacerbation of CHF (congestive heart failure) ICD Codes: I50.9 - Heart failure, unspecified SNOMED: 898149116, 39101026532134 Qualifiers: Qualified Codes: I50.9 - Heart failure, unspecified (4) Atrial fibrillation with rapid ventricular response ICD Codes: I48.91 - Unspecified atrial fibrillation SNOMED: 879429583799105 (5) Hypoxemia ICD Codes: R09.02 - Hypoxemia SNOMED: 543593217 (6) SHAHANA (acute kidney injury) ICD Codes: N17.9 - Acute kidney failure, unspecified SNOMED: 80089726, 1507754 (7) Cellulitis in diabetic foot ICD Codes: E11.628 - Type 2 diabetes mellitus with other skin complications; L03.119 - Cellulitis of unspecified part of limb SNOMED: 475368576, 65844663 (8) Sepsis ICD Codes: A41.9 - Sepsis, unspecified organism SNOMED: 55027803, 96639747 Qualifiers: Qualified Codes: A41.9 - Sepsis, unspecified organism; R65.20 - Severe sepsis without septic shock; J96.01 - Acute respiratory failure with hypoxia Status: stable Assessment/Plan: This is a 73 year old male with a PMHx Dm2, HTN, CHF, PAD s/p left iliac stent placement 01/05/19 and subsequent 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 #acute hypoxic respiratory failure 2/2 systolic CHF exacerbation (new diagnosis) - no known history of CHF. Also treating for possible pneumonia - downgrade to telemetry today - titrate SpO2 to keep O2 >92% - blood cultures - sputum culture - Vancomycin, Cefepime and Flagyl - lasix 40mg IV BID - may start afterload reduction tomorrow with hydralazine 25mg PO TID and isordil 10mg TID - JUAN MANUEL-I contraindicated in setting of acute renal failure - appreciate Cardiology recommendations: Dr. Simpson #Atrial fibrillation with RVR, new diagnosis. - resolved CHADS-VASC 5 - risk of stroke 7.2% per year HASBLED - 3 - risk of bleeding 5.8% per year > Explained to patient risks and benefits of anticoagulation with Asa/Plavix and an anticoagulant. Patient understands the risks of stroke are > than risk of bleeding and would like to take the anticoagulant. Will start patient on eliquis renal dosing 2.5mg PO BID - s/p Diltiazem Gtt - Metoprolol and digoxin for heart rate controlled - appreicate cardiology recommendations #sepsis (WBC, heart rate, respiratory rate) 2/2 pneumonia - IMPROVING #gram + inga in blood culture- likely contaminant per ID > C diff negative > ESR 74, CRP 1.4, unlikely osteomyelitis - cultures as above - Repeat blood cultures today - antibiotics as above - patient fluid overloaded, holding off extra fluids for now #lactic acidosis suspected 2/2 CHF exacerbation vs. sepsis - RESOLVED - trending down to 1 - management as above - check ESR/CRP #Acute Renal failure 2/2 CHF exacerbation - IV diuresis as above - continue to trend - avoid nephrotoxins - replace lytes #S/p left 2nd toe amputation due to gangrene/osteomyelitis #s/p recent left iliac stent on ASA/Plavix 10 days ago. > ESR 73, CRP 1.4 - wound consult - request records from [facility] #Hypertension #hyperlipidemia #CAD -hold home amlodipine - continue metoprolol as above - ASA/Plavix as above #Diabetes mellitus type 1 per patient, with hyperglycemia - accuchecks Q6hr - Diabetic diet - Increase Levemir 25 units QAM and 15 units QPM (home is 25 and 30) - SSI, average FENPPx DVT PPx: eliquis GI PPX: pepcid Fluids: none Diet: Diabetic diet Lines: none PT/OT: pending Dispo: SNF vs. Home D/w RN, patient, patient's family, pulmonology, cardiology, and infectious disease. I spent 41 minutes on this encounter. >50% spent on counseling and care coordination. Time of note may not reflect time patient was seen Subjective Date patient seen: Dec 16, 2018 Constitutional: Denies: no symptoms, chills, diaphoresis, fever, malaise, weakness, other HEENT: Denies: no symptoms, eye pain, blurred vision, tearing, double vision, ear pain, ear discharge, nose pain, nose congestion, throat pain, throat swelling, mouth pain, mouth swelling, other Cardiovascular: Denies: no symptoms, chest pain, edema, irregular heart rate, lightheadedness, palpitations, syncope, other Respiratory: Denies: no symptoms, cough, orthopnea, shortness of breath, SOB with excertion, SOB at rest, sputum, stridor, wheezing, other Gastrointestinal/Abdominal: Denies: no symptoms, abdomen distended, abdominal pain, black stools, tarry stools, blood in stool, constipated, diarrhea, difficulty swallowing, nausea, poor appetite, poor fluid intake, rectal bleeding , vomiting, other Genitourinary: Denies: no symptoms, burning, discharge, frequency, flank pain, hematuria, incontinence, pain, urgency, other Neurologic/Psychiatric: Denies: no symptoms, anxiety, depressed, emotional problems, headache, numbness, paresthesia, pre-existing deficit, seizure, tingling, tremors, weakness, other Endocrine: Denies: no symptoms, excessive sweating, flushing, intolerance to cold, intolerance to heat, increased hunger, increased thirst, increased urine, unexplained weight gain, unexplained weight loss, other Hematologic/Lymphatic: Denies: no symptoms, anemia, easy bleeding, easy bruising, other Allergies: Coded Allergies: No Known Allergies (Unverified , 08/14/15) Subjective Patient titrated off BiPAP yesterday. Down to 3L nasal cannula this morning. Feels much better. other vitals stable. updated on new diagnosis of CHF. Denies chest pain, palpitations, fever, chills. Objective Last 24 Hour Vital Signs Date Time Temp Pulse Resp B/P (MAP) Pulse Ox O2 Delivery O2 Flow Rate FiO2 12/16/18 09:45 83 133/60 12/16/18 09:00 98 Nasal Cannula 3.0 32 12/16/18 08:00 Bi-pap 12/16/18 07:00 82 21 125/52 (76) 98 12/16/18 06:00 88 18 147/69 (95) 100 12/16/18 05:50 90 145/49 12/16/18 05:50 90 12/16/18 05:00 90 23 145/49 (81) 100 12/16/18 04:00 98.3 82 21 152/66 (94) 98 10/5/19 04:00 82 12/16/18 04:00 Nasal Cannula 3.0 12/16/18 03:00 77 19 132/49 (76) 98 12/16/18 02:00 90 28 142/56 (84) 98 12/16/18 01:00 85 22 142/58 (86) 97 12/16/18 00:30 82 22 137/60 (85) 99 12/16/18 00:08 81 138/53 12/16/18 00:00 99.0 80 23 138/53 (81) 99 12/16/18 00:00 Venturi Mask 4.0 12/16/18 00:00 80 12/15/18 23:30 79 19 139/56 (83) 99 12/15/18 23:00 76 21 132/64 (86) 99 12/15/18 22:30 78 29 132/55 (80) 99 12/15/18 22:00 81 20 144/57 (86) 98 12/15/18 21:40 81 119/49 12/15/18 21:39 81 12/15/18 21:30 77 20 119/49 (72) 100 12/15/18 21:00 85 24 125/92 (103) 95 12/15/18 20:30 90 135/54 12/15/18 20:30 86 24 134/60 (84) 100 12/15/18 20:00 89 12/15/18 20:00 Venturi Mask 4.0 12/15/18 20:00 89 22 133/56 (81) 100 12/15/18 19:30 99.5 87 20 139/54 (82) 100 12/15/18 19:00 83 20 140/66 (90) 99 12/15/18 18:00 107 25 122/69 (86) 99 12/15/18 17:46 124 12/15/18 17:41 114 138/67 12/15/18 17:00 114 21 139/68 (91) 99 12/15/18 16:00 120 12/15/18 16:00 4.0 30 12/15/18 16:00 Bi-pap 12/15/18 16:00 98.9 117 21 128/82 (97) 99 12/15/18 15:05 118 18 100 12/15/18 15:05 4.0 30 12/15/18 15:00 129 23 118/77 (91) 100 12/15/18 14:50 133 12/15/18 14:00 141 23 110/67 (81) 100 Intake and Output 12/15/18 12/16/18 18:59 06:59 Intake Total 204.801 ml 825.366 ml Output Total 120 ml 700 ml Balance 84.801 ml 125.366 ml Intake Oral 50 ml 60 ml IV Total 154.801 ml 765.366 ml Output Urine Total 120 ml 700 ml # Voids 1 # Bowel Movements 2 3 Laboratory Tests 12/15/18 18:55: D-Dimer 0.76H, Miscellaneous Test 2 [Pending], Troponin I 0.238H 12/15/18 23:42: Activated Partial Thromboplast Time 63H 12/16/18 04:00: Troponin I 0.200H, White Blood Count 15.5H, Red Blood Count 3.72L, Hemoglobin 10.7L, Hematocrit 32.3L, Mean Corpuscular Volume 87, Mean Corpuscular Hemoglobin 28.9, Mean Corpuscular Hemoglobin Concent 33.3, Red Cell Distribution Width 12.8, Platelet Count 240, Mean Platelet Volume 7.2, Neutrophils (%) (Auto) 77.9H, Lymphocytes (%) (Auto) 12.3L, Monocytes (%) (Auto ) 8.5, Eosinophils (%) (Auto) 0.5, Basophils (%) (Auto) 0.8, Sodium Level 140, Potassium Level 3.6, Chloride Level 108H, Carbon Dioxide Level 21, Anion Gap 11 , Blood Urea Nitrogen 28H, Creatinine 1.9H, Estimat Glomerular Filtration Rate , Glucose Level 188#H, Calcium Level 8.5, Phosphorus Level 3.3, Magnesium Level 1.6L, Total Bilirubin 0.5, Aspartate Amino Transf (AST/SGOT) 18, Alanine Aminotransferase (ALT/SGPT) 25, Alkaline Phosphatase 81, Pro-B-Type Natriuretic Peptide 00467L, Total Protein 6.2L, Albumin 2.2L, Globulin 4.0, Albumin/ Globulin Ratio 0.6L, Digoxin Level 2.3H 12/16/18 06:50: Activated Partial Thromboplast Time 139H Height (Feet): 5 Height (Inches): 6.00 Weight (Pounds): 182 General Appearance: WD/WN, no apparent distress, alert EENT: PERRL/EOMI, normal ENT inspection Neck: non-tender, normal alignment, supple Cardiovascular: normal peripheral pulses, normal rate, regular rhythm Respiratory/Chest: chest wall non-tender, other - crackles at bases bilaterally Abdomen: normal bowel sounds, non tender, soft Extremities: normal range of motion, other 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 Dec 16, 2018 14:03
[2018-12-16 14:44] LABS: BASOPHILS % (AUTO) 0.5 % (0.0-2.0); EOSINOPHILS % (AUTO) 0.3 % (0.0-3.0); HEMATOCRIT 33.8 % (42.0-52.0); HEMOGLOBIN 11.2 G/DL (14.2-18.0); LYMPHOCYTES % (AUTO) 8.8 % (20.0-45.0); MEAN CORPUSCULAR VOLUME 88 FL (80-99); MONOCYTES % (AUTO) 9.4 % (1.0-10.0); PLATELET COUNT 284 K/UL (150-450); RED BLOOD COUNT 3.85 M/UL (4.70-6.10); RED CELL DISTRIBUTION WIDTH 12.7 % (11.6-14.8); WHITE BLOOD COUNT 13.7 K/UL (4.8-10.8)
[2018-12-16 15:20] LABS: ALANINE AMINOTRANSFERASE 30 U/L (12-78); ALBUMIN 2.3 G/DL (3.4-5.0); ALBUMIN/GLOBULIN RATIO 0.5 (1.0-2.7); ALKALINE PHOSPHATASE 86 U/L (46-116); ANION GAP 11 mmol/L (5-15); ASPARTATE AMINO TRANSFERASE 21 U/L (15-37); BILIRUBIN,TOTAL 0.5 MG/DL (0.2-1.0); BLOOD UREA NITROGEN 25 mg/dL (7-18); CALCIUM 8.3 MG/DL (8.5-10.1); CARBON DIOXIDE 20 MMOL/L (21-32); CHLORIDE 107 MMOL/L (98-107); POTASSIUM 3.5 MMOL/L (3.5-5.1); SODIUM 138 MMOL/L (136-145)
--- NOTE | 2018-12-16 16:00 | NUR ---
NURSE NOTES: pt in bed, resting no c/o pain. vss . a/ox3. abdomen flat, non tender. bilateral pulses bounding. non pitting edema noted on extremities. afebrile. condom cath on. pt had loose bm, brown, mucoid at this time. peripheral iv lt wrist and ac 20g. hep drip at 20 units /kg. call light in reach, bed alarm on.
--- NOTE | 2018-12-16 16:19 | Diagnostic Imaging Report ---
EXAM: US Duplex Bilateral Lower Extremities Veins CLINICAL HISTORY: DVT TECHNIQUE: Real-time duplex ultrasound scan of the bilateral lower extremity veins integrating B-mode two-dimensional vascular structure, Doppler spectral analysis, color flow Doppler imaging and compression. COMPARISON: None FINDINGS: Right deep veins: Unremarkable. No DVT in the right common femoral, femoral, proximal deep femoral or popliteal veins. The veins demonstrate normal color flow, are normally compressible, with normal phasic flow and or augmentation response. Right superficial veins: Unremarkable. No thrombus in the visualized right great saphenous vein. Left deep veins: Small nonspecific echogenic structure in the left popliteal vein measuring 4 mm. No DVT in the left common femoral, femoral, proximal deep femoral or popliteal veins. The veins demonstrate normal color flow, are normally compressible, with normal phasic flow and or augmentation response. Left superficial veins: Unremarkable. No thrombus in the visualized left great saphenous vein. Soft tissues: Mild edema in the right calf soft tissues. No popliteal cyst. IMPRESSION: No deep venous thrombosis identified in either lower extremity. Nonspecific small 4 mm echogenic structure in the left popliteal vein. Normal compression.
--- NOTE | 2018-12-16 17:32 | NUR ---
NURSE NOTES: hep drip
[2018-12-16] MEDS ORDERED: Eliquis 2.5mg tablet ORAL SCH (18:00)
--- NOTE | 2018-12-16 18:30 | NUR ---
NURSE NOTES: transfered pt to [phone] with family and belongings. vss
--- NOTE | 2018-12-16 18:58 | NUR ---
CASE MANAGEMENT: REVIEW 12/16/2018 SI:SEPSIS. ACUTE KIDNEY FAILURE. T 98.3 HR 82 RR 21 B/P 152/66 SATS 98% ON 3L/NC WBC 13.7 CO2 20 BUN 25 CR 2 GLU 260 CA 8.3 IS:LASIX IV Q12H LOPRESSOR PO BID LIPITOR PO QHS ELIQUIS PO BID PLAVIX PO QD PEPCID IV Q12H CEFEPIME IV Q24H FLAGYL IV Q8H ICU
--- NOTE | 2018-12-16 19:11 | NUR ---
NURSE NOTES: recieved patient report from mark pritchard from icu, patient came in via hospital bed with family member. will follow plan of care.
--- NOTE | 2018-12-16 19:14 | NUR ---
HAND-OFF: Report given to osmar pritchard.
--- NOTE | 2018-12-16 19:16 | NUR ---
NURSE NOTES: Received report from Jacquie TOWNSEND, pt. appears to be stable, A/O x's 3- Kiswahili/ Syrian speaking- able to make needs known, no signs or symptoms of acute cardiac or respiratory distress noted, bed in lowest position and call light within easy reach, bed in locked position and call light within easy reach, passenger flagman on, pt. appears clean and dry and appears to be resting comfortably, pt. appears to be sating well on 3L NC- no distress noted, Left AC 20G and lt. wrist 20G both IVs intact and patent, safety measures continued, will continued with plan of care.
[2018-12-16] MEDS: Atorvastatin 20mg tab ORAL SCH (20:21)
--- NOTE | 2018-12-16 23:58 | NUR ---
NURSE NOTES: called DR. Carl office spoke with Eloina at [facility] - regarding pt. complaining of abdominal pain- awaiting for call back from doctor.
[2018-12-17] VITALS: BP 145/87
--- NOTE | 2018-12-17 00:30 | NUR ---
NURSE NOTES: re-assessed pt. for pain- pt. appears to be resting comfortably and distress noted- will continue to monitor pt. for pain and with plan of care.
--- NOTE | 2018-12-17 01:12 | NUR ---
NURSE NOTES: call from DR. Sims- explained to her pt. complaining of pain like pressure to abdominal area- per DR. Sims to monitor pt. for now- no orders given.
[2018-12-17 04:00] VITALS: BP 155/84
[2018-12-17] MEDS: NovoLOG Insulin Flexpen SUBQ SCH ×3 (06:19→17:17)
[2018-12-17 06:34] LABS: BASOPHILS % (AUTO) 0.5 % (0.0-2.0); EOSINOPHILS % (AUTO) 0.4 % (0.0-3.0); LYMPHOCYTES % (AUTO) 11.6 % (20.0-45.0); MEAN CORPUSCULAR VOLUME 86 FL (80-99); MONOCYTES % (AUTO) 9.2 % (1.0-10.0); NEUTROPHILS % (AUTO) 78.4 % (45.0-75.0); PLATELET COUNT 285 K/UL (150-450); RED BLOOD COUNT 3.84 M/UL (4.70-6.10); RED CELL DISTRIBUTION WIDTH 12.5 % (11.6-14.8); WHITE BLOOD COUNT 12.4 K/UL (4.8-10.8)
[2018-12-17 06:58] LABS: ANION GAP 11 mmol/L (5-15); CALCIUM 8.5 MG/DL (8.5-10.1); CARBON DIOXIDE 22 MMOL/L (21-32); CHLORIDE 108 MMOL/L (98-107); CREATININE 1.8 MG/DL (0.55-1.30); POTASSIUM 3.2 MMOL/L (3.5-5.1); SODIUM 141 MMOL/L (136-145)
--- NOTE | 2018-12-17 07:03 | NUR ---
HAND-OFF: Report given to Michoacano Calles, pt. remians stable and no signs of distress noted- pt. denies pain. Addendum: 12/17/18 at 0709 by TYREE JEAN RN RN Nurse aware to f/u on abnormal am labs- potassium trending down.
[2018-12-17 07:11] LABS: BLOOD UREA NITROGEN 23 mg/dL (7-18)
--- NOTE | 2018-12-17 07:22 | NUR ---
CASE MANAGEMENT: REVIEW 12/2018 SI:SEPSIS. ACUTE KIDNEY FAILURE. T 98.3 HR 82 RR 21 B/P 152/66 SATS 98% ON 3L/NC WBC 13.7 CO2 20 BUN 25 CR 2 GLU 260 CA 8.3 IS:LASIX IV Q12H LOPRESSOR PO BID LIPITOR PO QHS ELIQUIS PO BID PLAVIX PO QD PEPCID IV Q12H CEFEPIME IV Q24H FLAGYL IV Q8H ICU Addendum: 12/17/18 at 0722 by Judy Adams CM ENTERED IN ERROR
--- NOTE | 2018-12-17 07:22 | NUR ---
CASE MANAGEMENT: REVIEW 12/17/2018 SI:SEPSIS. ACUTE KIDNEY FAILURE. T 98.1 HR 108 RR 22 B/P 155/84 SATS 98% ON 3L/NC WBC 12.4 K 3.2 CL 108 BUN 23 CR 1.8 GLU 144 IS:LASIX IV Q12H LOPRESSOR PO BID LIPITOR PO QHS ELIQUIS PO BID PLAVIX PO QD PEPCID IV Q12H CEFEPIME IV Q24H FLAGYL IV Q8H SDU
--- NOTE | 2018-12-17 07:24 | NUR ---
NURSE NOTES: Received report from KRISTIAN Ho. Patient is resting in bed, in stable condition. No s/sx of SOB, breathing is even and unlabored, on 3L NC as ordered. Denies any presence of pain or discomfort at this time. Bed is in lowest position, brakes engaged. Call light is kept within easy reach. Will continue to monitor patient.
[2018-12-17 08:00] VITALS: BP 156/74
[2018-12-17] MEDS: Aspirin Baby 81mg ORAL SCH (08:17)
[2018-12-17] MEDS: Metoprolol Tartrate 50mg tab ORAL SCH ×2 (08:18→17:14)
[2018-12-17] MEDS: Eliquis 2.5mg tablet ORAL SCH ×2 (08:18→17:14)
[2018-12-17] MEDS: Cefepime HCl 2 GM in D5W 55 ML IVPB SCH (08:19)
[2018-12-17] MEDS: Levemir Flexpen SUBQ SCH ×3 (08:22→21:26)
[2018-12-17] MEDS ORDERED: Vancomycin 1.25gm/D5W 275ml IVPB SCH ×2 (09:00)
[2018-12-17] MEDS ORDERED: Levemir Flexpen SUBQ SCH (09:00)
--- NOTE | 2018-12-17 09:42 | Pulmonology Progress Note ---
Assessment/Plan Problems: (1) Atrial fibrillation with rapid ventricular response (2) Acute exacerbation of CHF (congestive heart failure) (3) Acute kidney injury superimposed on CKD (4) Gram positive bacterial infection (5) DM (diabetes mellitus) (6) HTN (hypertension) (7) Hypoxemia Assessment/Plan Optimize pulmonary hygiene/mobilize as tolerated Titrate down FiO2 to keep SaO2 > 90% Continue Cefepime/Vanco/Flagyl (D3) per ID F/U labs sent to CS: PCt and VRPM F/U CARDS/EPS recs ---> PO MTP, Eliquis, diuresis Monitor volumes and renal function, diuresis as able Glycemic control Aspiration precautions DVT Px: Eliquis FC Check UA and bladder scan Subjective Allergies: Coded Allergies: No Known Allergies (Unverified , 08/14/15) Subjective TTF AFVSS x elevated BP O2 needs stable + SP pain and bladder discomfort no cough + SOB no CP no FC Objective Last 24 Hour Vital Signs Date Time Temp Pulse Resp B/P (MAP) Pulse Ox O2 Delivery O2 Flow Rate FiO2 12/17/18 08:18 96 156/74 12/17/18 08:00 92 12/17/18 08:00 2.0 12/17/18 08:00 Nasal Cannula 3.0 12/17/18 08:00 98.0 96 21 156/74 (101) 100 12/17/18 04:00 98.1 108 22 155/84 (107) 98 12/17/18 04:00 90 12/17/18 04:00 3.0 12/17/18 04:00 Nasal Cannula 3.0 12/17/18 00:00 101 12/17/18 00:00 Nasal Cannula 3.0 12/17/18 00:00 3.0 12/17/18 00:00 96.4 89 20 145/87 (106) 98 12/16/18 20:00 92 12/16/18 20:00 98.2 104 20 131/86 (101) 99 12/16/18 20:00 3.0 12/16/18 20:00 Nasal Cannula 3.0 12/16/18 19:09 98 Nasal Cannula 3.0 32 12/16/18 19:09 90 20 98 Nasal Cannula 3.0 32 12/16/18 18:00 99 12/16/18 18:00 82 21 142/52 (82) 98 12/16/18 17:44 109 160/81 12/16/18 17:00 82 21 125/52 (76) 98 12/16/18 16:00 Nasal Cannula 3.0 12/16/18 16:00 98.4 100 21 125/52 (76) 100 12/16/18 15:00 99 23 148/67 (94) 100 12/16/18 14:00 93 25 130/72 (91) 100 12/16/18 13:00 93 23 141/61 (87) 99 12/16/18 12:00 80 12/16/18 12:00 Nasal Cannula 3.0 12/16/18 12:00 98.8 86 23 130/64 (86) 100 12/16/18 11:00 75 22 146/64 (91) 99 12/16/18 10:00 84 19 124/57 (79) 99 12/16/18 09:45 83 133/60 Intake and Output 12/16/18 12/17/18 19:00 07:00 Intake Total 196.224 ml 200 ml Output Total 250 ml 200 ml Balance -53.776 ml 0 ml Intake Oral 130 ml IV Total 66.224 ml 200 ml Output Urine Total 250 ml 200 ml # Voids 1 2 # Bowel Movements 5 1 General Appearance: WD/WN, no acute distress HEENT: normocephalic, atraumatic, anicteric, other - elevated JVD Respiratory/Chest: chest wall non-tender, no respiratory distress, crackles/ rales Cardiovascular: normal peripheral pulses, normal rate, regular rhythm Abdomen: normal bowel sounds, no organomegaly, non distended, no mass, tender - over bladder, other - soft Extremities: no cyanosis, no clubbing, other - trace edema at ankles Microbiology Date/Time Source Procedure Growth Status 12/15/18 11:10 Blood Blood Culture - Preliminary NO GROWTH AFTER 24 HOURS Resulted 12/15/18 11:00 Blood Blood Culture - Preliminary NO GROWTH AFTER 24 HOURS Resulted 12/15/18 00:25 Blood Blood Culture - Preliminary NO GROWTH AFTER 48 HOURS Resulted 12/15/18 00:10 Blood Blood Culture - Preliminary Gram Positive [place] Resulted 12/15/18 04:15 Nasal Nares MRSA Culture - Final NO METHICILLIN RESISTANT STAPH AUREUS... Complete 12/15/18 04:15 Rectum - Final NO CARBAPENEM-RESISTANT ENTEROBACTERI... Complete 12/15/18 04:15 Rectum VRE Culture - Final Enterococcus Faecium - Vre Complete Laboratory Tests 12/16/18 14:20: White Blood Count 13.7H, Red Blood Count 3.85L, Hemoglobin 11.2L, Hematocrit 33.8L, Mean Corpuscular Volume 88, Mean Corpuscular Hemoglobin 29.0, Mean Corpuscular Hemoglobin Concent 33.0, Red Cell Distribution Width 12.7, Platelet Count 284, Mean Platelet Volume 7.6, Neutrophils (%) (Auto) 81.0H, Lymphocytes ( %) (Auto) 8.8L, Monocytes (%) (Auto) 9.4, Eosinophils (%) (Auto) 0.3, Basophils (%) (Auto) 0.5, Sodium Level 138, Potassium Level 3.5, Chloride Level 107, Carbon Dioxide Level 20L, Anion Gap 11, Blood Urea Nitrogen 25H, Creatinine 2.0H , Estimat Glomerular Filtration Rate , Glucose Level 260H, Calcium Level 8.3L, Total Bilirubin 0.5, Aspartate Amino Transf (AST/SGOT) 21, Alanine Aminotransferase (ALT/SGPT) 30, Alkaline Phosphatase 86, Total Protein 6.5, Albumin 2.3L, Globulin 4.2, Albumin/Globulin Ratio 0.5L 12/17/18 05:20: White Blood Count 12.4H, Red Blood Count 3.84L, Hemoglobin 11.0L, Hematocrit 33.0L, Mean Corpuscular Volume 86, Mean Corpuscular Hemoglobin 28.7, Mean Corpuscular Hemoglobin Concent 33.3, Red Cell Distribution Width 12.5, Platelet Count 285, Mean Platelet Volume 7.3, Neutrophils (%) (Auto) 78.4H, Lymphocytes ( %) (Auto) 11.6L, Monocytes (%) (Auto) 9.2, Eosinophils (%) (Auto) 0.4, Basophils (%) (Auto) 0.5, Sodium Level 141, Potassium Level 3.2L, Chloride Level 108H, Carbon Dioxide Level 22, Anion Gap 11, Blood Urea Nitrogen 23H, Creatinine 1.8H, Estimat Glomerular Filtration Rate , Glucose Level 144#H, Calcium Level 8.5, Hemoglobin A1c 8.4H, Random Vancomycin Level 11.7 Current Medications Medications (Trade) Dose Ordered Sig/Sathish Route PRN Reason Start Time Stop Time Status Last Admin Dose Admin Apixaban (Eliquis) 2.5 mg BID ORAL 12/17/18 09:00 01/15/19 17:59 12/17/18 08:18 Aspirin (ASA) 81 mg DAILY ORAL 12/17/18 09:00 01/14/19 11:14 12/17/18 08:17 Atorvastatin Calcium (Lipitor) 20 mg BEDTIME ORAL 12/16/18 21:00 01/14/19 20:59 12/16/18 20:21 Cefepime HCl 2 gm/ Dextrose 55 ml @ 110 mls/hr Q24H IVPB 12/17/18 09:00 12/23/18 08:59 12/17/18 08:19 Clopidogrel Bisulfate (Plavix) 75 mg DAILY ORAL 12/17/18 09:00 01/14/19 11:14 12/17/18 08:18 Dextrose (Dextrose 50%) 25 ml Q30M PRN IV Hypoglycemia 12/16/18 19:15 01/14/19 11:14 Dextrose (Dextrose 50%) 50 ml Q30M PRN IV Hypoglycemia 12/16/18 19:15 01/14/19 11:14 Famotidine (Pepcid I.v.) 20 mg Q12HR IVP 12/16/18 21:00 01/14/19 20:59 12/17/18 08:17 Furosemide (Lasix) 40 mg EVERY 12 HOURS IV 12/16/18 21:00 01/14/19 08:59 12/17/18 08:17 Insulin Aspart (NovoLOG) Q6HR SUBQ 12/17/18 00:00 01/14/19 11:59 12/17/18 06:19 Insulin Detemir (Levemir) 15 units BEDTIME SUBQ 12/16/18 21:00 01/14/19 20:59 12/16/18 21:30 Insulin Detemir (Levemir) 25 units DAILY SUBQ 12/17/18 09:00 01/14/19 11:14 12/17/18 08:22 Metoprolol Tartrate (Lopressor) 50 mg TWICE A DAY ORAL 12/17/18 09:00 01/14/19 17:59 12/17/18 08:18 Metronidazole 100 ml @ 100 mls/hr Q8HR IVPB 12/16/18 22:00 12/22/18 19:59 12/17/18 05:13 Vancomycin HCl (Vanco rx to dose) 1 ea DAILY PRN MISC Per rx protocol 12/17/18 09:00 01/14/19 07:59 Vancomycin HCl 1.25 gm/Dextrose 275 ml @ 183.33 mls/ hr ONCE IVPB 12/17/18 09:00 12/17/18 10:00 12/17/18 09:23 Mich Marie MD Dec 17, 2018 09:42
--- NOTE | 2018-12-17 09:50 | NUR ---
NURSE NOTES: Patient c/o 10/10 pain, patient pointing at bladder. Performed bladder scan, 611ml noted on scan. Called and informed Dr. Nguyen of situation. Dr. Nguyen ordered straight catheter insertion, send urine sample for culture, and post void residual 6 hours later. Also informed MD that patient has no PRN pain medication, MD acknowledged and ordered Tylenol 500 mg PO Q6HR PRN Mild to moderate pain, Tramadol 50 mg PO Q6HR PRN for severe pain. Also informed Dr. Nguyen that patient's potassium level today is 3.2, MD ordered K-dur 40 mEq PO x 1, per MD will order labs himself for tomorrow. Noted. Will continue to monitor patient.
[2018-12-17 10:15] LABS: APPEARANCE,URINE CLEAR; BILIRUBIN, URINE NEGATIVE (NEGATIVE); COLOR,URINE PALE YELLOW; GLUCOSE, URINE (UA) NEGATIVE (NEGATIVE); KETONES,URINE NEGATIVE (NEGATIVE); LEUKOCYTE ESTERASE ,URINE NEGATIVE (NEGATIVE); NITRITE,URINE NEGATIVE (NEGATIVE); PH,URINE 5 (4.5-8.0); PROTEIN,URINE 1+ (NEGATIVE); UROBILINOGEN,URINE NORMAL MG/DL (0.0-1.0)
[2018-12-17] MEDS ORDERED: Acetaminophen 500mg (ES) tab ORAL PRN (10:15)
[2018-12-17] MEDS ORDERED: traMADol 50mg tab ORAL PRN (10:15)
--- NOTE | 2018-12-17 11:04 | Diagnostic Imaging Report ---
EXAM: XR Chest, 1 View CLINICAL HISTORY: SOB TECHNIQUE: Frontal view of the chest. COMPARISON: Chest radiograph on 12 15 2018 FINDINGS: Hardware: None. Lungs pleura: Decreased pulmonary edema. Persistent bilateral pleural effusions with associated atelectasis versus pneumonia. Probable mild pulmonary vasculature congestion. Heart mediastinum: Stable mild enlargement of the cardiac silhouette. Soft tissues: Unremarkable. Bones: No acute fracture. Degenerative changes of the visualized right acromioclavicular joint. Degenerative changes of the spine. Upper abdomen: Normal. IMPRESSION: Decreased pulmonary edema. Persistent bilateral pleural effusions with associated atelectasis versus pneumonia. Probable mild pulmonary vasculature congestion.
--- NOTE | 2018-12-17 11:37 | General Progress Note ---
Assessment/Plan Problem List: (1) HTN (hypertension) ICD Codes: I10 - Essential (primary) hypertension SNOMED: 61017318 (2) DM (diabetes mellitus) ICD Codes: E11.9 - Type 2 diabetes mellitus without complications SNOMED: 90662571 (3) Acute exacerbation of CHF (congestive heart failure) ICD Codes: I50.9 - Heart failure, unspecified SNOMED: 961116674, [id number] Qualifiers: Qualified Codes: I50.9 - Heart failure, unspecified (4) Atrial fibrillation with rapid ventricular response ICD Codes: I48.91 - Unspecified atrial fibrillation SNOMED: 661679453026466 (5) Hypoxemia ICD Codes: R09.02 - Hypoxemia SNOMED: 834441128 (6) SHAHANA (acute kidney injury) ICD Codes: N17.9 - Acute kidney failure, unspecified SNOMED: 14391748, 9581269 (7) Cellulitis in diabetic foot ICD Codes: E11.628 - Type 2 diabetes mellitus with other skin complications; L03.119 - Cellulitis of unspecified part of limb SNOMED: 484311421, 12732716 (8) Sepsis ICD Codes: A41.9 - Sepsis, unspecified organism SNOMED: 04259826, 68953564 Qualifiers: Qualified Codes: A41.9 - Sepsis, unspecified organism; R65.20 - Severe sepsis without septic shock; J96.01 - Acute respiratory failure with hypoxia Status: stable Assessment/Plan: This is a 73 year old male with a PMHx Dm2, HTN, CHF, PAD s/p left iliac stent placement 01/05/19 and subsequent 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 #acute hypoxic respiratory failure 2/2 systolic CHF exacerbation (new diagnosis) - no known history of CHF. Also treating for possible pneumonia - IMPROVING - telemetry - titrate SpO2 to keep O2 >92% - f/u blood cultures. 1/4 sets gram + inga. Likely contaminant per ID - f/u sputum culture - Vancomycin, Cefepime and Flagyl - lasix 40mg IV BID - may change to PO lasix tomorrow - may start afterload reduction with hydralazine 25mg PO TID and isordil 10mg TID per cardiology - JUAN MANUEL-I contraindicated in setting of acute renal failure - appreciate Cardiology recommendations: Dr. Simpson - Appreciate Infectious Disease recommendations: Dr. Mensah #Atrial fibrillation with RVR, new diagnosis. - resolved CHADS-VASC 5 - risk of stroke 7.2% per year HASBLED - 3 - risk of bleeding 5.8% per year > Explained to patient risks and benefits of anticoagulation with Asa/Plavix and an anticoagulant. Patient understands the risks of stroke are > than risk of bleeding and would like to take the anticoagulant. Will start patient on eliquis renal dosing 2.5mg PO BID - s/p Diltiazem Gtt - Metoprolol and digoxin for heart rate controlled - appreicate cardiology recommendations #sepsis (WBC, heart rate, respiratory rate) 2/2 pneumonia - IMPROVING #gram + inga in blood culture- likely contaminant per ID > C diff negative > ESR 74, CRP 1.4, unlikely osteomyelitis - cultures as above - Repeat blood cultures - antibiotics as above - patient fluid overloaded, holding off extra fluids for now #acute urinary retention, new problem - straight cath x 1 - send for UA and urine culture - check PVR Q6hr PRN, straight cath if > 300cc - may need tamsulosin #hypokalemia - replete - trend BMP #lactic acidosis suspected 2/2 CHF exacerbation vs. sepsis - RESOLVED - trended down to 1 - management as above #Acute on Chronic Renal failure 2/2 CHF exacerbation - Continue to improve > Baseline Cr 1.5-1.7 - IV diuresis as above - continue to trend - avoid nephrotoxins - replace lytes #S/p left 2nd toe amputation due to gangrene/osteomyelitis #s/p recent left iliac stent on ASA/Plavix 10 days ago. > ESR 73, CRP 1.4 - wound consult - request records from [facility] #Hypertension #hyperlipidemia #CAD -hold home amlodipine - continue metoprolol as above - ASA/Plavix as above #Diabetes mellitus type 1 per patient (suspect this is an error and has type 2) with hyperglycemia- improved > Hemoglobin A1C 8.6 on 12/17/09 - accuchecks Q6hr - Diabetic diet - Levemir 25 units QAM and 15 units QPM (home is 25 and 30) - SSI, average FENPPx DVT PPx: eliquis GI PPX: pepcid Fluids: none Diet: Diabetic diet Lines: none PT/OT: pending Dispo: SNF vs. Home D/w RN, patient, patient's family, pulmonology, cardiology, and infectious disease. I spent 37 minutes on this encounter. >50% spent on counseling and care coordination. Time of note may not reflect time patient was seen Subjective Date patient seen: Dec 17, 2018 Constitutional: Denies: chills, diaphoresis, fever, malaise, weakness, other HEENT: Denies: eye pain, blurred vision, tearing, double vision, ear pain, ear discharge, nose pain, nose congestion, throat pain, throat swelling, mouth pain , mouth swelling, other Cardiovascular: Denies: chest pain, edema, irregular heart rate, lightheadedness, palpitations, syncope, other Respiratory: Denies: cough, orthopnea, shortness of breath, SOB with excertion , SOB at rest, sputum, stridor, wheezing, other Gastrointestinal/Abdominal: Denies: abdomen distended, abdominal pain, black stools, tarry stools, blood in stool, constipated, diarrhea, difficulty swallowing, nausea, poor appetite, poor fluid intake, rectal bleeding, vomiting , other Genitourinary: Denies: burning, discharge, frequency, flank pain, hematuria, incontinence, pain, urgency, other Neurologic/Psychiatric: Denies: anxiety, depressed, emotional problems, headache, numbness, paresthesia, pre-existing deficit, seizure, tingling, tremors, weakness, other Endocrine: Denies: excessive sweating, flushing, intolerance to cold, intolerance to heat, increased hunger, increased thirst, increased urine, unexplained weight gain, unexplained weight loss, other Hematologic/Lymphatic: Denies: anemia, easy bleeding, easy bruising, other Allergies: Coded Allergies: No Known Allergies (Unverified , 08/14/15) Subjective No acute events overnight per nursing. Titrated down to 2L today. SOB improved. Denies cough, cold, fever, chills. No chest pain. Urinary retention: x1, bladder scan 600cc, straight cath prodcued 600 cc. No history of BPH. new issue. Patient with some suprapubic discomfort. No fevers, chills, nausea, vomiting or back pain. Tachycardia: x 2 hours, up to 120-130s. BP stable. Asymptomatic. While patient was in pain with urinary retention. Now resolved. Denies chest pain, palpitations, fever, chills. Objective Last 24 Hour Vital Signs Date Time Temp Pulse Resp B/P (MAP) Pulse Ox O2 Delivery O2 Flow Rate FiO2 12/17/18 08:18 96 156/74 12/17/18 08:00 92 12/17/18 08:00 2.0 12/17/18 08:00 Nasal Cannula 3.0 12/17/18 08:00 98.0 96 21 156/74 (101) 100 12/17/18 04:00 98.1 108 22 155/84 (107) 98 12/17/18 04:00 90 12/17/18 04:00 3.0 12/17/18 04:00 Nasal Cannula 3.0 12/17/18 00:00 101 12/17/18 00:00 Nasal Cannula 3.0 12/17/18 00:00 3.0 12/17/18 00:00 96.4 89 20 145/87 (106) 98 12/16/18 20:00 92 12/16/18 20:00 98.2 104 20 131/86 (101) 99 12/16/18 20:00 3.0 12/16/18 20:00 Nasal Cannula 3.0 12/16/18 19:09 98 Nasal Cannula 3.0 32 12/16/18 19:09 90 20 98 Nasal Cannula 3.0 32 12/16/18 18:00 99 12/16/18 18:00 82 21 142/52 (82) 98 12/16/18 17:44 109 160/81 12/16/18 17:00 82 21 125/52 (76) 98 12/16/18 16:00 Nasal Cannula 3.0 12/16/18 16:00 98.4 100 21 125/52 (76) 100 12/16/18 15:00 99 23 148/67 (94) 100 12/16/18 14:00 93 25 130/72 (91) 100 12/16/18 13:00 93 23 141/61 (87) 99 12/16/18 12:00 80 12/16/18 12:00 Nasal Cannula 3.0 12/16/18 12:00 98.8 86 23 130/64 (86) 100 Intake and Output 12/16/18 12/17/18 19:00 07:00 Intake Total 196.224 ml 200 ml Output Total 250 ml 200 ml Balance -53.776 ml 0 ml Intake Oral 130 ml IV Total 66.224 ml 200 ml Output Urine Total 250 ml 200 ml # Voids 1 2 # Bowel Movements 5 1 Laboratory Tests 12/16/18 14:20: White Blood Count 13.7H, Red Blood Count 3.85L, Hemoglobin 11.2L, Hematocrit 33.8L, Mean Corpuscular Volume 88, Mean Corpuscular Hemoglobin 29.0, Mean Corpuscular Hemoglobin Concent 33.0, Red Cell Distribution Width 12.7, Platelet Count 284, Mean Platelet Volume 7.6, Neutrophils (%) (Auto) 81.0H, Lymphocytes ( %) (Auto) 8.8L, Monocytes (%) (Auto) 9.4, Eosinophils (%) (Auto) 0.3, Basophils (%) (Auto) 0.5, Sodium Level 138, Potassium Level 3.5, Chloride Level 107, Carbon Dioxide Level 20L, Anion Gap 11, Blood Urea Nitrogen 25H, Creatinine 2.0H , Estimat Glomerular Filtration Rate , Glucose Level 260H, Calcium Level 8.3L, Total Bilirubin 0.5, Aspartate Amino Transf (AST/SGOT) 21, Alanine Aminotransferase (ALT/SGPT) 30, Alkaline Phosphatase 86, Total Protein 6.5, Albumin 2.3L, Globulin 4.2, Albumin/Globulin Ratio 0.5L 12/17/18 05:20: White Blood Count 12.4H, Red Blood Count 3.84L, Hemoglobin 11.0L, Hematocrit 33.0L, Mean Corpuscular Volume 86, Mean Corpuscular Hemoglobin 28.7, Mean Corpuscular Hemoglobin Concent 33.3, Red Cell Distribution Width 12.5, Platelet Count 285, Mean Platelet Volume 7.3, Neutrophils (%) (Auto) 78.4H, Lymphocytes ( %) (Auto) 11.6L, Monocytes (%) (Auto) 9.2, Eosinophils (%) (Auto) 0.4, Basophils (%) (Auto) 0.5, Sodium Level 141, Potassium Level 3.2L, Chloride Level 108H, Carbon Dioxide Level 22, Anion Gap 11, Blood Urea Nitrogen 23H, Creatinine 1.8H, Estimat Glomerular Filtration Rate , Glucose Level 144#H, Calcium Level 8.5, Hemoglobin A1c 8.4H, Random Vancomycin Level 11.7 12/17/18 09:50: Urine Color Pale yellow, Urine Appearance Clear, Urine pH 5, Urine Specific [place] 1.010, Urine Protein 1+H, Urine Glucose (UA) Negative, Urine Ketones Negative, Urine Blood 3+H, Urine Nitrite Negative, Urine Bilirubin Negative, Urine Urobilinogen Normal, Urine Leukocyte Esterase Negative, Urine RBC 20-30H, Urine WBC 0, Urine Squamous Epithelial Cells None, Urine Bacteria Occasional Height (Feet): 5 Height (Inches): 6.00 Weight (Pounds): 181 General Appearance: WD/WN, no apparent distress, alert EENT: PERRL/EOMI, normal ENT inspection Neck: non-tender, normal alignment, supple Cardiovascular: normal peripheral pulses, normal rate, JVD, other - irregular irregular, no murmurs, rubs or gallops Respiratory/Chest: chest wall non-tender - bibasilar crackles Abdomen: normal bowel sounds, non tender, soft Extremities: normal range of motion, non-tender Edema: other - 2+ pitting edema bilaterally, much improved. 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 Dec 17, 2018 11:37
[2018-12-17 12:00] VITALS: BP 149/75
[2018-12-17] MEDS ORDERED: Tubing IV Secondary IV ONE (12:10)
[2018-12-17] MEDS ORDERED: NS 275ml ONE (12:10)
--- NOTE | 2018-12-17 14:28 | Infectious Diseases Prog Note ---
Assessment/Plan Assessment/Plan ASSESSMENT AND PLAN: 1. sepsis, ? pna, chf, leukocytosis,k elevated lactic acid - vancomycin, cefepime and flagyl - day # 3 abx - f/u chest x-ray better - monitor labs - clinically improved, leukocytosis 2. Acute kidney injury. 3. Anemia. 4. Diabetes. 5. Hypertension. 6. Blood sugar and blood pressure treatment for diabetes and hypertension per primary. 7. History of peripheral vascular disease. 8. 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 9. Possible hyperlipidemia. 10. CHF. 11. PAD. 12. History of stent. 13. CAD. 14. Hypoxia. 15. Continue treatment per primary consultants. 16. No known allergies. 17. Social history is positive for smoking in the past, but quit. 18. Family history is positive for diabetes. 19. MAR was noted. 20. Case discussed with RN. 21. Skin care protocol. 22. ICU care. Subjective Constitutional: Denies: fever HEENT: Denies: congestion Respiratory: Denies: shortness of breath Cardiovascular: Denies: chest pain Gastrointestinal/Abdominal: Denies: nausea, vomiting, diarrhea Genitourinary: Reports: other - + davila Neurologic: Denies: headache Psychiatric: Denies: depression Skin: Denies: rash Hematologic: Denies: bleeding Musculoskeletal: Denies: pain Allergies: Coded Allergies: No Known Allergies (Unverified , 08/14/15) Objective Vital Signs Last 24 Hour Vital Signs Date Time Temp Pulse Resp B/P (MAP) Pulse Ox O2 Delivery O2 Flow Rate FiO2 12/17/18 12:00 98.3 96 21 149/75 (99) 100 12/17/18 12:00 97 12/17/18 12:00 2.0 12/17/18 12:00 Nasal Cannula 3.0 12/17/18 08:18 96 156/74 12/17/18 08:00 92 12/17/18 08:00 2.0 12/17/18 08:00 Nasal Cannula 3.0 12/17/18 08:00 98.0 96 21 156/74 (101) 100 12/17/18 04:00 98.1 108 22 155/84 (107) 98 12/17/18 04:00 90 12/17/18 04:00 3.0 12/17/18 04:00 Nasal Cannula 3.0 10/6/19 00:00 101 12/17/18 00:00 Nasal Cannula 3.0 12/17/18 00:00 3.0 12/17/18 00:00 96.4 89 20 145/87 (106) 98 12/16/18 20:00 92 12/16/18 20:00 98.2 104 20 131/86 (101) 99 12/16/18 20:00 3.0 12/16/18 20:00 Nasal Cannula 3.0 12/16/18 19:09 98 Nasal Cannula 3.0 32 12/16/18 19:09 90 20 98 Nasal Cannula 3.0 32 12/16/18 18:00 99 12/16/18 18:00 82 21 142/52 (82) 98 12/16/18 17:44 109 160/81 12/16/18 17:00 82 21 125/52 (76) 98 12/16/18 16:00 Nasal Cannula 3.0 12/16/18 16:00 98.4 100 21 125/52 (76) 100 12/16/18 15:00 99 23 148/67 (94) 100 Height (Feet): 5 Height (Inches): 6.00 Weight (Pounds): 181 General Appearance: no acute distress HEENT: normocephalic, atraumatic, anicteric, mucous membranes moist Respiratory/Chest: crackles/rales, rhonchi - bilaterally Cardiovascular: normal rate, regular rhythm, no gallop/murmur, no JVD Abdomen: normal bowel sounds, soft, non tender, no organomegaly, non distended Genitourinary: other - + davila - urine clearer Extremities: no cyanosis Skin: no rash 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 IMPRESSION: Decreased pulmonary edema. Persistent bilateral pleural effusions with associated atelectasis versus pneumonia. Probable mild pulmonary vasculature congestion. Microbiology Date/Time Source Procedure Growth Status 12/15/18 11:10 Blood Blood Culture - Preliminary NO GROWTH AFTER 24 HOURS Resulted 12/15/18 11:00 Blood Blood Culture - Preliminary NO GROWTH AFTER 24 HOURS Resulted 12/15/18 00:25 Blood Blood Culture - Preliminary NO GROWTH AFTER 48 HOURS Resulted 12/15/18 00:10 Blood Blood Culture - Preliminary Gram Positive [place] Resulted 12/15/18 04:15 Nasal Nares MRSA Culture - Final NO METHICILLIN RESISTANT STAPH AUREUS... Complete 12/15/18 04:15 Rectum - Final NO CARBAPENEM-RESISTANT ENTEROBACTERI... Complete 12/15/18 04:15 Rectum VRE Culture - Final Enterococcus Faecium - Vre Complete Laboratory Tests Test 12/16/18 14:20 12/17/18 05:20 12/17/18 09:50 White Blood Count 13.7 K/UL (4.8-10.8) H 12.4 K/UL (4.8-10.8) H Red Blood Count 3.85 M/UL (4.70-6.10) L 3.84 M/UL (4.70-6.10) L Hemoglobin 11.2 G/DL (14.2-18.0) L 11.0 G/DL (14.2-18.0) L Hematocrit 33.8 % (42.0-52.0) L 33.0 % (42.0-52.0) L Mean Corpuscular Volume 88 FL (80-99) 86 FL (80-99) Mean Corpuscular Hemoglobin 29.0 PG (27.0-31.0) 28.7 PG (27.0-31.0) Mean Corpuscular Hemoglobin Concent 33.0 G/DL (32.0-36.0) 33.3 G/DL (32.0-36.0) Red Cell Distribution Width 12.7 % (11.6-14.8) 12.5 % (11.6-14.8) Platelet Count 284 K/UL (150-450) 285 K/UL (150-450) Mean Platelet Volume 7.6 FL (6.5-10.1) 7.3 FL (6.5-10.1) Neutrophils (%) (Auto) 81.0 % (45.0-75.0) H 78.4 % (45.0-75.0) H Lymphocytes (%) (Auto) 8.8 % (20.0-45.0) L 11.6 % (20.0-45.0) L Monocytes (%) (Auto) 9.4 % (1.0-10.0) 9.2 % (1.0-10.0) Eosinophils (%) (Auto) 0.3 % (0.0-3.0) 0.4 % (0.0-3.0) Basophils (%) (Auto) 0.5 % (0.0-2.0) 0.5 % (0.0-2.0) Sodium Level 138 MMOL/L (136-145) 141 MMOL/L (136-145) Potassium Level 3.5 MMOL/L (3.5-5.1) 3.2 MMOL/L (3.5-5.1) L Chloride Level 107 MMOL/L (98-107) 108 MMOL/L (98-107) H Carbon Dioxide Level 20 MMOL/L (21-32) L 22 MMOL/L (21-32) Anion Gap 11 mmol/L (5-15) 11 mmol/L (5-15) Blood Urea Nitrogen 25 mg/dL (7-18) H 23 mg/dL (7-18) H Creatinine 2.0 MG/DL (0.55-1.30) H 1.8 MG/DL (0.55-1.30) H Estimat Glomerular Filtration Rate mL/min (>60) mL/min (>60) Glucose Level 260 MG/DL (74-106) H 144 MG/DL (74-106) #H Calcium Level 8.3 MG/DL (8.5-10.1) L 8.5 MG/DL (8.5-10.1) Total Bilirubin 0.5 MG/DL (0.2-1.0) Aspartate Amino Transf (AST/SGOT) 21 U/L (15-37) Alanine Aminotransferase (ALT/SGPT) 30 U/L (12-78) Alkaline Phosphatase 86 U/L (46-116) Total Protein 6.5 G/DL (6.4-8.2) Albumin 2.3 G/DL (3.4-5.0) L Globulin 4.2 g/dL Albumin/Globulin Ratio 0.5 (1.0-2.7) L Hemoglobin A1c 8.4 % (4.3-6.0) H Random Vancomycin Level 11.7 ug/mL Urine Color Pale yellow Urine Appearance Clear Urine pH 5 (4.5-8.0) Urine Specific [place] 1.010 (1.005-1.035) Urine Protein 1+ (NEGATIVE) H Urine Glucose (UA) Negative (NEGATIVE) Urine Ketones Negative (NEGATIVE) Urine Blood 3+ (NEGATIVE) H Urine Nitrite Negative (NEGATIVE) Urine Bilirubin Negative (NEGATIVE) Urine Urobilinogen Normal MG/DL (0.0-1.0) Urine Leukocyte Esterase Negative (NEGATIVE) Urine RBC 20-30 /HPF (0 - 0) H Urine WBC 0 /HPF (0 - 0) Urine Squamous Epithelial Cells None /LPF (NONE/OCC) Urine Bacteria Occasional /HPF (NONE) Current Medications Medications (Trade) Dose Ordered Sig/Sathish Route PRN Reason Start Time Stop Time Status Last Admin Dose Admin Acetaminophen (Tylenol) 500 mg Q6H PRN ORAL Moderate Pain (Pain Scale 4-6) 12/17/18 10:15 01/16/19 10:14 Apixaban (Eliquis) 2.5 mg BID ORAL 12/17/18 09:00 01/15/19 17:59 12/17/18 08:18 Aspirin (ASA) 81 mg DAILY ORAL 12/17/18 09:00 01/14/19 11:14 12/17/18 08:17 Atorvastatin Calcium (Lipitor) 20 mg BEDTIME ORAL 12/16/18 21:00 01/14/19 20:59 12/16/18 20:21 Cefepime HCl 2 gm/ Dextrose 55 ml @ 110 mls/hr Q24H IVPB 12/17/18 09:00 12/23/18 08:59 12/17/18 08:19 Clopidogrel Bisulfate (Plavix) 75 mg DAILY ORAL 12/17/18 09:00 01/14/19 11:14 12/17/18 08:18 Dextrose (Dextrose 50%) 25 ml Q30M PRN IV Hypoglycemia 12/16/18 19:15 01/14/19 11:14 Dextrose (Dextrose 50%) 50 ml Q30M PRN IV Hypoglycemia 12/16/18 19:15 01/14/19 11:14 Famotidine (Pepcid I.v.) 20 mg Q12HR IVP 12/16/18 21:00 01/14/19 20:59 12/17/18 08:17 Furosemide (Lasix) 40 mg EVERY 12 HOURS IV 12/16/18 21:00 01/14/19 08:59 12/17/18 08:17 Insulin Aspart (NovoLOG) Q6HR SUBQ 12/17/18 00:00 01/14/19 11:59 12/17/18 12:11 Insulin Detemir (Levemir) 15 units BEDTIME SUBQ 12/16/18 21:00 01/14/19 20:59 12/16/18 21:30 Insulin Detemir (Levemir) 25 units DAILY SUBQ 12/17/18 09:00 01/14/19 11:14 12/17/18 08:22 Metoprolol Tartrate (Lopressor) 50 mg TWICE A DAY ORAL 12/17/18 09:00 01/14/19 17:59 12/17/18 08:18 Metronidazole 100 ml @ 100 mls/hr Q8HR IVPB 12/16/18 22:00 12/22/18 19:59 12/17/18 13:13 Tramadol HCl (Ultram) 50 mg Q6H PRN ORAL Severe Pain (Pain Scale 7-10) 12/17/18 10:15 12/24/18 10:14 12/17/18 13:11 Vancomycin HCl (Vanco rx to dose) 1 ea DAILY PRN MISC Per rx protocol 12/17/18 09:00 01/14/19 07:59 Joe Velasquez MD Dec 17, 2018 14:28
[2018-12-17 16:00] VITALS: BP 144/71
--- NOTE | 2018-12-17 16:00 | NUR ---
NURSE NOTES: Called and informed Dr. Nguyen that per post void residual taken at 1600 revealed 906 ml on bladder scan, pt c/o pain upon urination, and noted hematuria. Dr. Nguyen acknowledged and ordered insert davila catheter for acute urinary retention, flush davila with saline Q4HR until clear for hematuria, and Tamsulosin 0.4 mg PO QHS. Orders entered, noted, and carried out. Will continue to monitor patient. Addendum: 12/17/18 at 1837 by MALVIN ALVAREZ RN NURSE NOTES: Called and informed Dr. Nguyen that per post void residual taken at 1600 revealed 906 ml on bladder scan, pt c/o pain upon urination, and noted hematuria. Dr. Nguyen acknowledged and ordered insert davila catheter for acute urinary retention, flush davila with saline Q4HR PRN until clear for hematuria, and Tamsulosin 0.4 mg PO QHS. Orders entered, noted, and carried out. Will continue to monitor patient.
--- NOTE | 2018-12-17 17:12 | Cardiology Progress Note ---
Assessment/Plan Status: stable Assessment/Plan Assessment/Plan Acute kidney injury. Anemia. Diabetes. Hypertension. 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 hyperlipidemia. systolic CHF. CAD sp PCI Recommendations TTE reviewed, LVEF 30-35% Continue with diuresis - transition to PO LUPIS/Cardioversion if unstable Afterload reduction as BP tolerates D/c cardizem given low EF Continue rate control with metoprolol Caution with digoxin and renal function Continue DAPT Continue statin Continue metoprolol Continue eliquis renally dosed Dr. Richter to return Tuesday -Critical care 35 minutes Subjective Cardiovascular: Reports: no symptoms Respiratory: Reports: no symptoms Gastrointestinal/Abdominal: Reports: no symptoms Genitourinary: Reports: no symptoms Subjective COVERAGE FOR AMARJIT: Troponin down trending vitals stable Echo LVEF 30-35 percent, grade 2 diastolic dysfunction, mild pulmonary hypertension Transferred to telemetry, no chest pain, heparin stopped, eliquis started Objective Last 24 Hour Vital Signs Date Time Temp Pulse Resp B/P (MAP) Pulse Ox O2 Delivery O2 Flow Rate FiO2 12/17/18 16:00 2.0 12/17/18 16:00 Nasal Cannula 3.0 12/17/18 12:00 98.3 96 21 149/75 (99) 100 12/17/18 12:00 97 12/17/18 12:00 2.0 12/17/18 12:00 Nasal Cannula 3.0 12/17/18 08:18 96 156/74 12/17/18 08:00 92 12/17/18 08:00 2.0 12/17/18 08:00 Nasal Cannula 3.0 12/17/18 08:00 98.0 96 21 156/74 (101) 100 12/17/18 04:00 98.1 108 22 155/84 (107) 98 12/17/18 04:00 90 12/17/18 04:00 3.0 12/17/18 04:00 Nasal Cannula 3.0 12/17/18 00:00 101 12/17/18 00:00 Nasal Cannula 3.0 12/17/18 00:00 3.0 12/17/18 00:00 96.4 89 20 145/87 (106) 98 12/16/18 20:00 92 12/16/18 20:00 98.2 104 20 131/86 (101) 99 12/16/18 20:00 3.0 12/16/18 20:00 Nasal Cannula 3.0 12/16/18 19:09 98 Nasal Cannula 3.0 32 12/16/18 19:09 90 20 98 Nasal Cannula 3.0 32 12/16/18 18:00 99 12/16/18 18:00 82 21 142/52 (82) 98 12/16/18 17:44 109 160/81 General Appearance: no apparent distress, alert EENT: PERRL/EOMI, normal ENT inspection, TMs normal, pharynx normal Neck: non-tender, normal alignment, supple, normal inspection, no JVD Rhythm: Afib Cardiovascular: normal peripheral pulses, regularly irregular Respiratory/Chest: chest wall non-tender, lungs clear, normal breath sounds, no respiratory distress, no accessory muscle use Abdomen: normal bowel sounds, non tender, soft Extremities: normal range of motion, non-tender, normal inspection, no calf tenderness, no swelling Neurologic: color artist II-XII grossly normal, no motor/sensory deficits Intake and Output 12/16/18 12/17/18 19:00 07:00 Intake Total 196.224 ml 200 ml Output Total 250 ml 200 ml Balance -53.776 ml 0 ml Intake Oral 130 ml IV Total 66.224 ml 200 ml Output Urine Total 250 ml 200 ml # Voids 1 2 # Bowel Movements 5 1 Laboratory Tests Test 12/17/18 05:20 12/17/18 09:50 White Blood Count 12.4 K/UL (4.8-10.8) H Red Blood Count 3.84 M/UL (4.70-6.10) L Hemoglobin 11.0 G/DL (14.2-18.0) L Hematocrit 33.0 % (42.0-52.0) L Mean Corpuscular Volume 86 FL (80-99) Mean Corpuscular Hemoglobin 28.7 PG (27.0-31.0) Mean Corpuscular Hemoglobin Concent 33.3 G/DL (32.0-36.0) Red Cell Distribution Width 12.5 % (11.6-14.8) Platelet Count 285 K/UL (150-450) Mean Platelet Volume 7.3 FL (6.5-10.1) Neutrophils (%) (Auto) 78.4 % (45.0-75.0) H Lymphocytes (%) (Auto) 11.6 % (20.0-45.0) L Monocytes (%) (Auto) 9.2 % (1.0-10.0) Eosinophils (%) (Auto) 0.4 % (0.0-3.0) Basophils (%) (Auto) 0.5 % (0.0-2.0) Sodium Level 141 MMOL/L (136-145) Potassium Level 3.2 MMOL/L (3.5-5.1) L Chloride Level 108 MMOL/L (98-107) H Carbon Dioxide Level 22 MMOL/L (21-32) Anion Gap 11 mmol/L (5-15) Blood Urea Nitrogen 23 mg/dL (7-18) H Creatinine 1.8 MG/DL (0.55-1.30) H Estimat Glomerular Filtration Rate mL/min (>60) Glucose Level 144 MG/DL (74-106) #H Hemoglobin A1c 8.4 % (4.3-6.0) H Calcium Level 8.5 MG/DL (8.5-10.1) Random Vancomycin Level 11.7 ug/mL Urine Color Pale yellow Urine Appearance Clear Urine pH 5 (4.5-8.0) Urine Specific [place] 1.010 (1.005-1.035) Urine Protein 1+ (NEGATIVE) H Urine Glucose (UA) Negative (NEGATIVE) Urine Ketones Negative (NEGATIVE) Urine Blood 3+ (NEGATIVE) H Urine Nitrite Negative (NEGATIVE) Urine Bilirubin Negative (NEGATIVE) Urine Urobilinogen Normal MG/DL (0.0-1.0) Urine Leukocyte Esterase Negative (NEGATIVE) Urine RBC 20-30 /HPF (0 - 0) H Urine WBC 0 /HPF (0 - 0) Urine Squamous Epithelial Cells None /LPF (NONE/OCC) Urine Bacteria Occasional /HPF (NONE) Microbiology Date/Time Source Procedure Growth Status 12/15/18 11:10 Blood Blood Culture - Preliminary NO GROWTH AFTER 24 HOURS Resulted 12/15/18 11:00 Blood Blood Culture - Preliminary NO GROWTH AFTER 24 HOURS Resulted 12/15/18 00:25 Blood Blood Culture - Preliminary NO GROWTH AFTER 48 HOURS Resulted 12/15/18 00:10 Blood Blood Culture - Preliminary Gram Positive [place] Resulted 12/15/18 04:15 Nasal Nares MRSA Culture - Final NO METHICILLIN RESISTANT STAPH AUREUS... Complete 12/15/18 04:15 Rectum - Final NO CARBAPENEM-RESISTANT ENTEROBACTERI... Complete 12/15/18 04:15 Rectum VRE Culture - Final Enterococcus Faecium - Vre Complete Cm Simpson MD Dec 17, 2018 17:12
--- NOTE | 2018-12-17 19:29 | NUR ---
HAND-OFF: Report given to KRISTIAN Ruiz.
--- NOTE | 2018-12-17 19:45 | NUR ---
NURSE NOTES: Received report from Ninfa Willis RN. Pt is in stable, alert, oriented to name and place, Swedish speaking. Pt denies pain, no signs or symptoms of distress noted at this time. Left antecubital 20 gauge PIV and left wrist 20 gauge PIV saline lock, flushed with NS, patent, no issues. Pt is currently on room air sating at 97%. Pt is currently sinus rhythm with heart rate of 91 bpm. Pt with davila catheter draining clear yellow urine. Bed in low and locked position, bed alarm is engaged, call light within reach. Pt educated to use call light when in need of assistance, verbalized understanding. Will continue to monitor closely.
[2018-12-17 20:00] VITALS: BP_SYST 142; BP_SYST 143; BP_DIAS 62; BP_DIAS 76
[2018-12-17] MEDS ORDERED: Tamsulosin 0.4mg cap ORAL SCH (21:00)
[2018-12-17] MEDS: Atorvastatin 20mg tab ORAL SCH (21:11)
[2018-12-18] VITALS (7 sets, daily range): BP systolic 119–153; BP diastolic 60–88
[2018-12-18] MEDS: NovoLOG Insulin Flexpen SUBQ SCH ×5 (00:25→23:30)
[2018-12-18 05:06] LABS: BASOPHILS % (AUTO) 0.9 % (0.0-2.0); EOSINOPHILS % (AUTO) 2.4 % (0.0-3.0); HEMATOCRIT 31.1 % (42.0-52.0); HEMOGLOBIN 10.5 G/DL (14.2-18.0); LYMPHOCYTES % (AUTO) 22.9 % (20.0-45.0); MEAN CORPUSCULAR VOLUME 86 FL (80-99); MONOCYTES % (AUTO) 11.1 % (1.0-10.0); NEUTROPHILS % (AUTO) 62.7 % (45.0-75.0); PLATELET COUNT 271 K/UL (150-450); RED BLOOD COUNT 3.63 M/UL (4.70-6.10); RED CELL DISTRIBUTION WIDTH 12.4 % (11.6-14.8); WHITE BLOOD COUNT 10.9 K/UL (4.8-10.8)
[2018-12-18 05:42] LABS: ANION GAP 10 mmol/L (5-15); BLOOD UREA NITROGEN 20 mg/dL (7-18); CALCIUM 8.3 MG/DL (8.5-10.1); CARBON DIOXIDE 23 MMOL/L (21-32); CHLORIDE 109 MMOL/L (98-107); CREATININE 1.9 MG/DL (0.55-1.30); PHOSPHORUS 3.2 MG/DL (2.5-4.9); POTASSIUM 3.1 MMOL/L (3.5-5.1); SODIUM 142 MMOL/L (136-145)
--- NOTE | 2018-12-18 06:45 | NUR ---
NURSE NOTES: Potassium 3.1, mag 1.6. Dr. Porras made aware and new order for potassium 20mEq PO once.
--- NOTE | 2018-12-18 07:53 | NUR ---
HAND-OFF: Report given to Janeth Puri RN. Pt is stable, SR, denies pain, no signs or symptoms of distress at this time. Pt sating at 97% on room air. Pt is alert and oriented times 3.
--- NOTE | 2018-12-18 08:30 | NUR ---
NURSE NOTES: received pt in the bed, awake, alert, oriented, vital signs stable, no co pain, no SOB, skin warm and dry to touch, intact, tolerate diet well, pt on RA, [place] catheter, bed in low position, call light within reach, pt had episode of HR up to 160, no chest pain, dr. Richter aware.
[2018-12-18] MEDS: Metoprolol Tartrate 50mg tab ORAL SCH (08:50)
[2018-12-18] MEDS: Aspirin Baby 81mg ORAL SCH (08:50)
[2018-12-18] MEDS: Cefepime HCl 2 GM in D5W 55 ML IVPB SCH (08:51)
[2018-12-18] MEDS: Eliquis 2.5mg tablet ORAL SCH ×2 (08:51→17:15)
--- NOTE | 2018-12-18 10:40 | NUR ---
PT EVALUATION NOTE Patient seen for initial evaluation, see complete evaluation for details. Patient presents with generalized weakness and impaired balance which affects patient's ability to perform mobility tasks. Patient requires min assist for bed mobility and CGA for transfers with FWW. Patient required verbal cueing to maintain WB precautions LLE. Patient able to ambulate 15 ft with FWW with PWB LLE, limited by dizziness. Patient will benefit from skilled inpatient PT intervention to address strength, balance and safety for improved level of functional mobility. Recommend discharge home with home PT vs short term SNF for rehab once medically cleared by MD. Patient appears to have necessary DME at home. Addendum: 12/18/18 at 1321 by RALPH COTO PT Amended: Links added.
--- NOTE | 2018-12-18 11:04 | NUR ---
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 98.3 WBC. 10.9, BUN. 20, CR 1.9 IS LASIX IV Q12H CEFEPIME Q24H SDU STATUS
--- NOTE | 2018-12-18 11:26 | Cardiac Electrophysiology PN ---
Assessment/Plan Assessment/Plan 1. CHF exacerbation. Echocardiogram showed EF 30-35%. Continue Lasix 40 iv bid, Add Hydralazine 10 bid and Imdur 30 daily and Aldactone 25 daily. Likely needs cardiac cath after stabilization of atrial fib. Will get prior Echo. If EF less than 35% for 3 months will need ICD implant 2. Atrial fib with RVR 160s. In and out. Add Amiodarone 400 bid and Dig 0.125 daily.Change Lopressor to Coreg 25 bid. On Eliquis 3. Uncontrolled diabetes, on insulin. 4. Severe peripheral vascular disease, status post left second toe gangrene amputation for osteomyelitis followed by Podiatry and Vascular Surgery.On Aspirin and Plavix DW RN and Dr Alvarado Subjective Subjective In and out of atrial fib with RVR 160s. No CP. EF 30-35% Objective Last 24 Hour Vital Signs Date Time Temp Pulse Resp B/P (MAP) Pulse Ox O2 Delivery O2 Flow Rate FiO2 12/18/18 08:50 98 133/70 12/18/18 08:00 Room Air 12/18/18 08:00 98.1 98 20 133/70 (91) 98 12/18/18 08:00 108 12/18/18 04:00 Room Air 12/18/18 04:00 98.3 99 18 135/60 (85) 97 12/18/18 04:00 97 12/18/18 00:00 Room Air 12/18/18 00:00 98.1 96 20 119/70 (86) 96 12/17/18 20:00 Room Air 12/17/18 20:00 98.1 89 16 142/76 (98) 98 12/17/18 20:00 86 12/17/18 20:00 95 20 99 Nasal Cannula 3.0 32 12/17/18 20:00 99 Nasal Cannula 3.0 32 12/17/18 17:14 94 144/71 12/17/18 16:00 95 12/17/18 16:00 2.0 12/17/18 16:00 98.3 94 21 144/71 (95) 99 12/17/18 16:00 Nasal Cannula 3.0 12/17/18 12:00 98.3 96 21 149/75 (99) 100 12/17/18 12:00 97 12/17/18 12:00 2.0 12/17/18 12:00 Nasal Cannula 3.0 Intake and Output 12/17/18 12/18/18 19:00 07:00 Intake Total 100 ml Output Total 1550 ml 2000 ml Balance -1550 ml -1900 ml Intake Oral 100 ml Output Urine Total 1550 ml 2000 ml # Voids 1 # Bowel Movements 2 Laboratory Tests Test 12/18/18 03:57 White Blood Count 10.9 K/UL (4.8-10.8) H Red Blood Count 3.63 M/UL (4.70-6.10) L Hemoglobin 10.5 G/DL (14.2-18.0) L Hematocrit 31.1 % (42.0-52.0) L Mean Corpuscular Volume 86 FL (80-99) Mean Corpuscular Hemoglobin 28.9 PG (27.0-31.0) Mean Corpuscular Hemoglobin Concent 33.7 G/DL (32.0-36.0) Red Cell Distribution Width 12.4 % (11.6-14.8) Platelet Count 271 K/UL (150-450) Mean Platelet Volume 7.1 FL (6.5-10.1) Neutrophils (%) (Auto) 62.7 % (45.0-75.0) Lymphocytes (%) (Auto) 22.9 % (20.0-45.0) Monocytes (%) (Auto) 11.1 % (1.0-10.0) H Eosinophils (%) (Auto) 2.4 % (0.0-3.0) Basophils (%) (Auto) 0.9 % (0.0-2.0) Sodium Level 142 MMOL/L (136-145) Potassium Level 3.1 MMOL/L (3.5-5.1) L Chloride Level 109 MMOL/L (98-107) H Carbon Dioxide Level 23 MMOL/L (21-32) Anion Gap 10 mmol/L (5-15) Blood Urea Nitrogen 20 mg/dL (7-18) H Creatinine 1.9 MG/DL (0.55-1.30) H Estimat Glomerular Filtration Rate mL/min (>60) Glucose Level 68 MG/DL (74-106) L Calcium Level 8.3 MG/DL (8.5-10.1) L Phosphorus Level 3.2 MG/DL (2.5-4.9) Magnesium Level 1.6 MG/DL (1.8-2.4) L Microbiology Date/Time Source Procedure Growth Status 12/16/18 14:35 Blood Blood Culture - Preliminary NO GROWTH AFTER 24 HOURS Resulted 12/16/18 14:20 Blood Blood Culture - Preliminary NO GROWTH AFTER 24 HOURS Resulted 12/17/18 09:50 Straight Cath Urine Culture - Preliminary NO GROWTH Resulted Objective HEAD AND NECK: Positive JVD. LUNGS: Decreased breath sounds and bibasilar rales. CARDIOVASCULAR: Tachycardic, S1 and S2 with no gallop. ABDOMEN: Soft. EXTREMITIES: 1+ pitting edema. José Miguel Richter MD Dec 18, 2018 11:26
--- NOTE | 2018-12-18 11:49 | NUR ---
*-* INSURANCE *-* ALL CLINICALS AND REVIEWS HAVE BEEN FAXED TO: [facility] TRK# [id number] F: [phone] MANAGER OF INTERNAL: PHYLLIS SAENZ P: [phone] & [employer] NCM: TEETEE P: [phone] F: [phone]
--- NOTE | 2018-12-18 12:13 | Pulmonology Progress Note ---
Assessment/Plan Problems: (1) Atrial fibrillation with rapid ventricular response (2) Acute exacerbation of CHF (congestive heart failure) (3) Acute kidney injury superimposed on CKD (4) Gram positive bacterial infection (5) DM (diabetes mellitus) (6) HTN (hypertension) (7) Hypoxemia Assessment/Plan Optimize pulmonary hygiene/mobilize as tolerated Titrate down FiO2 to keep SaO2 > 90% Continue Cefepime/Vanco/Flagyl (D4) per ID F/U labs sent to CS: PCt and VRPM F/U CARDS/EPS recs ---> PO MTP, Eliquis, diuresis Monitor volumes and renal function, diuresis as able Glycemic control Aspiration precautions DVT Px: Eliquis FC Subjective Allergies: Coded Allergies: No Known Allergies (Unverified , 08/14/15) Subjective In out of AFcRVR On RA no cough + SOB no CP no FC Objective Last 24 Hour Vital Signs Date Time Temp Pulse Resp B/P (MAP) Pulse Ox O2 Delivery O2 Flow Rate FiO2 12/18/18 08:50 98 133/70 12/18/18 08:00 Room Air 12/18/18 08:00 98.1 98 20 133/70 (91) 98 12/18/18 08:00 108 12/18/18 04:00 Room Air 12/18/18 04:00 98.3 99 18 135/60 (85) 97 12/18/18 04:00 97 12/18/18 00:00 Room Air 12/18/18 00:00 98.1 96 20 119/70 (86) 96 12/17/18 20:00 Room Air 12/17/18 20:00 98.1 89 16 142/76 (98) 98 12/17/18 20:00 86 12/17/18 20:00 95 20 99 Nasal Cannula 3.0 32 12/17/18 20:00 99 Nasal Cannula 3.0 32 12/17/18 17:14 94 144/71 12/17/18 16:00 95 12/17/18 16:00 2.0 12/17/18 16:00 98.3 94 21 144/71 (95) 99 12/17/18 16:00 Nasal Cannula 3.0 Intake and Output 12/17/18 12/18/18 19:00 07:00 Intake Total 100 ml Output Total 1550 ml 2000 ml Balance -1550 ml -1900 ml Intake Oral 100 ml Output Urine Total 1550 ml 2000 ml # Voids 1 # Bowel Movements 2 General Appearance: WD/WN, no acute distress HEENT: normocephalic, atraumatic, anicteric, mucous membranes moist Respiratory/Chest: chest wall non-tender, lungs clear, normal breath sounds, no respiratory distress, no accessory muscle use Cardiovascular: irregularly irregular Abdomen: normal bowel sounds, soft, non tender, no organomegaly, non distended , no mass Extremities: no cyanosis, no clubbing, other - trace edema Microbiology Date/Time Source Procedure Growth Status 12/16/18 14:35 Blood Blood Culture - Preliminary NO GROWTH AFTER 24 HOURS Resulted 12/16/18 14:20 Blood Blood Culture - Preliminary NO GROWTH AFTER 24 HOURS Resulted 12/17/18 09:50 Straight Cath Urine Culture - Preliminary NO GROWTH Resulted Laboratory Tests 12/18/18 03:57: White Blood Count 10.9H, Red Blood Count 3.63L, Hemoglobin 10.5L, Hematocrit 31.1L, Mean Corpuscular Volume 86, Mean Corpuscular Hemoglobin 28.9, Mean Corpuscular Hemoglobin Concent 33.7, Red Cell Distribution Width 12.4, Platelet Count 271, Mean Platelet Volume 7.1, Neutrophils (%) (Auto) 62.7, Lymphocytes (% ) (Auto) 22.9, Monocytes (%) (Auto) 11.1H, Eosinophils (%) (Auto) 2.4, Basophils (%) (Auto) 0.9, Sodium Level 142, Potassium Level 3.1L, Chloride Level 109H, Carbon Dioxide Level 23, Anion Gap 10, Blood Urea Nitrogen 20H, Creatinine 1.9H, Estimat Glomerular Filtration Rate , Glucose Level 68L, Calcium Level 8.3L, Phosphorus Level 3.2, Magnesium Level 1.6L Current Medications Medications (Trade) Dose Ordered Sig/Sathish Route PRN Reason Start Time Stop Time Status Last Admin Dose Admin Acetaminophen (Tylenol) 500 mg Q6H PRN ORAL Moderate Pain (Pain Scale 4-6) 12/17/18 10:15 01/16/19 10:14 12/17/18 21:46 Amiodarone HCl (Cordarone) 400 mg EVERY 12 HOURS ORAL 12/18/18 21:00 01/17/19 20:59 Apixaban (Eliquis) 2.5 mg BID ORAL 10/6/19 09:00 01/15/19 17:59 12/18/18 08:51 Aspirin (ASA) 81 mg DAILY ORAL 12/17/18 09:00 01/14/19 11:14 12/18/18 08:50 Atorvastatin Calcium (Lipitor) 20 mg BEDTIME ORAL 12/16/18 21:00 01/14/19 20:59 12/17/18 21:11 Carvedilol (Coreg) 25 mg EVERY 12 HOURS ORAL 12/18/18 21:00 01/17/19 20:59 Cefepime HCl 2 gm/ Dextrose 55 ml @ 110 mls/hr Q24H IVPB 12/17/18 09:00 12/23/18 08:59 12/18/18 08:51 Clopidogrel Bisulfate (Plavix) 75 mg DAILY ORAL 12/17/18 09:00 01/14/19 11:14 12/18/18 08:50 Dextrose (Dextrose 50%) 25 ml Q30M PRN IV Hypoglycemia 12/16/18 19:15 01/14/19 11:14 Dextrose (Dextrose 50%) 50 ml Q30M PRN IV Hypoglycemia 12/16/18 19:15 01/14/19 11:14 Famotidine (Pepcid I.v.) 20 mg Q12HR IVP 12/16/18 21:00 01/14/19 20:59 12/18/18 08:50 Furosemide (Lasix) 40 mg EVERY 12 HOURS IV 12/16/18 21:00 01/14/19 08:59 12/18/18 08:49 Hydralazine HCl (Apresoline) 10 mg BID ORAL 12/18/18 18:00 01/17/19 17:59 Insulin Aspart (NovoLOG) AC+HS SUBQ 12/18/18 11:30 01/14/19 11:59 Insulin Detemir (Levemir) 15 units BEDTIME SUBQ 12/16/18 21:00 01/14/19 20:59 12/17/18 21:26 Insulin Detemir (Levemir) 25 units DAILY SUBQ 12/17/18 09:00 01/14/19 11:14 12/17/18 21:25 Isosorbide Mononitrate (Imdur) 30 mg DAILY ORAL 12/19/18 09:00 01/18/19 08:59 Metronidazole 100 ml @ 100 mls/hr Q8HR IVPB 12/16/18 22:00 12/22/18 19:59 12/18/18 06:22 Tamsulosin HCl (Flomax) 0.4 mg BEDTIME ORAL 12/17/18 21:00 01/16/19 20:59 12/17/18 21:11 Tramadol HCl (Ultram) 50 mg Q6H PRN ORAL Severe Pain (Pain Scale 7-10) 12/17/18 10:15 12/24/18 10:14 12/17/18 13:11 Vancomycin HCl (Vanco rx to dose) 1 ea DAILY PRN MISC Per rx protocol 12/17/18 09:00 01/14/19 07:59 Mich Marie MD Dec 18, 2018 12:13
--- NOTE | 2018-12-18 12:30 | NUR ---
NURSE NOTES: no any distress at this time, no co chest pain, vital signs stable, continue monitoring.
--- NOTE | 2018-12-18 14:24 | General Progress Note ---
Assessment/Plan Problem List: (1) HTN (hypertension) ICD Codes: I10 - Essential (primary) hypertension SNOMED: 06919740 (2) DM (diabetes mellitus) ICD Codes: E11.9 - Type 2 diabetes mellitus without complications SNOMED: 66600290 (3) Acute exacerbation of CHF (congestive heart failure) ICD Codes: I50.9 - Heart failure, unspecified SNOMED: 214891689, 26693954238681 Qualifiers: Qualified Codes: I50.9 - Heart failure, unspecified (4) Atrial fibrillation with rapid ventricular response ICD Codes: I48.91 - Unspecified atrial fibrillation SNOMED: 881520131568052 (5) Hypoxemia ICD Codes: R09.02 - Hypoxemia SNOMED: 607041211 (6) SHAHANA (acute kidney injury) ICD Codes: N17.9 - Acute kidney failure, unspecified SNOMED: 44398772, 4157548 (7) Cellulitis in diabetic foot ICD Codes: E11.628 - Type 2 diabetes mellitus with other skin complications; L03.119 - Cellulitis of unspecified part of limb SNOMED: 486653333, 11061910 (8) Sepsis ICD Codes: A41.9 - Sepsis, unspecified organism SNOMED: 65844947, 64404735 Qualifiers: Qualified Codes: A41.9 - Sepsis, unspecified organism; R65.20 - Severe sepsis without septic shock; J96.01 - Acute respiratory failure with hypoxia Status: stable Assessment/Plan: This is a 73 year old male with a PMHx Dm2, HTN, CHF, PAD s/p left iliac stent placement 01/05/19 and subsequent 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 #acute hypoxic respiratory failure 2/2 systolic CHF exacerbation (new diagnosis) - no known history of CHF. Also treating for possible pneumonia - IMPROVING - telemetry - titrate SpO2 to keep O2 >92% - f/u blood cultures. 1/4 sets gram + inga. Likely contaminant per ID - f/u sputum culture - Vancomycin, Cefepime and Flagyl Day 4 - Continue lasix 40mg IV BID per discussion with cardiology - may change to PO lasix tomorrow - Start afterload reduction with hydralazine 10mg PO TID and Imdur 30mg Po daily per cardiology - JUAN MANUEL-I contraindicated in setting of acute renal failure - Per cardiology given low EF will need ischemia workup. - appreciate Cardiology recommendations: Dr. Simpson/Dr. Richter - Appreciate Infectious Disease recommendations: Dr. Mensah #Atrial fibrillation with RVR, new diagnosis. - IMPROVINg, althought still with episodes of tachycardia CHADS-VASC 5 - risk of stroke 7.2% per year HASBLED - 3 - risk of bleeding 5.8% per year > Explained to patient risks and benefits of anticoagulation with Asa/Plavix and an anticoagulant. Patient understands the risks of stroke are > than risk of bleeding and would like to take the anticoagulant. Will start patient on eliquis renal dosing 2.5mg PO BID - s/p Diltiazem Gtt - Coreg and digoxin for heart rate controlled - appreicate cardiology recommendations #sepsis (WBC, heart rate, respiratory rate) 2/2 pneumonia - IMPROVING #Clostridium perfingens in 1/2 blood culture- likely contaminant per ID > C diff negative > ESR 74, CRP 1.4, unlikely osteomyelitis - cultures as above - Repeat blood cultures: negative so far - antibiotics as above #acute urinary retention, new problem > UA and urine culture negative - Inserted davila on 12/17/09 - Tamsulosin 0.4mg PO daily - Appreciate urology recommendations: Dr. Cheney. - Per urology continue davila on discharge. #Acute on Chronic Renal failure 2/2 CHF exacerbation and urinary obstruction - Stabilizing. Not back to baseline yet > Baseline Cr 1.5 - IV diuresis as above - continue to trend - avoid nephrotoxins - replace lytes - Renal ultrasound today #Hypertension #hyperlipidemia #CAD -hold home amlodipine - continue metoprolol as above - ASA/Plavix as above #hypokalemia #hypomagnesemia - replete - continue to monitor with labs #lactic acidosis suspected 2/2 CHF exacerbation vs. 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 > ESR 73, CRP 1.4 - wound consult - request records from [facility] #Diabetes mellitus type 1 per patient (suspect this is an error and has type 2) with hyperglycemia- improved > Hemoglobin A1C 8.6 on 10/6/10 - accuchecks Q6hr - Diabetic diet - Levemir 25 units QAM and 15 units QPM (home is 25 and 30) - SSI, average FENPPx DVT PPx: eliquis GI PPX: pepcid Fluids: none Diet: Diabetic diet Lines: none PT/OT: pending Dispo: SNF vs. Home. Pending PT evaluation. D/w RN, patient, patient's family, and Cardiology. I spent 38 minutes on this encounter. >50% spent on counseling and care coordination. Time of note may not reflect time patient was seen Subjective Date patient seen: Dec 18, 2018 Constitutional: Denies: chills, diaphoresis, fever, malaise, weakness, other HEENT: Denies: eye pain, blurred vision, tearing, double vision, ear pain, ear discharge, nose pain, nose congestion, throat pain, throat swelling, mouth pain , mouth swelling, other Cardiovascular: Denies: chest pain, edema, irregular heart rate, lightheadedness, palpitations, syncope, other Respiratory: Denies: cough, orthopnea, shortness of breath, SOB with excertion , SOB at rest, sputum, stridor, wheezing, other Gastrointestinal/Abdominal: Denies: abdomen distended, abdominal pain, black stools, tarry stools, blood in stool, constipated, diarrhea, difficulty swallowing, nausea, poor appetite, poor fluid intake, rectal bleeding, vomiting , other Genitourinary: Denies: burning, discharge, frequency, flank pain, hematuria, incontinence, pain, urgency, other Neurologic/Psychiatric: Denies: anxiety, depressed, emotional problems, headache, numbness, paresthesia, pre-existing deficit, seizure, tingling, tremors, weakness, other Endocrine: Denies: excessive sweating, flushing, intolerance to cold, intolerance to heat, increased hunger, increased thirst, increased urine, unexplained weight gain, unexplained weight loss, other Hematologic/Lymphatic: Denies: anemia, easy bleeding, easy bruising, other Allergies: Coded Allergies: No Known Allergies (Unverified , 08/14/15) Subjective No acute events overnight per nursing. Still having episodes of atrial fibrillation up to 160s. Blood pressure stable. Titrated down to room air today. SOB improved. Denies cough, cold, fever, chills. No chest pain. Urinary retention: Davila placed. Urology will see. No history of BPH. new issue. Patient with some suprapubic discomfort. No fevers, chills, nausea, vomiting or back pain. Denies chest pain, palpitations, fever, chills. Objective Last 24 Hour Vital Signs Date Time Temp Pulse Resp B/P (MAP) Pulse Ox O2 Delivery O2 Flow Rate FiO2 12/18/18 12:00 98.1 100 18 145/88 (107) 99 12/18/18 12:00 103 12/18/18 12:00 Room Air 12/18/18 08:50 98 133/70 12/18/18 08:00 Room Air 12/18/18 08:00 98.1 98 20 133/70 (91) 98 12/18/18 08:00 108 12/18/18 04:00 Room Air 12/18/18 04:00 98.3 99 18 135/60 (85) 97 12/18/18 04:00 97 12/18/18 00:00 Room Air 12/18/18 00:00 98.1 96 20 119/70 (86) 96 12/17/18 20:00 Room Air 12/17/18 20:00 98.1 89 16 142/76 (98) 98 12/17/18 20:00 86 12/17/18 20:00 95 20 99 Nasal Cannula 3.0 32 12/17/18 20:00 99 Nasal Cannula 3.0 32 12/17/18 17:14 94 144/71 12/17/18 16:00 95 12/17/18 16:00 2.0 12/17/18 16:00 98.3 94 21 144/71 (95) 99 12/17/18 16:00 Nasal Cannula 3.0 Intake and Output 12/17/18 12/18/18 19:00 07:00 Intake Total 100 ml Output Total 1550 ml 2000 ml Balance -1550 ml -1900 ml Intake Oral 100 ml Output Urine Total 1550 ml 2000 ml # Voids 1 # Bowel Movements 2 Laboratory Tests 12/18/18 03:57: White Blood Count 10.9H, Red Blood Count 3.63L, Hemoglobin 10.5L, Hematocrit 31.1L, Mean Corpuscular Volume 86, Mean Corpuscular Hemoglobin 28.9, Mean Corpuscular Hemoglobin Concent 33.7, Red Cell Distribution Width 12.4, Platelet Count 271, Mean Platelet Volume 7.1, Neutrophils (%) (Auto) 62.7, Lymphocytes (% ) (Auto) 22.9, Monocytes (%) (Auto) 11.1H, Eosinophils (%) (Auto) 2.4, Basophils (%) (Auto) 0.9, Sodium Level 142, Potassium Level 3.1L, Chloride Level 109H, Carbon Dioxide Level 23, Anion Gap 10, Blood Urea Nitrogen 20H, Creatinine 1.9H, Estimat Glomerular Filtration Rate , Glucose Level 68L, Calcium Level 8.3L, Phosphorus Level 3.2, Magnesium Level 1.6L Height (Feet): 5 Height (Inches): 6.00 Weight (Pounds): 164 General Appearance: WD/WN, no apparent distress, alert EENT: PERRL/EOMI, TMs normal Neck: non-tender, normal alignment, supple Cardiovascular: normal peripheral pulses, other - irregular irregular, no mumrurs/rubs/gallops Respiratory/Chest: chest wall non-tender, other - bibasilar crackles, slight Abdomen: normal bowel sounds, non tender, soft Pelvis: other Genitourinary/Rectal: other - davila in place draining clear urine Extremities: normal range of motion, non-tender, other - trace LE edema bilatearlly Edema: trace edema Neurologic: oil distributor II-XII grossly normal, no motor/sensory deficits, abnormal gait , alert, oriented x 3, normal mood/affect Skin: normal pigmentation, warm/dry Ben Nguyen D.O. Dec 18, 2018 14:24
--- NOTE | 2018-12-18 14:41 | Diagnostic Imaging Report ---
Indication: Acute renal failure Technique: Grayscale and duplex images of the kidneys, retroperitoneum, and bladder were obtained. Comparison: none Findings: Right kidney measures 10.2 cm in length. Left kidney measures 10.4 cm in length. Both kidneys demonstrate normal echogenicity. No hydronephrosis. Small cysts in both kidneys.. Normal inferior vena cava. Bladder is nearly empty, contains a Cline catheter and a small amount of residual urine. Possible nonobstructive peripheral calcification is seen in the left kidney. Impression: Negative for hydronephrosis Bilateral renal cysts. Questionable nonobstructive left intrarenal calculus Cline catheter. Small amount retained urine despite the presence of such.
[2018-12-18] MEDS ORDERED: HydrALAZINE 10mg Tab ORAL SCH (18:00)
--- NOTE | 2018-12-18 19:12 | NUR ---
HAND-OFF: Report given to VERNON TOWNSEND, NO DISTRESS..
--- NOTE | 2018-12-18 20:00 | NUR ---
NURSE NOTES: Received report from Janeth Puri RN Pt is stable, sinus tach with 1st degree HB and PACs. Left wrist 20g and R hand 24g intact, patent, flushed with 10ml NS, asymptomatic. Denies npain, no signs or symptoms of distress noted at this time. Will continue to monitor closely.
[2018-12-18] MEDS ORDERED: Tamsulosin 0.4mg cap ORAL SCH (21:00)
[2018-12-18] MEDS ORDERED: Amiodarone 200mg tab ORAL SCH (21:00)
[2018-12-18] MEDS ORDERED: Carvedilol 25mg Tab ORAL SCH (21:00)
--- NOTE | 2018-12-18 21:01 | NUR ---
TRANSFER TO FLOOR: Patient transferred to Tele room 207-1, per Yanira. Report given to KRISTIAN Lazar. Belongings and medications given to Nagi TOWNSEND, item list verified and signed. Pt is stable, ST, and no signs or symptoms of distress noted at this time.
--- NOTE | 2018-12-18 21:05 | NUR ---
NURSE NOTES: Pt transferred from SDU. Got report from Jordyn TOWNSEND. Pt in stable condition. No s/s of distress or discomfort noted. Denies pain or n/v. Pt resting in bed comfortably. VS BP:153/74 HR:107 R:20 T:98.7 O2:95% on room air. Bed in low and locked position, call light within reach, bedside table within reach. Continue to monitor.
[2018-12-18] MEDS: Atorvastatin 20mg tab ORAL SCH (21:27)
[2018-12-18] MEDS: Carvedilol 25mg Tab ORAL SCH (21:27)
[2018-12-18] MEDS: Amiodarone 200mg tab ORAL SCH (21:27)
[2018-12-18] MEDS ORDERED: Acetaminophen 500mg (ES) tab ORAL PRN (22:15)
[2018-12-18] MEDS ORDERED: traMADol 50mg tab ORAL PRN (22:15)
[2018-12-18] MEDS: Levemir Flexpen SUBQ SCH (23:30)
[2018-12-19] VITALS (7 sets, daily range): BP systolic 114–142; BP diastolic 46–75
--- NOTE | 2018-12-19 01:45 | Consultation ---
DATE OF CONSULTATION: 12/18/2018 UROLOGY CONSULTATION CONSULTING PHYSICIAN: Shravan Baron M.D. REFERRING PHYSICIAN: Ben Nguyen D.O. REASON FOR CONSULTATION: For evaluation of urinary retention. HISTORY OF PRESENT ILLNESS: This is a 73-year-old male. He was admitted to the hospital because of hypoxic respiratory failure. He has CHF. He was noted to be in a mild renal failure. He had urinary retention. Cline was placed. Greater than two liters of urine came out. Apparently, he has a history of BPH. Urology evaluation is requested. PAST MEDICAL HISTORY: Noted in the chart and again as above, history of CHF, hypertension, diabetes, and peripheral vascular disease. PAST SURGICAL HISTORY: Left toe amputation, cholecystectomy, and iliac stent placement. MEDICATIONS: Medication list in the hospital was reviewed. ALLERGIES: No known drug allergies. SOCIAL HISTORY: Currently nonsmoker. PHYSICAL EXAMINATION: GENERAL: No acute distress. VITAL SIGNS: Temperature is 98.1 and blood pressure 130/69. ABDOMEN: Soft. No CVA tenderness. Cline in place. Urine is christiane. LABORATORY DATA: UA showed 20 to 30 rbc's. White count 10.9, hemoglobin 10.5. BUN is 20, creatinine 1.9. DIAGNOSTIC IMAGING STUDIES: The patient had a renal ultrasound. There was mention of bilateral renal cyst. No hydronephrosis. Questionable nonobstructing left renal calculus. IMPRESSION: 1. Urinary retention. 2. Benign prostatic hypertrophy. 3. Probable neurogenic bladder. 4. Renal insufficiency, acute versus chronic. 5. Renal cyst. 6. Rule out nephrolithiasis. 7. Hematuria. PLAN AND DISCUSSION: Again, the Cline has been placed, indwelling. The patient has significant residual urine. 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 At this time, I discussed the case with Dr. Nguyen, I would agree to leave the Cline catheter indwelling and Flomax has already been started. I will also add finasteride 5 mg daily. He can be discharged with indwelling Cline and follow up with his primary doctor and urologist in his plan. Once his renal function has stabilized, he can have a voiding trial at that time. Thank you for this consultation. Shravan Baron M.D. DR: LIZ JOB#: [id number] CC:
[2018-12-19] MEDS: NovoLOG Insulin Flexpen SUBQ SCH ×4 (06:25→21:27)
[2018-12-19 06:33] LABS: BASOPHILS % (AUTO) 0.7 % (0.0-2.0); EOSINOPHILS % (AUTO) 0.9 % (0.0-3.0); HEMATOCRIT 30.4 % (42.0-52.0); HEMOGLOBIN 10.2 G/DL (14.2-18.0); LYMPHOCYTES % (AUTO) 13.8 % (20.0-45.0); MEAN CORPUSCULAR VOLUME 86 FL (80-99); MONOCYTES % (AUTO) 8.7 % (1.0-10.0); NEUTROPHILS % (AUTO) 75.9 % (45.0-75.0); PLATELET COUNT 274 K/UL (150-450); RED BLOOD COUNT 3.54 M/UL (4.70-6.10); RED CELL DISTRIBUTION WIDTH 12.8 % (11.6-14.8); WHITE BLOOD COUNT 14.2 K/UL (4.8-10.8)
--- NOTE | 2018-12-19 07:00 | NUR ---
HAND-OFF: Report given to Tracey TOWNSEND. Endorsed plan of care.
[2018-12-19 07:04] LABS: ANION GAP 10 mmol/L (5-15); BLOOD UREA NITROGEN 21 mg/dL (7-18); CALCIUM 8.4 MG/DL (8.5-10.1); CARBON DIOXIDE 24 MMOL/L (21-32); CHLORIDE 107 MMOL/L (98-107); CREATININE 1.9 MG/DL (0.55-1.30); PHOSPHORUS 3.5 MG/DL (2.5-4.9); POTASSIUM 3.8 MMOL/L (3.5-5.1); SODIUM 141 MMOL/L (136-145)
--- NOTE | 2018-12-19 08:34 | NUR ---
NURSE NOTES: per Dr. Brunson, find out from C/M if [facility] is able to provide IV antibiotic admin. if she pt may be DC today. If not pt will be staying until antibiotic therapy ends. Addendum: 12/19/18 at 0838 by Tracey Jo RN per Dr. Brunson, find out from C/[facility] if [facility] is able to provide IV antibiotic admin. if [facility] is able to give IV meds pt may be DC today. If not pt will be staying until antibiotic therapy ends. Unable to leave voice mail at Ext [phone] ph keeps ronald will try to call again later. Addendum: 12/19/18 at 0839 by Tracey Jo RN Previous 2notes on IV antibiotics at [facility] are for the wrong pt. pls disregard
--- NOTE | 2018-12-19 08:48 | Urology Progress Note ---
Assessment/Plan Status: stable Assessment/Plan: 1. Urinary retention. 2. Benign prostatic hypertrophy. 3. Probable neurogenic bladder. 4. Renal insufficiency, acute versus chronic. 5. Renal cyst. 6. Rule out nephrolithiasis. 7. Hematuria. monitor clinically maintain davila for now monitor renal fxn davila secured to leg hand irrigated and do PRN cont flomax and proscar abx as ordered f/u on cx's voiding trial later Subjective Allergies: Coded Allergies: No Known Allergies (Unverified , 08/14/15) Subjective all noted Objective Last 24 Hour Vital Signs Date Time Temp Pulse Resp B/P (MAP) Pulse Ox O2 Delivery O2 Flow Rate FiO2 12/19/18 07:42 97 Nasal Cannula 3.0 32 12/19/18 07:42 86 20 97 Nasal Cannula 3.0 32 12/19/18 04:00 95 12/19/18 04:00 98.6 94 18 139/75 (96) 96 12/19/18 00:00 99 12/19/18 00:00 99.0 97 18 142/70 (94) 97 12/18/18 21:27 107 153/74 12/18/18 21:00 98.7 107 20 153/74 (100) 95 12/18/18 20:00 Room Air 12/18/18 20:00 99.4 112 20 145/70 (95) 97 12/18/18 19:09 112 12/18/18 18:46 97 Nasal Cannula 3.0 32 12/18/18 18:45 103 22 99 Nasal Cannula 3.0 32 12/18/18 17:15 138/69 12/18/18 16:00 Room Air 12/18/18 16:00 109 12/18/18 16:00 98.1 107 18 138/69 (92) 99 12/18/18 12:00 98.1 100 18 145/88 (107) 99 12/18/18 12:00 103 12/18/18 12:00 Room Air 12/18/18 08:50 98 133/70 Intake and Output 12/18/18 12/19/18 19:00 07:00 Intake Total 395 ml Output Total 1950 ml 700 ml Balance -1555 ml -700 ml Intake Oral 240 ml IV Total 155 ml Output Urine Total 1950 ml 700 ml Microbiology Date/Time Source Procedure Growth Status 12/16/18 14:35 Blood Blood Culture - Preliminary NO GROWTH AFTER 48 HOURS Resulted 12/15/18 04:15 Nasal Nares MRSA Culture - Final NO METHICILLIN RESISTANT STAPH AUREUS... Complete 12/17/18 09:50 Straight Cath Urine Culture - Preliminary NO GROWTH AFTER 24 HOURS Resulted 12/15/18 04:15 Rectum - Final NO CARBAPENEM-RESISTANT ENTEROBACTERI... Complete Current Medications Medications (Trade) Dose Ordered Sig/Sathish Route PRN Reason Start Time Stop Time Status Last Admin Dose Admin Acetaminophen (Tylenol) 500 mg Q6H PRN ORAL PAIN 1-6 12/18/18 22:15 01/16/19 10:14 Amiodarone HCl (Cordarone) 400 mg EVERY 12 HOURS ORAL 12/18/18 21:00 01/17/19 20:59 12/18/18 21:27 Apixaban (Eliquis) 2.5 mg BID ORAL 12/19/18 09:00 01/15/19 17:59 Aspirin (ASA) 81 mg DAILY ORAL 12/19/18 09:00 01/14/19 11:14 Atorvastatin Calcium (Lipitor) 20 mg BEDTIME ORAL 12/18/18 21:00 01/14/19 20:59 12/18/18 21:27 Carvedilol (Coreg) 25 mg EVERY 12 HOURS ORAL 12/18/18 21:00 01/17/19 20:59 12/18/18 21:27 Cefepime HCl 2 gm/ Dextrose 55 ml @ 110 mls/hr Q24H IVPB 12/19/18 09:00 12/23/18 08:59 Clopidogrel Bisulfate (Plavix) 75 mg DAILY ORAL 12/19/18 09:00 01/14/19 11:14 Dextrose (Dextrose 50%) 25 ml Q30M PRN IV Hypoglycemia 12/18/18 21:15 01/14/19 11:14 Dextrose (Dextrose 50%) 50 ml Q30M PRN IV Hypoglycemia 12/18/18 21:15 01/14/19 11:14 Famotidine (Pepcid I.v.) 20 mg Q12HR IVP 12/18/18 21:00 01/14/19 20:59 12/18/18 21:26 Finasteride (Proscar) 5 mg DAILY ORAL 12/19/18 09:00 01/18/19 08:59 Furosemide (Lasix) 40 mg EVERY 12 HOURS IV 12/18/18 21:00 01/14/19 08:59 Hydralazine HCl (Apresoline) 10 mg Q12HR ORAL 12/19/18 09:00 01/18/19 08:59 Insulin Aspart (NovoLOG) AC+HS SUBQ 12/18/18 22:30 01/14/19 22:29 12/19/18 06:25 Insulin Detemir (Levemir) 15 units BEDTIME SUBQ 12/18/18 22:30 01/14/19 22:29 12/18/18 23:30 Insulin Detemir (Levemir) 25 units DAILY SUBQ 12/19/18 09:00 01/14/19 11:14 Isosorbide Mononitrate (Imdur) 30 mg DAILY ORAL 12/19/18 09:00 01/18/19 08:59 Metronidazole 100 ml @ 100 mls/hr Q8HR IVPB 12/18/18 22:00 12/22/18 19:59 12/19/18 05:34 Tamsulosin HCl (Flomax) 0.4 mg BEDTIME ORAL 12/18/18 21:00 01/16/19 20:59 12/18/18 21:27 Tramadol HCl (Ultram) 50 mg Q6H PRN ORAL Severe Pain (Pain Scale 7-10) 12/18/18 22:15 12/24/18 10:14 Vancomycin HCl (Vanco rx to dose) 1 ea DAILY PRN MISC Per rx protocol 12/18/18 21:15 01/17/19 21:14 Vancomycin HCl 1 gm/Sodium Chloride 275 ml @ 275 mls/hr 0930 IVPB 12/19/18 09:30 12/24/18 09:29 Laboratory Tests 12/19/18 05:32: White Blood Count 14.2H, Red Blood Count 3.54L, Hemoglobin 10.2L, Hematocrit 30.4L, Mean Corpuscular Volume 86, Mean Corpuscular Hemoglobin 28.8, Mean Corpuscular Hemoglobin Concent 33.5, Red Cell Distribution Width 12.8, Platelet Count 274, Mean Platelet Volume 7.0, Neutrophils (%) (Auto) 75.9H, Lymphocytes ( %) (Auto) 13.8L, Monocytes (%) (Auto) 8.7, Eosinophils (%) (Auto) 0.9, Basophils (%) (Auto) 0.7, Sodium Level 141, Potassium Level 3.8, Chloride Level 107, Carbon Dioxide Level 24, Anion Gap 10, Blood Urea Nitrogen 21H, Creatinine 1.9H, Estimat Glomerular Filtration Rate , Glucose Level 196#H, Calcium Level 8.4L, Phosphorus Level 3.5, Magnesium Level 1.9, Random Vancomycin Level 10.8, Digoxin Level 1.3 Height (Feet): 5 Height (Inches): 6.00 Weight (Pounds): 167 Objective exam stable davila indwelling with christiane urine Shravan Baron MD Dec 19, 2018 08:48
[2018-12-19] MEDS ORDERED: HydrALAZINE 10mg Tab ORAL SCH (09:00)
[2018-12-19] MEDS ORDERED: Imdur 30mg tab ORAL SCH (09:00)
[2018-12-19] MEDS ORDERED: Cefepime HCl 2 GM in D5W 55 ML IVPB SCH (09:00)
--- NOTE | 2018-12-19 09:01 | NUR ---
NURSE NOTES: pt alert and oriented. Pt will be having breakfast after meds he feels nauseas. Pt on school lunch monitor no signs cardiac or respiratory distress at this time. Calll light within reach. Bed is locked and in lowest position Will continuer to monitor
[2018-12-19] MEDS ORDERED: Vancomycin 1 GM in NS 275 ML IVPB SCH (09:30)
--- NOTE | 2018-12-19 09:45 | NUR ---
PT NOTE Attempted to see patient for PT treatment. Patient declining to participate with PT at this time due to c/o nausea. Will re-attempt later as schedule permits. Tracey TOWNSEND notified.
--- NOTE | 2018-12-19 10:28 | Cardiac Electrophysiology PN ---
Assessment/Plan Assessment/Plan 1. CHF exacerbation. Echo EF 30-35%. Continue Lasix 40 iv bid, Hydralazine 10 bid, Imdur 30 daily and Aldactone 25 daily. Needs transfer for cardiac cath. Will get prior Echo. If EF less than 35% for 3 months will need ICD implant 2. Atrial fib with RVR 160s. On Amiodarone 400 bid, Dig 0.125 daily and Coreg 25 bid. Hold Eliquis for cardiac cath 3. Uncontrolled diabetes, on insulin. 4. Severe peripheral vascular disease, status post left second toe gangrene amputation for osteomyelitis followed by Podiatry and Vascular Surgery.On Aspirin and Plavix ALIYA RN and Dr Alvarado Transfer to [facility] at [place] for cardiac cath Subjective Subjective Remained in SR overnight. No CP. EF 30-35%. Now on CHF meds Objective Last 24 Hour Vital Signs Date Time Temp Pulse Resp B/P (MAP) Pulse Ox O2 Delivery O2 Flow Rate FiO2 12/19/18 07:42 97 Nasal Cannula 3.0 32 12/19/18 07:42 86 20 97 Nasal Cannula 3.0 32 12/19/18 04:00 95 12/19/18 04:00 98.6 94 18 139/75 (96) 96 12/19/18 00:00 99 12/19/18 00:00 99.0 97 18 142/70 (94) 97 12/18/18 21:27 107 153/74 12/18/18 21:00 98.7 107 20 153/74 (100) 95 12/18/18 20:00 Room Air 12/18/18 20:00 99.4 112 20 145/70 (95) 97 12/18/18 19:09 112 12/18/18 18:46 97 Nasal Cannula 3.0 32 12/18/18 18:45 103 22 99 Nasal Cannula 3.0 32 12/18/18 17:15 138/69 12/18/18 16:00 Room Air 12/18/18 16:00 109 12/18/18 16:00 98.1 107 18 138/69 (92) 99 12/18/18 12:00 98.1 100 18 145/88 (107) 99 12/18/18 12:00 103 12/18/18 12:00 Room Air Intake and Output 12/18/18 12/19/18 19:00 07:00 Intake Total 395 ml Output Total 1950 ml 700 ml Balance -1555 ml -700 ml Intake Oral 240 ml IV Total 155 ml Output Urine Total 1950 ml 700 ml Laboratory Tests Test 12/19/18 05:32 White Blood Count 14.2 K/UL (4.8-10.8) H Red Blood Count 3.54 M/UL (4.70-6.10) L Hemoglobin 10.2 G/DL (14.2-18.0) L Hematocrit 30.4 % (42.0-52.0) L Mean Corpuscular Volume 86 FL (80-99) Mean Corpuscular Hemoglobin 28.8 PG (27.0-31.0) Mean Corpuscular Hemoglobin Concent 33.5 G/DL (32.0-36.0) Red Cell Distribution Width 12.8 % (11.6-14.8) Platelet Count 274 K/UL (150-450) Mean Platelet Volume 7.0 FL (6.5-10.1) Neutrophils (%) (Auto) 75.9 % (45.0-75.0) H Lymphocytes (%) (Auto) 13.8 % (20.0-45.0) L Monocytes (%) (Auto) 8.7 % (1.0-10.0) Eosinophils (%) (Auto) 0.9 % (0.0-3.0) Basophils (%) (Auto) 0.7 % (0.0-2.0) Sodium Level 141 MMOL/L (136-145) Potassium Level 3.8 MMOL/L (3.5-5.1) Chloride Level 107 MMOL/L (98-107) Carbon Dioxide Level 24 MMOL/L (21-32) Anion Gap 10 mmol/L (5-15) Blood Urea Nitrogen 21 mg/dL (7-18) H Creatinine 1.9 MG/DL (0.55-1.30) H Estimat Glomerular Filtration Rate mL/min (>60) Glucose Level 196 MG/DL (74-106) #H Calcium Level 8.4 MG/DL (8.5-10.1) L Phosphorus Level 3.5 MG/DL (2.5-4.9) Magnesium Level 1.9 MG/DL (1.8-2.4) Random Vancomycin Level 10.8 ug/mL Digoxin Level 1.3 NG/ML (0.5-2.0) Microbiology Date/Time Source Procedure Growth Status 12/16/18 14:35 Blood Blood Culture - Preliminary NO GROWTH AFTER 48 HOURS Resulted 12/16/18 14:20 Blood Blood Culture - Preliminary NO GROWTH AFTER 48 HOURS Resulted 12/17/18 09:50 Straight Cath Urine Culture - Preliminary NO GROWTH AFTER 24 HOURS Resulted Objective HEAD AND NECK: Positive JVD. LUNGS: Decreased breath sounds and bibasilar rales. CARDIOVASCULAR: Tachycardic, S1 and S2 with no gallop. ABDOMEN: Soft. EXTREMITIES: 1+ pitting edema. José Miguel Richter MD Dec 19, 2018 10:27
--- NOTE | 2018-12-19 10:30 | NUR ---
NURSE NOTES: pt does not want to get heart catheterization, he wants to go home "what ever happens with me I want it to happen at home I'm tired of being here". Doctor Neelam explained to pt the reason of the procedure and that pt need to have it. Doct. is aware of pt's doesn't want procedure done.
[2018-12-19] MEDS: Imdur 30mg tab ORAL SCH (10:44)
[2018-12-19] MEDS: Eliquis 2.5mg tablet ORAL SCH ×2 (10:46→18:00)
[2018-12-19] MEDS: Amiodarone 200mg tab ORAL SCH ×2 (10:46→21:24)
[2018-12-19] MEDS: Aspirin Baby 81mg ORAL SCH (10:47)
[2018-12-19] MEDS: Carvedilol 25mg Tab ORAL SCH ×2 (10:47→21:22)
[2018-12-19 11:16] LABS: CKMB 1.2 NG/ML (0.0-3.6)
[2018-12-19] MEDS: Levemir Flexpen SUBQ SCH ×2 (11:26→21:26)
--- NOTE | 2018-12-19 11:29 | NUR ---
NURSE NOTES: mediication given late pt very nauseas and wanted meds later. Also scanner was not working.
--- NOTE | 2018-12-19 11:38 | NUR ---
notes Reported troponin levels to doc. see labs
--- NOTE | 2018-12-19 12:00 | NUR ---
RD ASSESSMENT & RECOMMENDATIONS SEE CARE ACTIVITY FOR COMPLETE ASSESSMENT DAILY ESTIMATED NEEDS: Needs based on DM, 67kg adj 25-30 kcals/kg total kcals 1-1.5 g protein/kg 67-101 g total protein 25-30 mL/kg total fluid mLs NUTRITION DIAGNOSIS: Altered nutrition related lab values r/t diabetes as evidenced by A1C 8.4, POC elevated (186-341) PO DIET RECOMMENDATIONS: CCHO LOW/ LOW NA ADDITIONAL RECOMMENDATIONS: 1) CHF dx, rec daily standing weights 2) B-complex daily 3) Diet edu as appropriate 4) Add high pro/ 1 carb snacks in b/w meals
--- NOTE | 2018-12-19 12:06 | Consultation ---
Consult Note Consult Note asked to eval at the request of Dr Nunes's group patient has elevated serum Cr interviewed as possible- language bareer examined data reviewed hallmarks: Low Ej Fx and global cardiac hypokinesis Kidney SULEMA : left stone- no obstruction CXR : Bilateral pleural effusion Patient has davila cath meds reviewed Assessment/Plan Renal failure- acute on chronic CardioMyopathy and low EjFx - CHF Anemia HTN DM / Nephropathy Elevated troponin I At Fib BPH Plan: Adjust BP meds- Aim to reduce afterload avoid nephrotoxics slow diuresis antibiotics gastric support urine studies per orders Anthony Yeung MD Dec 19, 2018 12:06
--- NOTE | 2018-12-19 13:12 | NUR ---
[employer]; CHF, RAPID AFIB T. 98.4 HR 89 RR 18 B/P 140/79 WBC 14.2 BUN 21 CR 1.9 TROP 0.065 RENAL US+ NEGATIVE FOR HYDRONEPHROSIS IS: VANCO IV CEFEPIME IV FLAGYL IV PROTONIX IV TELE STATUS
--- NOTE | 2018-12-19 13:16 | Pulmonology Progress Note ---
Assessment/Plan Problems: (1) Atrial fibrillation with rapid ventricular response (2) Acute exacerbation of CHF (congestive heart failure) (3) Acute kidney injury superimposed on CKD (4) Gram positive bacterial infection (5) DM (diabetes mellitus) (6) HTN (hypertension) (7) Hypoxemia Assessment/Plan Optimize pulmonary hygiene/mobilize as tolerated Titrate down FiO2 to keep SaO2 > 90% Continue Cefepime/Vanco/Flagyl (D5) per ID F/U CARDS/EPS recs ---> PO MTP, Eliquis, diuresis ---> plan to transfer for cath Monitor volumes and renal function, renal recs noted, diuretics held Glycemic control Aspiration precautions DVT Px: Eliquis FC Subjective Allergies: Coded Allergies: No Known Allergies (Unverified , 08/14/15) Subjective AFVSS periods of AF O2 needs stable no cough less SOB no CP no FC VRPM @ [facility] neg, PCt 1.76 Objective Last 24 Hour Vital Signs Date Time Temp Pulse Resp B/P (MAP) Pulse Ox O2 Delivery O2 Flow Rate FiO2 12/19/18 10:48 140/74 12/19/18 10:47 89 140/74 12/19/18 10:44 140/74 12/19/18 10:41 98.4 89 18 140/74 (96) 96 12/19/18 08:00 98.4 89 18 140/74 (96) 96 12/19/18 07:42 97 Nasal Cannula 3.0 32 12/19/18 07:42 86 20 97 Nasal Cannula 3.0 32 12/19/18 04:00 95 12/19/18 04:00 98.6 94 18 139/75 (96) 96 12/19/18 00:00 99 12/19/18 00:00 99.0 97 18 142/70 (94) 97 12/18/18 21:27 107 153/74 12/18/18 21:00 98.7 107 20 153/74 (100) 95 12/18/18 20:00 Room Air 12/18/18 20:00 99.4 112 20 145/70 (95) 97 12/18/18 19:09 112 12/18/18 18:46 97 Nasal Cannula 3.0 32 12/18/18 18:45 103 22 99 Nasal Cannula 3.0 32 12/18/18 17:15 138/69 12/18/18 16:00 Room Air 12/18/18 16:00 109 12/18/18 16:00 98.1 107 18 138/69 (92) 99 Intake and Output 12/18/18 12/19/18 19:00 07:00 Intake Total 395 ml Output Total 1950 ml 700 ml Balance -1555 ml -700 ml Intake Oral 240 ml IV Total 155 ml Output Urine Total 1950 ml 700 ml General Appearance: no acute distress, cachetic HEENT: normocephalic, atraumatic, anicteric, mucous membranes moist Respiratory/Chest: crackles/rales Cardiovascular: normal peripheral pulses, normal rate, regular rhythm Abdomen: normal bowel sounds, soft, non tender, no organomegaly, non distended , no mass Extremities: no cyanosis, no clubbing, no edema Microbiology Date/Time Source Procedure Growth Status 12/16/18 14:35 Blood Blood Culture - Preliminary NO GROWTH AFTER 48 HOURS Resulted 12/16/18 14:20 Blood Blood Culture - Preliminary NO GROWTH AFTER 48 HOURS Resulted 12/17/18 09:50 Straight Cath Urine Culture - Preliminary NO GROWTH AFTER 24 HOURS Resulted Laboratory Tests 12/19/18 05:32: White Blood Count 14.2H, Red Blood Count 3.54L, Hemoglobin 10.2L, Hematocrit 30.4L, Mean Corpuscular Volume 86, Mean Corpuscular Hemoglobin 28.8, Mean Corpuscular Hemoglobin Concent 33.5, Red Cell Distribution Width 12.8, Platelet Count 274, Mean Platelet Volume 7.0, Neutrophils (%) (Auto) 75.9H, Lymphocytes ( %) (Auto) 13.8L, Monocytes (%) (Auto) 8.7, Eosinophils (%) (Auto) 0.9, Basophils (%) (Auto) 0.7, Sodium Level 141, Potassium Level 3.8, Chloride Level 107, Carbon Dioxide Level 24, Anion Gap 10, Blood Urea Nitrogen 21H, Creatinine 1.9H, Estimat Glomerular Filtration Rate , Glucose Level 196#H, Calcium Level 8.4L, Phosphorus Level 3.5, Magnesium Level 1.9, Random Vancomycin Level 10.8, Digoxin Level 1.3 12/19/18 10:20: Total Creatine Kinase 28, Creatine Kinase MB 1.2, Creatine Kinase MB Relative Index 4.2, Troponin I 0.065H Current Medications Medications (Trade) Dose Ordered Sig/Sathish Route PRN Reason Start Time Stop Time Status Last Admin Dose Admin Acetaminophen (Tylenol) 500 mg Q6H PRN ORAL PAIN 1-6 12/18/18 22:15 01/16/19 10:14 Al Hydroxide/Mg Hydroxide (Mylanta) 30 ml Q6H PRN ORAL nausea/acid reflux 12/19/18 12:00 01/18/19 11:59 Amiodarone HCl (Cordarone) 400 mg EVERY 12 HOURS ORAL 12/18/18 21:00 01/17/19 20:59 12/19/18 10:46 Apixaban (Eliquis) 2.5 mg BID ORAL 12/19/18 09:00 01/15/19 17:59 12/19/18 10:46 Aspirin (ASA) 81 mg DAILY ORAL 12/19/18 09:00 01/14/19 11:14 12/19/18 10:47 Atorvastatin Calcium (Lipitor) 20 mg BEDTIME ORAL 12/18/18 21:00 01/14/19 20:59 12/18/18 21:27 Carvedilol (Coreg) 25 mg EVERY 12 HOURS ORAL 12/18/18 21:00 01/17/19 20:59 12/19/18 10:47 Cefepime HCl 2 gm/ Dextrose 55 ml @ 110 mls/hr Q24H IVPB 12/19/18 09:00 12/23/18 08:59 12/19/18 09:00 Clopidogrel Bisulfate (Plavix) 75 mg DAILY ORAL 12/19/18 09:00 01/14/19 11:14 12/19/18 10:47 Dextrose (Dextrose 50%) 25 ml Q30M PRN IV Hypoglycemia 12/18/18 21:15 01/14/19 11:14 Dextrose (Dextrose 50%) 50 ml Q30M PRN IV Hypoglycemia 12/18/18 21:15 01/14/19 11:14 Docusate Sodium (Colace) 100 mg TWICE A DAY ORAL 12/19/18 18:00 01/18/19 17:59 Finasteride (Proscar) 5 mg DAILY ORAL 12/19/18 09:00 01/18/19 08:59 12/19/18 10:47 Hydralazine HCl (Apresoline) 25 mg Q8HR ORAL 12/19/18 14:00 01/18/19 13:59 Insulin Aspart (NovoLOG) AC+HS SUBQ 12/18/18 22:30 01/14/19 22:29 12/19/18 12:24 Insulin Detemir (Levemir) 15 units BEDTIME SUBQ 12/18/18 22:30 01/14/19 22:29 12/18/18 23:30 Insulin Detemir (Levemir) 25 units DAILY SUBQ 12/19/18 09:00 01/14/19 11:14 12/19/18 11:26 Isosorbide Mononitrate (Imdur) 30 mg DAILY ORAL 12/19/18 09:00 01/18/19 08:59 12/19/18 10:44 Metronidazole 100 ml @ 100 mls/hr Q8HR IVPB 12/18/18 22:00 12/22/18 19:59 12/19/18 05:34 Ondansetron HCl (Zofran ODT) 4 mg Q6H PRN ORAL Nausea & Vomiting 12/19/18 10:15 01/18/19 10:14 Pantoprazole (Protonix) 40 mg EVERY 12 HOURS IVP 12/19/18 21:00 01/18/19 20:59 Tamsulosin HCl (Flomax) 0.4 mg BID ORAL 12/19/18 18:00 01/16/19 20:59 Tramadol HCl (Ultram) 50 mg Q6H PRN ORAL Severe Pain (Pain Scale 7-10) 12/18/18 22:15 12/24/18 10:14 Vancomycin HCl (Vanco rx to dose) 1 ea DAILY PRN MISC Per rx protocol 12/18/18 21:15 01/17/19 21:14 Vancomycin HCl 1 gm/Sodium Chloride 275 ml @ 275 mls/hr 0930 IVPB 12/19/18 09:30 12/24/18 09:29 12/19/18 12:10 Mich Marie MD Dec 19, 2018 13:16
--- NOTE | 2018-12-19 13:31 | General Progress Note ---
Assessment/Plan Problem List: (1) HTN (hypertension) ICD Codes: I10 - Essential (primary) hypertension SNOMED: 48308578 (2) DM (diabetes mellitus) ICD Codes: E11.9 - Type 2 diabetes mellitus without complications SNOMED: 14101791 (3) Acute exacerbation of CHF (congestive heart failure) ICD Codes: I50.9 - Heart failure, unspecified SNOMED: 744965401, 06445120624924 Qualifiers: Qualified Codes: I50.9 - Heart failure, unspecified (4) Atrial fibrillation with rapid ventricular response ICD Codes: I48.91 - Unspecified atrial fibrillation SNOMED: 557486196733230 (5) Hypoxemia ICD Codes: R09.02 - Hypoxemia SNOMED: 735957621 (6) SHAHANA (acute kidney injury) ICD Codes: N17.9 - Acute kidney failure, unspecified SNOMED: 80098952, 6671932 (7) Cellulitis in diabetic foot ICD Codes: E11.628 - Type 2 diabetes mellitus with other skin complications; L03.119 - Cellulitis of unspecified part of limb SNOMED: 538903469, 88076907 (8) Sepsis ICD Codes: A41.9 - Sepsis, unspecified organism SNOMED: 70285993, 05066108 Qualifiers: Qualified Codes: A41.9 - Sepsis, unspecified organism; R65.20 - Severe sepsis without septic shock; J96.01 - Acute respiratory failure with hypoxia Status: stable Assessment/Plan: This is a 73 year old male with a PMHx Dm2, HTN, CHF, PAD s/p left iliac stent placement 01/05/19 and subsequent 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 #acute hypoxic respiratory failure 2/2 systolic CHF exacerbation (new diagnosis ) and possible pneumonia- no known history of CHF. Also treating for possible pneumonia - IMPROVING - telemetry - titrate SpO2 to keep O2 >92% - f/u blood cultures. 1/ sets clostridium perfingens. Likely contaminant per ID. Surveilance cultures negative to date - f/u sputum culture - Vancomycin, Cefepime and Flagyl Day 5 - Continue lasix 40mg IV BID per discussion with cardiology - Continue afterload reduction with hydralazine and Imdur per cardiology and nephrology - JUAN MANUEL-I contraindicated in setting of acute renal failure - Per cardiology given low EF will need ischemia workup. Per cardiology, an extensive discussion was performed at bedside using a historical interpreter area, to discuss the need for an ischemia workup including a cardiac angiogram. The patient declined any further cardiac intervention. Per cardiology, the patient will need to be optimized medically. Anticipate discharge in the next 1 to 2 days given that patient has been started on many different new medications. - appreciate Cardiology recommendations: Dr. Richter - Appreciate Infectious Disease recommendations: Dr. Mensah #Atrial fibrillation with RVR, new diagnosis. - IMPROVINg, althought still with episodes of tachycardia CHADS-VASC 5 - risk of stroke 7.2% per year HASBLED - 3 - risk of bleeding 5.8% per year > Explained to patient risks and benefits of anticoagulation with Asa/Plavix and an anticoagulant. Patient understands the risks of stroke are > than risk of bleeding and would like to take the anticoagulant. Will start patient on eliquis renal dosing 2.5mg PO BID - s/p Diltiazem Gtt - Coreg and digoxin for heart rate controlled - appreicate cardiology recommendations #sepsis (WBC, heart rate, respiratory rate) 2/2 pneumonia - IMPROVING #Clostridium perfingens in 1/2 blood culture- likely contaminant per ID > C diff negative > ESR 74, CRP 1.4, unlikely osteomyelitis - cultures as above - Repeat blood cultures: negative so far - antibiotics as above #acute urinary retention, new problem > UA and urine culture negative - Inserted davila on 12/17/09 - Tamsulosin 0.4mg PO daily - Finasteride - Appreciate urology recommendations: Dr. Cheney. - Per urology continue davila on discharge. Follow up as outpatient #Acute on Chronic Renal failure 2/2 CHF exacerbation and urinary obstruction - Stabilizing. Not back to baseline yet > Baseline Cr 1.5 > Renal ultrasound negative - IV diuresis as above - continue to trend - avoid nephrotoxins - replace lytes - Appreciate nephrology consultation: Dr. Raymond #Hypertension #hyperlipidemia #CAD -hold home amlodipine - continue Coreg as above - ASA/Plavix as above #hypokalemia #hypomagnesemia - replete - continue to monitor with labs #lactic acidosis suspected 2/2 CHF exacerbation vs. 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 > ESR 73, CRP 1.4 - wound consult - request records from [facility] #Diabetes mellitus type 1 per patient (suspect this is an error and has type 2) with hyperglycemia- improved > Hemoglobin A1C 8.6 on 12/17/09 - accuchecks Q6hr - Diabetic diet - Levemir 25 units QAM and 15 units QPM (home is 25 and 30) - SSI, average FENPPx DVT PPx: eliquis GI PPX: pepcid Fluids: none Diet: Diabetic diet Lines: none PT/OT: pending Dispo: SNF vs. Home. Pending PT evaluation. D/w RN, patient, and Cardiology. I spent 37 minutes on this encounter. >50% spent on counseling and care coordination. Time of note may not reflect time patient was seen Subjective Date patient seen: Dec 19, 2018 Constitutional: Denies: chills, diaphoresis, fever, malaise, weakness, other HEENT: Denies: eye pain, blurred vision, tearing, double vision, ear pain, ear discharge, nose pain, nose congestion, throat pain, throat swelling, mouth pain , mouth swelling, other Cardiovascular: Denies: chest pain, edema, irregular heart rate, lightheadedness, palpitations, syncope, other Respiratory: Denies: cough, orthopnea, shortness of breath, SOB with excertion , SOB at rest, sputum, stridor, wheezing, other Gastrointestinal/Abdominal: Denies: abdomen distended, abdominal pain, black stools, tarry stools, blood in stool, constipated, diarrhea, difficulty swallowing, nausea, poor appetite, poor fluid intake, rectal bleeding, vomiting , other Genitourinary: Denies: burning, discharge, frequency, flank pain, hematuria, incontinence, pain, urgency, other Neurologic/Psychiatric: Denies: anxiety, depressed, emotional problems, headache, numbness, paresthesia, pre-existing deficit, seizure, tingling, tremors, weakness, other Endocrine: Denies: excessive sweating, flushing, intolerance to cold, intolerance to heat, increased hunger, increased thirst, increased urine, unexplained weight gain, unexplained weight loss, other Hematologic/Lymphatic: Denies: anemia, easy bleeding, easy bruising, other Allergies: Coded Allergies: No Known Allergies (Unverified , 08/14/15) Subjective No acute events overnight per nursing. This morning the patient experienced some nausea but no vomiting or abdominal pain. He denied any chest pain shortness of breath fever or chills. He did still have a dry cough. He denied any melena or hematochezia. An EKG and cardiac troponin was drawn.. Afib: Heart rate is better controlled the patient is tolerating the medications well. He denies any palpitations or syncope. Pneumonia/CHF: The patient is on room air. He endorses that his breathing is well today. He has lost a total 7 kg While inpatient Objective Last 24 Hour Vital Signs Date Time Temp Pulse Resp B/P (MAP) Pulse Ox O2 Delivery O2 Flow Rate FiO2 12/19/18 10:48 140/74 12/19/18 10:47 89 140/74 12/19/18 10:44 140/74 12/19/18 10:41 98.4 89 18 140/74 (96) 96 12/19/18 08:00 98.4 89 18 140/74 (96) 96 12/19/18 07:42 97 Nasal Cannula 3.0 32 12/19/18 07:42 86 20 97 Nasal Cannula 3.0 32 12/19/18 04:00 95 12/19/18 04:00 98.6 94 18 139/75 (96) 96 12/19/18 00:00 99 12/19/18 00:00 99.0 97 18 142/70 (94) 97 12/18/18 21:27 107 153/74 12/18/18 21:00 98.7 107 20 153/74 (100) 95 12/18/18 20:00 Room Air 12/18/18 20:00 99.4 112 20 145/70 (95) 97 12/18/18 19:09 112 12/18/18 18:46 97 Nasal Cannula 3.0 32 12/18/18 18:45 103 22 99 Nasal Cannula 3.0 32 12/18/18 17:15 138/69 12/18/18 16:00 Room Air 12/18/18 16:00 109 12/18/18 16:00 98.1 107 18 138/69 (92) 99 Intake and Output 12/18/18 12/19/18 19:00 07:00 Intake Total 395 ml Output Total 1950 ml 700 ml Balance -1555 ml -700 ml Intake Oral 240 ml IV Total 155 ml Output Urine Total 1950 ml 700 ml Laboratory Tests 12/19/18 05:32: White Blood Count 14.2H, Red Blood Count 3.54L, Hemoglobin 10.2L, Hematocrit 30.4L, Mean Corpuscular Volume 86, Mean Corpuscular Hemoglobin 28.8, Mean Corpuscular Hemoglobin Concent 33.5, Red Cell Distribution Width 12.8, Platelet Count 274, Mean Platelet Volume 7.0, Neutrophils (%) (Auto) 75.9H, Lymphocytes ( %) (Auto) 13.8L, Monocytes (%) (Auto) 8.7, Eosinophils (%) (Auto) 0.9, Basophils (%) (Auto) 0.7, Sodium Level 141, Potassium Level 3.8, Chloride Level 107, Carbon Dioxide Level 24, Anion Gap 10, Blood Urea Nitrogen 21H, Creatinine 1.9H, Estimat Glomerular Filtration Rate , Glucose Level 196#H, Calcium Level 8.4L, Phosphorus Level 3.5, Magnesium Level 1.9, Random Vancomycin Level 10.8, Digoxin Level 1.3 12/19/18 10:20: Total Creatine Kinase 28, Creatine Kinase MB 1.2, Creatine Kinase MB Relative Index 4.2, Troponin I 0.065H Height (Feet): 5 Height (Inches): 6.00 Weight (Pounds): 167 General Appearance: WD/WN, no apparent distress, alert EENT: PERRL/EOMI, normal ENT inspection, TMs normal Neck: non-tender, normal alignment, supple Cardiovascular: normal peripheral pulses, normal rate, other - irregular irregular, no murmrus rubs or gallops Respiratory/Chest: chest wall non-tender, lungs clear, normal breath sounds, no respiratory distress Abdomen: normal bowel sounds, non tender, soft, no organomegaly Edema: trace edema 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 Dec 19, 2018 13:31
[2018-12-19] MEDS: HydrALAZINE 25mg tab ORAL SCH ×2 (14:17→22:52)
--- NOTE | 2018-12-19 14:28 | Cardiology Report ---
APPROVED REPORT EKG Measurement Heart [id number] Atrial fibrillation with rapid ventricular response Abnormal ECG
--- NOTE | 2018-12-19 14:30 | NUR ---
NURSE NOTES: pt is now agreeing to have heart catheterization done, notified doctor Saleem.
--- NOTE | 2018-12-19 15:07 | NUR ---
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
--- NOTE | 2018-12-19 16:04 | NUR ---
NURSE NOTES: notified today's lab results to Dr. Sahni.
--- NOTE | 2018-12-19 16:06 | Infectious Diseases Prog Note ---
Assessment/Plan Assessment/Plan ASSESSMENT AND PLAN: 1. sepsis, ? pna, chf, leukocytosis,k elevated lactic acid clostridium perfringens blood culture - + 1 bottle, ? pathogen/bacteremia, ? contaminant - augmentin x 5 days more for 10 day tx course - f/u chest x-ray better - monitor labs, check abdominal us since has nausea - clinically improved, leukocytosis persists - surveillance blood cultures negative 2. Acute kidney injury. 3. Anemia. 4. Diabetes. 5. Hypertension. 6. Blood sugar and blood pressure treatment for diabetes and hypertension per primary. 7. History of peripheral vascular disease. 8. 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 9. Possible hyperlipidemia. 10. CHF. 11. PAD. 12. History of stent. 13. CAD. 14. Hypoxia. 15. Continue treatment per primary consultants. 16. No known allergies. 17. Social history is positive for smoking in the past, but quit. 18. Family history is positive for diabetes. 19. MAR was noted. 20. Case discussed with RN. 21. Skin care protocol. 22. ICU care. Subjective Constitutional: Denies: fever HEENT: Denies: congestion Respiratory: Denies: shortness of breath Cardiovascular: Denies: palpitations Gastrointestinal/Abdominal: Reports: nausea; Denies: vomiting, diarrhea Genitourinary: Denies: dysuria, hematuria Neurologic: Denies: headache Psychiatric: Denies: depression Skin: Denies: rash Hematologic: Denies: bleeding Musculoskeletal: Denies: pain Allergies: Coded Allergies: No Known Allergies (Unverified , 08/14/15) Objective Vital Signs Last 24 Hour Vital Signs Date Time Temp Pulse Resp B/P (MAP) Pulse Ox O2 Delivery O2 Flow Rate FiO2 12/19/18 14:17 120/54 12/19/18 12:00 90 12/19/18 10:48 140/74 12/19/18 10:47 89 140/74 12/19/18 10:44 140/74 12/19/18 10:41 98.4 89 18 140/74 (96) 96 12/19/18 08:00 98.4 89 18 140/74 (96) 96 12/19/18 08:00 88 12/19/18 07:42 97 Nasal Cannula 3.0 32 12/19/18 07:42 86 20 97 Nasal Cannula 3.0 32 12/19/18 04:00 95 12/19/18 04:00 98.6 94 18 139/75 (96) 96 12/19/18 00:00 99 12/19/18 00:00 99.0 97 18 142/70 (94) 97 12/18/18 21:27 107 153/74 12/18/18 21:00 98.7 107 20 153/74 (100) 95 12/18/18 20:00 Room Air 12/18/18 20:00 99.4 112 20 145/70 (95) 97 12/18/18 19:09 112 12/18/18 18:46 97 Nasal Cannula 3.0 32 12/18/18 18:45 103 22 99 Nasal Cannula 3.0 32 12/18/18 17:15 138/69 12/18/18 16:00 Room Air 12/18/18 16:00 109 12/18/18 16:00 98.1 107 18 138/69 (92) 99 Height (Feet): 5 Height (Inches): 6.00 Weight (Pounds): 167 General Appearance: no acute distress HEENT: normocephalic, atraumatic, anicteric, mucous membranes moist Respiratory/Chest: lungs clear, normal breath sounds, no accessory muscle use Cardiovascular: normal rate, regular rhythm, no gallop/murmur, no JVD Abdomen: normal bowel sounds, soft, non tender, no organomegaly, non distended Genitourinary: other - + davila Extremities: no cyanosis Skin: no rash, no ulcers Neurologic/Psychiatric: alert, responsive Lymphatic: no neck adenopathy Musculoskeletal: no effusion Objective Chest x-ray - 12/17 - Upper abdomen: Normal. IMPRESSION: Decreased pulmonary edema. Persistent bilateral pleural effusions with associated atelectasis versus pneumonia. Probable mild pulmonary vasculature congestion. Microbiology Date/Time Source Procedure Growth Status 12/16/18 14:35 Blood Blood Culture - Preliminary NO GROWTH AFTER 48 HOURS Resulted 12/15/18 04:15 Nasal Nares MRSA Culture - Final NO METHICILLIN RESISTANT STAPH AUREUS... Complete 12/17/18 09:50 Straight Cath Urine Culture - Preliminary NO GROWTH AFTER 24 HOURS Resulted 12/15/18 04:15 Rectum - Final NO CARBAPENEM-RESISTANT ENTEROBACTERI... Complete Microbiology Date/Time Source Procedure Growth Status 12/17/18 09:50 Straight Cath Urine Culture - Preliminary NO GROWTH AFTER 24 HOURS Resulted Laboratory Tests Test 12/19/18 05:32 12/19/18 10:20 White Blood Count 14.2 K/UL (4.8-10.8) H Red Blood Count 3.54 M/UL (4.70-6.10) L Hemoglobin 10.2 G/DL (14.2-18.0) L Hematocrit 30.4 % (42.0-52.0) L Mean Corpuscular Volume 86 FL (80-99) Mean Corpuscular Hemoglobin 28.8 PG (27.0-31.0) Mean Corpuscular Hemoglobin Concent 33.5 G/DL (32.0-36.0) Red Cell Distribution Width 12.8 % (11.6-14.8) Platelet Count 274 K/UL (150-450) Mean Platelet Volume 7.0 FL (6.5-10.1) Neutrophils (%) (Auto) 75.9 % (45.0-75.0) H Lymphocytes (%) (Auto) 13.8 % (20.0-45.0) L Monocytes (%) (Auto) 8.7 % (1.0-10.0) Eosinophils (%) (Auto) 0.9 % (0.0-3.0) Basophils (%) (Auto) 0.7 % (0.0-2.0) Sodium Level 141 MMOL/L (136-145) Potassium Level 3.8 MMOL/L (3.5-5.1) Chloride Level 107 MMOL/L (98-107) Carbon Dioxide Level 24 MMOL/L (21-32) Anion Gap 10 mmol/L (5-15) Blood Urea Nitrogen 21 mg/dL (7-18) H Creatinine 1.9 MG/DL (0.55-1.30) H Estimat Glomerular Filtration Rate mL/min (>60) Glucose Level 196 MG/DL (74-106) #H Calcium Level 8.4 MG/DL (8.5-10.1) L Phosphorus Level 3.5 MG/DL (2.5-4.9) Magnesium Level 1.9 MG/DL (1.8-2.4) Random Vancomycin Level 10.8 ug/mL Digoxin Level 1.3 NG/ML (0.5-2.0) Total Creatine Kinase 28 U/L (26-308) Creatine Kinase MB 1.2 NG/ML (0.0-3.6) Creatine Kinase MB Relative Index 4.2 Troponin I 0.065 ng/mL (0.000-0.056) Current Medications Medications (Trade) Dose Ordered Sig/Sathish Route PRN Reason Start Time Stop Time Status Last Admin Dose Admin Acetaminophen (Tylenol) 500 mg Q6H PRN ORAL PAIN 1-6 12/18/18 22:15 01/16/19 10:14 Al Hydroxide/Mg Hydroxide (Mylanta) 30 ml Q6H PRN ORAL nausea/acid reflux 12/19/18 12:00 01/18/19 11:59 Amiodarone HCl (Cordarone) 400 mg EVERY 12 HOURS ORAL 12/18/18 21:00 01/17/19 20:59 12/19/18 10:46 Apixaban (Eliquis) 2.5 mg BID ORAL 12/19/18 09:00 01/15/19 17:59 12/19/18 10:46 Aspirin (ASA) 81 mg DAILY ORAL 12/19/18 09:00 01/14/19 11:14 12/19/18 10:47 Atorvastatin Calcium (Lipitor) 20 mg BEDTIME ORAL 12/18/18 21:00 01/14/19 20:59 12/18/18 21:27 Carvedilol (Coreg) 25 mg EVERY 12 HOURS ORAL 12/18/18 21:00 01/17/19 20:59 12/19/18 10:47 Cefepime HCl 2 gm/ Dextrose 55 ml @ 110 mls/hr Q24H IVPB 12/19/18 09:00 12/23/18 08:59 12/19/18 09:00 Clopidogrel Bisulfate (Plavix) 75 mg DAILY ORAL 12/19/18 09:00 01/14/19 11:14 12/19/18 10:47 Dextrose (Dextrose 50%) 25 ml Q30M PRN IV Hypoglycemia 12/18/18 21:15 01/14/19 11:14 Dextrose (Dextrose 50%) 50 ml Q30M PRN IV Hypoglycemia 12/18/18 21:15 01/14/19 11:14 Docusate Sodium (Colace) 100 mg TWICE A DAY ORAL 12/19/18 18:00 01/18/19 17:59 Finasteride (Proscar) 5 mg DAILY ORAL 12/19/18 09:00 01/18/19 08:59 12/19/18 10:47 Hydralazine HCl (Apresoline) 25 mg Q8HR ORAL 12/19/18 14:00 01/18/19 13:59 12/19/18 14:17 Insulin Aspart (NovoLOG) AC+HS SUBQ 12/18/18 22:30 01/14/19 22:29 12/19/18 12:24 Insulin Detemir (Levemir) 15 units BEDTIME SUBQ 12/18/18 22:30 01/14/19 22:29 12/18/18 23:30 Insulin Detemir (Levemir) 25 units DAILY SUBQ 12/19/18 09:00 01/14/19 11:14 12/19/18 11:26 Isosorbide Mononitrate (Imdur) 30 mg DAILY ORAL 12/19/18 09:00 01/18/19 08:59 12/19/18 10:44 Metronidazole 100 ml @ 100 mls/hr Q8HR IVPB 12/18/18 22:00 12/22/18 19:59 12/19/18 14:18 Ondansetron HCl (Zofran ODT) 4 mg Q6H PRN ORAL Nausea & Vomiting 12/19/18 10:15 01/18/19 10:14 Pantoprazole (Protonix) 40 mg EVERY 12 HOURS IVP 12/19/18 21:00 01/18/19 20:59 Tamsulosin HCl (Flomax) 0.4 mg BID ORAL 12/19/18 18:00 01/16/19 20:59 Tramadol HCl (Ultram) 50 mg Q6H PRN ORAL Severe Pain (Pain Scale 7-10) 12/18/18 22:15 12/24/18 10:14 Vancomycin HCl (Vanco rx to dose) 1 ea DAILY PRN MISC Per rx protocol 12/18/18 21:15 01/17/19 21:14 Vancomycin HCl 1 gm/Sodium Chloride 275 ml @ 275 mls/hr 0930 IVPB 12/19/18 09:30 12/24/18 09:29 12/19/18 12:10 Joe Velasquez MD Dec 19, 2018 16:06
[2018-12-19] MEDS: Tamsulosin 0.4mg cap ORAL SCH (17:54)
[2018-12-19] MEDS: Docusate 100mg cap ORAL SCH (17:55)
--- NOTE | 2018-12-19 19:23 | NUR ---
NURSE NOTES: Dr Richter called, informed that pt agreed for heart cath, and he said to have CM get authorization from his insurance, Alycia CHINO made aware and she said to call [facility] and speak to bottle house cleaners supervisor, spoke to reyna Hutton) from [facility] and informed her that will fax pt's face sheet at [phone]. per CM authorization will be check tomorrow, Dr Richter made aware.
--- NOTE | 2018-12-19 19:50 | NUR ---
NURSE NOTES: Received patient from KRISTIAN Webb. Patient alert, talkative, and resting comfortably in bed. No signs of distress or pain noted. Patient able to make needs known. IV sites checked, intact and patent. Bed in lowest position, brakes on, bed alarm on, siderails up x3, and call light within reach. Will continue with plan of care.
[2018-12-19 20:12] LABS: ANION GAP 9 mmol/L (5-15); BLOOD UREA NITROGEN 21 mg/dL (7-18); CALCIUM 8.4 MG/DL (8.5-10.1); CARBON DIOXIDE 25 MMOL/L (21-32); CHLORIDE 107 MMOL/L (98-107); POTASSIUM 3.6 MMOL/L (3.5-5.1); SODIUM 141 MMOL/L (136-145)
[2018-12-19] MEDS ORDERED: NovoLOG Insulin Flexpen SUBQ SCH (21:00)
[2018-12-19] MEDS: Pantoprazole Inj IVP SCH (21:22)
[2018-12-19] MEDS: Atorvastatin 20mg tab ORAL SCH (21:23)
[2018-12-20] VITALS: BP 110/56
[2018-12-20 04:00] VITALS: BP 131/66
[2018-12-20] MEDS: NovoLOG Insulin Flexpen SUBQ SCH ×4 (05:50→21:29)
[2018-12-20] MEDS: HydrALAZINE 25mg tab ORAL SCH ×2 (05:57→13:06)
[2018-12-20 06:49] LABS: BASOPHILS % (AUTO) 0.4 % (0.0-2.0); EOSINOPHILS % (AUTO) 1.3 % (0.0-3.0); HEMATOCRIT 29.1 % (42.0-52.0); HEMOGLOBIN 9.4 G/DL (14.2-18.0); LYMPHOCYTES % (AUTO) 12.2 % (20.0-45.0); MEAN CORPUSCULAR VOLUME 87 FL (80-99); MONOCYTES % (AUTO) 7.7 % (1.0-10.0); NEUTROPHILS % (AUTO) 78.4 % (45.0-75.0); PLATELET COUNT 256 K/UL (150-450); RED BLOOD COUNT 3.34 M/UL (4.70-6.10); RED CELL DISTRIBUTION WIDTH 12.8 % (11.6-14.8)
--- NOTE | 2018-12-20 07:18 | NUR ---
NURSE NOTES: Received phone call from Dr. Richter and endorsed window caser and washhouse hand from Jessica involved in patient transfer. Per Dr. Richter, he will follow up.
--- NOTE | 2018-12-20 07:21 | NUR ---
HAND-OFF: Report given to KRISTIAN Tabor. Plan of care endorsed. Maintained NPO status since midnight 12/20.
--- NOTE | 2018-12-20 07:22 | NUR ---
NURSE NOTES: Nurse report given by Paulette and KRISTIAN Nichols. Patient's sleeping in bed but easily awake. Bed low and locked, call light within reach, safety precaution is on, side rails x2. IVs are saline locked, patent an asymptomatic. Patient's currently NPO for abdominal US and possible catheterization at [facility], endorsed by KRISTIAN Nichols. Cline is draining well, straw color urine. Will continue to monitor.
[2018-12-20 08:00] VITALS: BP 130/65
[2018-12-20 08:05] LABS: ALANINE AMINOTRANSFERASE 24 U/L (12-78); ALBUMIN 2.1 G/DL (3.4-5.0); ALBUMIN/GLOBULIN RATIO 0.5 (1.0-2.7); ALKALINE PHOSPHATASE 163 U/L (46-116); ANION GAP 9 mmol/L (5-15); ASPARTATE AMINO TRANSFERASE 22 U/L (15-37); BILIRUBIN,TOTAL 0.4 MG/DL (0.2-1.0); BLOOD UREA NITROGEN 24 mg/dL (7-18); CALCIUM 8.3 MG/DL (8.5-10.1); CARBON DIOXIDE 24 MMOL/L (21-32); CHLORIDE 108 MMOL/L (98-107); CREATININE 2.1 MG/DL (0.55-1.30); FERRITIN 313 NG/ML (8-388); GAMMA GLUTAMYL TRANSPEPTIDASE 198 U/L (5-85); HDL CHOLESTEROL 18 MG/DL (40-60); PHOSPHORUS 3.7 MG/DL (2.5-4.9); SODIUM 141 MMOL/L (136-145); TRIGLYCERIDES 107 MG/DL (30-150)
[2018-12-20 08:18] LABS: % IRON SATURATION 17 % (15-50); IRON 19 ug/dL (50-175); TOTAL IRON BINDING CAPACITY 113 ug/dL (250-450)
[2018-12-20 08:29] LABS: CHOLESTEROL 50 MG/DL (< 200)
--- NOTE | 2018-12-20 08:51 | Urology Progress Note ---
Assessment/Plan Status: stable Assessment/Plan: 1. Urinary retention. 2. Benign prostatic hypertrophy. 3. Probable neurogenic bladder. 4. Renal insufficiency, acute versus chronic. 5. Renal cyst. 6. Rule out nephrolithiasis. 7. Hematuria. 8. UTI or colonized urine. monitor clinically maintain davila for now monitor renal fxn davila secured to leg hand irrigated and do PRN cont flomax and proscar abx as ordered f/u on blood cx voiding trial later consider adding antifungals Subjective Allergies: Coded Allergies: No Known Allergies (Unverified , 08/14/15) Subjective all noted Objective Last 24 Hour Vital Signs Date Time Temp Pulse Resp B/P (MAP) Pulse Ox O2 Delivery O2 Flow Rate FiO2 12/20/18 07:55 86 20 97 Nasal Cannula 3.0 32 12/20/18 07:55 97 Nasal Cannula 3.0 32 12/20/18 05:57 127/62 12/20/18 04:00 74 12/20/18 04:00 98.0 75 18 131/66 (87) 98 12/20/18 00:00 81 12/20/18 00:00 97.6 78 18 110/56 (74) 96 12/19/18 22:52 120/64 12/19/18 21:22 90 114/46 12/19/18 20:25 83 18 97 Nasal Cannula 2.0 28 12/19/18 20:05 97 Nasal Cannula 2.0 28 12/19/18 20:00 91 12/19/18 20:00 98.1 90 18 114/46 (68) 95 12/19/18 16:00 90 12/19/18 16:00 97.2 96 18 135/68 (90) 96 12/19/18 14:17 120/54 12/19/18 12:00 90 12/19/18 12:00 98.6 91 20 120/54 (76) 96 12/19/18 10:48 140/74 12/19/18 10:47 89 140/74 12/19/18 10:44 140/74 12/19/18 10:41 98.4 89 18 140/74 (96) 96 Intake and Output 12/19/18 12/20/18 19:00 07:00 Intake Total 120 ml Output Total 500 ml Balance -380 ml Intake Oral 120 ml Output Urine Total 500 ml # Bowel Movements 1 Microbiology Date/Time Source Procedure Growth Status 12/16/18 14:35 Blood Blood Culture - Preliminary NO GROWTH AFTER 72 HOURS Resulted 12/15/18 04:15 Nasal Nares MRSA Culture - Final NO METHICILLIN RESISTANT STAPH AUREUS... Complete 12/17/18 09:50 Straight Cath Urine Culture - Final YEAST Complete 12/15/18 04:15 Rectum - Final NO CARBAPENEM-RESISTANT ENTEROBACTERI... Complete Current Medications Medications (Trade) Dose Ordered Sig/Sathish Route PRN Reason Start Time Stop Time Status Last Admin Dose Admin Acetaminophen (Tylenol) 500 mg Q6H PRN ORAL PAIN 1-6 12/18/18 22:15 01/16/19 10:14 Al Hydroxide/Mg Hydroxide (Mylanta) 30 ml Q6H PRN ORAL nausea/acid reflux 12/19/18 12:00 01/18/19 11:59 Amiodarone HCl (Cordarone) 400 mg EVERY 12 HOURS ORAL 12/18/18 21:00 01/17/19 20:59 12/19/18 21:24 Amoxicillin/ Clavulanate Potassium (Augmentin) 500 mg EVERY 12 HOURS ORAL 12/19/18 21:00 12/26/18 20:59 12/19/18 21:24 Apixaban (Eliquis) 2.5 mg BID ORAL 12/19/18 09:00 01/15/19 17:59 12/19/18 10:46 Aspirin (ASA) 81 mg DAILY ORAL 12/19/18 09:00 01/14/19 11:14 12/19/18 10:47 Atorvastatin Calcium (Lipitor) 20 mg BEDTIME ORAL 12/18/18 21:00 01/14/19 20:59 12/19/18 21:23 Carvedilol (Coreg) 25 mg EVERY 12 HOURS ORAL 12/18/18 21:00 01/17/19 20:59 12/19/18 21:22 Clopidogrel Bisulfate (Plavix) 75 mg DAILY ORAL 12/19/18 09:00 01/14/19 11:14 12/19/18 10:47 Dextrose (Dextrose 50%) 25 ml Q30M PRN IV Hypoglycemia 12/19/18 20:30 01/18/19 20:29 Dextrose (Dextrose 50%) 50 ml Q30M PRN IV Hypoglycemia 12/19/18 20:30 01/18/19 20:29 Docusate Sodium (Colace) 100 mg TWICE A DAY ORAL 12/19/18 18:00 01/18/19 17:59 12/19/18 17:55 Finasteride (Proscar) 5 mg DAILY ORAL 12/19/18 09:00 01/18/19 08:59 12/19/18 10:47 Hydralazine HCl (Apresoline) 25 mg Q8HR ORAL 12/19/18 14:00 01/18/19 13:59 12/20/18 05:57 Insulin Aspart (NovoLOG) BEFORE MEALS AND HS SUBQ 12/19/18 21:00 01/18/19 20:59 12/19/18 21:27 Insulin Detemir (Levemir) 15 units BEDTIME SUBQ 12/18/18 22:30 01/14/19 22:29 12/19/18 21:26 Insulin Detemir (Levemir) 25 units DAILY SUBQ 12/19/18 09:00 01/14/19 11:14 12/19/18 11:26 Isosorbide Mononitrate (Imdur) 30 mg DAILY ORAL 12/19/18 09:00 01/18/19 08:59 12/19/18 10:44 Ondansetron HCl (Zofran ODT) 4 mg Q6H PRN ORAL Nausea & Vomiting 12/19/18 10:15 01/18/19 10:14 12/19/18 17:55 Pantoprazole (Protonix) 40 mg EVERY 12 HOURS IVP 12/19/18 21:00 01/18/19 20:59 12/19/18 21:22 Tamsulosin HCl (Flomax) 0.4 mg BID ORAL 12/19/18 18:00 01/16/19 20:59 12/19/18 17:54 Tramadol HCl (Ultram) 50 mg Q6H PRN ORAL Severe Pain (Pain Scale 7-10) 12/18/18 22:15 12/24/18 10:14 Laboratory Tests 12/19/18 10:20: Total Creatine Kinase 28, Creatine Kinase MB 1.2, Creatine Kinase MB Relative Index 4.2, Troponin I 0.065H 12/19/18 19:44: Sodium Level 141, Potassium Level 3.6, Chloride Level 107, Carbon Dioxide Level 25, Anion Gap 9, Blood Urea Nitrogen 21H, Creatinine 2.0H, Estimat Glomerular Filtration Rate , Glucose Level 234H, Calcium Level 8.4L 12/20/18 05:39: Sodium Level 141, Potassium Level 4.0, Chloride Level 108H, Carbon Dioxide Level 24, Anion Gap 9, Blood Urea Nitrogen 24H, Creatinine 2.1H, Estimat Glomerular Filtration Rate , Glucose Level 172H, Calcium Level 8.3L, White Blood Count 15.0H, Red Blood Count 3.34L, Hemoglobin 9.4L, Hematocrit 29.1L, Mean Corpuscular Volume 87, Mean Corpuscular Hemoglobin 28.2, Mean Corpuscular Hemoglobin Concent 32.5, Red Cell Distribution Width 12.8, Platelet Count 256, Mean Platelet Volume 7.2, Neutrophils (%) (Auto) 78.4H, Lymphocytes (%) (Auto) 12.2L, Monocytes (%) (Auto) 7.7, Eosinophils (%) (Auto) 1.3, Basophils (%) (Auto ) 0.4, Hemoglobin A1c 8.6H, Uric Acid 8.8H, Phosphorus Level 3.7, Magnesium Level 2.0, Iron Level 19L, Total Iron Binding Capacity 113L, Percent Iron Saturation 17, Unsaturated Iron Binding 94L, Ferritin 313, Total Bilirubin 0.4, Gamma Glutamyl Transpeptidase 198H, Aspartate Amino Transf (AST/SGOT) 22, Alanine Aminotransferase (ALT/SGPT) 24, Alkaline Phosphatase 163H, C-Reactive Protein, Quantitative 4.4H, Pro-B-Type Natriuretic Peptide 22320O, Total Protein 6.0L, Albumin 2.1L, Globulin 3.9, Albumin/Globulin Ratio 0.5L, Triglycerides Level 107, Cholesterol Level 50, LDL Cholesterol 18, HDL Cholesterol 18L, Cholesterol/HDL Ratio 2.8L, Vitamin B12 Level 402, Folate 22.5 , Thyroid Stimulating Hormone (TSH) 0.050L, Free Thyroxine 1.95H, Free Triiodothyronine 2.1L, Digoxin Level 1.5 12/20/18 05:45: Urine Eosinophils None seen Height (Feet): 5 Height (Inches): 6.00 Weight (Pounds): 168 Objective exam stable davila indwelling with christiane urine Shravan Baron MD Dec 20, 2018 08:51
[2018-12-20] MEDS: Pantoprazole Inj IVP SCH ×2 (08:52→21:22)
[2018-12-20] MEDS: Imdur 30mg tab ORAL SCH (08:53)
[2018-12-20] MEDS: Amiodarone 200mg tab ORAL SCH (08:53)
[2018-12-20] MEDS: Aspirin Baby 81mg ORAL SCH (08:54)
[2018-12-20] MEDS: Docusate 100mg cap ORAL SCH ×2 (08:54→18:00)
[2018-12-20] MEDS: Tamsulosin 0.4mg cap ORAL SCH ×2 (08:54→18:00)
[2018-12-20] MEDS: Carvedilol 25mg Tab ORAL SCH ×2 (08:54→21:21)
[2018-12-20] MEDS: Eliquis 2.5mg tablet ORAL SCH (08:55)
[2018-12-20] MEDS: Levemir Flexpen SUBQ SCH ×2 (09:00→21:29)
--- NOTE | 2018-12-20 09:14 | NUR ---
SWALLOW/SPEECH NOTE: REFERRED FOR A SWALLOW EVALUATION BY DR DE LA GARZA, SEE FULL REPORT IN ST CARE ACTIVITY SECTION. DYSPHAGIA RISK FACTORS FOR THIS 73 Y.O. [place]-SPEAKING (MX) MALE: ACUTE ISSUES: COUGHS WITH THIN LIQUIDS PER ALKYLATION OPERATOR (CASANDRA), SEPSIS, POSSIBLE PNA (VS ATELECTASIS AND HAS PULMONARY EDEMA AND BILATERAL PLEURAL EFFUSION), AMS, HYPOXIC RESPIRATORY FAILURE WAS ON BIPAP NOW ON 3 LITERS 02 NC RR 18 AND SOB X5 DAYS, CHF EXACERBATION, NAUSEA AND DIARRHEA WITH POOR APPETITE. H/O COPD, DM2, HTN, GERD MEDS. POLST/AD NONE REGARDING TUBE FEEDINGS IF NEEDS. AT HOME ON REGULAR TEXTURE DIET/LIQUIDS. PT DENIES SWALLOWING PROBLEMS AND SAYS HE SWALLOWS PILLS WHOLE W/O PROBLEMS. RNKVNG, DENIES SWALLOWING PROBLEMS WITH MEDS/WATER. PER RD, PT IS OVERWEIGHT AND IS ON CCHO-MED BUT THEY RECOMMEND CCHO-LOW AND LOW NA. PER ALKYLATION OPERATOR THOUGH, HE COUGHS WITH THIN LIQUIDS DURING MEALS AND HAS NO OVERT S/S OF ASP WITH REGULAR MASTICATED AND TEXTURED SOLIDS (ON CCHO-MED TYPE). INTAKE IS VARIABLE 25 TO 75% AND MAY BE DUE TO POOR APPETITE AND NAUSEA. PATIENT IS ALERT AND ABLE TO COMMUNICATE NEEDS IN [place]. INITIAL IMPRESSIONS: REPORTED S/S OF ASPIRATION WITH THIN LIQUIDS DURING MEALS (PER ALKYLATION OPERATOR) AND MAY HAVE A PNEUMONIA (VERSUS ATELECTASIS, PLUS COPD DX INCREASES ASPIRATION RISK DUE TO SOB AND RESPIRATORY INCOORDINATION) WITH ANCHOR TACK PULLER, GIVEN THIN LIQUIDS VIA CUP ONE SIP AT A TIME, 2-3 SIPS, APPEARED TO HAVE A GROSSLY FUNCTIONAL SWALLOW WITH NO OVERT S/S OF ASPIRATION. UNABLE TO GIVE OTHER PO TRIALS DUE TO ULTRASOUND OF ABDOMEN TODAY BUT REPORTEDLY GROSSLY FUNCTIONAL SWALLOW WITH REGULAR TEXTURE MASTICATED SOLIDS AND ADEQUATE BUT VARIABLE INTAKE DUE TO POOR APPETITE AND NAUSEA (ADEQUATE DENTITION). RECOMMENDATIONS: CONSIDER MODIFIED BARIUM SWALLOW STUDY (MBSS) IP OR AT OTHER HOSPITAL TO FURTHER ASSESS SWALLOW, DETERMINE SILENT/AUDIBLE ASPIRATION AMOUNT/RISK/ETIOLOGY, AND ATTEMPT TRIAL TX TECHNIQUES. WHEN CLEARED FOR PO, CONSIDER DOWNGRADING LIQUIDS TO NECTAR THICK UNTIL HE HAS THE MBSS IF THE PATIENT IS RECEPTIVE AND CONTINUE WITH REGULAR TEXTURE DIET. CONSIDER CHANGING DIET TYPE TO CCHO-LOW AND LOW NA PER DIETITIAN'S RECOMMENDATIONS. WILL GIVE THE EAT 10 QUESTIONNAIRE AND CONTINUE WITH DYSPHAGIA MANAGEMENT/TX HERE OR AT / HOSPITAL. EDUCATED/TRAINED RN/ALKYLATION OPERATOR IN POSTED ASPIRATION AND REFLUX PRECAUTIONS (ON GERD MEDS). LEFT MESSAGE WITH DR DE LA GARZA AND DR DOMINGO
--- NOTE | 2018-12-20 10:45 | NUR ---
NURSE NOTES: Left message to MATTI Ortega regarding any update for patient's transferring to [facility]. Awaiting for response.
--- NOTE | 2018-12-20 10:45 | NUR ---
NURSE NOTES: Left messages for Barbara Ortega and Gloria mems process engineer regarding transfer update patient to [facility] per Dr. Richter request. Awaiting for response
--- NOTE | 2018-12-20 11:03 | Cardiac Electrophysiology PN ---
Assessment/Plan Assessment/Plan 1. CHF exacerbation. Echo EF 30-35%. Continue Lasix 40 iv bid, Hydralazine 10 bid, Imdur 30 daily and Aldactone 25 daily. Awaiting to transfer for [facility] for cardiac cath. Will get prior Echo. If EF less than 35% for 3 months will need ICD implant 2. Atrial fib with RVR 160s. On Amiodarone 400 bid, Dig 0.125 daily and Coreg 25 bid. Hold Eliquis for cardiac cath Decrease Amio to 400 daily 3. Uncontrolled diabetes, on insulin. 4. 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 Patient agreeable to cardiac cath Subjective Subjective Remained in SR. No CP. EF 30-35%. Awaiting insurance authorization to transfer to [facility] for cardiac cath Objective Last 24 Hour Vital Signs Date Time Temp Pulse Resp B/P (MAP) Pulse Ox O2 Delivery O2 Flow Rate FiO2 12/20/18 08:54 68 130/65 12/20/18 08:53 130/65 12/20/18 08:00 98.7 77 19 130/65 (86) 98 12/20/18 08:00 78 12/20/18 07:55 86 20 97 Nasal Cannula 3.0 32 12/20/18 07:55 97 Nasal Cannula 3.0 32 12/20/18 05:57 127/62 12/20/18 04:00 74 12/20/18 04:00 98.0 75 18 131/66 (87) 98 12/20/18 00:00 81 12/20/18 00:00 97.6 78 18 110/56 (74) 96 12/19/18 22:52 120/64 12/19/18 21:22 90 114/46 12/19/18 20:25 83 18 97 Nasal Cannula 2.0 28 12/19/18 20:05 97 Nasal Cannula 2.0 28 12/19/18 20:00 91 12/19/18 20:00 98.1 90 18 114/46 (68) 95 12/19/18 16:00 90 12/19/18 16:00 97.2 96 18 135/68 (90) 96 12/19/18 14:17 120/54 12/19/18 12:00 90 12/19/18 12:00 98.6 91 20 120/54 (76) 96 Intake and Output 12/19/18 12/20/18 19:00 07:00 Intake Total 120 ml Output Total 500 ml Balance -380 ml Intake Oral 120 ml Output Urine Total 500 ml # Bowel Movements 1 Laboratory Tests Test 12/19/18 19:44 12/20/18 05:39 12/20/18 05:45 Sodium Level 141 MMOL/L (136-145) 141 MMOL/L (136-145) Potassium Level 3.6 MMOL/L (3.5-5.1) 4.0 MMOL/L (3.5-5.1) Chloride Level 107 MMOL/L (98-107) 108 MMOL/L (98-107) H Carbon Dioxide Level 25 MMOL/L (21-32) 24 MMOL/L (21-32) Anion Gap 9 mmol/L (5-15) 9 mmol/L (5-15) Blood Urea Nitrogen 21 mg/dL (7-18) H 24 mg/dL (7-18) H Creatinine 2.0 MG/DL (0.55-1.30) H 2.1 MG/DL (0.55-1.30) H Estimat Glomerular Filtration Rate mL/min (>60) mL/min (>60) Glucose Level 234 MG/DL (74-106) H 172 MG/DL (74-106) H Calcium Level 8.4 MG/DL (8.5-10.1) L 8.3 MG/DL (8.5-10.1) L White Blood Count 15.0 K/UL (4.8-10.8) H Red Blood Count 3.34 M/UL (4.70-6.10) L Hemoglobin 9.4 G/DL (14.2-18.0) L Hematocrit 29.1 % (42.0-52.0) L Mean Corpuscular Volume 87 FL (80-99) Mean Corpuscular Hemoglobin 28.2 PG (27.0-31.0) Mean Corpuscular Hemoglobin Concent 32.5 G/DL (32.0-36.0) Red Cell Distribution Width 12.8 % (11.6-14.8) Platelet Count 256 K/UL (150-450) Mean Platelet Volume 7.2 FL (6.5-10.1) Neutrophils (%) (Auto) 78.4 % (45.0-75.0) H Lymphocytes (%) (Auto) 12.2 % (20.0-45.0) L Monocytes (%) (Auto) 7.7 % (1.0-10.0) Eosinophils (%) (Auto) 1.3 % (0.0-3.0) Basophils (%) (Auto) 0.4 % (0.0-2.0) Erythrocyte Sedimentation Rate Pending Hemoglobin A1c 8.6 % (4.3-6.0) H Uric Acid 8.8 MG/DL (2.6-7.2) H Phosphorus Level 3.7 MG/DL (2.5-4.9) Magnesium Level 2.0 MG/DL (1.8-2.4) Iron Level 19 ug/dL (50-175) L Total Iron Binding Capacity 113 ug/dL (250-450) L Percent Iron Saturation 17 % (15-50) Unsaturated Iron Binding 94 ug/dL (112-346) L Ferritin 313 NG/ML (8-388) Total Bilirubin 0.4 MG/DL (0.2-1.0) Gamma Glutamyl Transpeptidase 198 U/L (5-85) H Aspartate Amino Transf (AST/SGOT) 22 U/L (15-37) Alanine Aminotransferase (ALT/SGPT) 24 U/L (12-78) Alkaline Phosphatase 163 U/L (46-116) H C-Reactive Protein, Quantitative 4.4 mg/dL (0.00-0.90) H Pro-B-Type Natriuretic Peptide 66295 pg/mL (0-125) H Total Protein 6.0 G/DL (6.4-8.2) L Albumin 2.1 G/DL (3.4-5.0) L Globulin 3.9 g/dL Albumin/Globulin Ratio 0.5 (1.0-2.7) L Triglycerides Level 107 MG/DL (30-150) Cholesterol Level 50 MG/DL (< 200) LDL Cholesterol 18 mg/dL (<100) HDL Cholesterol 18 MG/DL (40-60) L Cholesterol/HDL Ratio 2.8 (3.3-4.4) L Vitamin B12 Level 402 PG/ML (193-986) Folate 22.5 NG/ML (8.6-58.9) Thyroid Stimulating Hormone (TSH) 0.050 uiU/mL (0.358-3.740) Free Thyroxine 1.95 NG/DL (0.76-1.46) H Free Triiodothyronine 2.1 pg/mL (2.3-4.2) L Digoxin Level 1.5 NG/ML (0.5-2.0) Urine Eosinophils None seen (NONE SEEN) Objective HEAD AND NECK: Positive JVD. LUNGS: Decreased breath sounds and bibasilar rales. CARDIOVASCULAR: Tachycardic, S1 and S2 with no gallop. ABDOMEN: Soft. EXTREMITIES: 1+ pitting edema. José Miguel Richter MD Dec 20, 2018 11:02
--- NOTE | 2018-12-20 11:52 | Diagnostic Imaging Report ---
Indication: Abdominal pain Technique: Grayscale and duplex Doppler imaging of the abdomen performed. Comparison: None Findings: The liver is unremarkable. Doppler interrogation of the main portal vein shows patency with hepatopedal, monophasic flow. There is no biliary ductal dilatation identified. Gallbladder is absent. There are bilateral pleural effusions. There is a right iliac stent noted. CBD measures 3 mm. There demonstrated part of the pancreas, aorta and IVC show no definite abnormalities. Both kidneys appear unremarkable. There is no hydronephrosis. IMPRESSION: Status post cholecystectomy. Bilateral pleural effusions Right iliac stent
[2018-12-20 12:00] VITALS: BP 135/68
--- NOTE | 2018-12-20 13:25 | Pulmonology Progress Note ---
Assessment/Plan Problems: (1) Atrial fibrillation with rapid ventricular response (2) Acute exacerbation of CHF (congestive heart failure) (3) Acute kidney injury superimposed on CKD (4) Gram positive bacterial infection (5) DM (diabetes mellitus) (6) HTN (hypertension) (7) Hypoxemia Assessment/Plan Optimize pulmonary hygiene/mobilize as tolerated PRN O2 Abx (PO Augmentin) per ID F/U CARDS/EPS recs ---> PO MTP, Eliquis (held) ---> plan to transfer for cath Monitor volumes and renal function, renal recs, diuretics held Glycemic control Aspiration precautions DVT Px: Eliquis (held), + SCD's FC Awaiting transfer to OSH for LHC Subjective Allergies: Coded Allergies: No Known Allergies (Unverified , 08/14/15) Subjective AFVSS in SR O2 needs stable no cough less SOB no CP no FC Awaiting transfer to OSH for LHC Objective Last 24 Hour Vital Signs Date Time Temp Pulse Resp B/P (MAP) Pulse Ox O2 Delivery O2 Flow Rate FiO2 12/20/18 13:06 135/68 12/20/18 12:00 72 12/20/18 12:00 98.5 71 20 135/68 (90) 97 12/20/18 08:54 68 130/65 12/20/18 08:53 130/65 12/20/18 08:00 98.7 77 19 130/65 (86) 98 12/20/18 08:00 78 12/20/18 07:55 86 20 97 Nasal Cannula 3.0 32 12/20/18 07:55 97 Nasal Cannula 3.0 32 12/20/18 05:57 127/62 12/20/18 04:00 74 12/20/18 04:00 98.0 75 18 131/66 (87) 98 12/20/18 00:00 81 12/20/18 00:00 97.6 78 18 110/56 (74) 96 12/19/18 22:52 120/64 12/19/18 21:22 90 114/46 12/19/18 20:25 83 18 97 Nasal Cannula 2.0 28 12/19/18 20:05 97 Nasal Cannula 2.0 28 12/19/18 20:00 91 12/19/18 20:00 98.1 90 18 114/46 (68) 95 12/19/18 16:00 90 12/19/18 16:00 97.2 96 18 135/68 (90) 96 12/19/18 14:17 120/54 Intake and Output 12/19/18 12/20/18 19:00 07:00 Intake Total 120 ml Output Total 500 ml Balance -380 ml Intake Oral 120 ml Output Urine Total 500 ml # Bowel Movements 1 General Appearance: WD/WN, no acute distress HEENT: normocephalic, atraumatic, anicteric, mucous membranes moist Respiratory/Chest: rhonchi Cardiovascular: normal peripheral pulses, normal rate, regular rhythm Abdomen: normal bowel sounds, soft, non tender, no organomegaly, non distended Extremities: no cyanosis, no clubbing, no edema Laboratory Tests 12/19/18 19:44: Sodium Level 141, Potassium Level 3.6, Chloride Level 107, Carbon Dioxide Level 25, Anion Gap 9, Blood Urea Nitrogen 21H, Creatinine 2.0H, Estimat Glomerular Filtration Rate , Glucose Level 234H, Calcium Level 8.4L 12/20/18 05:39: Sodium Level 141, Potassium Level 4.0, Chloride Level 108H, Carbon Dioxide Level 24, Anion Gap 9, Blood Urea Nitrogen 24H, Creatinine 2.1H, Estimat Glomerular Filtration Rate , Glucose Level 172H, Calcium Level 8.3L, White Blood Count 15.0H, Red Blood Count 3.34L, Hemoglobin 9.4L, Hematocrit 29.1L, Mean Corpuscular Volume 87, Mean Corpuscular Hemoglobin 28.2, Mean Corpuscular Hemoglobin Concent 32.5, Red Cell Distribution Width 12.8, Platelet Count 256, Mean Platelet Volume 7.2, Neutrophils (%) (Auto) 78.4H, Lymphocytes (%) (Auto) 12.2L, Monocytes (%) (Auto) 7.7, Eosinophils (%) (Auto) 1.3, Basophils (%) (Auto ) 0.4, Erythrocyte Sedimentation Rate 74H, Hemoglobin A1c 8.6H, Uric Acid 8.8H, Phosphorus Level 3.7, Magnesium Level 2.0, Iron Level 19L, Total Iron Binding Capacity 113L, Percent Iron Saturation 17, Unsaturated Iron Binding 94L, Ferritin 313, Total Bilirubin 0.4, Gamma Glutamyl Transpeptidase 198H, Aspartate Amino Transf (AST/SGOT) 22, Alanine Aminotransferase (ALT/SGPT) 24, Alkaline Phosphatase 163H, C-Reactive Protein, Quantitative 4.4H, Pro-B-Type Natriuretic Peptide 35060I, Total Protein 6.0L, Albumin 2.1L, Globulin 3.9, Albumin/Globulin Ratio 0.5L, Triglycerides Level 107, Cholesterol Level 50, LDL Cholesterol 18, HDL Cholesterol 18L, Cholesterol/HDL Ratio 2.8L, Vitamin B12 Level 402, Folate 22.5, Thyroid Stimulating Hormone (TSH) 0.050L, Free Thyroxine 1.95H, Free Triiodothyronine 2.1L, Digoxin Level 1.5 12/20/18 05:45: Urine Eosinophils None seen Current Medications Medications (Trade) Dose Ordered Sig/Sathish Route PRN Reason Start Time Stop Time Status Last Admin Dose Admin Acetaminophen (Tylenol) 500 mg Q6H PRN ORAL PAIN 1-6 12/18/18 22:15 01/16/19 10:14 Al Hydroxide/Mg Hydroxide (Mylanta) 30 ml Q6H PRN ORAL nausea/acid reflux 12/19/18 12:00 01/18/19 11:59 Amiodarone HCl (Cordarone) 400 mg DAILY ORAL 12/21/18 09:00 01/17/19 20:59 Amoxicillin/ Clavulanate Potassium (Augmentin) 500 mg EVERY 12 HOURS ORAL 12/19/18 21:00 12/26/18 20:59 12/20/18 08:53 Aspirin (ASA) 81 mg DAILY ORAL 12/19/18 09:00 01/14/19 11:14 12/20/18 08:54 Atorvastatin Calcium (Lipitor) 20 mg BEDTIME ORAL 12/18/18 21:00 01/14/19 20:59 12/19/18 21:23 Carvedilol (Coreg) 25 mg EVERY 12 HOURS ORAL 12/18/18 21:00 01/17/19 20:59 12/20/18 08:54 Clopidogrel Bisulfate (Plavix) 75 mg DAILY ORAL 12/19/18 09:00 01/14/19 11:14 12/19/18 10:47 Dextrose (Dextrose 50%) 25 ml Q30M PRN IV Hypoglycemia 12/19/18 20:30 01/18/19 20:29 Dextrose (Dextrose 50%) 50 ml Q30M PRN IV Hypoglycemia 12/19/18 20:30 01/18/19 20:29 Docusate Sodium (Colace) 100 mg TWICE A DAY ORAL 12/19/18 18:00 01/18/19 17:59 12/20/18 08:54 Finasteride (Proscar) 5 mg DAILY ORAL 12/19/18 09:00 01/18/19 08:59 12/20/18 08:53 Hydralazine HCl (Apresoline) 25 mg Q8HR ORAL 12/19/18 14:00 01/18/19 13:59 12/20/18 13:06 Insulin Aspart (NovoLOG) BEFORE MEALS AND HS SUBQ 12/19/18 21:00 01/18/19 20:59 12/19/18 21:27 Insulin Detemir (Levemir) 15 units BEDTIME SUBQ 12/18/18 22:30 01/14/19 22:29 12/19/18 21:26 Insulin Detemir (Levemir) 25 units DAILY SUBQ 12/19/18 09:00 01/14/19 11:14 12/19/18 11:26 Isosorbide Mononitrate (Imdur) 30 mg DAILY ORAL 12/19/18 09:00 01/18/19 08:59 12/20/18 08:53 Ondansetron HCl (Zofran ODT) 4 mg Q6H PRN ORAL Nausea & Vomiting 12/19/18 10:15 01/18/19 10:14 12/19/18 17:55 Pantoprazole (Protonix) 40 mg EVERY 12 HOURS IVP 12/19/18 21:00 01/18/19 20:59 12/20/18 08:52 Tamsulosin HCl (Flomax) 0.4 mg BID ORAL 12/19/18 18:00 01/16/19 20:59 12/20/18 08:54 Tramadol HCl (Ultram) 50 mg Q6H PRN ORAL Severe Pain (Pain Scale 7-10) 12/18/18 22:15 12/24/18 10:14 Mich Marie MD Dec 20, 2018 13:25
--- NOTE | 2018-12-20 13:42 | Nephrology Progress Note ---
Assessment/Plan Problem List: (1) Renal failure (ARF), acute on chronic (2) Atrial fibrillation with rapid ventricular response (3) HTN (hypertension) (4) Cardiomyopathy Assessment Renal failure- acute on chronic CardioMyopathy and low EjFx - CHF Anemia HTN DM / Nephropathy Elevated troponin I At Fib BPH Plan Adjust BP meds- Aim to reduce afterload avoid nephrotoxics slow diuresis antibiotics gastric support urine studies per orders Subjective ROS Limited/Unobtainable: No Constitutional: Reports: malaise Objective Objective Last 24 Hour Vital Signs Date Time Temp Pulse Resp B/P (MAP) Pulse Ox O2 Delivery O2 Flow Rate FiO2 12/20/18 13:06 135/68 12/20/18 12:00 72 12/20/18 12:00 98.5 71 20 135/68 (90) 97 12/20/18 08:54 68 130/65 12/20/18 08:53 130/65 12/20/18 08:00 98.7 77 19 130/65 (86) 98 12/20/18 08:00 78 12/20/18 07:55 86 20 97 Nasal Cannula 3.0 32 12/20/18 07:55 97 Nasal Cannula 3.0 32 12/20/18 05:57 127/62 12/20/18 04:00 74 12/20/18 04:00 98.0 75 18 131/66 (87) 98 12/20/18 00:00 81 12/20/18 00:00 97.6 78 18 110/56 (74) 96 12/19/18 22:52 120/64 12/19/18 21:22 90 114/46 12/19/18 20:25 83 18 97 Nasal Cannula 2.0 28 12/19/18 20:05 97 Nasal Cannula 2.0 28 12/19/18 20:00 91 12/19/18 20:00 98.1 90 18 114/46 (68) 95 12/19/18 16:00 90 12/19/18 16:00 97.2 96 18 135/68 (90) 96 12/19/18 14:17 120/54 Intake and Output 12/19/18 12/20/18 19:00 07:00 Intake Total 120 ml Output Total 500 ml Balance -380 ml Intake Oral 120 ml Output Urine Total 500 ml # Bowel Movements 1 Laboratory Tests 12/19/18 19:44: Sodium Level 141, Potassium Level 3.6, Chloride Level 107, Carbon Dioxide Level 25, Anion Gap 9, Blood Urea Nitrogen 21H, Creatinine 2.0H, Estimat Glomerular Filtration Rate , Glucose Level 234H, Calcium Level 8.4L 12/20/18 05:39: Sodium Level 141, Potassium Level 4.0, Chloride Level 108H, Carbon Dioxide Level 24, Anion Gap 9, Blood Urea Nitrogen 24H, Creatinine 2.1H, Estimat Glomerular Filtration Rate , Glucose Level 172H, Calcium Level 8.3L, White Blood Count 15.0H, Red Blood Count 3.34L, Hemoglobin 9.4L, Hematocrit 29.1L, Mean Corpuscular Volume 87, Mean Corpuscular Hemoglobin 28.2, Mean Corpuscular Hemoglobin Concent 32.5, Red Cell Distribution Width 12.8, Platelet Count 256, Mean Platelet Volume 7.2, Neutrophils (%) (Auto) 78.4H, Lymphocytes (%) (Auto) 12.2L, Monocytes (%) (Auto) 7.7, Eosinophils (%) (Auto) 1.3, Basophils (%) (Auto ) 0.4, Erythrocyte Sedimentation Rate 74H, Hemoglobin A1c 8.6H, Uric Acid 8.8H, Phosphorus Level 3.7, Magnesium Level 2.0, Iron Level 19L, Total Iron Binding Capacity 113L, Percent Iron Saturation 17, Unsaturated Iron Binding 94L, Ferritin 313, Total Bilirubin 0.4, Gamma Glutamyl Transpeptidase 198H, Aspartate Amino Transf (AST/SGOT) 22, Alanine Aminotransferase (ALT/SGPT) 24, Alkaline Phosphatase 163H, C-Reactive Protein, Quantitative 4.4H, Pro-B-Type Natriuretic Peptide 12761H, Total Protein 6.0L, Albumin 2.1L, Globulin 3.9, Albumin/Globulin Ratio 0.5L, Triglycerides Level 107, Cholesterol Level 50, LDL Cholesterol 18, HDL Cholesterol 18L, Cholesterol/HDL Ratio 2.8L, Vitamin B12 Level 402, Folate 22.5, Thyroid Stimulating Hormone (TSH) 0.050L, Free Thyroxine 1.95H, Free Triiodothyronine 2.1L, Digoxin Level 1.5 12/20/18 05:45: Urine Eosinophils None seen Height (Feet): 5 Height (Inches): 6.00 Weight (Pounds): 168 General Appearance: no apparent distress Cardiovascular: normal rate Respiratory/Chest: decreased breath sounds Abdomen: distended Anthony Yeung MD Dec 20, 2018 13:42
[2018-12-20] MEDS ORDERED: Gastrograffin 30ml ORAL PRN (13:45)
--- NOTE | 2018-12-20 14:04 | General Progress Note ---
Assessment/Plan Problem List: (1) HTN (hypertension) ICD Codes: I10 - Essential (primary) hypertension SNOMED: 61250074 (2) DM (diabetes mellitus) ICD Codes: E11.9 - Type 2 diabetes mellitus without complications SNOMED: 60903623 (3) Acute exacerbation of CHF (congestive heart failure) ICD Codes: I50.9 - Heart failure, unspecified SNOMED: 527922907, 43635739608409 Qualifiers: Qualified Codes: I50.9 - Heart failure, unspecified (4) Atrial fibrillation with rapid ventricular response ICD Codes: I48.91 - Unspecified atrial fibrillation SNOMED: 206246449871886 (5) Hypoxemia ICD Codes: R09.02 - Hypoxemia SNOMED: 871159801 (6) SHAHANA (acute kidney injury) ICD Codes: N17.9 - Acute kidney failure, unspecified SNOMED: 59134323, 9832448 (7) Cellulitis in diabetic foot ICD Codes: E11.628 - Type 2 diabetes mellitus with other skin complications; L03.119 - Cellulitis of unspecified part of limb SNOMED: 006215163, 38099953 (8) Sepsis ICD Codes: A41.9 - Sepsis, unspecified organism SNOMED: 10314369, 85049297 Qualifiers: Qualified Codes: A41.9 - Sepsis, unspecified organism; R65.20 - Severe sepsis without septic shock; J96.01 - Acute respiratory failure with hypoxia Status: stable Assessment/Plan: This is a 73 year old male with a PMHx Dm2, HTN, CHF, PAD s/p left iliac stent placement 01/05/19 and subsequent 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 Also with SHAHANA, new onset atrial fibrillation. #Postprandial epigastric abdominal pain. Differential diagnosis includes peptic ulcer pancreatitis GI bleed, mesenteric ischemia. Doubt ACS > abdominal Ultrasound negative: S/p cholecystectomy -IV Protonix twice daily -Appreciate GI consult: Dr. Garrison -Appreciated surgery consult: Dr. Islas -CT abdomen pelvis with oral contrast. IV contrast held due to kidney failure. -Check lipase -Check a stool occult blood #hyperthyroidism, new diagnosis > TSH 0.05, T4 1.95 - Appreciate Endocrinology consult: Dr. Rowley #leukocytosis. . Differential diagnosis includes reactive, hemoconcentration, infection although patient is on antibiotics. ACS ruled out - continue to monitor - continue antibiotics as above. #acute hypoxic respiratory failure 2/2 systolic CHF exacerbation (new diagnosis ) and possible pneumonia- no known history of CHF. Also treating for possible pneumonia - IMPROVING - telemetry - titrate SpO2 to keep O2 >92% - f/u blood cultures. 1/4 sets clostridium perfingens. Likely contaminant per ID. Surveilance cultures negative to date - f/u sputum culture - Vancomycin, Cefepime and Flagyl Day 6 - Holding lasix 40mg IV BID per discussion with cardiology/nephrology - Continue afterload reduction with hydralazine and Imdur per cardiology and nephrology - JUAN MANUEL-I contraindicated in setting of acute renal failure - Per cardiology given low EF will need ischemia workup. Per cardiology, an extensive discussion was performed at bedside using a accounting representative area, to discuss the need for an ischemia workup including a cardiac angiogram. The patient initially declined any further cardiac intervention but now agrees. Pending insurance authorization for transfer to [facility] for cariac cath. - appreciate Cardiology recommendations: Dr. Richter - Appreciate Infectious Disease recommendations: Dr. Mensah #Atrial fibrillation with RVR, new diagnosis. - IMPROVINg, althought still with episodes of tachycardia CHADS-VASC 5 - risk of stroke 7.2% per year HASBLED - 3 - risk of bleeding 5.8% per year > Explained to patient risks and benefits of anticoagulation with Asa/Plavix and an anticoagulant. Patient understands the risks of stroke are > than risk of bleeding and would like to take the anticoagulant. Will start patient on eliquis renal dosing 2.5mg PO BID - s/p Diltiazem Gtt - Coreg and digoxin for heart rate controlled - appreicate cardiology recommendations #sepsis (WBC, heart rate, respiratory rate) 2/2 pneumonia - IMPROVING #Clostridium perfingens in 1/2 blood culture- likely contaminant per ID > C diff negative > ESR 74, CRP 1.4, unlikely osteomyelitis - cultures as above - Repeat blood cultures: negative so far - antibiotics as above #acute urinary retention, new problem > UA and urine culture negative - Inserted davila on 12/17/09 - Tamsulosin 0.4mg PO daily - Finasteride - Appreciate urology recommendations: Dr. Cheney. - Per urology continue davila on discharge. Follow up as outpatient #Acute on Chronic Renal failure 2/2 CHF exacerbation and urinary obstruction - Stabilizing. Not back to baseline yet > Baseline Cr 1.5 > Renal ultrasound negative - IV diuresis as above - continue to trend - avoid nephrotoxins - replace lytes - Appreciate nephrology consultation: Dr. Raymond #Hypertension #hyperlipidemia #CAD -hold home amlodipine - continue Coreg as above - ASA/Plavix as above #hypokalemia #hypomagnesemia - replete - continue to monitor with labs #lactic acidosis suspected 2/2 CHF exacerbation vs. 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 > ESR 73, CRP 1.4 - wound consult - request records from [facility] #Diabetes mellitus type 1 per patient (suspect this is an error and has type 2) with hyperglycemia- improved > Hemoglobin A1C 8.6 on 12/17/09 - accuchecks Q6hr - Diabetic diet - Levemir 25 units QAM and 15 units QPM (home is 25 and 30) - SSI, average FENPPx DVT PPx: eliquis on hold, SCDs GI PPX: protonix Fluids: none Diet: Diabetic diet Lines: none PT/OT: pending Dispo: To [facility] for cardiac cath D/w RN, patient, Cardiology, Pulmonology, Gastroenterology, Surgery. I spent 41 minutes on this encounter. >50% spent on counseling and care coordination. Time of note may not reflect time patient was seen Subjective Date patient seen: Dec 20, 2018 Constitutional: Denies: chills, diaphoresis, fever, malaise, weakness, other HEENT: Denies: eye pain, blurred vision, tearing, double vision, ear pain, ear discharge, nose pain, nose congestion, throat pain, throat swelling, mouth pain , mouth swelling, other Cardiovascular: Denies: chest pain, edema, irregular heart rate, lightheadedness, palpitations, syncope, other Respiratory: Denies: cough, orthopnea, shortness of breath, SOB with excertion , SOB at rest, sputum, stridor, wheezing, other Gastrointestinal/Abdominal: Reports: abdominal pain, black stools, tarry stools ; Denies: abdomen distended, blood in stool, constipated, diarrhea, difficulty swallowing, nausea, poor appetite, poor fluid intake, rectal bleeding, vomiting , other Genitourinary: Denies: burning, discharge, frequency, flank pain, hematuria, incontinence, pain, urgency, other Neurologic/Psychiatric: Denies: anxiety, depressed, emotional problems, headache, numbness, paresthesia, pre-existing deficit, seizure, tingling, tremors, weakness, other Endocrine: Denies: excessive sweating, flushing, intolerance to cold, intolerance to heat, increased hunger, increased thirst, increased urine, unexplained weight gain, unexplained weight loss, other Hematologic/Lymphatic: Denies: anemia, easy bleeding, easy bruising, other Allergies: Coded Allergies: No Known Allergies (Unverified , 08/14/15) Subjective No acute events overnight per nursing. Today the patient endorses epigastric abdominal pain, it is postprandial and radiates to right and left lower abdominal quadrants. He rates it as a 5 out of 10 and lasts for 1 hour. It is associated with nausea but no vomiting. The patient also endorses noticing black stools for the past 3 days. He denies any fevers chills back pain chest pain. She endorses that his shortness of breath is improved. Afib: Heart rate is better controlled the patient is tolerating the medications well. He denies any palpitations or syncope. Pneumonia/CHF: The patient is on room air. He endorses that his breathing is well today. He has lost a total 7 kg While inpatient Objective Last 24 Hour Vital Signs Date Time Temp Pulse Resp B/P (MAP) Pulse Ox O2 Delivery O2 Flow Rate FiO2 12/20/18 13:06 135/68 12/20/18 12:00 72 12/20/18 12:00 98.5 71 20 135/68 (90) 97 12/20/18 08:54 68 130/65 12/20/18 08:53 130/65 12/20/18 08:00 98.7 77 19 130/65 (86) 98 12/20/18 08:00 78 12/20/18 07:55 86 20 97 Nasal Cannula 3.0 32 12/20/18 07:55 97 Nasal Cannula 3.0 32 12/20/18 05:57 127/62 12/20/18 04:00 74 12/20/18 04:00 98.0 75 18 131/66 (87) 98 12/20/18 00:00 81 12/20/18 00:00 97.6 78 18 110/56 (74) 96 12/19/18 22:52 120/64 12/19/18 21:22 90 114/46 12/19/18 20:25 83 18 97 Nasal Cannula 2.0 28 12/19/18 20:05 97 Nasal Cannula 2.0 28 12/19/18 20:00 91 12/19/18 20:00 98.1 90 18 114/46 (68) 95 12/19/18 16:00 90 12/19/18 16:00 97.2 96 18 135/68 (90) 96 12/19/18 14:17 120/54 Intake and Output 12/19/18 12/20/18 19:00 07:00 Intake Total 120 ml Output Total 500 ml Balance -380 ml Intake Oral 120 ml Output Urine Total 500 ml # Bowel Movements 1 Laboratory Tests 12/19/18 19:44: Sodium Level 141, Potassium Level 3.6, Chloride Level 107, Carbon Dioxide Level 25, Anion Gap 9, Blood Urea Nitrogen 21H, Creatinine 2.0H, Estimat Glomerular Filtration Rate , Glucose Level 234H, Calcium Level 8.4L 12/20/18 05:39: Sodium Level 141, Potassium Level 4.0, Chloride Level 108H, Carbon Dioxide Level 24, Anion Gap 9, Blood Urea Nitrogen 24H, Creatinine 2.1H, Estimat Glomerular Filtration Rate , Glucose Level 172H, Calcium Level 8.3L, White Blood Count 15.0H, Red Blood Count 3.34L, Hemoglobin 9.4L, Hematocrit 29.1L, Mean Corpuscular Volume 87, Mean Corpuscular Hemoglobin 28.2, Mean Corpuscular Hemoglobin Concent 32.5, Red Cell Distribution Width 12.8, Platelet Count 256, Mean Platelet Volume 7.2, Neutrophils (%) (Auto) 78.4H, Lymphocytes (%) (Auto) 12.2L, Monocytes (%) (Auto) 7.7, Eosinophils (%) (Auto) 1.3, Basophils (%) (Auto ) 0.4, Erythrocyte Sedimentation Rate 74H, Hemoglobin A1c 8.6H, Uric Acid 8.8H, Phosphorus Level 3.7, Magnesium Level 2.0, Iron Level 19L, Total Iron Binding Capacity 113L, Percent Iron Saturation 17, Unsaturated Iron Binding 94L, Ferritin 313, Total Bilirubin 0.4, Gamma Glutamyl Transpeptidase 198H, Aspartate Amino Transf (AST/SGOT) 22, Alanine Aminotransferase (ALT/SGPT) 24, Alkaline Phosphatase 163H, C-Reactive Protein, Quantitative 4.4H, Pro-B-Type Natriuretic Peptide 44080Q, Total Protein 6.0L, Albumin 2.1L, Globulin 3.9, Albumin/Globulin Ratio 0.5L, Triglycerides Level 107, Cholesterol Level 50, LDL Cholesterol 18, HDL Cholesterol 18L, Cholesterol/HDL Ratio 2.8L, Vitamin B12 Level 402, Folate 22.5, Thyroid Stimulating Hormone (TSH) 0.050L, Free Thyroxine 1.95H, Free Triiodothyronine 2.1L, Digoxin Level 1.5 12/20/18 05:45: Urine Eosinophils None seen TSH is 0.05 T4 1.956 GGT 198 BNP 11,852 6 A1c 8.6 % 17 Ferritin 94 Height (Feet): 5 Height (Inches): 6.00 Weight (Pounds): 168 General Appearance: WD/WN, no apparent distress, alert Neck: non-tender, normal alignment, supple Cardiovascular: normal peripheral pulses, normal rate, other - irregular irregular, no murmurs Respiratory/Chest: chest wall non-tender, lungs clear, normal breath sounds Abdomen: normal bowel sounds, other - nondistended, +bowel sounds, TTP in epigastric with slight rebound Extremities: other - No LE edema bilaterally 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 Dec 20, 2018 14:03
[2018-12-20] MEDS: HydrALAZINE 50mg tab ORAL SCH ×2 (14:22→21:22)
--- NOTE | 2018-12-20 15:16 | NUR ---
MILL ATTENDANT NOTES SPOKE WITH TEETEE FROM [facility] REQUEST FAXED FOR TRANSFER. PER TE[employer]EE INSURANCE IS CONTRACTED WITH [facility] AND DC TO SEND. SPOKE WITH GEOVANI AT [facility] SHE IS UNABLE TO ACCEPT PT WITHOUT AUTHORIZATION. WILL FOLLOW UP ON AUTH.
[2018-12-20 16:00] VITALS: BP 130/68
[2018-12-20] MEDS: Sucralfate 1gm tab ORAL SCH ×2 (18:00→21:20)
--- NOTE | 2018-12-20 19:15 | Infectious Diseases Prog Note ---
Assessment/Plan Assessment/Plan ASSESSMENT AND PLAN: 1. sepsis, ? pna, chf, leukocytosis,k elevated lactic acid clostridium perfringens blood culture - + 1 bottle, ? pathogen/bacteremia, ? contaminant - augmentin x 4 days more for 10 day tx course - f/u chest x-ray better - monitor labs, check abdominal us since has nausea - clinically improved, leukocytosis persists - surveillance blood cultures negative 2. Acute kidney injury. 3. Anemia. 4. Diabetes. 5. Hypertension. 6. Blood sugar and blood pressure treatment for diabetes and hypertension per primary. 7. History of peripheral vascular disease. 8. 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 9. Possible hyperlipidemia. 10. CHF. 11. PAD. 12. History of stent. 13. CAD. 14. Hypoxia. 15. Continue treatment per primary consultants. 16. No known allergies. 17. Social history is positive for smoking in the past, but quit. 18. Family history is positive for diabetes. 19. MAR was noted. 20. Case discussed with RN. 21. Skin care protocol. 22. ICU care. Subjective Constitutional: Denies: fever HEENT: Denies: congestion Respiratory: Denies: shortness of breath Cardiovascular: Denies: chest pain Gastrointestinal/Abdominal: Denies: nausea, vomiting, diarrhea Genitourinary: Reports: other - + davila Neurologic: Denies: headache Psychiatric: Denies: depression Skin: Denies: rash Hematologic: Denies: bleeding Musculoskeletal: Denies: pain Allergies: Coded Allergies: No Known Allergies (Unverified , 08/14/15) Objective Vital Signs Last 24 Hour Vital Signs Date Time Temp Pulse Resp B/P (MAP) Pulse Ox O2 Delivery O2 Flow Rate FiO2 12/20/18 16:00 74 12/20/18 16:00 97.9 74 20 130/68 (88) 99 12/20/18 14:22 135/68 12/20/18 13:06 135/68 12/20/18 12:00 72 12/20/18 12:00 98.5 71 20 135/68 (90) 97 12/20/18 08:54 68 130/65 12/20/18 08:53 130/65 12/20/18 08:00 98.7 77 19 130/65 (86) 98 12/20/18 08:00 78 12/20/18 07:55 86 20 97 Nasal Cannula 3.0 32 12/20/18 07:55 97 Nasal Cannula 3.0 32 12/20/18 05:57 127/62 12/20/18 04:00 74 12/20/18 04:00 98.0 75 18 131/66 (87) 98 12/20/18 00:00 81 12/20/18 00:00 97.6 78 18 110/56 (74) 96 12/19/18 22:52 120/64 12/19/18 21:22 90 114/46 12/19/18 20:25 83 18 97 Nasal Cannula 2.0 28 12/19/18 20:05 97 Nasal Cannula 2.0 28 12/19/18 20:00 91 12/19/18 20:00 98.1 90 18 114/46 (68) 95 Height (Feet): 5 Height (Inches): 6.00 Weight (Pounds): 168 General Appearance: no acute distress HEENT: normocephalic, atraumatic, anicteric, mucous membranes moist Respiratory/Chest: lungs clear, normal breath sounds, no respiratory distress Cardiovascular: normal rate, regular rhythm, no gallop/murmur, no JVD Abdomen: normal bowel sounds, soft, non tender, no organomegaly, non distended Genitourinary: other - no davila Extremities: no cyanosis Skin: no rash 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 IMPRESSION: Decreased pulmonary edema. Persistent bilateral pleural effusions with associated atelectasis versus pneumonia. Probable mild pulmonary vasculature congestion. Microbiology Date/Time Source Procedure Growth Status 12/19/18 09:14 Sputum Gram Stain - Final Resulted 12/19/18 09:14 Sputum Sputum Culture Pending Resulted Laboratory Tests Test 12/19/18 19:44 12/20/18 05:39 12/20/18 05:45 Sodium Level 141 MMOL/L (136-145) 141 MMOL/L (136-145) Potassium Level 3.6 MMOL/L (3.5-5.1) 4.0 MMOL/L (3.5-5.1) Chloride Level 107 MMOL/L (98-107) 108 MMOL/L (98-107) H Carbon Dioxide Level 25 MMOL/L (21-32) 24 MMOL/L (21-32) Anion Gap 9 mmol/L (5-15) 9 mmol/L (5-15) Blood Urea Nitrogen 21 mg/dL (7-18) H 24 mg/dL (7-18) H Creatinine 2.0 MG/DL (0.55-1.30) H 2.1 MG/DL (0.55-1.30) H Estimat Glomerular Filtration Rate mL/min (>60) mL/min (>60) Glucose Level 234 MG/DL (74-106) H 172 MG/DL (74-106) H Calcium Level 8.4 MG/DL (8.5-10.1) L 8.3 MG/DL (8.5-10.1) L White Blood Count 15.0 K/UL (4.8-10.8) H Red Blood Count 3.34 M/UL (4.70-6.10) L Hemoglobin 9.4 G/DL (14.2-18.0) L Hematocrit 29.1 % (42.0-52.0) L Mean Corpuscular Volume 87 FL (80-99) Mean Corpuscular Hemoglobin 28.2 PG (27.0-31.0) Mean Corpuscular Hemoglobin Concent 32.5 G/DL (32.0-36.0) Red Cell Distribution Width 12.8 % (11.6-14.8) Platelet Count 256 K/UL (150-450) Mean Platelet Volume 7.2 FL (6.5-10.1) Neutrophils (%) (Auto) 78.4 % (45.0-75.0) H Lymphocytes (%) (Auto) 12.2 % (20.0-45.0) L Monocytes (%) (Auto) 7.7 % (1.0-10.0) Eosinophils (%) (Auto) 1.3 % (0.0-3.0) Basophils (%) (Auto) 0.4 % (0.0-2.0) Erythrocyte Sedimentation Rate 74 MM/HR (0-20) H Hemoglobin A1c 8.6 % (4.3-6.0) H Uric Acid 8.8 MG/DL (2.6-7.2) H Phosphorus Level 3.7 MG/DL (2.5-4.9) Magnesium Level 2.0 MG/DL (1.8-2.4) Iron Level 19 ug/dL (50-175) L Total Iron Binding Capacity 113 ug/dL (250-450) L Percent Iron Saturation 17 % (15-50) Unsaturated Iron Binding 94 ug/dL (112-346) L Ferritin 313 NG/ML (8-388) Total Bilirubin 0.4 MG/DL (0.2-1.0) Gamma Glutamyl Transpeptidase 198 U/L (5-85) H Aspartate Amino Transf (AST/SGOT) 22 U/L (15-37) Alanine Aminotransferase (ALT/SGPT) 24 U/L (12-78) Alkaline Phosphatase 163 U/L (46-116) H C-Reactive Protein, Quantitative 4.4 mg/dL (0.00-0.90) H Pro-B-Type Natriuretic Peptide 04698 pg/mL (0-125) H Total Protein 6.0 G/DL (6.4-8.2) L Albumin 2.1 G/DL (3.4-5.0) L Globulin 3.9 g/dL Albumin/Globulin Ratio 0.5 (1.0-2.7) L Triglycerides Level 107 MG/DL (30-150) Cholesterol Level 50 MG/DL (< 200) LDL Cholesterol 18 mg/dL (<100) HDL Cholesterol 18 MG/DL (40-60) L Cholesterol/HDL Ratio 2.8 (3.3-4.4) L Lipase 85 U/L (73-393) Vitamin B12 Level 402 PG/ML (193-986) Folate 22.5 NG/ML (8.6-58.9) Thyroid Stimulating Hormone (TSH) 0.050 uiU/mL (0.358-3.740) Free Thyroxine 1.95 NG/DL (0.76-1.46) H Free Triiodothyronine 2.1 pg/mL (2.3-4.2) L Digoxin Level 1.5 NG/ML (0.5-2.0) Urine Eosinophils None seen (NONE SEEN) Current Medications Medications (Trade) Dose Ordered Sig/Sathish Route PRN Reason Start Time Stop Time Status Last Admin Dose Admin Acetaminophen (Tylenol) 500 mg Q6H PRN ORAL PAIN 1-6 12/18/18 22:15 01/16/19 10:14 Al Hydroxide/Mg Hydroxide (Mylanta) 30 ml Q6H PRN ORAL nausea/acid reflux 12/19/18 12:00 01/18/19 11:59 Amiodarone HCl (Cordarone) 400 mg DAILY ORAL 12/21/18 09:00 01/17/19 20:59 Amoxicillin/ Clavulanate Potassium (Augmentin) 500 mg EVERY 12 HOURS ORAL 12/19/18 21:00 12/26/18 20:59 12/20/18 08:53 Aspirin (ASA) 81 mg DAILY ORAL 12/19/18 09:00 01/14/19 11:14 12/20/18 08:54 Atorvastatin Calcium (Lipitor) 20 mg BEDTIME ORAL 12/18/18 21:00 01/14/19 20:59 12/19/18 21:23 Barium Sulfate (Readi-Cat 2) 450 ml NOW PRN ORAL Radiology Procedure 12/20/18 13:45 12/22/18 13:38 Carvedilol (Coreg) 25 mg EVERY 12 HOURS ORAL 12/18/18 21:00 01/17/19 20:59 12/20/18 08:54 Clopidogrel Bisulfate (Plavix) 75 mg DAILY ORAL 12/19/18 09:00 01/14/19 11:14 12/19/18 10:47 Dextrose (Dextrose 50%) 25 ml Q30M PRN IV Hypoglycemia 12/19/18 20:30 01/18/19 20:29 Dextrose (Dextrose 50%) 50 ml Q30M PRN IV Hypoglycemia 12/19/18 20:30 01/18/19 20:29 Diatrizoate Meglum/ Diatrizoate Sod (Gastrografin) 30 ml NOW PRN ORAL Radiology Procedure 12/20/18 13:45 12/22/18 13:38 Docusate Sodium (Colace) 100 mg TID ORAL 12/20/18 18:00 01/18/19 17:59 Finasteride (Proscar) 5 mg DAILY ORAL 12/19/18 09:00 01/18/19 08:59 12/20/18 08:53 Hydralazine HCl (Apresoline) 50 mg Q8HR ORAL 12/20/18 14:00 01/18/19 13:59 12/20/18 14:22 Insulin Aspart (NovoLOG) BEFORE MEALS AND HS SUBQ 12/19/18 21:00 01/18/19 20:59 12/19/18 21:27 Insulin Detemir (Levemir) 15 units BEDTIME SUBQ 12/18/18 22:30 01/14/19 22:29 12/19/18 21:26 Insulin Detemir (Levemir) 25 units DAILY SUBQ 12/19/18 09:00 01/14/19 11:14 12/19/18 11:26 Isosorbide Mononitrate (Imdur) 60 mg DAILY ORAL 12/21/18 09:00 01/18/19 08:59 Ondansetron HCl (Zofran ODT) 4 mg Q6H PRN ORAL Nausea & Vomiting 12/19/18 10:15 01/18/19 10:14 12/19/18 17:55 Pantoprazole (Protonix) 40 mg EVERY 12 HOURS IVP 12/19/18 21:00 01/18/19 20:59 12/20/18 08:52 Sucralfate (Carafate) 1 gm FOUR TIMES A DAY ORAL 12/20/18 18:00 01/19/19 17:59 Tamsulosin HCl (Flomax) 0.4 mg BID ORAL 12/19/18 18:00 01/16/19 20:59 12/20/18 08:54 Tramadol HCl (Ultram) 50 mg Q6H PRN ORAL Severe Pain (Pain Scale 7-10) 12/18/18 22:15 12/24/18 10:14 Joe Velasquez MD Dec 20, 2018 19:15
--- NOTE | 2018-12-20 19:29 | NUR ---
CASE MANAGEMENT: REVIEW SI: A-FIB w/RVR T 97.9 HR 74 RR 20 BP 130/68 SAT 99% ROOM AIR WBC 15.0 H/H 9.4/29.1 IS: AMIODARONE PO QD ISOSORBIDE PO QD COLACE PO TID PLAVIX PO QD ASA PO QD LIPITOR PO QD COREG PO QD TELEMETRY UNIT STATUS DCP: PATIENT IS FROM TRANSFER TO [facility] FOR CARDIAC CATH
--- NOTE | 2018-12-20 19:30 | NUR ---
HAND-OFF: Report given to KRISTIAN Kim. Plan of care endorsed. Patient's stable.
--- NOTE | 2018-12-20 19:35 | NUR ---
NURSE NOTES: Received report from KRISTIAN Tabor. Patient is awake, lying in semi kellogg's; resting comfortably. A/Ox4. Denies pain at this time. No signs of acute cardiorespiratory distress noted. Checked IV site and flushed. No erythema, bleeding or infiltration noted. On davila catheter draining well to gravity. Bed at lowest position, brakes on, siderails x 3. Call light within reach. Will continue to monitor.
[2018-12-20 20:00] VITALS: BP 134/67
--- NOTE | 2018-12-20 20:20 | NUR ---
NURSE NOTES: Patient was sent down for CT abdomen/pelvis without any incident.
--- NOTE | 2018-12-20 21:14 | Diagnostic Imaging Report ---
Indication: Sepsis, nausea, acute kidney injury, anemia, diabetes Technique: Spiral acquisitions obtained through the abdomen and pelvis. Patient ingested oral contrast. No IV contrast utilized, per referring physician request.. Multiplanar reconstructions were generated. Total dose length product 1337 mGycm. CTDIvol(s) 21 mGy. Dose reduction achieved using automated exposure control Comparison: 10/24/2015 Findings: The appendix is prominent in caliber, but caliber is similar to the previous exam and there is gas within the bulbous tip. There is soft tissue stranding along the right paracolic gutter which was not evident previously. No definite colon wall thickening is evident, however. There is no evidence of colonic diverticulosis or diverticulitis. No small bowel distention or small bowel wall thickening. There is trace fluid within the pelvis. No free intraperitoneal gas is evident. The distal esophagus, stomach, duodenum are unremarkable. Lack of IV contrast limits assessment of the solid organs. The gallbladder has been removed in the interim. There is no biliary ductal dilatation. The liver, pancreas, spleen, adrenals are unremarkable. Again demonstrated is fairly extensive bilateral perinephric fat stranding. No renal or ureteral calculi, hydronephrosis, or hydroureter. There is a Cline catheter present within the bladder, which is nondistended. Small amount of air within the bladder lumen is presumably related to the Cline catheterization. The prostate is somewhat prominent with calcifications. This is also evident previously. There is diffuse edema of the subcutaneous fat, slightly increased from the prior study. There are now bilateral large pleural effusions. These result in compressive atelectatic changes at both lung bases. No acute process otherwise interim placement of a right common iliac artery stent. Patency is indeterminate due to the lack of IV contrast. The bones demonstrate fairly extensive degenerative proliferative changes of the lumbar spine. Impression: Nonspecific soft tissue stranding adjacent to the right colon, without other evidence of colonic inflammatory change. Could represent diverticulitis related to occult diverticula disease, among other possibilities No definite acute process otherwise Bilateral large pleural effusions. Compressive atelectatic changes of both lung bases Interim cholecystectomy Trace free pelvic fluid, significance/etiology uncertain Nonspecific bilateral perinephric fat stranding, also evident previously Diffuse edema of the subcutaneous fat, increased from previous exam Other findings as noted, including degenerative proliferative spondylosis, right common iliac artery stent, Cline catheter, prominent prostate with calcifications This agrees with the preliminary interpretation provided [facility]. The CT scanner at [facility] is accredited by the [employer] and the scans are performed using protocols designed to limit radiation exposure to as low as reasonably achievable to attain images of sufficient resolution adequate for diagnostic evaluation.
[2018-12-20] MEDS: Atorvastatin 20mg tab ORAL SCH (21:21)
[2018-12-21] VITALS: BP 101/54
--- NOTE | 2018-12-21 03:07 | NUR ---
NURSE NOTES: Resting throughout the night. No significant change of condition noted. Will continue to monitor.
[2018-12-21 04:00] VITALS: BP 127/62
[2018-12-21] MEDS: HydrALAZINE 50mg tab ORAL SCH ×2 (06:21→13:37)
[2018-12-21] MEDS: NovoLOG Insulin Flexpen SUBQ SCH ×3 (06:23→17:50)
[2018-12-21 07:23] LABS: BASOPHILS % (AUTO) 0.5 % (0.0-2.0); HEMATOCRIT 29.6 % (42.0-52.0); HEMOGLOBIN 9.8 G/DL (14.2-18.0); LYMPHOCYTES % (AUTO) 13.6 % (20.0-45.0); MEAN CORPUSCULAR VOLUME 87 FL (80-99); MONOCYTES % (AUTO) 8.2 % (1.0-10.0); NEUTROPHILS % (AUTO) 75.8 % (45.0-75.0); PLATELET COUNT 271 K/UL (150-450); RED BLOOD COUNT 3.41 M/UL (4.70-6.10); RED CELL DISTRIBUTION WIDTH 12.9 % (11.6-14.8); WHITE BLOOD COUNT 12.4 K/UL (4.8-10.8)
--- NOTE | 2018-12-21 07:45 | NUR ---
HAND-OFF: Report given to KRISTIAN Dyson. Plan of care endorsed.
--- NOTE | 2018-12-21 07:46 | NUR ---
NURSE NOTES: Received report from Judy/RN, Patient is awake, Lying semi-kellogg's, resting comfortably, no acute distress/SOB noted. Able to make needs known. IV on right FA, and Left AC, Patent, no infiltration or bleeding noted. Bed in low position and locked, Bed alarm is on, side rails up x2. Call light within reach. Will continue plan of care.
[2018-12-21 07:59] LABS: ALANINE AMINOTRANSFERASE 23 U/L (12-78); ALBUMIN 2.2 G/DL (3.4-5.0); ALBUMIN/GLOBULIN RATIO 0.6 (1.0-2.7); ALKALINE PHOSPHATASE 158 U/L (46-116); ANION GAP 8 mmol/L (5-15); ASPARTATE AMINO TRANSFERASE 19 U/L (15-37); BILIRUBIN,TOTAL 0.4 MG/DL (0.2-1.0); BLOOD UREA NITROGEN 32 mg/dL (7-18); CALCIUM 8.5 MG/DL (8.5-10.1); CARBON DIOXIDE 25 MMOL/L (21-32); CHLORIDE 108 MMOL/L (98-107); CREATININE 2.1 MG/DL (0.55-1.30); PHOSPHORUS 3.7 MG/DL (2.5-4.9); POTASSIUM 4.4 MMOL/L (3.5-5.1); SODIUM 141 MMOL/L (136-145)
[2018-12-21 08:00] VITALS: BP 138/65
[2018-12-21] MEDS ORDERED: Amiodarone 200mg tab ORAL SCH (09:00)
[2018-12-21] MEDS ORDERED: Imdur 30mg tab ORAL SCH (09:00)
--- NOTE | 2018-12-21 09:07 | Urology Progress Note ---
Assessment/Plan Status: stable Assessment/Plan: 1. Urinary retention. 2. Benign prostatic hypertrophy. 3. Probable neurogenic bladder. 4. Renal insufficiency, acute versus chronic. 5. Renal cyst. 6. Rule out nephrolithiasis. 7. Hematuria. 8. UTI or colonized urine. monitor clinically maintain davila for now monitor renal fxn davila secured to leg hand irrigated and do PRN cont flomax and proscar abx as ordered f/u on blood cx voiding trial later consider adding antifungals Subjective Allergies: Coded Allergies: No Known Allergies (Unverified , 08/14/15) Subjective all noted, awaiting transfer to [facility] for cardiac cath Objective Last 24 Hour Vital Signs Date Time Temp Pulse Resp B/P (MAP) Pulse Ox O2 Delivery O2 Flow Rate FiO2 12/21/18 08:05 78 18 94 Nasal Cannula 2.0 28 12/21/18 08:05 94 Nasal Cannula 2.0 28 12/21/18 08:00 97.5 76 20 138/65 (89) 97 12/21/18 06:21 127/62 12/21/18 04:00 73 12/21/18 04:00 97.7 75 18 127/62 (83) 97 12/21/18 00:00 78 12/21/18 00:00 98.1 74 18 101/54 (70) 97 12/20/18 21:22 134/67 12/20/18 21:21 82 134/67 12/20/18 20:02 81 20 99 Nasal Cannula 3.0 32 12/20/18 20:02 99 Nasal Cannula 3.0 32 12/20/18 20:00 80 12/20/18 20:00 97.9 82 20 134/67 (89) 99 12/20/18 16:00 74 12/20/18 16:00 97.9 74 20 130/68 (88) 99 12/20/18 14:22 135/68 12/20/18 13:06 135/68 12/20/18 12:00 72 12/20/18 12:00 98.5 71 20 135/68 (90) 97 Intake and Output 12/20/18 12/21/18 18:59 06:59 Intake Total 120 ml Output Total 300 ml Balance -180 ml Intake Oral 120 ml Output Urine Total 300 ml # Bowel Movements 1 Microbiology Date/Time Source Procedure Growth Status 12/16/18 14:35 Blood Blood Culture - Preliminary NO GROWTH AFTER 4 DAYS Resulted 12/19/18 09:14 Sputum Gram Stain - Final Resulted 12/19/18 09:14 Sputum Sputum Culture Pending Resulted 12/17/18 09:50 Straight Cath Urine Culture - Final YEAST Complete 12/15/18 04:15 Rectum - Final NO CARBAPENEM-RESISTANT ENTEROBACTERI... Complete Current Medications Medications (Trade) Dose Ordered Sig/Sathish Route PRN Reason Start Time Stop Time Status Last Admin Dose Admin Acetaminophen (Tylenol) 500 mg Q6H PRN ORAL PAIN 1-6 12/18/18 22:15 01/16/19 10:14 Al Hydroxide/Mg Hydroxide (Mylanta) 30 ml Q6H PRN ORAL nausea/acid reflux 12/19/18 12:00 01/18/19 11:59 Amiodarone HCl (Cordarone) 400 mg DAILY ORAL 12/21/18 09:00 01/17/19 20:59 Amoxicillin/ Clavulanate Potassium (Augmentin) 500 mg EVERY 12 HOURS ORAL 12/19/18 21:00 12/26/18 20:59 12/20/18 21:21 Aspirin (ASA) 81 mg DAILY ORAL 12/19/18 09:00 01/14/19 11:14 12/20/18 08:54 Atorvastatin Calcium (Lipitor) 20 mg BEDTIME ORAL 12/18/18 21:00 01/14/19 20:59 12/20/18 21:21 Barium Sulfate (Readi-Cat 2) 450 ml NOW PRN ORAL Radiology Procedure 12/20/18 13:45 12/22/18 13:38 Carvedilol (Coreg) 25 mg EVERY 12 HOURS ORAL 12/18/18 21:00 01/17/19 20:59 12/20/18 21:21 Clopidogrel Bisulfate (Plavix) 75 mg DAILY ORAL 12/19/18 09:00 01/14/19 11:14 12/19/18 10:47 Dextrose (Dextrose 50%) 25 ml Q30M PRN IV Hypoglycemia 12/19/18 20:30 01/18/19 20:29 Dextrose (Dextrose 50%) 50 ml Q30M PRN IV Hypoglycemia 12/19/18 20:30 01/18/19 20:29 Diatrizoate Meglum/ Diatrizoate Sod (Gastrografin) 30 ml NOW PRN ORAL Radiology Procedure 12/20/18 13:45 12/22/18 13:38 Docusate Sodium (Colace) 100 mg TID ORAL 12/20/18 18:00 01/18/19 17:59 Finasteride (Proscar) 5 mg DAILY ORAL 12/19/18 09:00 01/18/19 08:59 12/20/18 08:53 Hydralazine HCl (Apresoline) 50 mg Q8HR ORAL 12/20/18 14:00 01/18/19 13:59 12/21/18 06:21 Insulin Aspart (NovoLOG) BEFORE MEALS AND HS SUBQ 12/19/18 21:00 01/18/19 20:59 12/21/18 06:23 Insulin Detemir (Levemir) 15 units BEDTIME SUBQ 12/18/18 22:30 01/14/19 22:29 12/20/18 21:29 Insulin Detemir (Levemir) 25 units DAILY SUBQ 12/19/18 09:00 01/14/19 11:14 12/19/18 11:26 Isosorbide Mononitrate (Imdur) 60 mg DAILY ORAL 12/21/18 09:00 01/18/19 08:59 Methimazole (Tapazole) 20 mg DAILY ORAL 12/21/18 09:00 01/20/19 08:59 Nateglinide (Starlix) 120 mg TIAC ORAL 12/21/18 06:30 01/20/19 06:29 12/21/18 06:21 Ondansetron HCl (Zofran ODT) 4 mg Q6H PRN ORAL Nausea & Vomiting 12/19/18 10:15 01/18/19 10:14 12/19/18 17:55 Pantoprazole (Protonix) 40 mg EVERY 12 HOURS IVP 12/19/18 21:00 01/18/19 20:59 12/20/18 21:22 Sucralfate (Carafate) 1 gm FOUR TIMES A DAY ORAL 12/20/18 18:00 01/19/19 17:59 12/20/18 21:20 Tamsulosin HCl (Flomax) 0.4 mg BID ORAL 12/19/18 18:00 01/16/19 20:59 12/20/18 08:54 Tramadol HCl (Ultram) 50 mg Q6H PRN ORAL Severe Pain (Pain Scale 7-10) 12/18/18 22:15 12/24/18 10:14 Laboratory Tests 12/21/18 04:20: Urine Eosinophils None seen 12/21/18 05:50: White Blood Count 12.4H, Red Blood Count 3.41L, Hemoglobin 9.8L, Hematocrit 29.6L, Mean Corpuscular Volume 87, Mean Corpuscular Hemoglobin 28.6, Mean Corpuscular Hemoglobin Concent 33.0, Red Cell Distribution Width 12.9, Platelet Count 271, Mean Platelet Volume 7.3, Neutrophils (%) (Auto) 75.8H, Lymphocytes ( %) (Auto) 13.6L, Monocytes (%) (Auto) 8.2, Eosinophils (%) (Auto) 2.0, Basophils (%) (Auto) 0.5, Sodium Level 141, Potassium Level 4.4, Chloride Level 108H, Carbon Dioxide Level 25, Anion Gap 8, Blood Urea Nitrogen 32H, Creatinine 2.1H, Estimat Glomerular Filtration Rate , Glucose Level 151H, Uric Acid 9.2H, Calcium Level 8.5, Phosphorus Level 3.7, Magnesium Level 2.3, Total Bilirubin 0.4, Aspartate Amino Transf (AST/SGOT) 19, Alanine Aminotransferase (ALT/SGPT) 23, Alkaline Phosphatase 158H, Troponin I 0.048, C-Reactive Protein, Quantitative 3.4H, Pro-B-Type Natriuretic Peptide 6338H, Total Protein 6.2L, Albumin 2.2L, Globulin 4.0, Albumin/Globulin Ratio 0.6L, Thyroid Stimulating Immunoglobulin [Pending], Thyroglobulin Antibody [Pending] Height (Feet): 5 Height (Inches): 6.00 Weight (Pounds): 169 Objective exam stable davila indwelling with christiane urine Shravan Baron MD Dec 21, 2018 09:07
[2018-12-21] MEDS: Docusate 100mg cap ORAL SCH ×3 (09:08→17:45)
[2018-12-21] MEDS: Carvedilol 25mg Tab ORAL SCH (09:09)
[2018-12-21] MEDS: Sucralfate 1gm tab ORAL SCH ×3 (09:09→17:45)
[2018-12-21] MEDS: Aspirin Baby 81mg ORAL SCH (09:09)
[2018-12-21] MEDS: Pantoprazole Inj IVP SCH (09:10)
[2018-12-21] MEDS: Tamsulosin 0.4mg cap ORAL SCH ×2 (09:10→17:45)
[2018-12-21] MEDS: Levemir Flexpen SUBQ SCH (09:20)
--- NOTE | 2018-12-21 09:34 | Nephrology Progress Note ---
Assessment/Plan Problem List: (1) Renal failure (ARF), acute on chronic (2) Atrial fibrillation with rapid ventricular response (3) HTN (hypertension) (4) Cardiomyopathy Assessment Renal failure- acute on chronic CardioMyopathy and low EjFx - CHF Anemia HTN DM / Nephropathy Elevated troponin I At Fib BPH Plan Adjust BP meds- Aim to reduce afterload avoid nephrotoxics slow diuresis antibiotics gastric support urine studies per orders Subjective ROS Limited/Unobtainable: No Constitutional: Reports: malaise Objective Objective Last 24 Hour Vital Signs Date Time Temp Pulse Resp B/P (MAP) Pulse Ox O2 Delivery O2 Flow Rate FiO2 12/21/18 09:10 138/65 12/21/18 09:09 78 138/65 12/21/18 08:05 78 18 94 Nasal Cannula 2.0 28 12/21/18 08:05 94 Nasal Cannula 2.0 28 12/21/18 08:00 97.5 76 20 138/65 (89) 97 12/21/18 06:21 127/62 12/21/18 04:00 73 12/21/18 04:00 97.7 75 18 127/62 (83) 97 12/21/18 00:00 78 12/21/18 00:00 98.1 74 18 101/54 (70) 97 12/20/18 21:22 134/67 12/20/18 21:21 82 134/67 12/20/18 20:02 81 20 99 Nasal Cannula 3.0 32 12/20/18 20:02 99 Nasal Cannula 3.0 32 12/20/18 20:00 80 12/20/18 20:00 97.9 82 20 134/67 (89) 99 12/20/18 16:00 74 12/20/18 16:00 97.9 74 20 130/68 (88) 99 12/20/18 14:22 135/68 12/20/18 13:06 135/68 12/20/18 12:00 72 12/20/18 12:00 98.5 71 20 135/68 (90) 97 Intake and Output 12/20/18 12/21/18 18:59 06:59 Intake Total 120 ml Output Total 300 ml Balance -180 ml Intake Oral 120 ml Output Urine Total 300 ml # Bowel Movements 1 Current Medications Medications (Trade) Dose Ordered Sig/Sathish Route PRN Reason Start Time Stop Time Status Last Admin Dose Admin Acetaminophen (Tylenol) 500 mg Q6H PRN ORAL PAIN 1-6 12/18/18 22:15 01/16/19 10:14 Al Hydroxide/Mg Hydroxide (Mylanta) 30 ml Q6H PRN ORAL nausea/acid reflux 12/19/18 12:00 01/18/19 11:59 Amiodarone HCl (Cordarone) 400 mg DAILY ORAL 12/21/18 09:00 01/17/19 20:59 12/21/18 09:08 Amoxicillin/ Clavulanate Potassium (Augmentin) 500 mg EVERY 12 HOURS ORAL 12/19/18 21:00 12/26/18 20:59 12/21/18 09:07 Aspirin (ASA) 81 mg DAILY ORAL 12/19/18 09:00 01/14/19 11:14 12/21/18 09:09 Atorvastatin Calcium (Lipitor) 20 mg BEDTIME ORAL 12/18/18 21:00 01/14/19 20:59 12/20/18 21:21 Barium Sulfate (Readi-Cat 2) 450 ml NOW PRN ORAL Radiology Procedure 12/20/18 13:45 12/22/18 13:38 Carvedilol (Coreg) 25 mg EVERY 12 HOURS ORAL 12/18/18 21:00 01/17/19 20:59 12/21/18 09:09 Clopidogrel Bisulfate (Plavix) 75 mg DAILY ORAL 12/19/18 09:00 01/14/19 11:14 12/21/18 09:10 Dextrose (Dextrose 50%) 25 ml Q30M PRN IV Hypoglycemia 12/19/18 20:30 01/18/19 20:29 Dextrose (Dextrose 50%) 50 ml Q30M PRN IV Hypoglycemia 12/19/18 20:30 01/18/19 20:29 Diatrizoate Meglum/ Diatrizoate Sod (Gastrografin) 30 ml NOW PRN ORAL Radiology Procedure 12/20/18 13:45 12/22/18 13:38 Docusate Sodium (Colace) 100 mg TID ORAL 12/20/18 18:00 01/18/19 17:59 12/21/18 09:08 Finasteride (Proscar) 5 mg DAILY ORAL 12/19/18 09:00 01/18/19 08:59 12/21/18 09:09 Hydralazine HCl (Apresoline) 50 mg Q8HR ORAL 12/20/18 14:00 01/18/19 13:59 12/21/18 06:21 Insulin Aspart (NovoLOG) BEFORE MEALS AND HS SUBQ 12/19/18 21:00 01/18/19 20:59 12/21/18 06:23 Insulin Detemir (Levemir) 15 units BEDTIME SUBQ 12/18/18 22:30 01/14/19 22:29 12/20/18 21:29 Insulin Detemir (Levemir) 25 units DAILY SUBQ 12/19/18 09:00 01/14/19 11:14 12/21/18 09:20 Isosorbide Mononitrate (Imdur) 60 mg DAILY ORAL 12/21/18 09:00 01/18/19 08:59 12/21/18 09:10 Methimazole (Tapazole) 20 mg DAILY ORAL 12/21/18 09:00 01/20/19 08:59 12/21/18 09:08 Nateglinide (Starlix) 120 mg TIAC ORAL 12/21/18 06:30 01/20/19 06:29 12/21/18 06:21 Ondansetron HCl (Zofran ODT) 4 mg Q6H PRN ORAL Nausea & Vomiting 12/19/18 10:15 01/18/19 10:14 12/19/18 17:55 Pantoprazole (Protonix) 40 mg EVERY 12 HOURS ORAL 12/21/18 21:00 01/20/19 20:59 UNV Sucralfate (Carafate) 1 gm FOUR TIMES A DAY ORAL 12/20/18 18:00 01/19/19 17:59 12/21/18 09:09 Tamsulosin HCl (Flomax) 0.4 mg BID ORAL 12/19/18 18:00 01/16/19 20:59 12/21/18 09:10 Tramadol HCl (Ultram) 50 mg Q6H PRN ORAL Severe Pain (Pain Scale 7-10) 12/18/18 22:15 12/24/18 10:14 Laboratory Tests 12/21/18 04:20: Urine Eosinophils None seen 12/21/18 05:50: White Blood Count 12.4H, Red Blood Count 3.41L, Hemoglobin 9.8L, Hematocrit 29.6L, Mean Corpuscular Volume 87, Mean Corpuscular Hemoglobin 28.6, Mean Corpuscular Hemoglobin Concent 33.0, Red Cell Distribution Width 12.9, Platelet Count 271, Mean Platelet Volume 7.3, Neutrophils (%) (Auto) 75.8H, Lymphocytes ( %) (Auto) 13.6L, Monocytes (%) (Auto) 8.2, Eosinophils (%) (Auto) 2.0, Basophils (%) (Auto) 0.5, Sodium Level 141, Potassium Level 4.4, Chloride Level 108H, Carbon Dioxide Level 25, Anion Gap 8, Blood Urea Nitrogen 32H, Creatinine 2.1H, Estimat Glomerular Filtration Rate , Glucose Level 151H, Uric Acid 9.2H, Calcium Level 8.5, Phosphorus Level 3.7, Magnesium Level 2.3, Total Bilirubin 0.4, Aspartate Amino Transf (AST/SGOT) 19, Alanine Aminotransferase (ALT/SGPT) 23, Alkaline Phosphatase 158H, Troponin I 0.048, C-Reactive Protein, Quantitative 3.4H, Pro-B-Type Natriuretic Peptide 6338H, Total Protein 6.2L, Albumin 2.2L, Globulin 4.0, Albumin/Globulin Ratio 0.6L, Thyroid Stimulating Immunoglobulin [Pending], Thyroglobulin Antibody [Pending] Height (Feet): 5 Height (Inches): 6.00 Weight (Pounds): 169 General Appearance: no apparent distress Cardiovascular: normal rate Respiratory/Chest: lungs clear Abdomen: soft Objective no change Anthony Yeung MD Dec 21, 2018 09:34
--- NOTE | 2018-12-21 09:49 | Cardiac Electrophysiology PN ---
Assessment/Plan Assessment/Plan 1. CHF exacerbation with EF 30-35%. On Lasix 40 iv bid, Hydralazine 10 bid, Imdur 30 daily and Aldactone 25 daily. Awaiting to transfer for [facility] for cardiac cath. Awaiting prior Echo report. If EF less than 35% for 3 months will need ICD implant 2. Atrial fib with RVR 160s. On Amiodarone 400 daily, Dig 0.125 daily and Coreg 25 bid. Held Eliquis for cardiac cath 3. Uncontrolled diabetes, on insulin. 4. Severe peripheral vascular disease, status post left second toe gangrene amputation for osteomyelitis followed by Podiatry and Vascular Surgery.On Aspirin and Plavix ALIYA RN and Dr Alvarado Transfer to [facility] at [place] for cardiac cath Patient agreeable to cardiac cath Subjective Subjective Remained in SR. No CP. EF 30-35%. No VT overnight Awaiting insurance authorization to transfer to [facility] for cardiac cath Objective Last 24 Hour Vital Signs Date Time Temp Pulse Resp B/P (MAP) Pulse Ox O2 Delivery O2 Flow Rate FiO2 12/21/18 09:10 138/65 12/21/18 09:09 78 138/65 12/21/18 08:05 78 18 94 Nasal Cannula 2.0 28 12/21/18 08:05 94 Nasal Cannula 2.0 28 12/21/18 08:00 97.5 76 20 138/65 (89) 97 12/21/18 06:21 127/62 12/21/18 04:00 73 12/21/18 04:00 97.7 75 18 127/62 (83) 97 12/21/18 00:00 78 12/21/18 00:00 98.1 74 18 101/54 (70) 97 12/20/18 21:22 134/67 12/20/18 21:21 82 134/67 12/20/18 20:02 81 20 99 Nasal Cannula 3.0 32 12/20/18 20:02 99 Nasal Cannula 3.0 32 12/20/18 20:00 80 12/20/18 20:00 97.9 82 20 134/67 (89) 99 12/20/18 16:00 74 12/20/18 16:00 97.9 74 20 130/68 (88) 99 12/20/18 14:22 135/68 12/20/18 13:06 135/68 12/20/18 12:00 72 12/20/18 12:00 98.5 71 20 135/68 (90) 97 Intake and Output 12/20/18 12/21/18 18:59 06:59 Intake Total 120 ml Output Total 300 ml Balance -180 ml Intake Oral 120 ml Output Urine Total 300 ml # Bowel Movements 1 Laboratory Tests Test 12/21/18 04:20 12/21/18 05:50 Urine Eosinophils None seen (NONE SEEN) White Blood Count 12.4 K/UL (4.8-10.8) H Red Blood Count 3.41 M/UL (4.70-6.10) L Hemoglobin 9.8 G/DL (14.2-18.0) L Hematocrit 29.6 % (42.0-52.0) L Mean Corpuscular Volume 87 FL (80-99) Mean Corpuscular Hemoglobin 28.6 PG (27.0-31.0) Mean Corpuscular Hemoglobin Concent 33.0 G/DL (32.0-36.0) Red Cell Distribution Width 12.9 % (11.6-14.8) Platelet Count 271 K/UL (150-450) Mean Platelet Volume 7.3 FL (6.5-10.1) Neutrophils (%) (Auto) 75.8 % (45.0-75.0) H Lymphocytes (%) (Auto) 13.6 % (20.0-45.0) L Monocytes (%) (Auto) 8.2 % (1.0-10.0) Eosinophils (%) (Auto) 2.0 % (0.0-3.0) Basophils (%) (Auto) 0.5 % (0.0-2.0) Sodium Level 141 MMOL/L (136-145) Potassium Level 4.4 MMOL/L (3.5-5.1) Chloride Level 108 MMOL/L (98-107) H Carbon Dioxide Level 25 MMOL/L (21-32) Anion Gap 8 mmol/L (5-15) Blood Urea Nitrogen 32 mg/dL (7-18) H Creatinine 2.1 MG/DL (0.55-1.30) H Estimat Glomerular Filtration Rate mL/min (>60) Glucose Level 151 MG/DL (74-106) H Uric Acid 9.2 MG/DL (2.6-7.2) H Calcium Level 8.5 MG/DL (8.5-10.1) Phosphorus Level 3.7 MG/DL (2.5-4.9) Magnesium Level 2.3 MG/DL (1.8-2.4) Total Bilirubin 0.4 MG/DL (0.2-1.0) Aspartate Amino Transf (AST/SGOT) 19 U/L (15-37) Alanine Aminotransferase (ALT/SGPT) 23 U/L (12-78) Alkaline Phosphatase 158 U/L (46-116) H Troponin I 0.048 ng/mL (0.000-0.056) C-Reactive Protein, Quantitative 3.4 mg/dL (0.00-0.90) H Pro-B-Type Natriuretic Peptide 6338 pg/mL (0-125) H Total Protein 6.2 G/DL (6.4-8.2) L Albumin 2.2 G/DL (3.4-5.0) L Globulin 4.0 g/dL Albumin/Globulin Ratio 0.6 (1.0-2.7) L Thyroid Stimulating Immunoglobulin Pending Thyroglobulin Antibody Pending Microbiology Date/Time Source Procedure Growth Status 12/19/18 09:14 Sputum Gram Stain - Final Resulted 12/19/18 09:14 Sputum Culture - Preliminary YEAST Usual Respiratory Geraldine Resulted Objective HEAD AND NECK: Positive JVD. LUNGS: Decreased breath sounds and bibasilar rales. CARDIOVASCULAR: Tachycardic, S1 and S2 with no gallop. ABDOMEN: Soft. EXTREMITIES: 1+ pitting edema. José Miguel Richter MD Dec 21, 2018 09:49
--- NOTE | 2018-12-21 11:13 | NUR ---
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 AUTHORIZATION GIVEN FOR TRANSPORTATION HOWEVER TEETEE HAS TO CALL [facility] FOR THE AUTHORIZATION. WILL FOLLOW UP WITH AUTH. Addendum: 12/21/18 at 1125 by ROSINA MILLER RN RN RECEIVED A CALL FROM TEETEE UNABLE TO GIVE AUTHORIZATION UNTIL HE CAN CONFIRM IF [facility] IS CONTRACTED WITH [employer]. TEETEE NEEDS NPI NUMBER OF [facility]. PROVIDED TEETEE WITH THE SALES REPRESENTATIVE GRAPH[employer] ART NUMBER AT [facility] TO GET NPI NUMBER. PLACED A CALL TO [facility] SPOKE WITH PRITESH MADE AWARE OF NEEDED NPI NUMBER TO PROCEED WITH TRANSFER, PROVIDED TEETEE JONAS'S TELEPHONE NUMBER. WILL FOLLOW UP. Addendum: 12/21/18 at 1737 by ROSINA MILLER RN RN PT ACCEPTED TO [facility] 240 BED A. NURSE TO CALL REPORT TO [phone] EXT [phone]. [facility] TO TRANSPORT PT WITH AUTH NUMBER [id number]. MADE AWARE OF PT TRANSFERRING.
[2018-12-21 12:00] VITALS: BP 118/51
[2018-12-21] MEDS ORDERED: Furosemide 40mg tab ORAL SCH (14:00)
--- NOTE | 2018-12-21 14:06 | General Progress Note ---
Assessment/Plan Problem List: (1) HTN (hypertension) ICD Codes: I10 - Essential (primary) hypertension SNOMED: 94730326 (2) DM (diabetes mellitus) ICD Codes: E11.9 - Type 2 diabetes mellitus without complications SNOMED: 98875356 (3) Acute exacerbation of CHF (congestive heart failure) ICD Codes: I50.9 - Heart failure, unspecified SNOMED: 950823987, 02587390447715 Qualifiers: Qualified Codes: I50.9 - Heart failure, unspecified (4) Atrial fibrillation with rapid ventricular response ICD Codes: I48.91 - Unspecified atrial fibrillation SNOMED: 680096032442396 (5) Hypoxemia ICD Codes: R09.02 - Hypoxemia SNOMED: 861959456 (6) SHAHANA (acute kidney injury) ICD Codes: N17.9 - Acute kidney failure, unspecified SNOMED: 26527242, 8775215 (7) Cellulitis in diabetic foot ICD Codes: E11.628 - Type 2 diabetes mellitus with other skin complications; L03.119 - Cellulitis of unspecified part of limb SNOMED: 570169723, 60917284 (8) Sepsis ICD Codes: A41.9 - Sepsis, unspecified organism SNOMED: 34091101, 44853345 Qualifiers: Qualified Codes: A41.9 - Sepsis, unspecified organism; R65.20 - Severe sepsis without septic shock; J96.01 - Acute respiratory failure with hypoxia (9) Cecal diverticulitis ICD Codes: K57.32 - Diverticulitis of large intestine without perforation or abscess without bleeding SNOMED: 676161282 (10) Hyperthyroidism ICD Codes: E05.90 - Thyrotoxicosis, unspecified without thyrotoxic crisis or storm SNOMED: 55295614 Status: stable Assessment/Plan: This is a 73 year old male with a PMHx Dm2, HTN, CHF, PAD s/p left iliac stent placement 01/05/19 and subsequent 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 Also with SHAHANA, new onset atrial fibrillation. .Also found to have cecal diverticulitis and hyperthyroidism, both presumably present on admission #Cecal diverticulitis, present on admission. Patient did not endorse any abdominal pain on admission and was nontender on exam. However after 4 days in the hospital the patient began to experience more pain, WBC increased, and became more tender on exam #sepsis (WBC, heart rate, RR) 2/2 diverticulitis vs. pneumonia, resolved #Clostridium perfingens in 1/2 blood culture- likely contaminant per ID > 6 the patient has had abdominal pain for the past [address] abdomen pelvis showed cecal diverticulitis. > abdominal Ultrasound negative: S/p cholecystectomy > C diff negative > ESR 74, CRP 1.4, unlikely osteomyelitis -continue Protonix daily- appears to help symptoms -Appreciate GI consult: Dr. Garrison -Appreciated surgery consult: Dr. Islas - no surgical intervention -Check a stool occult blood -Continue Augmentin -Appreciate ID recommendations: Dr. Mensah #hyperthyroidism, new diagnosis > TSH 0.05, T4 1.95 - Appreciate Endocrinology consult: Dr. Rowley -Per endocrinology patient started on methimazole -follow up on anti-TSI and anti thyroid ab #acute hypoxic respiratory failure 2/2 systolic CHF exacerbation (new diagnosis ) and possible pneumonia- no known history of CHF. Also treating for possible pneumonia - Slightly worsened today. Will resume diuretics - telemetry - titrate SpO2 to keep O2 >92% - f/u blood cultures. 1/4 sets clostridium perfingens. Likely contaminant per ID. Surveilance cultures negative to date - f/u sputum culture - s/p Vancomycin, Cefepime and Flagyl - Change to Augmentin per ID - Day 7. will need a total of 10 days - Resume Lasix 40 mg p.o. daily - Continue afterload reduction with hydralazine and Imdur per cardiology and nephrology Patient- JUAN MANUEL-I contraindicated in setting of acute renal failure - Per cardiology given low EF will need ischemia workup. Per cardiology, an extensive discussion was performed at bedside using a spanish interpreter area, to discuss the need for an ischemia workup including a cardiac angiogram. The patient initially declined any further cardiac intervention but now agrees. Pending insurance authorization for transfer to [facility] for cariac cath. - Informed by outside hospital to keep patient NPO for possible procedure today - appreciate Cardiology recommendations: Dr. Richter - Appreciate Infectious Disease recommendations: Dr. Mensah #Atrial fibrillation with RVR, new diagnosis. - IMPROVINg, CHADS-VASC 5 - risk of stroke 7.2% per year HASBLED - 3 - risk of bleeding 5.8% per year > Explained to patient risks and benefits of anticoagulation with Asa/Plavix and an anticoagulant. Patient understands the risks of stroke are > than risk of bleeding and would like to take the anticoagulant. Will start patient on eliquis renal dosing 2.5mg PO BID - s/p Diltiazem Gtt - Coreg and digoxin for heart rate controlled - holding eliquis for now due to pending cardiac cath - appreicate cardiology recommendations #acute urinary retention, new problem > UA and urine culture negative - Inserted davila on 12/17/09 - Tamsulosin 0.4mg PO daily - Finasteride - Appreciate urology recommendations: Dr. Cheney. - Per urology continue davila on discharge. Follow up as outpatient for voiding trial #Acute on Chronic Renal failure 2/2 CHF exacerbation and urinary obstruction - Stabilizing. Not back to baseline yet > Baseline Cr 1.5 > Renal ultrasound negative - diuresis as above - continue to trend - avoid nephrotoxins - replace lytes - Appreciate nephrology consultation: Dr. Raymond #Hypertension #hyperlipidemia #CAD -hold home amlodipine - continue Coreg as above - ASA/Plavix as above #hypokalemia #hypomagnesemia - replete - continue to monitor with labs #lactic acidosis suspected 2/2 CHF exacerbation vs. 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 > ESR 73, CRP 1.4 - wound consult - request records from [facility] #Diabetes mellitus type 1 per patient (suspect this is an error and has type 2) with hyperglycemia- improved > Hemoglobin A1C 8.6 on 12/17/09 - accuchecks Q6hr - Diabetic diet - Levemir 25 units QAM and 15 units QPM (home is 25 and 30) - SSI, average - nateglinide 120mg TIDAC per endocrinology recommendations FENPPx DVT PPx: eliquis on hold, SCDs GI PPX: protonix Fluids: none Diet: Diabetic diet Lines: none PT/OT: pending Dispo: To OSH for cardiac cath D/w RN, patient, Cardiology, Pulmonology, Gastroenterology, Surgery. I spent 41 minutes on this encounter. >50% spent on counseling and care coordination. Time of note may not reflect time patient was seen Subjective Date patient seen: Dec 21, 2018 Constitutional: Denies: chills, diaphoresis, fever, malaise, weakness, other HEENT: Denies: eye pain, blurred vision, tearing, double vision, ear pain, ear discharge, nose pain, nose congestion, throat pain, throat swelling, mouth pain , mouth swelling, other Cardiovascular: Denies: chest pain, edema, irregular heart rate, lightheadedness, palpitations, syncope, other Respiratory: Reports: orthopnea, shortness of breath, SOB with excertion; Denies: cough, SOB at rest, sputum, stridor, wheezing, other Gastrointestinal/Abdominal: Reports: abdominal pain, nausea; Denies: abdomen distended, black stools, tarry stools, blood in stool, constipated, diarrhea, difficulty swallowing, poor appetite, poor fluid intake, rectal bleeding, vomiting, other Genitourinary: Denies: burning, discharge, frequency, flank pain, hematuria, incontinence, pain, urgency, other Neurologic/Psychiatric: Denies: anxiety, depressed, emotional problems, headache, numbness, paresthesia, pre-existing deficit, seizure, tingling, tremors, weakness, other Endocrine: Denies: excessive sweating, flushing, intolerance to cold, intolerance to heat, increased hunger, increased thirst, increased urine, unexplained weight gain, unexplained weight loss, other Hematologic/Lymphatic: Denies: anemia, easy bleeding, easy bruising, other Allergies: Coded Allergies: No Known Allergies (Unverified , 08/14/15) Subjective No acute events overnight per nursing. Cecal diverticulit: CT abdomen pelvis with oral contrast was positive for cecal diverticulitis. The appendix looked normal. The patient was seen by general surgery and no surgical intervention was recommended. Patient continues to endorse abdominal pain mostly in the right lower and left lower quadrant. He has had no hematochezia, melena, vomiting. He does endorse some nausea. Today the patient endorses epigastric abdominal pain, it is postprandial and radiates to right and left lower abdominal quadrants. He rates it as a 5 out of 10 and lasts for 1 hour. It is associated with nausea but no vomiting. The patient also endorses noticing black stools for the past 3 days. He denies any fevers chills back pain chest pain. She endorses that his shortness of breath is improved. Afib: Heart rate is better controlled the patient is tolerating the medications well. He denies any palpitations or syncope. Pneumonia/CHF: Patient's diuretics have been held for the past 2 days due to worsening renal function and he endorses worsening shortness of breath and orthopnea. he is now on 2 L of nasal cannula. He denies any chest pain cough fevers chills. Objective Last 24 Hour Vital Signs Date Time Temp Pulse Resp B/P (MAP) Pulse Ox O2 Delivery O2 Flow Rate FiO2 12/21/18 13:37 118/51 12/21/18 12:00 97.8 69 22 118/51 (73) 96 12/21/18 12:00 69 12/21/18 09:10 138/65 12/21/18 09:09 78 138/65 12/21/18 08:05 78 18 94 Nasal Cannula 2.0 28 12/21/18 08:05 94 Nasal Cannula 2.0 28 12/21/18 08:00 76 12/21/18 08:00 97.5 76 20 138/65 (89) 97 12/21/18 06:21 127/62 12/21/18 04:00 73 12/21/18 04:00 97.7 75 18 127/62 (83) 97 12/21/18 00:00 78 12/21/18 00:00 98.1 74 18 101/54 (70) 97 12/20/18 21:22 134/67 12/20/18 21:21 82 134/67 12/20/18 20:02 81 20 99 Nasal Cannula 3.0 32 12/20/18 20:02 99 Nasal Cannula 3.0 32 12/20/18 20:00 80 12/20/18 20:00 97.9 82 20 134/67 (89) 99 12/20/18 16:00 74 12/20/18 16:00 97.9 74 20 130/68 (88) 99 12/20/18 14:22 135/68 proBNP 6338. Previously 11,[address] abdomen pelvis: Cecal diverticulitis, right coronary stent seen Intake and Output 12/20/18 12/21/18 19:00 07:00 Intake Total 120 ml Output Total 300 ml Balance -180 ml Intake Oral 120 ml Output Urine Total 300 ml # Bowel Movements 1 Laboratory Tests 12/21/18 04:20: Urine Eosinophils None seen 12/21/18 05:50: White Blood Count 12.4H, Red Blood Count 3.41L, Hemoglobin 9.8L, Hematocrit 29.6L, Mean Corpuscular Volume 87, Mean Corpuscular Hemoglobin 28.6, Mean Corpuscular Hemoglobin Concent 33.0, Red Cell Distribution Width 12.9, Platelet Count 271, Mean Platelet Volume 7.3, Neutrophils (%) (Auto) 75.8H, Lymphocytes ( %) (Auto) 13.6L, Monocytes (%) (Auto) 8.2, Eosinophils (%) (Auto) 2.0, Basophils (%) (Auto) 0.5, Sodium Level 141, Potassium Level 4.4, Chloride Level 108H, Carbon Dioxide Level 25, Anion Gap 8, Blood Urea Nitrogen 32H, Creatinine 2.1H, Estimat Glomerular Filtration Rate , Glucose Level 151H, Uric Acid 9.2H, Calcium Level 8.5, Phosphorus Level 3.7, Magnesium Level 2.3, Total Bilirubin 0.4, Aspartate Amino Transf (AST/SGOT) 19, Alanine Aminotransferase (ALT/SGPT) 23, Alkaline Phosphatase 158H, Troponin I 0.048, C-Reactive Protein, Quantitative 3.4H, Pro-B-Type Natriuretic Peptide 6338H, Total Protein 6.2L, Albumin 2.2L, Globulin 4.0, Albumin/Globulin Ratio 0.6L, Thyroid Stimulating Immunoglobulin [Pending], Thyroglobulin Antibody [Pending] Height (Feet): 5 Height (Inches): 6.00 Weight (Pounds): 169 General Appearance: WD/WN, no apparent distress, alert EENT: PERRL/EOMI Neck: non-tender, normal alignment, supple Cardiovascular: normal peripheral pulses, normal rate, other - irregular rhythm Respiratory/Chest: other - bibasilar crackles, no wheezing Abdomen: normal bowel sounds, soft, other - tenderness to palpation diffusely, without rebound Extremities: normal range of motion, non-tender 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 Dec 21, 2018 14:05
--- NOTE | 2018-12-21 14:22 | Consultation ---
History of Present Illness General Date patient seen: Dec 21, 2018 Reason for Hospitalization: Abnormal Labs Present Illness HPI 73 year old male with a PMHx Dm2, HTN, CHF, PAD s/p left iliac stent placement 01/05/19 and supsequent left 2nd toe amputation for gangrene/osteomyelitis, CAD who presented with increased SOB x 5 days. Increased orthopnea and lower extremity swelling. Dry cough. no fevers or chills. Also with diarrhea, watery 10x per day for past two weeks. No history of RI or heart failure. No history of coronary stents. Of note patient recently hospitalized last month for L second toe foul smelling necrosis, gangrene and osteomyelitis. Was continued on vancomycin, cefepime and flagyl until patient underwent LLE angiogram and left iliac? stent on approximately 12/06/18. Subsequently had left toe amputated. He does not endorse any pain, redness or drainage from the toe. Denies any other rashes, lesions ulcers. During this admission complaining of abdominal pain. Ultrasound identified no significant findings CT scan as below. Surgery called to evaluate and assist with care. Patient seen, patient evaluated, chart reviewed Allergies: Coded Allergies: No Known Allergies (Unverified , 08/14/15) Medication History Scheduled Amlodipine Besylate (Norvasc), 5 MG ORAL DAILY Aspirin* (Aspirin*), 81 MG ORAL DAILY Atorvastatin Calcium* (Lipitor*), 20 MG ORAL BEDTIME Clopidogrel* (Clopidogrel*), 75 MG ORAL DAILY, (Reported) Metoprolol Tartrate* (Metoprolol Tartrate*), 100 MG ORAL BEDTIME Omeprazole (Omeprazole), 40 MG ORAL DAILY, (Reported) Miscellaneous Medications Bismuth Subsalicylate (Pepto-Bismol), 262 MG PO, (Reported) Discontinued Medications Acetaminophen* (Acetaminophen 325MG Tablet*), 650 MG ORAL Q4H PRN Discontinued Reason: Therapy completed Cefepime Hcl/D5w (Cefepime-Dextrose 2 Gm/50 Ml), 2 GM IVPB Q24H, (Reported) Discontinued Reason: Therapy completed Cefepime Hcl/Dextrose, Iso-Osm (Cefepime 2 Gm Injection), 2 GM IV DAILY Discontinued Reason: Therapy completed Chlorhexidine Gluconate* (Hibiclens*), 1 APPLIC TOPIC DAILY@1999 Discontinued Reason: Therapy completed Metronidazole* (Flagyl*), 500 MG ORAL EVERY 8 HOURS Discontinued Reason: Therapy completed Metronidazole* (Flagyl*), 500 MG ORAL EVERY 8 HOURS, (Reported) Discontinued Reason: Therapy completed Nph, Human Insulin Isophane* (Novolin N*), 20 UNITS SUBQ BEFORE DINNER Discontinued Reason: Therapy completed Nph, Human Insulin Isophane* (Novolin N*), 40 UNITS SUBQ BEFORE BREAKFAST Discontinued Reason: Therapy completed Ondansetron Odt* (Zofran Odt*), 4 MG BC EVERY 8 HOURS Discontinued Reason: Therapy completed Pantoprazole* (Pantoprazole*), 40 MG ORAL DAILY Discontinued Reason: Therapy completed Polyethylene Glycol 3350 (Miralax), 17 GM ORAL HSPRN PRN Discontinued Reason: Therapy completed Vancomycin HCl in Water (Vancomycin 1,250 mg/12.5 ml Vl), 1.25 GM IV DAILY Discontinued Reason: Therapy completed Vancomycin HCl in Water (Vancomycin 1,250 mg/12.5 ml Vl), 1.25 GM IV DAILY, ( Reported) Discontinued Reason: Therapy completed Vancomycin Hcl (Vancomycin Hcl), 125 MG IVPB DAILY, (Reported) Discontinued Reason: Therapy completed [D50w], 50 ML IV Q30M PRN Discontinued Reason: Therapy completed [D50w], 25 ML IV Q30M PRN Discontinued Reason: Therapy completed Patient History History Provided By: Patient, Family Member, Medical Record, PMD Healthcare decision maker Resuscitation status Full Code Advanced Directive on File Past Medical/Surgical History Past Medical/Surgical History: (1) Cholelithiasis (2) Biliary colic (3) Dehydration (4) Fever (5) Renal insufficiency (6) Cholecystitis with cholelithiasis (7) Elevated LFTs (8) Bladder outlet obstruction (9) Anemia, unspecified (10) Sepsis (11) ACS (acute coronary syndrome) (12) Hyperglycemia due to type 1 diabetes mellitus (13) Cellulitis in diabetic foot (14) SHAHANA (acute kidney injury) (15) Hypoxemia (16) HTN (hypertension) (17) DM (diabetes mellitus) (18) Acute exacerbation of CHF (congestive heart failure) (19) Atrial fibrillation with rapid ventricular response (20) Gram positive bacterial infection (21) Acute kidney injury superimposed on CKD (22) Renal failure (ARF), acute on chronic (23) Cardiomyopathy (24) Hyperthyroidism (25) Cecal diverticulitis Review of Systems Review of Symptoms General ROS: no weight loss or fever Psychological ROS: no depression or mood changes, no memory loss Ophthalmic ROS: no visual changes or eye irritation ENT ROS: no nasal congestion, hearing loss, dizziness Allergy and Immunology ROS: no allergic symptoms or urticaria Hematological and Lymphatic ROS: no swollen glands, unusual bleeding or bruising Endocrine ROS: no polyuria, polydipsia, weight changes, temperature intolerance Respiratory ROS: no cough, shortness of breath, or wheezing Cardiovascular ROS: no chest pain or dyspnea on exertion Gastrointestinal ROS: abdominal pain, bright red blood in stool. Musculoskeletal ROS: no myalgias or arthralgias Neurological ROS: no TIA or stroke symptoms Dermatological ROS: no new or changing skin lesions, rashes or pruritis Physical Exam Physical Exam General appearance: alert, cooperative, no distress, appears stated age Head: Normocephalic, without obvious abnormality, atraumatic Eyes: conjunctivae/corneas clear. PERRL, EOM's intact. Fundi benign Throat: Lips, mucosa, and tongue normal. Teeth and gums normal Neck: supple, symmetrical, trachea midline, no adenopathy, thyroid: not enlarged, symmetric, no tenderness/mass/nodules, no carotid bruit and no JVD Lungs: clear to auscultation bilaterally Heart: regular rate and rhythm, S1, S2 normal, no murmur, click, rub or gallop Abdomen: soft, non-tender. Bowel sounds normal. No masses, no organomegaly Extremities: extremities normal, atraumatic, no cyanosis or edema Pulses: 2+ and symmetric Skin: Skin color, texture, turgor normal. No rashes or lesions Neurologic: Grossly normal Last 24 Hour Vital Signs Date Time Temp Pulse Resp B/P (MAP) Pulse Ox O2 Delivery O2 Flow Rate FiO2 12/21/18 13:37 118/51 12/21/18 12:00 97.8 69 22 118/51 (73) 96 12/21/18 12:00 69 12/21/18 09:10 138/65 12/21/18 09:09 78 138/65 12/21/18 08:05 78 18 94 Nasal Cannula 2.0 28 12/21/18 08:05 94 Nasal Cannula 2.0 28 12/21/18 08:00 76 12/21/18 08:00 97.5 76 20 138/65 (89) 97 12/21/18 06:21 127/62 12/21/18 04:00 73 12/21/18 04:00 97.7 75 18 127/62 (83) 97 12/21/18 00:00 78 12/21/18 00:00 98.1 74 18 101/54 (70) 97 12/20/18 21:22 134/67 12/20/18 21:21 82 134/67 12/20/18 20:02 81 20 99 Nasal Cannula 3.0 32 12/20/18 20:02 99 Nasal Cannula 3.0 32 12/20/18 20:00 80 12/20/18 20:00 97.9 82 20 134/67 (89) 99 12/20/18 16:00 74 12/20/18 16:00 97.9 74 20 130/68 (88) 99 12/20/18 14:22 135/68 Intake and Output 12/20/18 12/21/18 19:00 07:00 Intake Total 120 ml Output Total 300 ml Balance -180 ml Intake Oral 120 ml Output Urine Total 300 ml # Bowel Movements 1 Laboratory Tests Test 12/21/18 04:20 12/21/18 05:50 Urine Eosinophils None seen (NONE SEEN) White Blood Count 12.4 K/UL (4.8-10.8) H Red Blood Count 3.41 M/UL (4.70-6.10) L Hemoglobin 9.8 G/DL (14.2-18.0) L Hematocrit 29.6 % (42.0-52.0) L Mean Corpuscular Volume 87 FL (80-99) Mean Corpuscular Hemoglobin 28.6 PG (27.0-31.0) Mean Corpuscular Hemoglobin Concent 33.0 G/DL (32.0-36.0) Red Cell Distribution Width 12.9 % (11.6-14.8) Platelet Count 271 K/UL (150-450) Mean Platelet Volume 7.3 FL (6.5-10.1) Neutrophils (%) (Auto) 75.8 % (45.0-75.0) H Lymphocytes (%) (Auto) 13.6 % (20.0-45.0) L Monocytes (%) (Auto) 8.2 % (1.0-10.0) Eosinophils (%) (Auto) 2.0 % (0.0-3.0) Basophils (%) (Auto) 0.5 % (0.0-2.0) Sodium Level 141 MMOL/L (136-145) Potassium Level 4.4 MMOL/L (3.5-5.1) Chloride Level 108 MMOL/L (98-107) H Carbon Dioxide Level 25 MMOL/L (21-32) Anion Gap 8 mmol/L (5-15) Blood Urea Nitrogen 32 mg/dL (7-18) H Creatinine 2.1 MG/DL (0.55-1.30) H Estimat Glomerular Filtration Rate mL/min (>60) Glucose Level 151 MG/DL (74-106) H Uric Acid 9.2 MG/DL (2.6-7.2) H Calcium Level 8.5 MG/DL (8.5-10.1) Phosphorus Level 3.7 MG/DL (2.5-4.9) Magnesium Level 2.3 MG/DL (1.8-2.4) Total Bilirubin 0.4 MG/DL (0.2-1.0) Aspartate Amino Transf (AST/SGOT) 19 U/L (15-37) Alanine Aminotransferase (ALT/SGPT) 23 U/L (12-78) Alkaline Phosphatase 158 U/L (46-116) H Troponin I 0.048 ng/mL (0.000-0.056) C-Reactive Protein, Quantitative 3.4 mg/dL (0.00-0.90) H Pro-B-Type Natriuretic Peptide 6338 pg/mL (0-125) H Total Protein 6.2 G/DL (6.4-8.2) L Albumin 2.2 G/DL (3.4-5.0) L Globulin 4.0 g/dL Albumin/Globulin Ratio 0.6 (1.0-2.7) L Thyroid Stimulating Immunoglobulin Pending Thyroglobulin Antibody Pending Height (Feet): 5 Height (Inches): 6.00 Weight (Pounds): 169 Medications Current Medications Medications (Trade) Dose Ordered Sig/Sathish Route PRN Reason Start Time Stop Time Status Last Admin Dose Admin Acetaminophen (Tylenol) 500 mg Q6H PRN ORAL PAIN 1-6 12/18/18 22:15 01/16/19 10:14 Al Hydroxide/Mg Hydroxide (Mylanta) 30 ml Q6H PRN ORAL nausea/acid reflux 12/19/18 12:00 01/18/19 11:59 Amiodarone HCl (Cordarone) 400 mg DAILY ORAL 12/21/18 09:00 01/17/19 20:59 12/21/18 09:08 Amoxicillin/ Clavulanate Potassium (Augmentin) 500 mg EVERY 12 HOURS ORAL 12/19/18 21:00 12/26/18 20:59 12/21/18 09:07 Aspirin (ASA) 81 mg DAILY ORAL 12/19/18 09:00 01/14/19 11:14 12/21/18 09:09 Atorvastatin Calcium (Lipitor) 20 mg BEDTIME ORAL 12/18/18 21:00 01/14/19 20:59 12/20/18 21:21 Barium Sulfate (Readi-Cat 2) 450 ml NOW PRN ORAL Radiology Procedure 12/20/18 13:45 12/22/18 13:38 Carvedilol (Coreg) 25 mg EVERY 12 HOURS ORAL 12/18/18 21:00 01/17/19 20:59 12/21/18 09:09 Clopidogrel Bisulfate (Plavix) 75 mg DAILY ORAL 12/19/18 09:00 01/14/19 11:14 12/21/18 09:10 Dextrose (Dextrose 50%) 25 ml Q30M PRN IV Hypoglycemia 12/19/18 20:30 01/18/19 20:29 Dextrose (Dextrose 50%) 50 ml Q30M PRN IV Hypoglycemia 12/19/18 20:30 01/18/19 20:29 Diatrizoate Meglum/ Diatrizoate Sod (Gastrografin) 30 ml NOW PRN ORAL Radiology Procedure 12/20/18 13:45 12/22/18 13:38 Docusate Sodium (Colace) 100 mg TID ORAL 12/20/18 18:00 01/18/19 17:59 12/21/18 13:38 Finasteride (Proscar) 5 mg DAILY ORAL 12/19/18 09:00 01/18/19 08:59 12/21/18 09:09 Furosemide (Lasix) 40 mg DAILY ORAL 12/21/18 14:00 01/20/19 13:59 Hydralazine HCl (Apresoline) 50 mg Q8HR ORAL 12/20/18 14:00 01/18/19 13:59 12/21/18 13:37 Insulin Aspart (NovoLOG) BEFORE MEALS AND HS SUBQ 12/19/18 21:00 01/18/19 20:59 12/21/18 06:23 Insulin Detemir (Levemir) 15 units BEDTIME SUBQ 12/18/18 22:30 01/14/19 22:29 12/20/18 21:29 Insulin Detemir (Levemir) 25 units DAILY SUBQ 12/19/18 09:00 01/14/19 11:14 12/21/18 09:20 Isosorbide Mononitrate (Imdur) 60 mg DAILY ORAL 12/21/18 09:00 01/18/19 08:59 12/21/18 09:10 Methimazole (Tapazole) 20 mg DAILY ORAL 12/21/18 09:00 01/20/19 08:59 12/21/18 09:08 Nateglinide (Starlix) 120 mg TIAC ORAL 12/21/18 06:30 01/20/19 06:29 12/21/18 11:53 Ondansetron HCl (Zofran ODT) 4 mg Q6H PRN ORAL Nausea & Vomiting 12/19/18 10:15 01/18/19 10:14 12/19/18 17:55 Pantoprazole (Protonix) 40 mg DAILY ORAL 12/22/18 09:00 01/21/19 08:59 Sucralfate (Carafate) 1 gm FOUR TIMES A DAY ORAL 12/20/18 18:00 01/19/19 17:59 12/21/18 13:37 Tamsulosin HCl (Flomax) 0.4 mg BID ORAL 12/19/18 18:00 01/16/19 20:59 12/21/18 09:10 Tramadol HCl (Ultram) 50 mg Q6H PRN ORAL Severe Pain (Pain Scale 7-10) 12/18/18 22:15 12/24/18 10:14 Assessment/Plan Problem List: (1) Abdominal pain Assessment & Plan: The appendix is prominent in caliber, but caliber is similar to the previous exam and there is gas within the bulbous tip. There is soft tissue stranding along the right paracolic gutter which was not evident previously. No definite colon wall thickening is evident, however. There is no evidence of colonic diverticulosis or diverticulitis. No small bowel distention or small bowel wall thickening. There is trace fluid within the pelvis. No free intraperitoneal gas is evident. The distal esophagus, stomach, duodenum are unremarkable. Lack of IV contrast limits assessment of the solid organs. The gallbladder has been removed in the interim. There is no biliary ductal dilatation. The liver, pancreas, spleen, adrenals are unremarkable. Again demonstrated is fairly extensive bilateral perinephric fat stranding. No renal or ureteral calculi, hydronephrosis, or hydroureter. There is a Cline catheter present within the bladder, which is nondistended. Small amount of air within the bladder lumen is presumably related to the Cline catheterization. The prostate is somewhat prominent with calcifications. This is also evident previously. There is diffuse edema of the subcutaneous fat, slightly increased from the prior study. There are now bilateral large pleural effusions. These result in compressive atelectatic changes at both lung bases. No acute process otherwise interim placement of a right common iliac artery stent. Patency is indeterminate due to the lack of IV contrast. The bones demonstrate fairly extensive degenerative proliferative changes of the lumbar spine. Impression: Nonspecific soft tissue stranding adjacent to the right colon, without other evidence of colonic inflammatory change. Could represent diverticulitis related to occult diverticula disease, among other possibilities No definite acute process otherwise Bilateral large pleural effusions. Compressive atelectatic changes of both lung bases Interim cholecystectomy Trace free pelvic fluid, significance/etiology uncertain Nonspecific bilateral perinephric fat stranding, also evident previously Diffuse edema of the subcutaneous fat, increased from previous exam --No acute surgical intervention planned okay for diet IV Abx will follow with recs thank you ICD Codes: R10.9 - Unspecified abdominal pain SNOMED: [id number] LaurolavonovidioMadeline grahamya Dec 21, 2018 14:22
--- NOTE | 2018-12-21 14:28 | Pulmonology Progress Note ---
Assessment/Plan Problems: (1) Atrial fibrillation with rapid ventricular response (2) Acute exacerbation of CHF (congestive heart failure) (3) Acute kidney injury superimposed on CKD (4) Gram positive bacterial infection (5) DM (diabetes mellitus) (6) HTN (hypertension) (7) Hypoxemia Assessment/Plan Optimize pulmonary hygiene/mobilize as tolerated PRN O2 Abx (PO Augmentin) per ID F/U CARDS/EPS recs ---> PO MTP, Eliquis (held) ---> plan to transfer for cath F/U GI and surgery recs Monitor volumes and renal function, renal recs, diuretics Glycemic control Aspiration precautions DVT Px: Eliquis + SCD's FC Awaiting transfer to OSH for C Subjective Allergies: Coded Allergies: No Known Allergies (Unverified , 08/14/15) Subjective AFVSS in SR O2 needs stable no cough less SOB no CP no FC CT with possible diverticulitis Large b effusions noted as well Objective Last 24 Hour Vital Signs Date Time Temp Pulse Resp B/P (MAP) Pulse Ox O2 Delivery O2 Flow Rate FiO2 12/21/18 13:37 118/51 12/21/18 12:00 97.8 69 22 118/51 (73) 96 12/21/18 12:00 69 12/21/18 09:10 138/65 12/21/18 09:09 78 138/65 12/21/18 08:05 78 18 94 Nasal Cannula 2.0 28 12/21/18 08:05 94 Nasal Cannula 2.0 28 12/21/18 08:00 76 12/21/18 08:00 97.5 76 20 138/65 (89) 97 12/21/18 06:21 127/62 12/21/18 04:00 73 12/21/18 04:00 97.7 75 18 127/62 (83) 97 12/21/18 00:00 78 12/21/18 00:00 98.1 74 18 101/54 (70) 97 12/20/18 21:22 134/67 12/20/18 21:21 82 134/67 12/20/18 20:02 81 20 99 Nasal Cannula 3.0 32 12/20/18 20:02 99 Nasal Cannula 3.0 32 12/20/18 20:00 80 12/20/18 20:00 97.9 82 20 134/67 (89) 99 12/20/18 16:00 74 12/20/18 16:00 97.9 74 20 130/68 (88) 99 Intake and Output 12/20/18 12/21/18 19:00 07:00 Intake Total 120 ml Output Total 300 ml Balance -180 ml Intake Oral 120 ml Output Urine Total 300 ml # Bowel Movements 1 General Appearance: no acute distress, cachetic HEENT: normocephalic, atraumatic, anicteric, mucous membranes moist Respiratory/Chest: chest wall non-tender, crackles/rales Cardiovascular: normal peripheral pulses, normal rate, regular rhythm Abdomen: normal bowel sounds, soft, non tender, no organomegaly, non distended , no mass Extremities: no cyanosis, no clubbing, no edema Microbiology Date/Time Source Procedure Growth Status 12/19/18 09:14 Sputum Gram Stain - Final Resulted 12/19/18 09:14 Sputum Culture - Preliminary YEAST Usual Respiratory Geraldine Resulted Laboratory Tests 12/21/18 04:20: Urine Eosinophils None seen 12/21/18 05:50: White Blood Count 12.4H, Red Blood Count 3.41L, Hemoglobin 9.8L, Hematocrit 29.6L, Mean Corpuscular Volume 87, Mean Corpuscular Hemoglobin 28.6, Mean Corpuscular Hemoglobin Concent 33.0, Red Cell Distribution Width 12.9, Platelet Count 271, Mean Platelet Volume 7.3, Neutrophils (%) (Auto) 75.8H, Lymphocytes ( %) (Auto) 13.6L, Monocytes (%) (Auto) 8.2, Eosinophils (%) (Auto) 2.0, Basophils (%) (Auto) 0.5, Sodium Level 141, Potassium Level 4.4, Chloride Level 108H, Carbon Dioxide Level 25, Anion Gap 8, Blood Urea Nitrogen 32H, Creatinine 2.1H, Estimat Glomerular Filtration Rate , Glucose Level 151H, Uric Acid 9.2H, Calcium Level 8.5, Phosphorus Level 3.7, Magnesium Level 2.3, Total Bilirubin 0.4, Aspartate Amino Transf (AST/SGOT) 19, Alanine Aminotransferase (ALT/SGPT) 23, Alkaline Phosphatase 158H, Troponin I 0.048, C-Reactive Protein, Quantitative 3.4H, Pro-B-Type Natriuretic Peptide 6338H, Total Protein 6.2L, Albumin 2.2L, Globulin 4.0, Albumin/Globulin Ratio 0.6L, Thyroid Stimulating Immunoglobulin [Pending], Thyroglobulin Antibody [Pending] Current Medications Medications (Trade) Dose Ordered Sig/Sathish Route PRN Reason Start Time Stop Time Status Last Admin Dose Admin Acetaminophen (Tylenol) 500 mg Q6H PRN ORAL PAIN 1-6 12/18/18 22:15 01/16/19 10:14 Al Hydroxide/Mg Hydroxide (Mylanta) 30 ml Q6H PRN ORAL nausea/acid reflux 12/19/18 12:00 01/18/19 11:59 Amiodarone HCl (Cordarone) 400 mg DAILY ORAL 12/21/18 09:00 01/17/19 20:59 12/21/18 09:08 Amoxicillin/ Clavulanate Potassium (Augmentin) 500 mg EVERY 12 HOURS ORAL 12/19/18 21:00 12/26/18 20:59 12/21/18 09:07 Aspirin (ASA) 81 mg DAILY ORAL 12/19/18 09:00 01/14/19 11:14 12/21/18 09:09 Atorvastatin Calcium (Lipitor) 20 mg BEDTIME ORAL 12/18/18 21:00 01/14/19 20:59 12/20/18 21:21 Barium Sulfate (Readi-Cat 2) 450 ml NOW PRN ORAL Radiology Procedure 12/20/18 13:45 12/22/18 13:38 Carvedilol (Coreg) 25 mg EVERY 12 HOURS ORAL 12/18/18 21:00 01/17/19 20:59 12/21/18 09:09 Clopidogrel Bisulfate (Plavix) 75 mg DAILY ORAL 12/19/18 09:00 01/14/19 11:14 12/21/18 09:10 Dextrose (Dextrose 50%) 25 ml Q30M PRN IV Hypoglycemia 12/19/18 20:30 01/18/19 20:29 Dextrose (Dextrose 50%) 50 ml Q30M PRN IV Hypoglycemia 12/19/18 20:30 01/18/19 20:29 Diatrizoate Meglum/ Diatrizoate Sod (Gastrografin) 30 ml NOW PRN ORAL Radiology Procedure 12/20/18 13:45 12/22/18 13:38 Docusate Sodium (Colace) 100 mg TID ORAL 12/20/18 18:00 01/18/19 17:59 12/21/18 13:38 Finasteride (Proscar) 5 mg DAILY ORAL 12/19/18 09:00 01/18/19 08:59 12/21/18 09:09 Furosemide (Lasix) 40 mg DAILY ORAL 12/21/18 14:00 01/20/19 13:59 Hydralazine HCl (Apresoline) 50 mg Q8HR ORAL 12/20/18 14:00 01/18/19 13:59 12/21/18 13:37 Insulin Aspart (NovoLOG) BEFORE MEALS AND HS SUBQ 12/19/18 21:00 01/18/19 20:59 12/21/18 06:23 Insulin Detemir (Levemir) 15 units BEDTIME SUBQ 12/18/18 22:30 01/14/19 22:29 12/20/18 21:29 Insulin Detemir (Levemir) 25 units DAILY SUBQ 12/19/18 09:00 01/14/19 11:14 12/21/18 09:20 Isosorbide Mononitrate (Imdur) 60 mg DAILY ORAL 12/21/18 09:00 01/18/19 08:59 12/21/18 09:10 Methimazole (Tapazole) 20 mg DAILY ORAL 12/21/18 09:00 01/20/19 08:59 12/21/18 09:08 Nateglinide (Starlix) 120 mg TIAC ORAL 12/21/18 06:30 01/20/19 06:29 12/21/18 11:53 Ondansetron HCl (Zofran ODT) 4 mg Q6H PRN ORAL Nausea & Vomiting 12/19/18 10:15 01/18/19 10:14 12/19/18 17:55 Pantoprazole (Protonix) 40 mg DAILY ORAL 12/22/18 09:00 01/21/19 08:59 Sucralfate (Carafate) 1 gm FOUR TIMES A DAY ORAL 12/20/18 18:00 01/19/19 17:59 12/21/18 13:37 Tamsulosin HCl (Flomax) 0.4 mg BID ORAL 12/19/18 18:00 01/16/19 20:59 12/21/18 09:10 Tramadol HCl (Ultram) 50 mg Q6H PRN ORAL Severe Pain (Pain Scale 7-10) 12/18/18 22:15 12/24/18 10:14 Mich Marie MD Dec 21, 2018 14:27
[2018-12-21] MEDS ORDERED: NS 275ml ONE (14:57)
[2018-12-21] MEDS ORDERED: NS Irrig 1000ml ONE (14:57)
[2018-12-21] MEDS ORDERED: Tubing IV Secondary IV ONE (14:57)
--- NOTE | 2018-12-21 15:24 | NUR ---
*-* INSURANCE *-* ALL CLINICALS AND REVIEWS HAVE BEEN FAXED TO: [facility] [place] TRK# [id number] F: [phone] SODA FLAKER: PHYLLIS SAENZ P: [phone]
[2018-12-21 16:00] VITALS: BP 117/56
--- NOTE | 2018-12-21 16:30 | Consultation ---
DATE OF CONSULTATION: 12/21/2018 ENDOCRINOLOGY CONSULTATION CONSULTING PHYSICIAN: Kalyan Rowley M.D. REFERRING PHYSICIAN: Dania Nunes M.D. REASON FOR CONSULTATION: 1. Hyperthyroidism. 2. Diabetes, out of control. HISTORY OF PRESENT ILLNESS: The patient is a 73-year-old male with history of diabetes and without any history of hyperthyroidism, who presented to the hospital with shortness of breath x5 days, increased orthopnea, and lower extremity swelling. The patient was diagnosed with CHF exacerbation as well as new onset atrial fibrillation, on amiodarone. Prior to the start, the patient's thyroid function was ordered and thyroid function was obtained and was noted to have a suppressed TSH and elevated T4. Endocrinology was consulted. PAST MEDICAL HISTORY: 1. Diabetes, on insulin. 2. Hypertension. 3. CHF. 4. PAD. 5. Coronary artery disease. PAST SURGICAL HISTORY: 1. Left toe amputation. 2. Cholecystectomy. FAMILY HISTORY: Mother with type 2 diabetes. SOCIAL HISTORY: Ex-smoker and ex-drinker. No drugs. ALLERGIES TO MEDICATION: None. MEDICATIONS: Reviewed and reconciled. REVIEW OF SYSTEMS: A 12-point review of systems was performed and the pertinent positives and negatives are mentioned in history of present illness. LABORATORY DATA: Sodium 141, potassium 4, chloride 108, bicarbonate 24, BUN 24, creatinine 2.1, glucose of 172. Lactic acid is 2.4. Hemoglobin The patient's TSH of 0.0, free T4 of 1.9, free T3 of 2.1. PHYSICAL EXAMINATION: GENERAL: He is awake and alert. VITAL SIGNS: Blood pressure is 127/72, pulse of 75, temperature of 97.7, respiratory rate 18. HEENT: Pupils are reactive to light. Sclerae are anicteric. NECK: No JVD. No thyromegaly. HEART: Irregular. LUNGS: Clear. ABDOMEN: Positive bowel sounds. EXTREMITIES: No clubbing, cyanosis. Positive for toe gangrene. DIAGNOSES: 1. CHF exacerbation. 2. Atrial fibrillation. 3. Hyperthyroidism. 4. Diabetes, out of control. 5. CKD. PLAN: 1. Check thyroid antibodies, rule out Graves disease. 2. Start methimazole 20 mg daily. 3. The patient is currently not on amiodarone, which may exacerbate the thyroid function and amiodarone has a high load of iodine and in the context of hyperthyroidism and it will probably exacerbate the hyperthyroidism. 4. We will discuss with cardiology for possible change of this medication. 5. Continue Levemir as is. 6. Continue NovoLog sliding scale before meals and at bedtime. 7. Add Starlix 120 mg before each meal. 8. Further adjustment according to glucose values. I will follow during the hospital stay. Thank you, Dr. Nunes courtesy of this consultation. Kalyan Rowley M.D. DR: WINIFRED JOB#: [id number] CC: CARLA
--- NOTE | 2018-12-21 18:15 | NUR ---
NURSE NOTES: Called [facility] [phone] to give nurse to nurse report, No answer, No answering machine.
--- NOTE | 2018-12-21 18:38 | NUR ---
NURSE NOTES: Called to [facility] and report given to Fang/RN.
--- NOTE | 2018-12-21 19:49 | NUR ---
NURSE NOTES: Ambulance personnel is here to transfer patient to [facility], family helper removed, No acute distress/SOB noted. Vital signs are in normal limits. Transfer package and belonging given to ambulance personnel.
--- NOTE | 2018-12-22 15:33 | Cardiology Report ---
APPROVED REPORT EKG Measurement Heart [id number] Sinus rhythm with 1st degree AV block Septal infarct, age undetermined Lateral infarct, age undetermined Abnormal ECG
--- NOTE | 2018-12-22 21:06 | Discharge Summary ---
Discharge Summary Hospital Course Date of Admission Dec 15, 2018 at 02:46 Date of Discharge Dec 21, 2018 at 20:04 Admitting Diagnosis CHF, atrial fibrillation, hyperthyroidism, pneumonia, sepsis HPI Ernie Frances is a 73 year old male who was admitted on Dec 15, 2018 at 02: 46 for Congestive Heart Failure Consultations Nephrology Urology Cardiology INfectious Disease Pulmonology Gastroenterology Endocrinology General Surgery Hospital Course This is a 73 year old male with a PMHx Dm2, HTN, CHF, PAD s/p left iliac stent placement 01/05/19 and supsequent left 2nd toe amputation for gangrene/ osteomyelitis, CAD who presented with increased SOB x 5 days. Increased orthopnea and lower extremity swelling. Dry cough. no fevers or chills. Of note patient recently hospitalized last month for L second toe foul smelling necrosis, gangrene and osteomyelitis. Was continued on vancomycin, cefepime and flagyl until patient underwent LLE angiogram and left iliac? stent on approximately 12/06/18. Subsequently had left toe amputated. He does not endorse any pain, redness or drainage from the toe. Denies any other rashes, lesions ulcers. On admission the patient was in acute respiratory distress. The patient was placed on BiPAP. WBC 18, lactate 2.3, proBNP 39402, troponin 0.266 and EKG showed atrial fibrillation with RVR. CXR showed pulmonary edema. Patient given IV lasix and transferred to ICU. Echocardiogram was performed which showed a new diagnosis of systolic heart failure with an ejection fraction of 30%. No prior echocardiograms available for comparison. Cardiology was consulted who helped manage the patient's diuresis placed the patient on Coreg and afterload reduction with hydralazine and Imdur. He was titrated off BiPAP onto nasal cannula. An JUAN MANUEL inhibitor was not started because of renal failure. Given the patient's low ejection fraction he needed an ischemic work-up because none was done before. He was transferred to an outside hospital for a cardiac cath. On admission the patient was in atrial fibrillation with RVR which is a new diagnosis. His rate was controlled with a diltiazem drip, metoprolol eventually switched to Coreg, and digoxin. His rate was controlled. An extensive discussion was performed using a cloth printer to discuss the risks and benefits of anticoagulation given that the patient was already on aspirin and Plavix for a prior stent. The patient agreed to anticoagulation and he was started on Eliquis 2.5 mg p.o. twice daily (renal dosing). He did not have any significant bleeding during the hospitalization On hospital day 4 the patient began to complain of persistent diffuse abdominal pain. A CT abdomen pelvis was performed which showed cecal diverticulitis. Surgery and gastroenterology was consulted who recommended no acute intervention. He was continued on Augmentin which was also treating a presumed pneumonia. His WBC down trended and vital signs remained stable. Nephrology was consulted for acute on presumed chronic renal failure and assisted with blood pressure control and diuresis. Renal ultrasound was normal. his creatinine stabilized around 2. The patient also developed acute renal urinary retention which is a new problem. A Davila catheter was inserted and he was seen by urology who recommended tamsulosin and finasteride and outpatient follow-up for a voiding trial. The patient was also diagnosed with hyperthyroidism with a TSH of 0.05 and a T4 of 1.95. He was seen by endocrinology Dr. York who recommended to start the patient on methimazole. Need to follow-up on antithyroid antibodies that are currently pending. The patient was hemodynamically stable and transferred to outside hospital for cardiac cath. #Cecal diverticulitis, present on admission. Patient did not endorse any abdominal pain on admission and was nontender on exam. However after 4 days in the hospital the patient began to experience more pain, WBC increased, and became more tender on exam #sepsis (WBC, heart rate, RR) 2/2 diverticulitis vs. pneumonia, resolved #Clostridium perfingens in 1/2 blood culture- likely contaminant per ID > 6 the patient has had abdominal pain for the past [address] abdomen pelvis showed cecal diverticulitis. > abdominal Ultrasound negative: S/p cholecystectomy > C diff negative > ESR 74, CRP 1.4, unlikely osteomyelitis -continue Protonix daily- appears to help symptoms -Appreciate GI consult: Dr. Garrison -Appreciated surgery consult: Dr. Islas - no surgical intervention -Check a stool occult blood -Continue Augmentin -Appreciate ID recommendations: Dr. Mensah #hyperthyroidism, new diagnosis > TSH 0.05, T4 1.95 - Appreciate Endocrinology consult: Dr. Rowley -Per endocrinology patient started on methimazole -follow up on anti-TSI and anti thyroid ab #acute hypoxic respiratory failure 2/2 systolic CHF exacerbation (new diagnosis ) and possible pneumonia- no known history of CHF. Also treating for possible pneumonia - Slightly worsened today. Will resume diuretics - telemetry - titrate SpO2 to keep O2 >92% - f/u blood cultures. 1/4 sets clostridium perfingens. Likely contaminant per ID. Surveilance cultures negative to date - f/u sputum culture - s/p Vancomycin, Cefepime and Flagyl - Change to Augmentin per ID - Day 7. will need a total of 10 days - Resume Lasix 40 mg p.o. daily - Continue afterload reduction with hydralazine and Imdur per cardiology and nephrology Patient- JUAN MANUEL-I contraindicated in setting of acute renal failure - Per cardiology given low EF will need ischemia workup. Per cardiology, an extensive discussion was performed at bedside using a cloth printer area, to discuss the need for an ischemia workup including a cardiac angiogram. The patient initially declined any further cardiac intervention but now agrees. Pending insurance authorization for transfer to [facility] for cariac cath. - Informed by outside hospital to keep patient NPO for possible procedure today - appreciate Cardiology recommendations: Dr. Richter - Appreciate Infectious Disease recommendations: Dr. Mensah #Atrial fibrillation with RVR, new diagnosis. - IMPROVINg, CHADS-VASC 5 - risk of stroke 7.2% per year HASBLED - 3 - risk of bleeding 5.8% per year > Explained to patient risks and benefits of anticoagulation with Asa/Plavix and an anticoagulant. Patient understands the risks of stroke are > than risk of bleeding and would like to take the anticoagulant. Will start patient on eliquis renal dosing 2.5mg PO BID - s/p Diltiazem Gtt - Coreg and digoxin for heart rate controlled - holding eliquis for now due to pending cardiac cath - appreicate cardiology recommendations #acute urinary retention, new problem > UA and urine culture negative - Inserted davila on 12/17/09 - Tamsulosin 0.4mg PO daily - Finasteride - Appreciate urology recommendations: Dr. Cheney. - Per urology continue davila on discharge. Follow up as outpatient for voiding trial #Acute on Chronic Renal failure 2/2 CHF exacerbation and urinary obstruction - Stabilizing. Not back to baseline yet > Baseline Cr 1.5 > Renal ultrasound negative - diuresis as above - continue to trend - avoid nephrotoxins - replace lytes - Appreciate nephrology consultation: Dr. Raymond #Hypertension #hyperlipidemia #CAD -hold home amlodipine - continue Coreg as above - ASA/Plavix as above #hypokalemia #hypomagnesemia - replete - continue to monitor with labs #lactic acidosis suspected 2/2 CHF exacerbation vs. 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 > ESR 73, CRP 1.4 - wound consult - request [facility] #Diabetes mellitus type 1 per patient (suspect this is an error and has type 2) with hyperglycemia- improved > Hemoglobin A1C 8.6 on 12/17/09 - accuchecks Q6hr - Diabetic diet - Levemir 25 units QAM and 15 units QPM (home is 25 and 30) - SSI, average - nateglinide 120mg TIDAC per endocrinology recommendations FENPPx DVT PPx: eliquis on hold for cardiac cath, SCDs GI PPX: protonix Fluids: none Diet: Diabetic diet Lines: none PT/OT: pending Dispo: To OSH for cardiac cath D/w RN, patient, Cardiology, Pulmonology, Gastroenterology, Surgery. I spent > 30 minutes on this discharge. >50% spent on counseling and care coordination. Time of note may not reflect time patient was seen Discharge Condition Upon Discharge: stable Discharge Disposition Patient was discharged to Acute Care Facility(02) Discharge Diagnoses: (1) Acute respiratory failure with hypoxia (2) Hyperthyroidism (3) Atrial fibrillation with rapid ventricular response (4) Acute kidney injury superimposed on CKD (5) Cecal diverticulitis (6) Hypoxemia (7) HTN (hypertension) (8) DM (diabetes mellitus) (9) Cardiomyopathy (10) Cholelithiasis (11) Bladder outlet obstruction (12) Abdominal pain (13) Systolic heart failure (14) CHF exacerbation Ben Nguyen D.O. Dec 22, 2018 21:06
== END 2018-12-21 20:04 | disposition short-term general hospital (02) | DRG 871 ==
LOC: EDBD 00:10 → EMR 00:51 → 2W 02:46 → EDBEDREQ 03:28 → ICU 10:57 → 2W 12-16 19:04 → 2E 12-18 20:52
PROC: 5A09357 Assistance with Respiratory Ventilation, Less than 24 Consecutive Hours, Continuous Positive Airway Pressure (ICD-10-PCS; principal; 2018-12-15)
DX: A41.9 Sepsis, unspecified organism (principal); I50.23 Acute on chronic systolic (congestive) heart failure; J18.9 Pneumonia, unspecified organism; N17.9 Acute kidney failure, unspecified; L03.119 Cellulitis of unspecified part of limb; K57.32 Diverticulitis of large intestine without perforation or abscess without bleeding; I13.0 Hypertensive heart and chronic kidney disease with heart failure and stage 1 through stage 4 chronic kidney disease, or unspecified chronic kidney disease; I42.9 Cardiomyopathy, unspecified; I50.9 Heart failure, unspecified; I11.0 Hypertensive heart disease with heart failure; I48.91 Unspecified atrial fibrillation; E10.65 Type 1 diabetes mellitus with hyperglycemia; E10.628 Type 1 diabetes mellitus with other skin complications; E05.90 Thyrotoxicosis, unspecified without thyrotoxic crisis or storm; E10.22 Type 1 diabetes mellitus with diabetic chronic kidney disease; N18.9 Chronic kidney disease, unspecified; E87.6 Hypokalemia; E83.42 Hypomagnesemia; Z89.422 Acquired absence of other left toe(s); K80.20 Calculus of gallbladder without cholecystitis without obstruction; N32.0 Bladder-neck obstruction; R10.9 Unspecified abdominal pain; I25.10 Atherosclerotic heart disease of native coronary artery without angina pectoris; I73.9 Peripheral vascular disease, unspecified; N31.9 Neuromuscular dysfunction of bladder, unspecified; N40.1 Benign prostatic hyperplasia with lower urinary tract symptoms; R33.8 Other retention of urine
CPT/HCPCS: 36415; 36600; 71045; 74176; 76700; 76770; 80048; 80053; 80061; 80162; 80202; 81001; 81003; 82248; 82550; 82553; 82607; 82728; 82746; 82803; 82962; 82977; 83036; 83540; 83550; 83605; 83690; 83735; 83880; 84100; 84436; 84439; 84443; 84481; 84484; 84550; 85007; 85025; 85379; 85651; 85730; 86140; 86376; 87040; 87070; 87081; 87086; 87205; 89050; 93005; 93306; 93970; 94660; 94664; 96365; 96375; 96376; 99291; J1815; J8499; S5561